=== PATIENT | female | born 1995 | race Caucasian/White ===

== ENCOUNTER → 2019-03-16 17:30 | Outpatient (CLI) | payer OTHER, SELFPAY ==
[2019-03-16 18:14] LABS: Basophils % 0.2 % (0.1-2.0); Eosinophils # 0.2 K/mm3 (0.0-0.4); Hematocrit 41.3 % (37.0-47.0); Hemoglobin 13.7 g/dL (12.2-16.2); Lymphocytes # 1.8 K/mm3 (0.7-4.5); Lymphocytes % 26.4 % (10-50); Mean Corpuscular HGB Conc 33.3 g/dL (31.8-35.4); Mean Corpuscular Volume 90.4 fl (81-99); Mean Platelet Volume 8.1 fl (7.4-10.4); Monocytes # 0.3 K/mm3 (0.1-1.0); Monocytes % 4.6 % (1.7-9.3); Neutrophils # 4.6 K/mm3 (1.8-7.8); Neutrophils % 65.8 % (37.0-80.0); Platelet Count 238 K/mm3 (142-424); Red Blood Count 4.57 M/mm3 (4.20-5.40); Red Cell Distribution Width 12.1 % (11.5-17.5); White Blood Count 6.9 K/mm3 (4.8-10.8)
[2019-03-16 19:19] LABS: Alanine Aminotransferase 22 U/L (12-78); Albumin/Globulin Ratio 1.3 (1.1-1.8); Alkaline Phosphatase 58 U/L (46-116); Anion Gap 14.1 mEq/L (5-15); Aspartate Amino Transferase 8 U/L (15-37); Bilirubin,Total 0.7 mg/dL (0.2-1.0); Blood Urea Nitrogen 14 mg/dL (7-18); Calcium 8.8 mg/dL (8.5-10.1); Carbon Dioxide 27 mmol/L (21.0-32.0); Chloride 103 mmol/L (98-107); Chol/HDL Ratio 3.2 (1-3.5); Cholesterol 136 mg/dL (140-200); Creatinine,Serum 0.76 mg/dL (0.55-1.02); Estimated Glomerular Filt Rate 93 ml/min (>60); GFR (African American) 113 ML/MIN (>60); Glucose 90 mg/dL (74-106); HDL Cholesterol 42 mg/dL (29-89); LDL Cholesterol 76 mg/dL (0-130); Potassium 4.1 mmoL/L (3.5-5.1); Sodium 140 mmol/L (136-145); T4 (Thyroxine) 6.5 ug/dl (4.7-13.3); Thyroid Stimulating Hormone 0.96 uIU/ml (0.358-3.740); Triglycerides 89 mg/dL (30-200); VLDL Cholesterol 18 mg/dL (0-40)
[2019-03-19 08:56] LABS: Vitamin D 25 Hydroxy 23.2 ng/mL (30.0-100.0)
== END ==
PROVIDERS: Visit Provider Emergency Medicine
DX: F41.9 Anxiety disorder, unspecified (principal)
CPT/HCPCS: 80053; 80061; 82652; 84436; 84443; 85025

== ENCOUNTER 2020-05-01 13:03 | Emergency (ER) | payer OTHER, SELFPAY ==
[2020-05-01 13:12] VITALS: BP 114/72; PULSE 84; RESP 19; TEMP 37.2; O2SAT 97; BMI 23.1
[2020-05-01 13:27] LABS: UTC Strep Screen (Rapid) Negative (Negative)
--- NOTE | 2020-05-01 13:31 | HMH.EDUTC ---
[facility] [place] Clinical Impression: Pharyngitis Qualifiers: Pharyngitis/tonsillitis etiology: unspecified etiology Qualified Code(s): J02.9 - Acute pharyngitis, unspecified Disposition: Home, Self-Care Condition on Discharge: Good Instructions: DI for Pharyngitis/Tonsillopharyngitis -- Adult, Sore Throat, Azithromycin, Prednisone Additional Instructions: *Monitor Temp, Over the counter Motrin or Tylenol as directed/as needed Tylenol every 4 hours and Motrin every 6 hours (as long as your family doctor has told you that you can take it) for fever or pain. and straight to ER if unable to lower temp less than 101.0 after medication given *Warm salt water gargles may help to soothe the throat *Throat Lozenges *Warm fluids like tea with honey may help to soothe the throat *Sleep elevated *Humidifier/Vaporizer *Flonase 2 sprays in each nostril daily but be aware that it may take 2-3 days before you notice improvement Your throat swab was sent for culture. Those results are typically sent to your primary care. Be sure to follow up in 2-3 days with your family doctor/primary care physician if no improvement so they can review those result and treat if necessary. If you don?t have a primary care doctor, I recommend you get one but in the mean time, you will have to return to a walk in clinic Follow up IMMEDIATELY for new or worsening symptoms or no Noticeable improvement over the next 48-72 hours. 911 for difficulty breathing or swallowing Prescriptions: predniSONE [Deltasone 10mg tablet] 10 mg PO BID 5 Days #10 tab Transmission Status: Pending to [facility] Fluticasone Propionate [Flonase 50mcg nasal spray 16gm] 1 spr NS DAILY #1 bottle Transmission Status: Pending to [facility] Azithromycin [Z-Enmanuel 250mg Tab] 250 mg PO DIRECTED #6 tab Transmission Status: Pending to [facility] Referrals: Gary Barraza MD [Primary Care Provider] - As needed Time of Disposition: 13:41 Medical Decision Making - Beny Inquiry Pt receiving controlled substance: No Beny was queried for this patient: No Vital Signs: 05/01/20 13:12 Temperature 98.9 F Temperature Source Oral Pulse Rate [Left] 84 Respiratory Rate 19 Blood Pressure [Right Arm] 114/72 Blood Pressure Mean [Right Arm] 86 Blood Pressure Source [Right Arm] Automatic Cuff Blood Pressure Position [Right Arm] Sitting 02 Sat by Pulse Oximetry 97 Oxygen Delivery Method Room Air - Lab Data Lab results reviewed: Yes: I reviewed the patient's lab results. Lab Results 05/01/20 13:07: Strep Scn Rapid Clinic Negative Orders (Tests/Meds): ORDERS Category Date Time Status Strep Screen Confirmation Stat Micro 05/01/20 13:07 Received [facility] [place] HPI - General Stated complaint: sore throat Time Seen by Provider: 05/01/20 13:31 Mode of Arrival: Ambulatory Source of Information: Patient Limitations: No Limitations Description of Symptoms (Recalled from Triage Doc. by RN): Pt c/o of sore throat, low grade fever, ear pain and headache HEENT Symptoms (Recalled from RN notes): Yes (sore throat, ear pain) Resp Symptoms (Recalled from RN notes): No Skin Symptoms (Recalled from RN notes): No MS Symptoms (Recalled from RN notes): No Functional Status (Recalled from RN notes): stable - History of Present Illness Provider Complaint: Patient states that she has been having sore throat mainly on left side, pain in her ear and feels like her throat is so sore and raw that it bleed yesterday States that throat pain is worse with swallowing States that she hasnt been around anyone with COVID19 and was recently tested at work State that she has also had headache and low grade fever - Related Data Home Medications Medication Instructions Recorded Confirmed norgestimate-ethinyl estradioL 1 tab PO DAILY 08/31/19 01/08/20 [Sprintec 28 Day Tablet] Previous Rx's Medication Instructions Recorded Azithromycin [Z-Enmanuel 250mg Tab
[2020-05-01 13:52] VITALS: BP 114/72; PULSE 84; RESP 19; TEMP 37.2; O2SAT 97
== END 2020-05-01 13:49 | disposition home or self-care (01) ==
PROVIDERS: Emergency Provider Nurse Practitioner; PCP Emergency Medicine
DX: J02.9 Acute pharyngitis, unspecified (principal); F41.9 Anxiety disorder, unspecified; G43.709 Chronic migraine without aura, not intractable, without status migrainosus; F17.210 Nicotine dependence, cigarettes, uncomplicated
CPT/HCPCS: 87880; 96372; 99201

== ENCOUNTER → 2020-07-04 16:37 | Outpatient (CLI) | payer OTHER, SELFPAY ==
[2020-07-04 17:34] LABS: Basophils % 0.2 % (0.1-2.0); Eosinophils % 0.5 % (0.1-12.0); Hematocrit 40.7 % (37.0-47.0); Hemoglobin 13.3 g/dL (12.2-16.2); Lymphocytes # 1.9 K/mm3 (0.7-4.5); Lymphocytes % 21.2 % (10-50); Mean Corpuscular HGB Conc 32.5 g/dL (31.8-35.4); Mean Corpuscular Hemoglobin 30.8 pg (27.0-31.2); Mean Corpuscular Volume 94.7 fl (81-99); Mean Platelet Volume 7.3 fl (7.4-10.4); Monocytes # 0.6 K/mm3 (0.1-1.0); Monocytes % 6.8 % (1.7-9.3); Neutrophils # 6.3 K/mm3 (1.8-7.8); Neutrophils % 71.3 % (37.0-80.0); Platelet Count 240 K/mm3 (142-424); Red Cell Distribution Width 11.8 % (11.5-17.5); White Blood Count 8.9 K/mm3 (4.8-10.8)
[2020-07-06 13:30] LABS: HIV Screen 4th Generation wRfx Non Reactive (Non Reactive); Rubella Antibodies, IgG 2.22 index (Immune >0.99)
[2020-07-07 09:33] LABS: Hepatitis B Surface Antigen Negative (Negative); Hepatitis C Antibody <0.1 s/co ratio (0.0-0.9); Rapid Plasma Reagin Ab Titer Non Reactive (NonRea<1:1)
== END ==
PROVIDERS: Visit Provider Nurse Practitioner Obstetrics & Gynecology
DX: Z34.90 Encounter for supervision of normal pregnancy, unspecified, unspecified trimester (principal)
CPT/HCPCS: 36415; 85025; 86592; 86703; 86762; 86850; 87340; 87380; G0432

== ENCOUNTER → 2020-07-08 12:38 | Outpatient (CLI) | payer OTHER, SELFPAY ==
--- NOTE | 2020-07-08 12:38 | US_ITS ---
PROCEDURE: US OB TRANSVAGINAL CLINICAL INDICATION: for dates Early Ob ultrasound for dates COMPARISON: No exams were available for comparison FINDINGS: An intrauterine gestational sac is present with a pole with a crown-rump length of 2.07 cm correlating to gestational age of 8 weeks 5 days. heart tones are present with an FHR of 170 BPM. Yolk sac is noted. IMPRESSION: Live IUP at 8 weeks 5 days with an estimated due date of 02/12/2021 Estimated due date by Ultrasound is Dictated by: Chintan Goddard MD 07/11/2020 06:22 Chintan Goddard MD in [place] 07/11/2020 06:22
== END ==
PROVIDERS: PCP Emergency Medicine; Visit Provider Nurse Practitioner Obstetrics & Gynecology
DX: Z34.90 Encounter for supervision of normal pregnancy, unspecified, unspecified trimester (principal)
CPT/HCPCS: 76817

== ENCOUNTER → 2020-09-13 17:13 | Outpatient (CLI) | payer OTHER, SELFPAY ==
[2020-09-13 17:27] LABS: Microscopic, Urine URINE MICROSCOPIC (MICROSCOPIC)
[2020-09-13 18:00] LABS: Appearance,Urine CLEAR (Clear); Bilirubin,Urine Negative (Negative); Blood, Urine TRACE-I (Negative); Color,Urine YELLOW (Yellow); Glucose,Urine (UA) Negative (Negative); Ketones,Urine Negative (Negative); Leukocyte Esterase,Urine 3+ (Negative); Nitrate,Urine Negative (Negative); PH,Urine 6.5 (5.0-8.5); Protein,Urine Negative (Negative); Urobilinogen,Urine 0.2 EU/dl (0.2)
== END ==
PROVIDERS: Visit Provider Nurse Practitioner Obstetrics & Gynecology
DX: Z34.90 Encounter for supervision of normal pregnancy, unspecified, unspecified trimester (principal); Z3A.18 18 weeks gestation of pregnancy
CPT/HCPCS: 81001; 87086; 87088; 87186

== ENCOUNTER → 2020-09-26 09:04 | Outpatient (CLI) | payer OTHER, SELFPAY ==
--- NOTE | 2020-09-26 09:04 | US_ITS ---
PROCEDURE: US OB >= 14 WEEKS FETUS CLINICAL INDICATION: 20 week gestation COMPARISON: US US OB TRANSVAGINAL from 07/08/2020 FINDINGS: There is a single live fetus present which is in cephalic presentation. heart and body motion noted. The cervix is closed measuring four cm in length. Placenta is anterior in implantation. Placenta is grade 1. Complete survey performed and was unremarkable on the submitted images as in PACS. No discrete anomalies identified on survey imaging by technologist. Active fetus. Three-vessel cord with satisfactory umbilical cord insertion. 4- chamber heart noted. Survey of brain & ventricles Unremarkable. Face and neck survey unremarkable. Diaphragm and chest views unremarkable. Abdomen: Both kidneys noted and unremarkable. Stomach noted and satisfactory. Spine: Survey of the spine satisfactory with no anomalies identified nor imaged. Both arms and legs noted. Amniotic Fluid: Adequate. Maternal adnexa: No significant findings. Measurements: Average ultrasound age 20weeks 1day. Gestational Age 20weeks 1day Estimated due date by ultrasound age 0502/12/2021. Estimated weight 331g BPD = 20weeks 1day OFD = 20 weeks 3 days HC = 19weeks 4days AC = 20weeks 2days FL = 20weeks 1day Growth Percentile= 41% Heart Rate = 150bpm Cerebellum = 19weeks 4days Humerus = 20weeks 4days HC/AC is 1.13 CI is 0.78 FL/BPD is 0.69 FL/AC is 0.22 IMPRESSION: Live IUP which is in cephalic presentation with an average ultrasound age 20 weeks and 1 day. No obvious anomalies. Please see above for detail. Dictated by: Chintan Goddard MD 09/28/2020 10:03 Chintan Goddard MD in [place] 09/28/2020 10:03
== END ==
PROVIDERS: PCP Emergency Medicine; Visit Provider Nurse Practitioner Obstetrics & Gynecology
DX: Z34.90 Encounter for supervision of normal pregnancy, unspecified, unspecified trimester (principal); Z3A.20 20 weeks gestation of pregnancy
CPT/HCPCS: 76805

== ENCOUNTER 2020-10-06 11:59 | Outpatient (CLI) | payer OTHER, SELFPAY ==
[2020-10-06 12:10] VITALS: BMI 26.4
[2020-10-06 12:15] VITALS: BP 118/65; PULSE 90; RESP 20; TEMP 37.1; O2SAT 100; BMI 26.4
[2020-10-06 12:15] LABS: Microscopic, Urine URINE MICROSCOPIC (MICROSCOPIC)
[2020-10-06 12:17] LABS: Appearance,Urine SL CLOUDY (Clear); Bilirubin,Urine Negative (Negative); Blood, Urine Negative (Negative); Color,Urine YELLOW (Yellow); Glucose,Urine (UA) Negative (Negative); Ketones,Urine Negative (Negative); Leukocyte Esterase,Urine 1+ (Negative); Nitrate,Urine Negative (Negative); PH,Urine 7.5 (5.0-8.5); Protein,Urine Negative (Negative); Urobilinogen,Urine 0.2 EU/dl (0.2)
[2020-10-06 12:28] LABS: Bacteria,Urine 1+ /lpf; RBC,Urine Occasional #/hpf (0-3)
[2020-10-06 12:32] LABS: Opiate Screen,Urine Negative ng/ml (<300)
[2020-10-06 12:33] LABS: Phencyclidine Screen,Urine Negative ng/ml (<25)
[2020-10-06 12:40] LABS: Amphetamine/Metha Screen,Urine Negative ng/ml (<1000); Barbiturates Screen,Urine Negative ng/ml (<200)
[2020-10-06 12:41] LABS: Cannabinoid Screen,Urine Negative ng/ml (<50)
[2020-10-06 12:42] LABS: Cocaine Screen,Urine Negative ng/ml (<300)
[2020-10-06 12:46] LABS: Benzodiazepines Screen,Urine Negative ng/ml (<200)
[2020-10-06 12:48] LABS: Methadone Screen,Urine Negative ng/ml (<300)
== END 2020-10-06 14:06 | disposition home or self-care (01) ==
LOC: OBOUT 12:01 → OB 12:01
PROVIDERS: PCP Emergency Medicine; Visit Provider Obstetrics & Gynecology
DX: O47.02 False labor before 37 completed weeks of gestation, second trimester (principal); Z3A.21 21 weeks gestation of pregnancy
CPT/HCPCS: 59025; 80305; 81001; 87086; 96365; 96372; G0463

== ENCOUNTER → 2020-11-15 09:39 | Outpatient (CLI) | payer OTHER, SELFPAY ==
[2020-11-15 10:08] LABS: Glucose,Fasting 92 mg/dl (74-100)
[2020-11-15 11:50] LABS: Glucose 1 Hour 130 mg/dL (74-100)
== END ==
PROVIDERS: Visit Provider Nurse Practitioner Obstetrics & Gynecology
DX: Z34.90 Encounter for supervision of normal pregnancy, unspecified, unspecified trimester (principal)
CPT/HCPCS: 36415; 82951

== ENCOUNTER 2020-12-13 15:38 | Outpatient (CLI) | payer OTHER, SELFPAY ==
[2020-12-13 16:01] VITALS: BMI 28.6
[2020-12-13 16:33] VITALS: BP 107/67; PULSE 104; RESP 20; TEMP 36.9; O2SAT 96; BMI 28.6
[2020-12-13 16:45] LABS: Chloride 105 mmol/L (98-107)
[2020-12-13 16:46] LABS: Potassium 3.4 mmoL/L (3.5-5.1); Sodium 135 mmol/L (136-145)
[2020-12-13 16:48] LABS: Blood Urea Nitrogen 8 mg/dl (7-17); Creatinine Clearance Estimated 262 mL/min (50-200); Estimated Glomerular Filt Rate 193 ml/min (>60); GFR (African American) 233 ML/MIN (>60)
[2020-12-13 16:49] LABS: Anion Gap 9.4 mEq/L (5-15); Calcium 9.4 mg/dl (8.4-10.2); Carbon Dioxide 24 mmol/L (22.0-30.0); Glucose 126 mg/dl (74-100)
[2020-12-13 16:54] LABS: Basophils % 0.2 % (0.1-2.0); Eosinophils % 0.3 % (0.1-12.0); Hematocrit 33.9 % (37.0-47.0); Hemoglobin 11.4 g/dL (12.2-16.2); Lymphocytes # 2.3 K/mm3 (0.7-4.5); Lymphocytes % 16.9 % (10-50); Mean Corpuscular HGB Conc 33.7 g/dL (31.8-35.4); Mean Corpuscular Hemoglobin 31.6 pg (27.0-31.2); Mean Corpuscular Volume 93.7 fl (81-99); Mean Platelet Volume 7.4 fl (7.4-10.4); Monocytes # 0.7 K/mm3 (0.1-1.0); Monocytes % 5.3 % (1.7-9.3); Neutrophils # 10.5 K/mm3 (1.8-7.8); Neutrophils % 77.2 % (37.0-80.0); Platelet Count 320 K/mm3 (142-424); Red Blood Count 3.62 M/mm3 (4.20-5.40); Red Cell Distribution Width 13.5 % (11.5-17.5); White Blood Count 13.6 K/mm3 (4.8-10.8)
[2020-12-13 17:05] LABS: Fetal Membrane Rupture (Rapid) Negative (Negative)
[2020-12-13 17:24] LABS: Microscopic, Urine URINE MICROSCOPIC (MICROSCOPIC)
[2020-12-13 17:26] LABS: Appearance,Urine CLEAR (Clear); Bilirubin,Urine Negative (Negative); Blood, Urine Negative (Negative); Color,Urine YELLOW (Yellow); Glucose,Urine (UA) Negative (Negative); Ketones,Urine Negative (Negative); Leukocyte Esterase,Urine Negative (Negative); Nitrate,Urine Negative (Negative); Protein,Urine Negative (Negative); Urobilinogen,Urine 0.2 EU/dl (0.2)
[2020-12-13 17:39] LABS: Benzodiazepines Screen,Urine Negative ng/ml (<200)
[2020-12-13 17:40] LABS: Amphetamine/Metha Screen,Urine Negative ng/ml (<1000)
[2020-12-13 17:41] LABS: Barbiturates Screen,Urine Negative ng/ml (<200); Cannabinoid Screen,Urine Negative ng/ml (<50)
[2020-12-13 17:42] LABS: Cocaine Screen,Urine Negative ng/ml (<300); Methadone Screen,Urine Negative ng/ml (<300)
[2020-12-13 17:43] LABS: Opiate Screen,Urine Negative ng/ml (<300)
[2020-12-13 17:44] LABS: Phencyclidine Screen,Urine Negative ng/ml (<25)
[2020-12-13 17:55] LABS: Bacteria,Urine Trace /lpf; WBC,Urine Occasional #/hpf (0-3)
== END 2020-12-13 18:32 | disposition home or self-care (01) ==
LOC: OBOUT 15:40 → OB 15:42
PROVIDERS: PCP Nurse Practitioner Obstetrics & Gynecology; Visit Provider Nurse Practitioner Obstetrics & Gynecology
DX: O26.893 Other specified pregnancy related conditions, third trimester (principal); Z3A.31 31 weeks gestation of pregnancy; R53.1 Weakness; R19.7 Diarrhea, unspecified; R11.2 Nausea with vomiting, unspecified
CPT/HCPCS: 59025; 80048; 80305; 81001; 84112; 85025; 96365; 96366; G0463

== ENCOUNTER → 2020-12-19 13:44 | Outpatient (CLI) | payer OTHER, SELFPAY ==
--- NOTE | 2020-12-19 13:44 | US_ITS ---
PROCEDURE: US OB BIOPHYSICAL PROFILE CLINICAL INDICATION: Oligohydramnios, Check Fluid TECHNIQUE: FINDINGS: There is a single live fetus which is in cephalic presentation. Cervix is closed and elongated 6 cm. heart tones are present within FHR 146 beats per minute. Biometric measurements not obtained. Amniotic fluid index: 9.26cm Qualitative AFV: 2 breathing movements: 2 Gross body movements: 2 Tone: 2 Biophysical profile score: 8 the placenta is anterior and grade 2 IMPRESSION: Live IUP in cephalic presentation. Biophysical profile is 8 of 8. Amniotic fluid index is 9 cm. Placenta is anterior and grade 2 Dictated by: Chintan Goddard MD 12/19/2020 15:57 Chintan Goddard MD in [place] 12/19/2020 15:57
== END ==
PROVIDERS: PCP Nurse Practitioner Obstetrics & Gynecology; Visit Provider Nurse Practitioner Obstetrics & Gynecology
DX: O41.03X1 Oligohydramnios, third trimester, fetus 1 (principal)
CPT/HCPCS: 76819

== ENCOUNTER 2020-12-20 17:47 | Outpatient (CLI) | payer OTHER, SELFPAY ==
[2020-12-20 18:06] VITALS: BMI 29.6
[2020-12-20 18:15] VITALS: BP 121/75; PULSE 101; RESP 20; TEMP 37.2; O2SAT 98; BMI 29.6
[2020-12-20 18:29] LABS: Microscopic, Urine URINE MICROSCOPIC (MICROSCOPIC)
[2020-12-20 18:32] LABS: Appearance,Urine SL CLOUDY (Clear); Bilirubin,Urine Negative (Negative); Blood, Urine Negative (Negative); Color,Urine STRAW (Yellow); Glucose,Urine (UA) Negative (Negative); Ketones,Urine Negative (Negative); Leukocyte Esterase,Urine 2+ (Negative); Nitrate,Urine Negative (Negative); Protein,Urine Negative (Negative); Urobilinogen,Urine 0.2 EU/dl (0.2)
[2020-12-20 18:43] LABS: Amphetamine/Metha Screen,Urine Negative ng/ml (<1000); Barbiturates Screen,Urine Negative ng/ml (<200)
[2020-12-20 18:44] LABS: Benzodiazepines Screen,Urine Negative ng/ml (<200)
[2020-12-20 18:45] LABS: Methadone Screen,Urine Negative ng/ml (<300); Opiate Screen,Urine Negative ng/ml (<300)
[2020-12-20 18:46] LABS: Bacteria,Urine 3+ /lpf; Cocaine Screen,Urine Negative ng/ml (<300)
[2020-12-20 18:47] LABS: Cannabinoid Screen,Urine Negative ng/ml (<50); Phencyclidine Screen,Urine Negative ng/ml (<25)
== END 2020-12-20 20:10 | disposition home or self-care (01) ==
LOC: OBOUT 17:49 → OB 17:51
PROVIDERS: PCP Nurse Practitioner Obstetrics & Gynecology; Visit Provider Nurse Practitioner Obstetrics & Gynecology
DX: O47.03 False labor before 37 completed weeks of gestation, third trimester (principal); Z3A.32 32 weeks gestation of pregnancy
CPT/HCPCS: 59025; 80305; 81001; 87086; 96365; 96372; G0463

== ENCOUNTER 2020-12-21 16:48 | Outpatient (CLI) | payer OTHER, SELFPAY ==
[2020-12-21 17:55] VITALS: BP 114/71; PULSE 104; RESP 16; TEMP 36.8; O2SAT 95; BMI 36.2
== END 2020-12-21 17:32 | disposition home or self-care (01) ==
LOC: OBOUT 16:50 → OB 16:51
PROVIDERS: PCP Nurse Practitioner Obstetrics & Gynecology; Visit Provider Nurse Practitioner Obstetrics & Gynecology
DX: O47.03 False labor before 37 completed weeks of gestation, third trimester (principal); Z3A.32 32 weeks gestation of pregnancy
CPT/HCPCS: 96372; G0463

== ENCOUNTER 2020-12-24 09:09 | Emergency (ER) | payer OTHER, SELFPAY ==
[2020-12-24 09:10] VITALS: BP 127/81; PULSE 103; RESP 18; TEMP 36.9; O2SAT 99; BMI 29.4
[2020-12-24 09:28] LABS: UTC Strep Screen (Rapid) Positive (Negative)
--- NOTE | 2020-12-24 09:30 | HMH.EDUTC ---
[facility] – [place] Dis[place] Clinical Impression: Strep throat Disposition: Home, Self-Care Condition on Discharge: Good Instructions: DI for Strep Throat, Strep Throat, Amoxicillin Additional Instructions: *Monitor Temp, Over the counter Motrin or Tylenol as directed/as needed Tylenol every 4 hours and Motrin every 6 hours (as long as your family doctor has told you that you can take it) for fever or pain. and straight to ER if unable to lower temp less than 101.0 after medication given *Warm salt water gargles may help to soothe the throat *Throat Lozenges *Warm fluids like tea with honey may help to soothe the throat *Sleep elevated *Humidifier/Vaporizer *If you did not take Penicillin shot or was unable to, start taking antibiotic immediately and make sure that you take it for the FULL length of time although you should start to feel better in 24-48 hours *change toothbrush and toothpaste 24-48 hours after starting to take antibiotics so you do not reinfect yourself Monitor Temp. Tylenol and/or Ibuprofen as needed. ER if fever is no less than 101 despite alternating Tylenol and Ibuprofen * Encourage fluids, water, Gatorade, powerade, pedialyte if /toddler/or child *Cold fluids, popsicles and ice cream may feel good on his throat Follow up IMMEDIATELY for new or worsening symptoms or no Noticeable improvement over the next 48-72 hours. 911 for difficulty breathing or swallowing Prescriptions: Amoxicillin [Amoxicillin 500mg Cap] 500 mg PO BID 10 Days #20 cap Transmission Status: Pending to [id number] Referrals: PCP,No [Primary Care Provider] - As needed Forms: Work/School Release Time of Disposition: 09:40 Medical Decision Making - Beny Inquiry Pt receiving controlled substance: No Beny was queried for this patient: No Vital Signs: 12/24/20 09:10 Temperature 98.5 F Temperature Source Oral Pulse Rate [Right Brachial] 103 H Respiratory Rate 18 Blood Pressure [Right Arm] 127/81 Blood Pressure Mean [Right Arm] 96 Blood Pressure Source [Right Arm] Automatic Cuff Blood Pressure Position [Right Arm] Sitting 02 Sat by Pulse Oximetry 99 Oxygen Delivery Method Room Air - Lab Data Lab results reviewed: Yes: I reviewed the patient's lab results. Lab Results 12/24/20 09:21: Strep Scn Rapid Clinic Positive A Medical Decision Narrative: Patient denies known allergies medication discussed with pharmacy to make sure that it was baby safe [facility] [place] HPI - General Stated complaint: sore throat, cough Time Seen by Provider: 12/24/20 09:31 Mode of Arrival: Ambulatory Source of Information: Patient Limitations: No Limitations Description of Symptoms (Recalled from Triage Doc. by RN): PATIENT C/O SORE THROAT, CONGESTION, AND STOPPED UP EARS SINCE SATURDAY HEENT Symptoms (Recalled from RN notes): Yes Resp Symptoms (Recalled from RN notes): No Skin Symptoms (Recalled from RN notes): No MS Symptoms (Recalled from RN notes): No Functional Status (Recalled from RN notes): WNL - History of Present Illness Provider Complaint: Patient state that she is 32wks OB and has been having sore throat, ears feeling stopped up and nasal congestion State that her child at home is having similar symtpoms and she thinks she has strep throat - Related Data Home Medications Medication Instructions Recorded Confirmed PNV 153-FA 400 mcg-om3 35 mg-dha tab PO 07/04/20 12/12/20 25 mg-epa 5 mg-fish oil chew tablet Previous Rx's Medication Instructions Recorded fluoxetine 10 mg capsule 10 mg PO DAILY #30 cap 06/17/20 promethazine 12.5 mg tablet 12.5 mg PO Q4-6H PRN #30 tab 07/04/20 ferrous sulfate 325 mg (65 mg 325 mg PO DAILY #30 tab 11/14/20 iron) tablet terconazole 0.8 % vaginal cream 1 appful VAGINAL HS 3 Days #20 g 11/14/20 Amoxicillin [Amoxicillin 500mg 500 mg PO BID 10 Days #20 cap 12/24/20 Cap] Allergies Allergy/AdvReac Type Severity Reaction Status Date / Time No Known Allergies All
[2020-12-24 09:38] VITALS: BP 127/81; PULSE 103; RESP 18; TEMP 36.9; O2SAT 99
== END 2020-12-24 09:40 | disposition home or self-care (01) ==
PROVIDERS: Emergency Provider Nurse Practitioner
DX: J02.0 Streptococcal pharyngitis (principal); Z3A.32 32 weeks gestation of pregnancy; F41.9 Anxiety disorder, unspecified; F17.210 Nicotine dependence, cigarettes, uncomplicated
CPT/HCPCS: 87880; 99202; G0463

== ENCOUNTER → 2021-01-10 09:54 | Outpatient (CLI) | payer OTHER, SELFPAY | PROVIDERS: Visit Provider Nurse Practitioner Obstetrics & Gynecology | DX: Z34.90 Encounter for supervision of normal pregnancy, unspecified, unspecified trimester (principal) | CPT/HCPCS: 86403 ==

== ENCOUNTER 2021-01-14 16:41 | Outpatient (CLI) | payer OTHER, SELFPAY ==
[2021-01-14 16:56] VITALS: BP 123/73; PULSE 102; RESP 18; TEMP 36.8; O2SAT 95; BMI 29.3
[2021-01-14 17:01] LABS: Microscopic, Urine URINE MICROSCOPIC (MICROSCOPIC)
[2021-01-14 17:03] LABS: Appearance,Urine CLOUDY (Clear); Bilirubin,Urine Negative (Negative); Blood, Urine Negative (Negative); Color,Urine YELLOW (Yellow); Glucose,Urine (UA) Negative (Negative); Ketones,Urine Negative (Negative); Leukocyte Esterase,Urine 1+ (Negative); Nitrate,Urine Negative (Negative); PH,Urine 7.5 (5.0-8.5); Protein,Urine TRACE (Negative); Specific Gravity, Urine 1.015 (1.005-1.030)
[2021-01-14 17:09] LABS: Amorphous Sediment,Urine 1+ /lpf; Bacteria,Urine 2+ /lpf
[2021-01-14 17:15] LABS: Barbiturates Screen,Urine Negative ng/ml (<200); Benzodiazepines Screen,Urine Negative ng/ml (<200)
[2021-01-14 17:16] LABS: Amphetamine/Metha Screen,Urine Negative ng/ml (<1000)
[2021-01-14 17:17] LABS: Cannabinoid Screen,Urine Negative ng/ml (<50); Cocaine Screen,Urine Negative ng/ml (<300)
[2021-01-14 17:18] LABS: Methadone Screen,Urine Negative ng/ml (<300); Opiate Screen,Urine Negative ng/ml (<300)
[2021-01-14 17:19] LABS: Phencyclidine Screen,Urine Negative ng/ml (<25)
== END 2021-01-14 19:12 | disposition home or self-care (01) ==
LOC: OBOUT 16:42 → OB 16:43
PROVIDERS: PCP Emergency Medicine; Visit Provider Nurse Practitioner Obstetrics & Gynecology
DX: O47.03 False labor before 37 completed weeks of gestation, third trimester (principal); Z3A.35 35 weeks gestation of pregnancy
CPT/HCPCS: 59025; 80305; 81001; 87086; 96365; 96367; 96372; G0463; J2405

== ENCOUNTER 2021-01-30 11:53 | Emergency (ER) | payer OTHER, SELFPAY ==
[2021-01-30 12:24] VITALS: BP 115/71; PULSE 94; RESP 19; TEMP 36.8; O2SAT 98; BMI 28.7
--- NOTE | 2021-01-30 12:47 | HMH.EDUTC ---
[facility] [place] Clinical Impression: Sinusitis Qualifiers: Sinusitis location: unspecified location Chronicity: unspecified Qualified Code(s): J32.9 - Chronic sinusitis, unspecified Disposition: Home, Self-Care Condition on Discharge: Good Instructions: Azithromycin, DI for Sinusitis, Sinusitis Additional Instructions: *Monitor Temp, Over the counter Motrin or Tylenol as directed/as needed Tylenol every 4 hours and Motrin every 6 hours (as long as your family doctor has told you that you can take it) for fever or pain. and straight to ER if unable to lower temp less than 101.0 after medication given *Warm salt water gargles may help to soothe the throat *Throat Lozenges *Warm fluids like tea with honey may help to soothe the throat *Sleep elevated *Humidifier/Vaporizer Take medication as prescribed Return if needed Follow up IMMEDIATELY for new or worsening symptoms or no Noticeable improvement over the next 48-72 hours. 911 for difficulty breathing or swallowing Prescriptions: Azithromycin [Z-Enmanuel 250mg Tab] 250 mg PO DIRECTED #6 tab Transmission Status: Pending to [id number] Referrals: Gary Barraza MD [Primary Care Provider] - As needed Time of Disposition: 12:56 Medical Decision Making - Beny Inquiry Pt receiving controlled substance: No Beny was queried for this patient: No Vital Signs: 01/30/21 12:24 Temperature 98.3 F Temperature Source Oral Pulse Rate [Right Brachial] 94 H Respiratory Rate 19 Blood Pressure [Right Arm] 115/71 Blood Pressure Mean [Right Arm] 85 Blood Pressure Source [Right Arm] Automatic Cuff Blood Pressure Position [Right Arm] Sitting 02 Sat by Pulse Oximetry 98 Oxygen Delivery Method Room Air Medical Decision Narrative: Due to medication was discussed with pharmacy [facility] [place] HPI - General Stated complaint: possible sinus infcetion Time Seen by Provider: 01/30/21 12:47 Mode of Arrival: Ambulatory Source of Information: Patient Limitations: No Limitations Description of Symptoms (Recalled from Triage Doc. by RN): CONGESTION & DIARRHEA X2 days HEENT Symptoms (Recalled from RN notes): No Resp Symptoms (Recalled from RN notes): Yes Skin Symptoms (Recalled from RN notes): No MS Symptoms (Recalled from RN notes): No Functional Status (Recalled from RN notes): wnl - History of Present Illness Provider Complaint: Patient states that she is and she is due next week State that she has been having sinus pain and pressure for a couple of weeks that has continued to get worse States that over the last two days she is having thick yellowish colored mucous and thinks she may have an infection - Related Data Home Medications Medication Instructions Recorded Confirmed PNV 153-FA 400 mcg-om3 35 mg-dha tab PO 07/04/20 01/24/21 25 mg-epa 5 mg-fish oil chew tablet Previous Rx's Medication Instructions Recorded fluoxetine 10 mg capsule 10 mg PO DAILY #30 cap 06/17/20 promethazine 12.5 mg tablet 12.5 mg PO Q4-6H PRN #30 tab 07/04/20 ferrous sulfate 325 mg (65 mg 325 mg PO DAILY #30 tab 11/14/20 iron) tablet terconazole 0.8 % vaginal cream 1 appful VAGINAL HS 3 Days #20 g 11/14/20 Azithromycin [Z-Enmanuel 250mg Tab] 250 mg PO DIRECTED #6 tab 01/30/21 Allergies Allergy/AdvReac Type Severity Reaction Status Date / Time No Known Allergies Allergy Verified 01/24/21 10:38 - Worker's Comp Is this a Worker's Comp case?: No [facility] History - Hepatitis A Screen Drug use history?: No High risk sexual behaviors?: No History of sexually transmitted infection?: No Currently employed?: No Childcare worker?: No Do you have indoor plumbing?: Yes Do you have electricity?: Yes Attestation statement:: This patient has been screened for Hepatitis A risk factors. I have reviewed the patient's past medical history: Yes 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: Reports:: Anxiety, Migraine Denies:: Cancer, Diabetes Mellitus Type 1, Diabetes Mellitus Typ
[2021-01-30 13:06] VITALS: BP 115/71; PULSE 94; RESP 19; TEMP 36.8; O2SAT 98
== END 2021-01-30 13:07 | disposition home or self-care (01) ==
PROVIDERS: Emergency Provider Nurse Practitioner; PCP Emergency Medicine
DX: J32.9 Chronic sinusitis, unspecified (principal); G43.909 Migraine, unspecified, not intractable, without status migrainosus; F17.210 Nicotine dependence, cigarettes, uncomplicated; F41.9 Anxiety disorder, unspecified
CPT/HCPCS: 99202; G0463

== ENCOUNTER 2021-02-04 21:21 | Inpatient (IN) | payer OTHER, SELFPAY ==
[2021-02-04 20:21] VITALS: BMI 29.9
[2021-02-04 20:22] VITALS: PULSE 135; RESP 14
[2021-02-04 20:40] VITALS: BP 133/86; PULSE 94; RESP 18; TEMP 36.8; O2SAT 99; BMI 31.4
[2021-02-04 20:45] LABS: Microscopic, Urine URINE MICROSCOPIC (MICROSCOPIC)
[2021-02-04 20:47] LABS: Appearance,Urine CLEAR (Clear); Bilirubin,Urine Negative (Negative); Blood, Urine Negative (Negative); Color,Urine YELLOW (Yellow); Glucose,Urine (UA) Negative (Negative); Ketones,Urine TRACE (Negative); Leukocyte Esterase,Urine 3+ (Negative); Nitrate,Urine Negative (Negative); PH,Urine 6.5 (5.0-8.5); Protein,Urine Negative (Negative); Specific Gravity, Urine <= 1.005 (1.005-1.030); Urobilinogen,Urine 0.2 EU/dl (0.2)
[2021-02-04 20:56] LABS: WBC,Urine 50-100 #/hpf (0-3)
[2021-02-04 20:57] LABS: Bacteria,Urine 1+ /lpf; Squamous Epithelial Cell,Urine 50-100 #/hpf (0-5)
[2021-02-04 20:59] LABS: Barbiturates Screen,Urine Negative ng/ml (<200)
[2021-02-04 21:00] LABS: Amphetamine/Metha Screen,Urine Negative ng/ml (<1000); Benzodiazepines Screen,Urine Negative ng/ml (<200)
[2021-02-04 21:01] LABS: Cannabinoid Screen,Urine Negative ng/ml (<50); Methadone Screen,Urine Negative ng/ml (<300)
[2021-02-04 21:02] LABS: Cocaine Screen,Urine Negative ng/ml (<300)
[2021-02-04 21:03] LABS: Opiate Screen,Urine Negative ng/ml (<300); Phencyclidine Screen,Urine Negative ng/ml (<25)
[2021-02-04 22:01] LABS: Basophils # 0.1 K/mm3 (0-0.2); Basophils % 0.4 % (0.1-2.0); Eosinophils % 0.3 % (0.1-12.0); Hematocrit 35.8 % (37.0-47.0); Hemoglobin 12.5 g/dL (12.2-16.2); Lymphocytes # 3.9 K/mm3 (0.7-4.5); Lymphocytes % 22.9 % (10-50); Mean Corpuscular Hemoglobin 30.7 pg (27.0-31.2); Mean Corpuscular Volume 87.8 fl (81-99); Mean Platelet Volume 8.1 fl (7.4-10.4); Monocytes # 0.8 K/mm3 (0.1-1.0); Monocytes % 4.4 % (1.7-9.3); Neutrophils # 12.2 K/mm3 (1.8-7.8); Neutrophils % 72.1 % (37.0-80.0); Platelet Count 374 K/mm3 (142-424); Red Blood Count 4.07 M/mm3 (4.20-5.40); Red Cell Distribution Width 14.1 % (11.5-17.5)
[2021-02-04 22:02] LABS: MANUAL DIFFERENTIAL MANUAL DIFFERENTIAL (MANUAL DIFF)
[2021-02-04 22:57] LABS: Lymphocytes % 25 % (10-50); Monocytes % 4 % (2-9); Neutrophils % 71 % (42-76); Total Cells Counted 100
[2021-02-04 22:58] LABS: Platelet Estimate Normal; RBC Morphology Normal
--- NOTE | 2021-02-05 00:08 | HMH.HP ---
*Admission Date: 02/03/21 *Chief complaint: Labor at 38-4/7 weeks *History of present illness: This 25-year-old 2, para 1, Ab0 is admitted in active labor at 3 cm of dilatation at 38-4/7 weeks of gestation. She had care with Dr. Dent--uneventful. Her previous delivery was also uneventful (normal vaginal). At the time of admission she is having regular contractions every 4 to 5 minutes. These have increased and her cervix is now 5 cm dilated and she has had spontaneous rupture of membranes. She is in the process of receiving an epidural. Plan is for vaginal delivery. [facility] History 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: Reports:: Anxiety, Migraine Denies:: Cancer, Diabetes Mellitus Type 1, Diabetes Mellitus Type 2, Hypertension, Internal Pacemaker, MRSA *Have you ever received a pneumonia vaccine?: No *Have you received a flu vaccine this season?: No Laterality Cases: Bilateral: Other Other Surgeries: Yes: No Previous Surgery. No: , Pacemaker Amputation: No Fractures: No - *Social History Smoking Status: Current every day smoker Tobacco Type: cigarettes # Packs/Day (cigarettes): 1 #Yrs smoked (if former smoker): 7 Alcohol Intake: never Alcohol Intake Frequency:: a few times a month Substance Use Type: denies use *Occupational Status:: unemployed Housing: house Household Members: family *Travel in the last 8 weeks: None - Psychiatric History Pschychiatric History:: Reports:: Anxiety Family Hx:: No significant family history [employer] history: no No [employer] history, no Non-contributory, no Spontaneous , no Therapeutic , no Cervical Cancer, no Abnormal Uterine Bleeding, no Ovarian Cancer, no dysfunctional uterine bleed, no Endometriosis, no Ectopic , no Polycystic Ovary Syndrome, no Uterine Fibroids, no Tubal Ligation, no , no Failure to Progress, no Additional [employer] History : 2 Para: 1 A: 0 Review of Systems - Review of Systems Review of systems:: unable to obtain, other, pertinent systems reviewed and negative unless documented below (NL ROS) Meds Home Medications Medication Instructions Recorded Confirmed Type Fluoxetine HCl 10 mg PO HS 02/04/21 02/04/21 History Allergies Allergy/AdvReac Type Severity Reaction Status Date / Time No Known Allergies Allergy Verified 01/31/21 09:26 Exam Vital signs and Labs for Last 24 Hours: Temp Pulse Resp BP Pulse Ox 98.3 F 94 H 18 133/86 99 02/04/21 20:40 02/04/21 20:40 02/04/21 20:40 02/04/21 20:40 02/04/21 20:40 Laboratory Results - last 24 hr 02/04/21 20:30: Urine Color Yellow, Urine Appearance Clear, Urine pH 6.5, Ur Specific [place] <= 1.005, Urine Protein Negative, Urine Glucose (UA) Negative, Urine Ketones Trace, Urine Blood Negative, Urine Nitrate Negative, Urine Bilirubin Negative, Urine Urobilinogen 0.2, Ur Leukocyte Esterase 3+ A, Urine RBC None, Urine WBC 50-100, Ur Squamous Epith Cells 50-100, Urine Bacteria 1+ 02/04/21 20:30: Urine Opiates Screen Negative, Urine Methadone Screen Negative, Ur Barbituates Screen Negative, Ur Phencyclidine Scrn Negative, Ur Amphetamines Screen Negative, U Benzodiazepines Scrn Negative, Urine Cocaine Screen Negative, U Marijuana (THC) Screen Negative 02/04/21 21:45: WBC 17.0 H, RBC 4.07 L, Hgb 12.5, Hct 35.8 L, MCV 87.8, MCH 30.7, MCHC 35.0, RDW 14.1, Plt Count 374, MPV 8.1, Neut % (Auto) 72.1, Lymph % (Auto) 22.9, [place] % (Auto) 4.4, Eos % (Auto) 0.3, Baso % (Auto) 0.4, Neut # (Auto) 12.2 H, Lymph # (Auto) 3.9, [place] # (Auto) 0.8, Eos # (Auto) 0.0, Baso # (Auto) 0.1, Total Counted 100, Neutrophils % (Manual) 71, Lymphocytes % (Manual) 25, Monocytes % (Manual) 4, Platelet Estimate Normal, RBC Morphology Normal 02/04/21 21:45: Blood Type O Positive, Antibody Screen Negative I & O for Last 24 hours: Intake & Output 02/02/21 02/03/21 02/04/21 02/05/21 11:59 11:59 11:59 11:59 Weight 189 lb - *Routine HEENT Exam Head: Present: normocephalic Eye: Present: EOMI
--- NOTE | 2021-02-05 00:28 | P.PN_ITS ---
Internal Medicine - PN: Subj *Date: 02/05/21 *Time: 00:28 (Epidural is now in situ and working well. Cervix is completely effaced, 6 cm, 0 station. Vertex. Internal monitor has been placed.) Exam Vital signs and Labs for Last 24 Hours: Temp Pulse Resp BP Pulse Ox 98.3 F 94 H 18 133/86 99 02/04/21 20:40 02/04/21 20:40 02/04/21 20:40 02/04/21 20:40 02/04/21 20:40 Laboratory Results - last 24 hr 02/04/21 20:30: Urine Color Yellow, Urine Appearance Clear, Urine pH 6.5, Ur Specific [place] <= 1.005, Urine Protein Negative, Urine Glucose (UA) Negative, Urine Ketones Trace, Urine Blood Negative, Urine Nitrate Negative, Urine Bilirubin Negative, Urine Urobilinogen 0.2, Ur Leukocyte Esterase 3+ A, Urine RBC None, Urine WBC 50-100, Ur Squamous Epith Cells 50-100, Urine Bacteria 1+ 02/04/21 20:30: Urine Opiates Screen Negative, Urine Methadone Screen Negative, Ur Barbituates Screen Negative, Ur Phencyclidine Scrn Negative, Ur Amphetamines Screen Negative, U Benzodiazepines Scrn Negative, Urine Cocaine Screen Negative, U Marijuana (THC) Screen Negative 02/04/21 21:45: WBC 17.0 H, RBC 4.07 L, Hgb 12.5, Hct 35.8 L, MCV 87.8, MCH 30.7, MCHC 35.0, RDW 14.1, Plt Count 374, MPV 8.1, Neut % (Auto) 72.1, Lymph % (Auto) 22.9, [place] % (Auto) 4.4, Eos % (Auto) 0.3, Baso % (Auto) 0.4, Neut # (Auto) 12.2 H, Lymph # (Auto) 3.9, [place] # (Auto) 0.8, Eos # (Auto) 0.0, Baso # (Auto) 0.1, Total Counted 100, Neutrophils % (Manual) 71, Lymphocytes % (Manual) 25, Monocytes % (Manual) 4, Platelet Estimate Normal, RBC Morphology Normal 02/04/21 21:45: Blood Type O Positive, Antibody Screen Negative I & O for Last 24 hours: Intake & Output 02/02/21 02/03/21 02/04/21 02/05/21 11:59 11:59 11:59 11:59 Weight 189 lb
--- NOTE | 2021-02-05 00:29 | HMH.ANESCL ---
[facility] Anesthesia Checklist - Patient Identification Patient Identification: Arm Band - Structural Data Admitted From: Inpatient Planned Operative Procedure/s: labor epidural Consent for Planned Operative Procedure(s) Verified: Yes Verified Documents: Surgical Consent, History and Physical - NPO Status Verified Time NPO: 00:00 - Additional verifications Anesthesia Reactions: No - Airway Assessment C-Spine Mobility Assessed: Yes TMJ Mobility Assessed: Yes Dentition: Good Dentition - Neurological Assessment Level of Consciousness: Awake, Alert - Anesthesia Plan Anesthesia Risk discussed: Yes Anesthesia Plan: Verified ASA Class: II Anesthesia Type: Epidural [facility] History I have reviewed the patient's past medical history: Yes 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: Reports:: Anxiety, Migraine Denies:: Cancer, Diabetes Mellitus Type 1, Diabetes Mellitus Type 2, Hypertension, Internal Pacemaker, MRSA *Have you ever received a pneumonia vaccine?: No *Have you received a flu vaccine this season?: No Anesthesia experience/problems:: nac Laterality Cases: Bilateral: Other Other Surgeries: Yes: No Previous Surgery. No: , Pacemaker Amputation: No Fractures: No - *Social History Smoking Status: Current every day smoker Tobacco Type: cigarettes # Packs/Day (cigarettes): 1 #Yrs smoked (if former smoker): 7 Alcohol Intake: never Alcohol Intake Frequency:: a few times a month Substance Use Type: denies use *Occupational Status:: unemployed Housing: house Household Members: family *Travel in the last 8 weeks: None - Psychiatric History Pschychiatric History:: Reports:: Anxiety Family Hx:: No significant family history [employer] history: no No [employer] history, no Non-contributory, no Spontaneous , no Therapeutic , no Cervical Cancer, no Abnormal Uterine Bleeding, no Ovarian Cancer, no dysfunctional uterine bleed, no Endometriosis, no Ectopic , no Polycystic Ovary Syndrome, no Uterine Fibroids, no Tubal Ligation, no , no Failure to Progress, no Additional [employer] History Para: 1 A: 0
--- NOTE | 2021-02-05 01:29 | HMH.ACPN2 ---
Internal Medicine - PN: Subj *Date: 02/05/21 *Time: 01:29 (Dural, the patient was augmented with intravenous Pitocin. Her cervix is now completely effaced, 9 cm, with the presenting vertex at +1 station.) Exam Vital signs and Labs for Last 24 Hours: Temp Pulse Resp BP Pulse Ox 98.3 F 94 H 18 133/86 99 02/04/21 20:40 02/04/21 20:40 02/04/21 20:40 02/04/21 20:40 02/04/21 20:40 Laboratory Results - last 24 hr 02/04/21 20:30: Urine Color Yellow, Urine Appearance Clear, Urine pH 6.5, Ur Specific [place] <= 1.005, Urine Protein Negative, Urine Glucose (UA) Negative, Urine Ketones Trace, Urine Blood Negative, Urine Nitrate Negative, Urine Bilirubin Negative, Urine Urobilinogen 0.2, Ur Leukocyte Esterase 3+ A, Urine RBC None, Urine WBC 50-100, Ur Squamous Epith Cells 50-100, Urine Bacteria 1+ 02/04/21 20:30: Urine Opiates Screen Negative, Urine Methadone Screen Negative, Ur Barbituates Screen Negative, Ur Phencyclidine Scrn Negative, Ur Amphetamines Screen Negative, U Benzodiazepines Scrn Negative, Urine Cocaine Screen Negative, U Marijuana (THC) Screen Negative 02/04/21 21:45: WBC 17.0 H, RBC 4.07 L, Hgb 12.5, Hct 35.8 L, MCV 87.8, MCH 30.7, MCHC 35.0, RDW 14.1, Plt Count 374, MPV 8.1, Neut % (Auto) 72.1, Lymph % (Auto) 22.9, [place] % (Auto) 4.4, Eos % (Auto) 0.3, Baso % (Auto) 0.4, Neut # (Auto) 12.2 H, Lymph # (Auto) 3.9, [place] # (Auto) 0.8, Eos # (Auto) 0.0, Baso # (Auto) 0.1, Total Counted 100, Neutrophils % (Manual) 71, Lymphocytes % (Manual) 25, Monocytes % (Manual) 4, Platelet Estimate Normal, RBC Morphology Normal 02/04/21 21:45: Blood Type O Positive, Antibody Screen Negative I & O for Last 24 hours: Intake & Output 02/02/21 02/03/21 02/04/21 02/05/21 11:59 11:59 11:59 11:59 Weight 189 lb
--- NOTE | 2021-02-05 01:56 | HMH.DN ---
- Delivery Note Delivery Date:: 02/05/21 Delivery Time:: 01:46 Anesthesia Type: Epidural Was labor medically induced?: No Gestational age (weeks): 38 Infant delivered prior to 39 weeks?: Yes Justification for early elective delivery:: Active Labor Gender: Female at 1 minute: 7 at 5 minutes: 9 AF:: clear Delivery Procedure:: This 25-year-old 2, now para 2, Ab0 white female was admitted in active labor at 38-4/7 weeks, with regular contractions. At the time of admission she was 3 cm dilated, and progressed to 5 cm, at which time she experienced spontaneous rupture of membranes, and after which she received an epidural, which functioned well. Her contractions then became irregular and she was augmented with intravenous Pitocin. She went steadily to completion and delivered spontaneously, without an episiotomy. There was a nuchal cord x1, which was easily reduced. There was no meconium. The baby's nasal and oropharynx were bulb suctioned, and the baby cried spontaneously on the perineum, as was delivered. The cord was clamped and cut, 3 vessels were noted to be within the cord, and cord blood was obtained. The cord pH is pending. The baby was handed into the arms of the attending RN, who assigned Apgars of 7 at 1 minute and 9 at 5 minutes to this female (weight in length pending). The placenta did not deliver spontaneously, as the cervix clamped down, requiring manual removal of the placenta. The uterus was then inspected and found to be clean, and was involuting well, with IV Pitocin running. There were no lacerations. The rectovaginal septum was intact at the close of the procedure. The patient tolerated the procedure well, and was recovered in excellent condition. Her blood type is Rh+. Her rubella titer is immune. She plans to breast-feed. Placental Delivery Description: Manual Removal (cervix clamped down)
[2021-02-05 02:06] LABS: Cord Blood PH 7.37 (7.35-7.45)
--- NOTE | 2021-02-05 09:57 | P.PN_ITS ---
Internal Medicine - PN: Subj *Date: 02/05/21 *Time: 09:57 (This is day of delivery, approximately 8 hours . The patient is afebrile. Vital signs stable. Lochia normal. Uterine fundus involuting well. Hemoglobin 12.5 g. Breast-feeding well. Impression: Stable. Zackery will assume care at 1900 today.) Exam Vital signs and Labs for Last 24 Hours: Temp Pulse Resp BP Pulse Ox 98.3 F 94 H 18 133/86 99 02/04/21 20:40 02/04/21 20:40 02/04/21 20:40 02/04/21 20:40 02/04/21 20:40 Laboratory Results - last 24 hr 02/04/21 20:30: Urine Color Yellow, Urine Appearance Clear, Urine pH 6.5, Ur Specific [place] <= 1.005, Urine Protein Negative, Urine Glucose (UA) Negative, Urine Ketones Trace, Urine Blood Negative, Urine Nitrate Negative, Urine Bilirubin Negative, Urine Urobilinogen 0.2, Ur Leukocyte Esterase 3+ A, Urine RBC None, Urine WBC 50-100, Ur Squamous Epith Cells 50-100, Urine Bacteria 1+ 02/04/21 20:30: Urine Opiates Screen Negative, Urine Methadone Screen Negative, Ur Barbituates Screen Negative, Ur Phencyclidine Scrn Negative, Ur Amphetamines Screen Negative, U Benzodiazepines Scrn Negative, Urine Cocaine Screen Negative, U Marijuana (THC) Screen Negative 02/04/21 21:45: WBC 17.0 H, RBC 4.07 L, Hgb 12.5, Hct 35.8 L, MCV 87.8, MCH 30.7, MCHC 35.0, RDW 14.1, Plt Count 374, MPV 8.1, Neut % (Auto) 72.1, Lymph % (Auto) 22.9, [place] % (Auto) 4.4, Eos % (Auto) 0.3, Baso % (Auto) 0.4, Neut # (Auto) 12.2 H, Lymph # (Auto) 3.9, [place] # (Auto) 0.8, Eos # (Auto) 0.0, Baso # (Auto) 0.1, Total Counted 100, Neutrophils % (Manual) 71, Lymphocytes % (Manual) 25, Monocytes % (Manual) 4, Platelet Estimate Normal, RBC Morphology Normal 02/04/21 21:45: Blood Type O Positive, Antibody Screen Negative 02/05/21 01:50: Cord ABG pH 7.37 I & O for Last 24 hours: Intake & Output 02/02/21 02/03/21 02/04/21 02/05/21 11:59 11:59 11:59 11:59 Weight 189 lb Microbiology Reports for the Last 24 Hours: Microbiology 02/04/21 22:00 Nasopharyngeal Coronavirus COVID-19 PCR - Final
--- NOTE | 2021-02-05 11:13 | HMH.PHAINT ---
MEDICATION RECONCILIATION COMPLETED ON PATIENT USING EXTERNAL FILL HISTORY FROM PHARMACY. -ALTAF HENRY, KATARZYNAD
--- NOTE | 2021-02-05 17:00 | PC.NURSE ---
Nipple shield provided per pt's request r/t her nipples starting to get sore during nursing. Pt also given Lanolin Cream. Assisted pt with and getting baby to latch with some Sweet Ease and syringe.
--- NOTE | 2021-02-05 17:31 | PC.NURSE ---
Sitz Bath, Tucks Pads and Dermaplast [place] provided for hemorrhoid relief. Verbalizes usage of.
[2021-02-05 20:00] VITALS: BP 116/64; PULSE 80; RESP 17; TEMP 36.6
[2021-02-06 04:00] VITALS: BP 119/58; PULSE 68; RESP 16; TEMP 36.7; O2SAT 98
[2021-02-06 06:44] LABS: Hematocrit 34.6 % (37.0-47.0); Hemoglobin 11.4 g/dL (12.2-16.2)
[2021-02-06 08:02] VITALS: TEMP 36.7
--- NOTE | 2021-02-06 10:09 | HMH.ACPN2 ---
Internal Medicine - PN: Subj *Date: 02/06/21 *Time: 10:10 Interval history: She is doing very well this morning. She is eating and drinking and ambulating. She is breast-feeding. Her lochia is normal. Exam Vital signs and Labs for Last 24 Hours: Temp Pulse Resp BP Pulse Ox 98.0 F 68 16 119/58 L 98 02/06/21 08:02 02/06/21 04:00 02/06/21 04:00 02/06/21 04:00 02/06/21 04:00 Laboratory Results - last 24 hr 02/06/21 06:18: Hgb 11.4 L, Hct 34.6 L I & O for Last 24 hours: Intake & Output 02/03/21 02/04/21 02/05/21 02/06/21 11:59 11:59 11:59 11:59 Weight 189 lb Microbiology Reports for the Last 24 Hours: Microbiology 02/04/21 20:30 Urine,Clean Catch Urine Culture - Preliminary NO GROWTH AFTER 24 HOURS - Constitutional no acute distress - *Routine HEENT Exam Head: Present: normocephalic Eye: Present: EOMI, PERRL ENT: Present: mucous membranes moist Assessment and Plan (1) Normal delivery Status: Acute Category: Medical Code(s): O80 - Encounter for full-term uncomplicated delivery - Assessment and plan all Dx Assessment and Plan for all problems:: She continues to do well. We will plan to send her home tomorrow.
[2021-02-06 20:07] VITALS: BP 126/77; PULSE 79; RESP 17; TEMP 36.6; O2SAT 99
[2021-02-07 04:00] VITALS: BP 129/70; PULSE 60; RESP 16; TEMP 36.7; O2SAT 100
--- NOTE | 2021-02-07 08:37 | P.DS_ITS ---
General - General Admission date:: 02/04/21 Discharge date: 02/07/21 HPI - History of Present Illness History of present illness: She is a 25-year-old 2 para 1 who arrived in active labor. Hospital Course Hospital Course: She arrived in active labor and progressed to full dilation. She delivered spontaneously a liveborn female child at 1:46 AM on the morning of February 05, 2021. The baby was a liveborn female child weighing 7 pounds 6 ounces. She had Apgars of 7 at 1 minute and 9 at 5 minutes. She has done well and has remained afebrile throughout her hospital ization. She is eating and drinking and ambulating. She is breast-feeding. Her lochia is normal. She has O+ blood, she is rubella immune and was group B streptococcus negative. 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 She is discharged home to follow-up with me in approximately 2 weeks time. She will continue with her vitamins and iron. She was given the usual instructions with respect to limiting her activity, driving and sexual activity. Her condition on discharge is stable and improved. Rhogam Administration: Not Indicated Objective Vital signs: Temp Pulse Resp BP Pulse Ox 98.0 F 60 16 129/70 100 02/07/21 04:00 02/07/21 04:00 02/07/21 04:00 02/07/21 04:00 02/07/21 04:00 no acute distress - *Routine HEENT Exam Head: Present: normocephalic Eye: Present: EOMI, PERRL ENT: Present: mucous membranes moist - *Routine Neck Exam Present: supple DS: Diagnosis - Discharge Diagnosis (1) Normal delivery Status: Acute Discharge Plan - Patient Discharge Instructions ACTIVITY: No heavy lifting DIET: continue same diet Additional Instructions: NOTHING IN VAGINA FOR 6 WEEKS NO HEAVY LIFTING OR STRENUOUS ACTIVITY FOLLOW-UP WITH DR. KHAN ON Patient Instructions: Depression, Hemorrhage, DI for Labor and Delivery, Vaginal , DI for Pre-eclampsia, [facility] Post Discharge Instructions, Preventing the Spread of Coronavirus Discharge Instructions - Follow up Plan Disposition: Home, Self-Intermediate Medications: Home Medications Medication Instructions Recorded Confirmed Type Fluoxetine HCl [Prozac 10mg 10 mg PO HS 02/05/21 02/05/21 History Capsule] Prescriptions/Medication Reconciliation: Continued Fluoxetine HCl [Prozac 10mg Capsule] 10 mg PO HS - Problem Reconciliation Problems Reviewed?: Yes
== END 2021-02-07 09:30 | disposition home or self-care (01) | DRG 807 ==
LOC: OBOUT 21:21 → OB 21:22
PROVIDERS: Admitting Provider Obstetrics & Gynecology; PCP Emergency Medicine; Visit Provider Nurse Practitioner Obstetrics & Gynecology
DX: O69.81X0 Labor and delivery complicated by cord around neck, without compression, not applicable or unspecified (principal); Z37.0 Single live birth; Z3A.38 38 weeks gestation of pregnancy; O99.334 Smoking (tobacco) complicating childbirth; F17.210 Nicotine dependence, cigarettes, uncomplicated; O99.344 Other mental disorders complicating childbirth; F41.9 Anxiety disorder, unspecified
CPT/HCPCS: 59409; 59025; 80305; 81001; 82800; 85007; 85014; 85018; 85025; 86850; 87086; 94761; C1758; G0283; U0003

== ENCOUNTER 2021-05-30 17:47 | Emergency (ER) | payer OTHER, SELFPAY ==
[2021-05-30 19:04] VITALS: BP 129/74; PULSE 72; RESP 18; O2SAT 97; BMI 25.0
--- NOTE | 2021-05-30 19:19 | HMH.EDUTC ---
[facility] – [place] Disposition Clinical Impression: Exposure to COVID-19 virus, Strep throat exposure Disposition: Home, Self-Care Condition on Discharge: Good Instructions: Preventing the Spread of Coronavirus Discharge Instructions Additional Instructions: Drink plenty of fluids. Take tylenol for pain or fever. Return if you begin to have difficulty breathing. Follow up with your regular doctor. GO TO THE ER FOR ANY WORSENING SYMPTOMS Quarantine until you know the results of your covid-19 test. If it is positive, the health department should call you and give you further instructions about your length of Quarantine and other things. Notify your school or workplace of your results and follow their instructions regarding return to work/school. Since your son has strep throat I went ahead and sent in a prescription for azithromycin. Don't start this unless you begin to have strep throat symptoms. Prescriptions: Azithromycin [Z-Enmanuel 250mg Tab*] 250 mg PO UD DOSE PK #6 tab Transmission Status: Received by [id number] Referrals: Gary Barraza MD [Primary Care Provider] - Time of Disposition: 19:41 Medical Decision Making - Medical Records Medical records reviewed: No: I reviewed the patient's medical records. - Beny Inquiry Pt receiving controlled substance: No Vital Signs: 05/30/21 19:04 05/30/21 19:31 Temperature 98 F Pulse Rate 72 Pulse Rate [Left] 72 Respiratory Rate 18 16 Blood Pressure 129/74 Blood Pressure [Right Arm] 129/74 Blood Pressure Mean [Right Arm] 92 02 Sat by Pulse Oximetry 97 Orders (Tests/Meds): ORDERS Category Date Time Status Covid-19 Nasal PCR ([facility]) Routine Lab 05/30/21 19:03 Received [facility] – [place] HPI - General Stated complaint: Covid test.JOSEPH, Diarrhea Time Seen by Provider: 05/30/21 19:19 Mode of Arrival: Ambulatory Source of Information: Patient Limitations: No Limitations Description of Symptoms (Recalled from Triage Doc. by RN): pt wants a covid test. pt is asymptomatic. HEENT Symptoms (Recalled from RN notes): No Resp Symptoms (Recalled from RN notes): No Skin Symptoms (Recalled from RN notes): No MS Symptoms (Recalled from RN notes): No Functional Status (Recalled from RN notes): na - History of Present Illness Provider Complaint: She has children that go to day care and have been sick. She is afraid she may have been exposed to rsv or covid. She denies any symptoms. - Related Data Previous Rx's Medication Instructions Recorded Azithromycin [Z-Enmanuel 250mg Tab*] 250 mg PO UD DOSE PK #6 tab 05/30/21 Allergies Allergy/AdvReac Type Severity Reaction Status Date / Time No Known Allergies Allergy Verified 05/29/21 11:17 - Worker's Comp Is this a Worker's Comp case?: No H History - Hepatitis A Screen Drug use history?: No High risk sexual behaviors?: No History of sexually transmitted infection?: No Currently employed?: No Childcare worker?: No Do you have indoor plumbing?: Yes Do you have electricity?: Yes Attestation statement:: This patient has been screened for Hepatitis A risk factors. 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: Reports:: Anxiety, Migraine Denies:: Cancer, Diabetes Mellitus Type 1, Diabetes Mellitus Type 2, Hypertension, Internal Pacemaker, MRSA Laterality Cases: Bilateral: Other Other Surgeries: Yes: No Previous Surgery. No: , Pacemaker Amputation: No Fractures: No - Social History Smoking Status: Current every day smoker Tobacco Type: cigarettes # Packs/Day (cigarettes): 1 #Yrs smoked (if former smoker): 7 Alcohol Intake: never Alcohol Intake Frequency:: a few times a month Substance Use Type: denies use Occupational Status: unemployed Housing: house Household Members: family - Psychiatric History Pschychiatric History:: Reports:: Anxiety Family Hx:: No significant family history CURRICULUM AND ASSESSMENT COORDINATOR history: no No CURRICULUM AND ASSESSMENT COORDINATOR history, no Non-contributory, no Spontaneous , no Therapeutic , no Cervical
[2021-05-30 19:31] VITALS: BP 129/74; PULSE 72; RESP 16; TEMP 36.6
== END 2021-05-30 19:44 | disposition home or self-care (01) ==
PROVIDERS: Emergency Provider Nurse Practitioner Family; PCP Emergency Medicine
DX: B34.9 Viral infection, unspecified (principal)
CPT/HCPCS: 99202; G0463; U0003

== ENCOUNTER → 2021-06-22 09:38 | Outpatient (CLI) | payer OTHER, SELFPAY | PROVIDERS: Visit Provider Nurse Practitioner | DX: Z20.822 Contact with and (suspected) exposure to COVID-19 (principal) | CPT/HCPCS: C9803; U0003; U0005 ==

== ENCOUNTER 2021-07-03 16:26 | Emergency (ER) | payer OTHER, SELFPAY ==
[2021-07-03 17:00] VITALS: BP 99/62; PULSE 80; RESP 20; TEMP 36.9; O2SAT 99; BMI 25.0
[2021-07-03 17:28] LABS: UTC Strep Screen (Rapid) Positive (Negative)
--- NOTE | 2021-07-03 17:29 | HMH.EDUTC ---
[facility] – [place] Disposition Clinical Impression: Strep pharyngitis Disposition: Home, Self-Care Condition on Discharge: Good Instructions: Strep Throat, DI for Strep Throat, Amoxicillin, DI for COVID-19 (Suspected or Confirmed ), Preventing the Spread of Coronavirus Discharge Instructions Additional Instructions: *Monitor Temp, Over the counter Motrin or Tylenol as directed/as needed Tylenol every 4 hours and Motrin every 6 hours (as long as your family doctor has told you that you can take it) for fever or pain. and straight to ER if unable to lower temp less than 101.0 after medication given *Warm salt water gargles may help to soothe the throat *Throat Lozenges *Warm fluids like tea with honey may help to soothe the throat *Sleep elevated *Humidifier/Vaporizer *Flonase 2 sprays in each nostril daily but be aware that it may take 2-3 days before you notice improvement Follow up IMMEDIATELY for new or worsening symptoms or no Noticeable improvement over the next 48-72 hours. 911 for difficulty breathing or swallowing You were tested for today for COVID19 your test result should be back in the next 24-48 hours, you was given handout on how to log into the [facility] Portal to check your results if you have trouble you may call the [facility] You was given a handout with instructions for Self Quarantine and Self isolation for while you wait on test results and what to do if they are positive If you are positive the Health Dept will be contacting you also Make sure to take your Vitamins Vit. C Vit D and Zinc if you can take them Prescriptions: Amoxicillin [Amoxicillin 500mg Cap] 500 mg PO TID #30 cap Transmission Status: Pending to [id number] Fluticasone Propionate [Flonase Allergy Relief NS] 1 spray NS DAILY #1 each Transmission Status: Pending to [id number] Referrals: Gary Barraza MD [Primary Care Provider] - As needed Forms: Work/School Release Time of Disposition: 17:49 Medical Decision Making - Beny Inquiry Pt receiving controlled substance: No Beny was queried for this patient: No Vital Signs: 07/03/21 17:00 Temperature 98.4 F Temperature Source Oral Pulse Rate [Right Brachial] 80 Respiratory Rate 20 Blood Pressure [Right Arm] 99/62 L Blood Pressure Mean [Right Arm] 74 Blood Pressure Source [Right Arm] Automatic Cuff Blood Pressure Position [Right Arm] Sitting 02 Sat by Pulse Oximetry 99 Oxygen Delivery Method Room Air - Lab Data Lab results reviewed: Yes: I reviewed the patient's lab results. Lab Results 07/03/21 17:19: Strep Scn Rapid Clinic Positive A Orders (Tests/Meds): ORDERS Category Date Time Status Covid-19 Nasal PCR ([facility]) Routine Lab 07/03/21 17:19 Received [facility] – [place] HPI - General Stated complaint: Covid&strip test,with symptoms Time Seen by Provider: 07/03/21 17:30 Mode of Arrival: Ambulatory Source of Information: Patient Limitations: No Limitations Description of Symptoms (Recalled from Triage Doc. 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
[2021-07-03 17:50] VITALS: BP 116/72; BP 99/62; PULSE 80; RESP 20; TEMP 36.9; O2SAT 99
== END 2021-07-03 18:00 | disposition home or self-care (01) ==
PROVIDERS: Emergency Provider Nurse Practitioner; PCP Emergency Medicine
DX: J02.0 Streptococcal pharyngitis (principal); Z20.822 Contact with and (suspected) exposure to COVID-19; F17.210 Nicotine dependence, cigarettes, uncomplicated
CPT/HCPCS: 87880; 99203; C9803; G0463; U0003; U0005

== ENCOUNTER 2021-07-29 19:07 | Emergency (ER) | payer OTHER, SELFPAY ==
[2021-07-29 19:21] VITALS: BP 122/62; PULSE 86; RESP 17; TEMP 36.9; O2SAT 99; BMI 25.0
[2021-07-29 19:29] LABS: UTC Influenza A Antigen Negative (Negative); UTC Strep Screen (Rapid) Negative (Negative)
[2021-07-29 19:30] LABS: UTC Influenza B Antigen Negative (Negative)
--- NOTE | 2021-07-29 19:54 | HMH.EDUTC ---
[facility] [place]ression: Viral syndrome Pharyngitis Qualifiers: Pharyngitis/tonsillitis etiology: unspecified etiology Qualified Code(s): J02.9 - Acute pharyngitis, unspecified Sinusitis Qualifiers: Sinusitis location: unspecified location Chronicity: acute Recurrence: non-recurrent Qualified Code(s): J01.90 - Acute sinusitis, unspecified Disposition: Home, Self-Care Condition on Discharge: Good Instructions: DI for Pharyngitis/Tonsillopharyngitis -- Adult, DI for Sinusitis, Preventing the Spread of Coronavirus Discharge Instructions Additional Instructions: Drink plenty of fluids. Take tylenol or ibuprofen for pain or fever. Take the medications as directed. Follow up with your regular doctor. GO TO THE ER FOR ANY WORSENING SYMPTOMS Quarantine until you know the results of your covid-19 test. If it is positive, the health department should call you and give you further instructions about your length of Quarantine and other things. Notify your school or workplace of your results and follow their instructions regarding return to work/school. Prescriptions: Brompheniramine/Pseudoephed/Dm [Bromfed Dm Cough Syrup] 5 ml PO Q6HP PRN #240 ml PRN Reason: Cough Transmission Status: Received by [id number] predniSONE [Deltasone 10mg tablet] 10 mg PO BID 3 Days #6 tab Transmission Status: Received by [id number] Azithromycin [Z-Enmanuel 250mg Tab*] 250 mg PO UD DOSE PK #6 tab Transmission Status: Received by [id number] Referrals: Gary Barraza MD [Primary Care Provider] - Time of Disposition: 20:04 Medical Decision Making - Medical Records Medical records reviewed: No: I reviewed the patient's medical records. - Beny Inquiry Pt receiving controlled substance: No Vital Signs: 07/29/21 19:21 07/29/21 20:07 Temperature 98.4 F 98.1 F Temperature Source Temporal Artery Scan Pulse Rate 85 Pulse Rate [Radial] 86 Respiratory Rate 17 19 Blood Pressure 120/60 Blood Pressure [Right Arm] 122/62 Blood Pressure Mean [Right Arm] 82 02 Sat by Pulse Oximetry 99 - Lab Data Lab results reviewed: Yes: I reviewed the patient's lab results. Lab Results 07/29/21 19:26: Influenza Type A Ag Negative, Influenza Type B Ag Negative 07/29/21 19:26: Strep Scn Rapid Clinic Negative 07/29/21 19:59: Chlamy pneumoniae PCR Not detected, Adenovirus (PCR) Not detected, B. pertussis DNA (PCR) Not detected, Coronavirus OC43 (PCR) Not detected, Coronavirus HKU1 (PCR) Not detected, Coronavirus 229E (PCR) Not detected, SARS-CoV-2 (PCR) Not detected, Coronavirus NL63 (PCR) Not detected, Human Metapneumovir PCR Not detected, Influenza A (H1) PCR Not detected, Influ A (H1N1/09) PCR Not detected, Influenza A (H3) PCR Not detected, Influenza Type A (PCR) Not detected, Influenza Type B (PCR) Not detected, M. pneumoniae (PCR) Not detected, Parainfluenza 1 (PCR) Not detected, Parainfluenza 2 (PCR) Not detected, Parainfluenza 3 (PCR) Not detected, Parainfluenza 4 (PCR) Not detected, RSV (PCR) Not detected, Entero/Rhino (PCR) Detected A Orders (Tests/Meds): ORDERS Category Date Time Status Strep Screen Confirmation Stat Micro 07/29/21 19:26 Received [facility] [place] - General Stated complaint: sore throat Time Seen by Provider: 07/29/21 19:54 Mode of Arrival: Ambulatory Source of Information: Patient Limitations: No Limitations Description of Symptoms (Recalled from Triage Doc. by RN): C/O SINUS PAIN/PRESSURE, NASAL DRAINAGE AND CONGESTION, AND SORE THROAT HEENT Symptoms (Recalled from RN notes): Yes Resp Symptoms (Recalled from RN notes): No Skin Symptoms (Recalled from RN notes): No MS Symptoms (Recalled from RN notes): No Functional Status (Recalled from RN notes): NA - History of Present Illness Provider Complaint: She c/o sore throat and sinus congestion for the past 2 days. She has had some chilling and sore throat. She denies any known sick contacts. - Related Data
[2021-07-29 20:07] VITALS: BP 120/60; PULSE 85; RESP 19; TEMP 36.7; O2SAT 100
[2021-07-29 20:14] LABS: Adenovirus,PCR Not Detected (NotDetected); Bordetella Pertussis Not Detected (NotDetected); Chlamydophila Pneumoniae, PCR Not Detected (NotDetected); Coronavirus 19, PCR Not Detected (NotDetected); Coronavirus 229E Not Detected (NotDetected); Coronavirus NL63 Not Detected (NotDetected); Coronavirus OC43 Not Detected (NotDetected); Coronovirus HKU1,PCR Not Detected (NotDetected); Human Metapneumovirus Not Detected (NotDetected); Influenza A, PCR Not Detected (NotDetected); Influenza AH1, 2009 Not Detected (NotDetected); Influenza AH1, PCR Not Detected (NotDetected); Influenza AH3,PCR Not Detected (NotDetected); Influenza B, PCR Not Detected (NotDetected); Mycoplasma Pneumoniae, PCR Not Detected (NotDetected); Parainfluenza 1, PCR Not Detected (NotDetected); Parainfluenza 2, PCR Not Detected (NotDetected); Parainfluenza 3, PCR Not Detected (NotDetected); Parainfluenza 4, PCR Not Detected (NotDetected); Respiratory Syncytial Virus Not Detected (NotDetected)
[2021-07-29 22:15] LABS: Rhinovirus/Enterovirus Detected (NotDetected)
== END 2021-07-29 20:09 | disposition home or self-care (01) ==
PROVIDERS: Emergency Provider Nurse Practitioner Family; PCP Emergency Medicine
DX: J01.90 Acute sinusitis, unspecified (principal); J02.9 Acute pharyngitis, unspecified; F41.9 Anxiety disorder, unspecified; G43.709 Chronic migraine without aura, not intractable, without status migrainosus; Z20.822 Contact with and (suspected) exposure to COVID-19
CPT/HCPCS: 87581; 87632; 87798; 87804; 87880; 99203; C9803; G0463; U0003; U0005

== ENCOUNTER 2021-09-21 15:17 | Emergency (ER) | payer OTHER, SELFPAY ==
[2021-09-21 16:45] LABS: UTC Strep Screen (Rapid) Positive (Negative)
[2021-09-21 17:04] VITALS: BP 116/82; PULSE 76; RESP 19; TEMP 36.9; O2SAT 100; BMI 24.4
--- NOTE | 2021-09-21 17:11 | HMH.EDUTC ---
[facility] [place]ression: Strep throat Disposition: Home, Self-Care Condition on Discharge: Good Instructions: DI for Strep Throat, Strep Throat Additional Instructions: *Monitor Temp, Over the counter Motrin or Tylenol as directed/as needed Tylenol every 4 hours and Motrin every 6 hours (as long as your family doctor has told you that you can take it) for fever or pain. and straight to ER if unable to lower temp less than 101.0 after medication given *Warm salt water gargles may help to soothe the throat *Throat Lozenges *Warm fluids like tea with honey may help to soothe the throat *Sleep elevated *Humidifier/Vaporizer *If you did not take Penicillin shot or was unable to, start taking antibiotic immediately and make sure that you take it for the FULL length of time although you should start to feel better in 24-48 hours *change toothbrush and toothpaste 24-48 hours after starting to take antibiotics so you do not reinfect yourself Monitor Temp. Tylenol and/or Ibuprofen as needed. ER if fever is no less than 101 despite alternating Tylenol and Ibuprofen * Encourage fluids, water, Gatorade, powerade, pedialyte if infant/toddler/or child *Cold fluids, popsicles and ice cream may feel good on his throat Follow up IMMEDIATELY for new or worsening symptoms or no Noticeable improvement over the next 48-72 hours. 911 for difficulty breathing or swallowing Prescriptions: Amoxicillin [Amoxicillin 500mg Cap] 500 mg PO BID 10 Days #20 cap Transmission Status: Pending to [id number] Referrals: Gary Barraza MD [Primary Care Provider] - As needed Medical Decision Making - Beny Inquiry Pt receiving controlled substance: No Beny was queried for this patient: No Vital Signs: 09/21/21 17:04 Temperature 98.4 F Temperature Source Oral Pulse Rate [Right Radial] 76 Respiratory Rate 19 Blood Pressure [Right Arm] 116/82 Blood Pressure Mean [Right Arm] 93 Blood Pressure Source [Right Arm] Automatic Cuff Blood Pressure Position [Right Arm] Sitting 02 Sat by Pulse Oximetry 100 Oxygen Delivery Method Room Air - Lab Data Lab results reviewed: Yes: I reviewed the patient's lab results. Lab Results 09/21/21 16:37: Strep Scn Rapid Clinic Positive [place] [facility] [place] - General Stated complaint: sore throat,cough,diarrhea,vomiting, verena Time Seen by Provider: 09/21/21 17:11 Mode of Arrival: Ambulatory Source of Information: Patient Limitations: No Limitations Description of Symptoms (Recalled from Triage Doc. by RN): Pt stated sore throat, and cough for 2 days HEENT Symptoms (Recalled from RN notes): Yes Resp Symptoms (Recalled from RN notes): No Skin Symptoms (Recalled from RN notes): No MS Symptoms (Recalled from RN notes): No Functional Status (Recalled from RN notes): n/a - History of Present Illness Provider Complaint: Patient states that she has been having sore throat, cough and headache on and off for several days States that she thinks she may have strep throat States that her son is having similar symptoms - Related Data Previous Rx's Medication Instructions Recorded Azithromycin [Z-Enmanuel 250mg Tab*] 250 mg PO UD DOSE PK #6 tab 05/30/21 Amoxicillin [Amoxicillin 500mg 500 mg PO TID #30 cap 07/03/21 Cap] Fluticasone Propionate [Flonase 1 spray NS DAILY #1 each 07/03/21 Allergy Relief NS] Azithromycin [Z-Enmanuel 250mg Tab*] 250 mg PO UD DOSE PK #6 tab 07/29/21 Brompheniramine/Pseudoephed/Dm 5 ml PO Q6HP PRN #240 ml 07/29/21 [Bromfed Dm Cough Syrup] predniSONE [Deltasone 10mg tablet] 10 mg PO BID 3 Days #6 tab 07/29/21 Amoxicillin [Amoxicillin 500mg 500 mg PO BID 10 Days #20 cap 09/21/21 Cap] Allergies Allergy/AdvReac Type Severity Reaction Status Date / Time No Known Allergies Allergy Verified 09/21/21 17:08 - Worker's Comp Is this a Worker's Comp case?: No [facility] History - Hepatitis A Screen Drug use history?: No High risk sexual behaviors?: No His
[2021-09-21 17:37] VITALS: BP 116/82; PULSE 76; RESP 19; TEMP 36.9; O2SAT 100
== END 2021-09-21 17:37 | disposition home or self-care (01) ==
PROVIDERS: Emergency Provider Nurse Practitioner; PCP Emergency Medicine
DX: J02.0 Streptococcal pharyngitis (principal); F41.9 Anxiety disorder, unspecified
CPT/HCPCS: 87880; 99202; G0463

== ENCOUNTER → 2021-10-26 15:38 | Outpatient (CLI) | payer OTHER, SELFPAY | PROVIDERS: Visit Provider Nurse Practitioner | DX: Z20.822 Contact with and (suspected) exposure to COVID-19 (principal) | CPT/HCPCS: C9803; U0003; U0005 ==

== ENCOUNTER 2021-10-28 10:21 | Emergency (ER) | payer OTHER, SELFPAY ==
[2021-10-28 11:30] VITALS: BP 104/70; PULSE 74; RESP 18; TEMP 36.9; O2SAT 100; BMI 25.7
[2021-10-28 11:33] VITALS: BP 104/70; PULSE 74; RESP 18; TEMP 36.9
--- NOTE | 2021-10-28 11:41 | HMH.EDUTC ---
[facility] [place]: Exposure to COVID-19 virus, Upper respiratory infection, viral Disposition: Home, Self-Care Condition on Discharge: Good Instructions: DI for COVID-19 (Suspected or Confirmed ), DI for Viral Upper Respiratory Infection -- Adult Additional Instructions: covid swab was sent to lab, call tomorrow for results. self isolate until test results are known to be negative No sign of a bacterial infection. Likely viral. Viruses can take 7-14 days to run their course. Nasal saline and bulb syringe or nose Renae to remove nasal drainage to help with nasal congestion. Hard to eat, drink, sleep with nasal congestion so important to keep this cleaned out. Monitor temp. Tylenol or Motrin as needed for pain or fever Encourage fluids, water, Gatorade, Powerade, Pedialyte if /toddler/child Warm salt water gargles Warm fluids Sore throat lozenges Sleep elevated Humidifier/vaporizer Follow-up immediately for new or worsening symptoms or no noticeable improvement over the next 48-72 hours. Referrals: Gary Barraza MD [Primary Care Provider] - Time of Disposition: 11:45 Medical Decision Making - Beny Inquiry Pt receiving controlled substance: No Vital Signs: 10/28/21 11:30 10/28/21 11:33 Temperature 98.4 F 98.4 F Temperature Source Oral Pulse Rate 74 Pulse Rate [Left] 74 Respiratory Rate 18 18 Blood Pressure 104/70 L Blood Pressure [Right Arm] 104/70 L Blood Pressure Mean [Right Arm] 81 02 Sat by Pulse Oximetry 100 Orders (Tests/Meds): ORDERS Category Date Time Status Full Resp Panel w/COVID ([facility]) Routine Lab 10/28/21 11:29 [place] [facility] [place] General Chief complaint: [facility] Stated complaint: covid exposed, symptoms Time Seen by Provider: 10/28/21 11:41 Mode of Arrival: Ambulatory Source of Information: Patient Limitations: No Limitations Description of Symptoms (Recalled from Triage Doc. by RN): pt c/o body aches and a cough x3 days. pt states everyone inside the home is positive for covid. HEENT Symptoms (Recalled from RN notes): No Resp Symptoms (Recalled from RN notes): Yes (cough) Skin Symptoms (Recalled from RN notes): No MS Symptoms (Recalled from RN notes): No Functional Status (Recalled from RN notes): wnl - History of Present Illness Provider Complaint: 25 yr old female presents with c/o body aches and a cough x3 days. pt states everyone inside the home is positive for covid. - Related Data Previous Rx's Medication Instructions Recorded Azithromycin [Z-Enmanuel 250mg Tab*] 250 mg PO UD DOSE PK #6 tab 05/30/21 Amoxicillin [Amoxicillin 500mg 500 mg PO TID #30 cap 07/03/21 Cap] Fluticasone Propionate [Flonase 1 spray NS DAILY #1 each 07/03/21 Allergy Relief NS] Azithromycin [Z-Enmanuel 250mg Tab*] 250 mg PO UD DOSE PK #6 tab 07/29/21 Brompheniramine/Pseudoephed/Dm 5 ml PO Q6HP PRN #240 ml 07/29/21 [Bromfed Dm Cough Syrup] predniSONE [Deltasone 10mg tablet] 10 mg PO BID 3 Days #6 tab 07/29/21 Amoxicillin [Amoxicillin 500mg 500 mg PO BID 10 Days #20 cap 09/21/21 Cap] fluoxetine 10 mg capsule 10 mg PO DAILY #30 cap 10/27/21 Allergies Allergy/AdvReac Type Severity Reaction Status Date / Time No Known Allergies Allergy Verified 09/21/21 17:08 - Worker's Comp Is this a Worker's Comp case?: No [facility] History - Hepatitis A Screen Drug use history?: No High risk sexual behaviors?: No History of sexually transmitted infection?: No Currently employed?: No Childcare worker?: No Do you have indoor plumbing?: Yes Do you have electricity?: Yes Attestation statement:: This patient has been screened for Hepatitis A risk factors. I have reviewed the patient's past medical history: Yes 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: Reports:: Anxiety, Migraine Denies:: Cancer, Diabetes Mellitus Type 1, Diabetes Mellitus Type 2, Hypertension, Internal Pacemaker, MRSA Laterality Cases: Bilateral: Other Other Surgeries: Yes: No Previous Cecelia
[2021-10-28 12:45] LABS: Adenovirus,PCR Not Detected (NotDetected); Bordetella Pertussis Not Detected (NotDetected); Chlamydophila Pneumoniae, PCR Not Detected (NotDetected); Coronavirus 19, PCR Not Detected (NotDetected); Coronavirus 229E Not Detected (NotDetected); Coronavirus NL63 Not Detected (NotDetected); Coronavirus OC43 Not Detected (NotDetected); Coronovirus HKU1,PCR Not Detected (NotDetected); Human Metapneumovirus Not Detected (NotDetected); Influenza A, PCR Not Detected (NotDetected); Influenza AH1, 2009 Not Detected (NotDetected); Influenza AH1, PCR Not Detected (NotDetected); Influenza AH3,PCR Not Detected (NotDetected); Influenza B, PCR Not Detected (NotDetected); Mycoplasma Pneumoniae, PCR Not Detected (NotDetected); Parainfluenza 1, PCR Not Detected (NotDetected); Parainfluenza 2, PCR Not Detected (NotDetected); Parainfluenza 3, PCR Not Detected (NotDetected); Parainfluenza 4, PCR Not Detected (NotDetected); Respiratory Syncytial Virus Not Detected (NotDetected); Rhinovirus/Enterovirus Not Detected (NotDetected)
== END 2021-10-28 11:59 | disposition home or self-care (01) ==
PROVIDERS: Emergency Provider Nurse Practitioner Family; PCP Emergency Medicine
DX: J06.9 Acute upper respiratory infection, unspecified (principal); F41.9 Anxiety disorder, unspecified; G43.709 Chronic migraine without aura, not intractable, without status migrainosus
CPT/HCPCS: 87581; 87632; 87798; 99202; C9803; G0463; U0003; U0005

== ENCOUNTER → 2021-10-31 10:34 | Outpatient (CLI) | payer OTHER, SELFPAY | PROVIDERS: PCP Emergency Medicine; Visit Provider Nurse Practitioner | DX: U07.1 COVID-19 (principal) | CPT/HCPCS: C9803; U0003; U0005 ==

== ENCOUNTER 2021-12-07 13:50 | Emergency (ER) | payer OTHER, SELFPAY ==
[2021-12-07 15:12] VITALS: BP 116/61; PULSE 74; RESP 14; TEMP 36.4; O2SAT 99; BMI 27.4
--- NOTE | 2021-12-07 15:20 | HMH.EDUTC ---
[facility] [place] Clinical Impression: Strep throat Disposition: Home, Self-Care Condition on Discharge: Good Instructions: Strep Throat, DI for Strep Throat Additional Instructions: Drink plenty of fluids. Take tylenol or ibuprofen for pain or fever. Take the medications as directed. Follow up with your regular doctor. GO TO THE ER FOR ANY WORSENING SYMPTOMS Throw your tooth brush away and get a new one. Prescriptions: Ondansetron [Zofran 4mg ODT] 4 mg PO Q8HP PRN #20 tab PRN Reason: Nausea Transmission Status: Received by [id number] Amoxicillin [Amoxicillin 500mg Tab] 500 mg PO TID 10 Days #30 tab Transmission Status: Received by [id number] Referrals: Gary Barraza MD [Primary Care Provider] - Forms: Work/School Release Time of Disposition: 15:54 Medical Decision Making - Medical Records Medical records reviewed: No: I reviewed the patient's medical records. - Beny Inquiry Pt receiving controlled substance: No Vital Signs: 12/07/21 15:12 12/07/21 16:14 Temperature 97.6 F 97.6 F Temperature Source Temporal Artery Scan Pulse Rate 74 Pulse Rate [Left] 74 Respiratory Rate 14 14 Blood Pressure 116/61 Blood Pressure [Right Arm] 116/61 Blood Pressure Mean [Right Arm] 79 02 Sat by Pulse Oximetry 99 - Lab Data Lab results reviewed: Yes: I reviewed the patient's lab results. Lab Results 12/07/21 15:19: Strep Scn Rapid Clinic Positive A [facility] [place] HPI - General Stated complaint: sore throat, JOSEPH, nausea Time Seen by Provider: 12/07/21 15:20 Mode of Arrival: Ambulatory Source of Information: Patient Limitations: No Limitations Description of Symptoms (Recalled from Triage Doc. by RN): pt c/o a sore throa, JOSEPH and nausea. pts son is positive for strep. HEENT Symptoms (Recalled from RN notes): Yes Resp Symptoms (Recalled from RN notes): No Skin Symptoms (Recalled from RN notes): No MS Symptoms (Recalled from RN notes): No Functional Status (Recalled from RN notes): wnl - History of Present Illness Provider Complaint: She states that she has been having a sore throat, sinus congestion, fatigue and low grade fever for the past 2 days. - Related Data Previous Rx's Medication Instructions Recorded Azithromycin [Z-Enmanuel 250mg Tab*] 250 mg PO UD DOSE PK #6 tab 05/30/21 Amoxicillin [Amoxicillin 500mg 500 mg PO TID #30 cap 07/03/21 Cap] Fluticasone Propionate [Flonase 1 spray NS DAILY #1 each 07/03/21 Allergy Relief NS] Azithromycin [Z-Enmanuel 250mg Tab*] 250 mg PO UD DOSE PK #6 tab 07/29/21 Brompheniramine/Pseudoephed/Dm 5 ml PO Q6HP PRN #240 ml 07/29/21 [Bromfed Dm Cough Syrup] predniSONE [Deltasone 10mg tablet] 10 mg PO BID 3 Days #6 tab 07/29/21 Amoxicillin [Amoxicillin 500mg 500 mg PO BID 10 Days #20 cap 09/21/21 Cap] fluoxetine 10 mg capsule 10 mg PO DAILY #30 cap 10/27/21 Amoxicillin [Amoxicillin 500mg Tab] 500 mg PO TID 10 Days #30 tab 12/07/21 Ondansetron [Zofran 4mg ODT] 4 mg PO Q8HP PRN #20 tab 12/07/21 Allergies Allergy/AdvReac Type Severity Reaction Status Date / Time No Known Allergies Allergy Verified 09/21/21 17:08 - Worker's Comp Is this a Worker's Comp case?: No [facility] History - Hepatitis A Screen Drug use history?: No High risk sexual behaviors?: No History of sexually transmitted infection?: No Currently employed?: No Childcare worker?: No Do you have indoor plumbing?: Yes Do you have electricity?: Yes Attestation statement:: This patient has been screened for Hepatitis A risk factors. I have reviewed the patient's past medical history: Yes 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: Reports:: Anxiety, Migraine Denies:: Cancer, Diabetes Mellitus Type 1, Diabetes Mellitus Type 2, Hypertension, Internal Pacemaker, MRSA Laterality Cases: Bilateral: Other Other Surgeries: Yes: No Previous Surgery. No: , Pacemaker Amputation: No Fractures: No - Social History Smoking Status: Never smoker Tobacco
[2021-12-07 15:25] LABS: UTC Strep Screen (Rapid) Positive (Negative)
[2021-12-07 16:14] VITALS: BP 116/61; PULSE 74; RESP 14; TEMP 36.4
== END 2021-12-07 16:14 | disposition home or self-care (01) ==
PROVIDERS: Emergency Provider Nurse Practitioner Family; PCP Emergency Medicine
DX: J02.0 Streptococcal pharyngitis (principal); B95.0 Streptococcus, group A, as the cause of diseases classified elsewhere; R11.0 Nausea; R53.82 Chronic fatigue, unspecified; G43.909 Migraine, unspecified, not intractable, without status migrainosus; F41.9 Anxiety disorder, unspecified; F17.210 Nicotine dependence, cigarettes, uncomplicated; Z79.52 Long term (current) use of systemic steroids; Z79.899 Other long term (current) drug therapy; Z95.0 Presence of cardiac pacemaker
CPT/HCPCS: 87880; 99213; G0463

== ENCOUNTER 2022-02-21 17:16 | Emergency (ER) | payer OTHER, SELFPAY ==
--- NOTE | 2022-02-21 17:47 | PC.NURSE ---
went to [facility] spoke with pt, she advised feeling odd at work, left work to come here and found out that the workplace had a a carbon monoxide leak. She said she just wanted to be checked out. Pt was fine waiting in [facility] especially since she was waiting on someone to come get her toddler.
[2022-02-21 19:50] VITALS: BP 121/66; PULSE 67; RESP 18; TEMP 37.1; O2SAT 100; BMI 23.3
[2022-02-21 20:17] LABS: Carboxyhemoglobin 0.6 (0.0-5.0)
--- NOTE | 2022-02-21 20:17 | XR_ITS ---
PROCEDURE INFORMATION: Exam: XR Chest Exam date and time: 02/21/2022 8:15 PM Age: 26 years old Clinical indication: Condition or disease; Lung condition and disease; Other: Carbdon monoxide exposure; Additional info: Carbon monoxide exposure TECHNIQUE: Imaging protocol: XR of the chest. Views: 2 views. COMPARISON: CR CXR CHEST(2 VIEWS-NOT PORTABLE) 03/19/2015 10:07 AM FINDINGS: Airway: Patent Lungs: Unremarkable. No consolidation. Pleural spaces: Unremarkable. No pleural effusion. No pneumothorax. Heart/Mediastinum: Unremarkable. No cardiomegaly. Bones/joints: No acute skeletal abnormality or aggressive osseous lesion. IMPRESSION: No acute findings.
[2022-02-21 20:36] LABS: Anion Gap 14.5 mEq/L (5-15); Blood Urea Nitrogen 11 mg/dl (7-17); Calcium 9.2 mg/dl (8.4-10.2); Carbon Dioxide 27 mmol/L (22.0-30.0); Chloride 101 mmol/L (98-107); Creatinine Clearance Estimated 121 mL/min (50-200); Estimated Glomerular Filt Rate 100 ml/min (>60); GFR (African American) 121 ML/MIN (>60); Glucose 109 mg/dl (74-100); Potassium 3.5 mmoL/L (3.5-5.1); Sodium 139 mmol/L (136-145)
[2022-02-21 20:40] LABS: Basophils # 0.1 K/mm3 (0-0.2); Basophils % 1.6 % (0.1-2.0); Eosinophils % 0.5 % (0.1-12.0); Hematocrit 41.8 % (37.0-47.0); Hemoglobin 14.2 g/dL (12.2-16.2); Lymphocytes # 1.3 K/mm3 (0.7-4.5); Lymphocytes % 22.5 % (10-50); Mean Corpuscular HGB Conc 33.9 g/dL (31.8-35.4); Mean Corpuscular Hemoglobin 31.1 pg (27.0-31.2); Mean Corpuscular Volume 91.7 fl (81-99); Mean Platelet Volume 7.6 fl (7.4-10.4); Monocytes # 0.4 K/mm3 (0.1-1.0); Monocytes % 6.2 % (1.7-9.3); Neutrophils # 4.1 K/mm3 (1.8-7.8); Neutrophils % 69.2 % (37.0-80.0); Platelet Count 331 K/mm3 (142-424); Red Blood Count 4.56 M/mm3 (4.20-5.40); Red Cell Distribution Width 12.6 % (11.5-17.5); White Blood Count 5.9 K/mm3 (4.8-10.8)
--- NOTE | 2022-02-21 20:47 | PC.NURSE ---
Pt resting in bed. no new needs at this time
--- NOTE | 2022-02-21 21:02 | HMH.EDDIZZ ---
ED Disposition Clinical Impression: Carbon monoxide exposure, Frequent headaches Disposition: Home, Self-Care Condition on Discharge: Good Instructions: Dizziness, Nonvertigo Additional Instructions: call pcp for follow up and neuro consult Referrals: Gary Barraza MD [Primary Care Provider] - - Critical Care Critical Care Time: No Attestation: On 02/21/22, the high probability of a clinically significant, sudden or life threatening deterioration of the following system(s) required my full and direct attention, intervention and personal management. The time I documented below is in addition to time spent performing reported procedures but includes the following listed in this critical care notation. Medical Decision Making - Medical Records Medical records reviewed: Yes: I reviewed the patient's medical records. - Beny Inquiry Pt receiving controlled substance: No Vital Signs: 02/21/22 19:50 02/21/22 21:07 Temperature 98.8 F 98.8 F Temperature Source Oral Oral Pulse Rate 61 Pulse Rate [Apical] 67 Respiratory Rate 18 18 Blood Pressure 120/74 Blood Pressure [Right Arm] 121/66 Blood Pressure Mean [Right Arm] 84 Blood Pressure Source [Right Arm] Automatic Cuff Blood Pressure Position [Right Arm] Sitting 02 Sat by Pulse Oximetry 100 Oxygen Delivery Method Room Air - Lab Data Lab results reviewed: Yes: I reviewed the patient's lab results. Lab Results 02/21/22 19:58: Carboxyhemoglobin 0.6 02/21/22 20:05: WBC 5.9, RBC 4.56, Hgb 14.2, Hct 41.8, MCV 91.7, MCH 31.1, MCHC 33.9, RDW 12.6, Plt Count 331, MPV 7.6, Neut % (Auto) 69.2, Lymph % (Auto) 22.5, Hanson % (Auto) 6.2, Eos % (Auto) 0.5, Baso % (Auto) 1.6, Neut # (Auto) 4.1, Lymph # (Auto) 1.3, Hanson # (Auto) 0.4, Eos # (Auto) 0.0, Baso # (Auto) 0.1 02/21/22 20:05: Sodium 139, Potassium 3.5, Chloride 101, Carbon Dioxide 27, Anion Gap 14.5, BUN 11, Creatinine 0.70, Estimated Creat Clear 121, Estimated GFR 100, Est GFR ( Amer) 121, Glucose 109 H, Calcium 9.2 Result diagrams: 02/21/22 20:05 02/21/22 20:05 - Radiology Data #1 Image(s): Chest Image Reviewed: Yes I have reviewed radiologist's interpretation Preliminary Findings: Normal/NAD Medical Decision Narrative: has exposure to carbon monoxide but stable lab and has prob complex migraines and will need neuro eval vs other condition such as multiple sclerosis Dizzy HPI - General Chief Complaint: Dizziness Stated Complaint: nauseous, confused and weak Time Seen by Provider: 02/21/22 21:02 Mode of Arrival: Ambulatory Source of Information: Patient, Medical Record Limitations: No Limitations Description of Symptoms (Recalled from ER Triage Doc. by RN): Patient c/o dizziness and nausea. States that her work had a co2 leak today to which she was unaware. States that when she left work at 4 pm she had dizziness with nausea diarhea and feeling excessively sleepy and found out at 5 pm that she had been exposed to co2 so she came in for evaluation. - History of Present Illness HPI Narrative: dizzyness today after exposure to carbon monoxide - pt also has episodes of headache and dizzyness wthout trauma and no rash or fever - MD complaint: dizziness Onset (ago): hour(s) Timing: gradual onset Description: lightheadedness History of similar episodes: No History of trauma: No Severity: moderate Relieving factors: nothing Associated symptoms: denies other symptoms - Related Data Previous Rx's Medication Instructions Recorded Azithromycin [Z-Enmanuel 250mg Tab*] 250 mg PO UD DOSE PK #6 tab 05/30/21 Amoxicillin [Amoxicillin 500mg 500 mg PO TID #30 cap 07/03/21 Cap] Fluticasone Propionate [Flonase 1 spray NS DAILY #1 each 07/03/21 Allergy Relief NS] Azithromycin [Z-Enmanuel 250mg Tab*] 250 mg PO UD DOSE PK #6 tab 07/29/21 Brompheniramine/Pseudoephed/Dm 5 ml PO Q6HP PRN #240 ml 07/29/21 [Bromfed Dm Cough Syrup] predniSONE [Deltasone 10mg tablet] 10 mg PO BID 3 Days #6 tab
[2022-02-21 21:07] VITALS: BP 120/74; PULSE 61; RESP 18; TEMP 37.1; O2SAT 99
== END 2022-02-21 21:30 | disposition home or self-care (01) ==
PROVIDERS: Emergency Provider Emergency Medicine; PCP Emergency Medicine
DX: R42 Dizziness and giddiness (principal); R51.9 Headache, unspecified; Z77.29 Contact with and (suspected) exposure to other hazardous substances; F41.9 Anxiety disorder, unspecified; Z79.899 Other long term (current) drug therapy
CPT/HCPCS: 71046; 80048; 82375; 85025; 99283

== ENCOUNTER 2022-03-14 09:36 | Emergency (ER) | payer OTHER, SELFPAY ==
[2022-03-14 09:50] VITALS: BP 114/69; PULSE 77; RESP 17; TEMP 36.5; O2SAT 98; BMI 25.2
--- NOTE | 2022-03-14 09:55 | HMH.EDUTC ---
[facility] [place] Clinical Impression: Fatigue Qualifiers: Fatigue type: unspecified Qualified Code(s): R53.83 - Other fatigue Disposition: Home, Self-Care Condition on Discharge: Good Instructions: DI for Fatigue Additional Instructions: Drink plenty of fluids and eat a well balanced diet. Follow up with a primary care physician. We are giving you a list of ones that are taking new patients. Continue to f/u with neurology as you have been and have the MRI of your brain done as scheduled. GO TO THE ER FOR ANY WORSENING SYMPTOMS Referrals: Gary Barraza MD [Primary Care Provider] - Forms: Work/School Release Time of Disposition: 10:13 Medical Decision Making - Medical Records Medical records reviewed: No: I reviewed the patient's medical records. - Beny Inquiry Pt receiving controlled substance: No Vital Signs: 03/14/22 09:50 03/14/22 10:17 Temperature 97.7 F 97.7 F Temperature Source Oral Pulse Rate 77 Pulse Rate [Left Radial] 77 Respiratory Rate 17 17 Blood Pressure 114/69 Blood Pressure [Right Arm] 114/69 Blood Pressure Mean [Right Arm] 84 02 Sat by Pulse Oximetry 98 [facility] [place] HPI - General Stated complaint: low bp Time Seen by Provider: 03/14/22 09:55 - History of Present Illness Provider Complaint: She is here because she believes her blood pressure runs low. At times she feels very fatigued and she believes it is caused by low blood pressure. At times she has dizziness and head also. She has been referred to neurology for her headaches and dizziness. She has an MRI of her head scheduled for in the morning. She came in today because she feels bad and does not think she should go to work feeling like she does today. - Related Data Previous Rx's Medication Instructions Recorded fluoxetine 10 mg capsule See Rx Instructions .ROUTE 12/26/21 .COMPLEX #90 cap propranolol 40 mg tablet 40 mg PO BID #60 tab 03/12/22 Allergies Allergy/AdvReac Type Severity Reaction Status Date / Time No Known Allergies Allergy Verified 03/14/22 09:58 [facility] History - Hepatitis A Screen Attestation statement:: This patient has been screened for Hepatitis A risk factors. I have reviewed the patient's past medical history: Yes 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: Reports:: Anxiety, Migraine Denies:: Cancer, Diabetes Mellitus Type 1, Diabetes Mellitus Type 2, Hypertension, Internal Pacemaker, MRSA Laterality Cases: Bilateral: Other Other Surgeries: Yes: No Previous Surgery. No: , Pacemaker Amputation: No Fractures: No - Social History Smoking Status: Current every day smoker Tobacco Type: e-cigarettes # Packs/Day (cigarettes): 1 #Yrs smoked (if former smoker): 7 Alcohol Intake: never Alcohol Intake Frequency:: a few times a month Substance Use Type: denies use Occupational Status: employed Housing: house Household Members: family - Psychiatric History Pschychiatric History:: Reports:: Anxiety Family Hx:: No significant family history JUNIOR ESTIMATOR history: no No JUNIOR ESTIMATOR history, no Non-contributory, no Spontaneous , no Therapeutic , no Cervical Cancer, no Abnormal Uterine Bleeding, no Ovarian Cancer, no dysfunctional uterine bleed, no Endometriosis, no Ectopic , no Polycystic Ovary Syndrome, no Uterine Fibroids, no Tubal Ligation, no , no Failure to Progress, no Additional JUNIOR ESTIMATOR History ROS Obtained: Yes All systems reviewed & no additional complaints - Constitutional Constitutional: Denies chills, Denies fever(s) - Eyes Eyes: Denies blind spots, Denies blurry vision, Denies change in vision, Denies diplopia, Denies eye discharge - ENT Ears, Nose, Mouth, and Throat: Denies dizziness, Denies otalgia, Denies sore throat, Reports vertigo/dizziness - Cardiovascular Cardiovascular: Denies chest pain, Denies dyspnea, Denies leg edema, Denies palpitations - Respiratory Respiratory: Denies chest congestion, Denies cough, Denies dyspnea, Denies stridor,
[2022-03-14 10:17] VITALS: BP 114/69; PULSE 77; RESP 17; TEMP 36.5
== END 2022-03-14 10:19 | disposition home or self-care (01) ==
PROVIDERS: Emergency Provider Nurse Practitioner Family; PCP Emergency Medicine
DX: R53.83 Other fatigue (principal)
CPT/HCPCS: 99212; G0463

== ENCOUNTER → 2022-03-15 10:47 | Outpatient (CLI) | payer OTHER, SELFPAY ==
--- NOTE | 2022-03-15 10:47 | MR_ITS ---
FINAL REPORT CLINICAL HISTORY: headaches, dizziness, tunnel vision [id number]. right sided tinnitus. elevated heart rate FINDINGS: Multiplanar MR imaging of the brain was performed without contrast. There is no evidence of intracranial hemorrhage or mass. The ventricular size is normal. There is no evidence of shift of the midline structures. No abnormal extra-axial fluid collection is identified. The posterior fossa and brainstem have an unremarkable appearance. No area of abnormal restricted diffusion is identified. Normal major vessel vascular flow voids are seen. IMPRESSION: Unremarkable brain with no acute intracranial abnormality. Reviewed, Interpreted and Dictated by Toribio Montgomery III, MD Transcribed by Phill Crowell Authenticated and [facility]
== END ==
PROVIDERS: PCP Emergency Medicine; Visit Provider Specialist
DX: R40.4 Transient alteration of awareness (principal)
CPT/HCPCS: 70551

== ENCOUNTER 2022-04-30 11:24 | Emergency (ER) | payer OTHER, SELFPAY ==
[2022-04-30 12:00] VITALS: BP 103/42; PULSE 72; RESP 20; TEMP 37; O2SAT 95; BMI 25.8
[2022-04-30 12:21] LABS: UTC Strep Screen (Rapid) Positive (Negative)
--- NOTE | 2022-04-30 12:48 | HMH.EDUTC ---
[facility] [place] Disposition Clinical Impression: Strep pharyngitis Disposition: Home, Self-Care Condition on Discharge: Good Instructions: Strep Throat, DI for Strep Throat Additional Instructions: *Monitor Temp, Over the counter Motrin or Tylenol as directed/as needed Tylenol every 4 hours and Motrin every 6 hours (as long as your family doctor has told you that you can take it) for fever or pain. and straight to ER if unable to lower temp less than 101.0 after medication given *Warm salt water gargles may help to soothe the throat *Throat Lozenges *Warm fluids like tea with honey may help to soothe the throat *Sleep elevated *Humidifier/Vaporizer *If you did not take Penicillin shot or was unable to, start taking antibiotic immediately and make sure that you take it for the FULL length of time although you should start to feel better in 24-48 hours *change toothbrush and toothpaste 24-48 hours after starting to take antibiotics so you do not reinfect yourself Monitor Temp. Tylenol and/or Ibuprofen as needed. ER if fever is no less than 101 despite alternating Tylenol and Ibuprofen * Encourage fluids, water, Gatorade, powerade, pedialyte if /toddler/or child *Cold fluids, popsicles and ice cream may feel good on his throat Follow up IMMEDIATELY for new or worsening symptoms or no Noticeable improvement over the next 48-72 hours. 911 for difficulty breathing or swallowing Prescriptions: Amoxicillin [Amoxicillin 500mg Cap] 500 mg PO BID 20 Days #20 cap Transmission Status: Pending to [id number] Referrals: Gary Barraza MD [Primary Care Provider] - As needed Forms: Work/School Release Time of Disposition: 12:51 Medical Decision Making - Beny Inquiry Pt receiving controlled substance: No Beny was queried for this patient: No Vital Signs: 04/30/22 12:00 Temperature 98.6 F Temperature Source Oral Pulse Rate [Right Brachial] 72 Respiratory Rate 20 Blood Pressure [Right Arm] 103/42 L Blood Pressure Mean [Right Arm] 62 Blood Pressure Source [Right Arm] Automatic Cuff Blood Pressure Position [Right Arm] Sitting 02 Sat by Pulse Oximetry 95 Oxygen Delivery Method Room Air - Lab Data Lab results reviewed: Yes: I reviewed the patient's lab results. Lab Results 04/30/22 12:09: Strep Scn Rapid Clinic Positive A Orders (Tests/Meds): ORDERS Category Date Time Status Covid-19 Nasal PCR ([facility]) Routine Lab 04/30/22 12:10 Received [facility] [place] HPI - General Stated complaint: sore throat, congestion, JOSEPH Time Seen by Provider: 04/30/22 12:48 Mode of Arrival: Ambulatory Source of Information: Patient Limitations: No Limitations Description of Symptoms (Recalled from Triage Doc. by RN): PATIENT C/O FEVER, CONGESTION, HEADACHE AND SORE THROAT X 2-3 DAYS HEENT Symptoms (Recalled from RN notes): Yes Resp Symptoms (Recalled from RN notes): No Skin Symptoms (Recalled from RN notes): No MS Symptoms (Recalled from RN notes): No Functional Status (Recalled from RN notes): WNL - History of Present Illness Provider Complaint: Patient states that she has been having fever, sorethroat, nasal congestion ad not feeling well for several days State that today she was still feeling bad so she came in to get checked - Related Data Home Medications Medication Instructions Recorded Confirmed Fluoxetine HCl [Prozac] 10 mg PO DAILY 04/30/22 04/30/22 Previous Rx's Medication Instructions Recorded Amoxicillin [Amoxicillin 500mg 500 mg PO BID 20 Days #20 cap 04/30/22 Cap] Allergies Allergy/AdvReac Type Severity Reaction Status Date / Time No Known Allergies Allergy Verified 04/12/22 12:49 - Worker's Comp Is this a Worker's Comp case?: No [facility] History - Hepatitis A Screen Attestation statement:: This patient has been screened for Hepatitis A risk factors. I have reviewed the patient's past medical history: Yes 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: Reports:: Anxiety, Migraine Denies:: Cancer,
[2022-04-30 12:50] VITALS: BP 103/42; PULSE 72; RESP 20; TEMP 37; O2SAT 95
== END 2022-04-30 12:54 | disposition home or self-care (01) ==
PROVIDERS: Emergency Provider Nurse Practitioner; PCP Emergency Medicine
DX: J02.0 Streptococcal pharyngitis (principal)
CPT/HCPCS: 87880; 99212; C9803; G0463; U0003; U0005

== ENCOUNTER 2022-06-01 16:18 | Emergency (ER) | payer OTHER, SELFPAY ==
[2022-06-01 16:32] VITALS: BP 0/0; PULSE 0; RESP 0; TEMP -17.7; TEMP 0
== END 2022-06-01 16:33 | disposition left against medical advice (07) ==
LOC: UTC 16:23
PROVIDERS: Emergency Provider Nurse Practitioner Family; PCP Emergency Medicine
DX: J02.9 Acute pharyngitis, unspecified (principal); Z53.21 Procedure and treatment not carried out due to patient leaving prior to being seen by health care provider; F17.290 Nicotine dependence, other tobacco product, uncomplicated

== ENCOUNTER 2022-06-02 11:19 | Emergency (ER) | payer OTHER, SELFPAY ==
[2022-06-02 12:47] VITALS: BP 96/62; PULSE 67; RESP 17; TEMP 36.8; O2SAT 100; BMI 24.2
[2022-06-02 12:49] LABS: UTC Strep Screen (Rapid) Negative (Negative)
--- NOTE | 2022-06-02 12:51 | EXP.UTC ---
Discharge Plan Disposition Patient Disposition: Home, Self-Care Condition: Good Prescriptions Prescriptions: New uvhhrrpfwpdtyne-zlocckxmo-SQ [Bromfed DM] 2-30-10 mg/5 mL Syrup 5 - 10 ml PO Q4H PRN (Reason: Cough) Qty: 240 0RF amoxicillin-pot clavulanate 875-125 mg Tablet 1 tab PO Q12H Qty: 20 0RF No Action fluoxetine 10 MG capsule 10 mg PO DAILY Rx Instructions: Take 1 capsule by mouth once daily Referrals Follow up/Referrals: Gary Barraza MD [Primary Care Provider] - See instructions Activity Restrictions/Add. Instructions Additional Instructions/Restrictions: Take all medications as prescribed. Replace toothbrush. Hydrate well. RTC if not improving. Clinical Impressions Clinical Impression: Acute tonsillitis Discharge ED Provider: Lizzie Bravo [facility] [place] General Stated complaint: sore throat Mode of Arrival: Ambulatory Source of Information: Patient Limitations: No Limitations Time Seen by Provider: 06/02/22 12:51 Description of Symptoms (Recalled from Triage Doc. by RN): patient comes in with complaints of cough, runny nose, sore throat, itchy eyes. symptoms began 2-3 days ago HEENT Symptoms (Recalled from RN notes): Yes Resp Symptoms (Recalled from RN notes): Yes Skin Symptoms (Recalled from RN notes): No MS Symptoms (Recalled from RN notes): No Functional Status (Recalled from RN notes): n/a History of Present Illness Provider Complaint: Cough, runny nose, sore throat, itchy eyes X 2 days. Son has strep. Onset (ago): day(s) (2) Consistency: constant Relieving factors: none Exacerbating factors: none Associated symptoms: denies other symptoms Treatments prior to arrival: none Related Data Home Medications Medication Instructions Recorded Confirmed fluoxetine 10 mg capsule 10 mg PO DAILY Depression 04/30/22 04/30/22 Previous Rx's Medication Instructions Recorded amoxicillin 875 mg-potassium 1 tab PO Q12H #20 tabs 06/02/22 clavulanate 125 mg tablet oufnrcgnezkhnwf-kzsigfmabnqzlfn-GR 5 - 10 ml PO Q4H PRN Cough #240 mL 06/02/22 2 mg-30 mg-10 mg/5 mL oral syrup (Bromfed DM) Allergies Allergy/AdvReac Type Severity Reaction Status Date / Time No Known Allergies Allergy Verified 06/02/22 12:49 Worker's Comp Is this a Worker's Comp case?: No PFSH PFSH Social History Smoking Status: Current every day smoker tobacco type: e-cigarettes quit status: considering quitting second hand exposure: No alcohol intake: never substance use type: denies use current occupational status: other household members: family housing: house current occupational exposures/hazards: No caffeine: Yes ROS Obtained: Yes All systems reviewed & no additional complaints except as documented Constitutional Constitutional: Denies fever(s) and Reports headache(s) Eyes Eyes: Reports itchy eyes ENT Ears, Nose, Mouth, and Throat: Reports headache(s), Reports nasal congestion and Reports sore throat Respiratory Respiratory: Reports cough Neurologic Neurologic: Reports headache(s) Allergic/Immunologic Allergic/Immunologic: Reports itchy eyes Physical Exam General General appearance: alert and in no apparent distress Head Head exam: atraumatic, normocephalic and normal inspection Eye Eye exam: Present normal appearance, PERRL and EOMI ENT ENT exam: Present normal exam, mucous membranes moist, TM's normal bilaterally and normal external ear exam Expanded ENT Exam Throat exam: Present tonsillar erythema and tonsillomegaly Neck Neck exam: Present normal inspection, full ROM and trachea midline; Absent meningismus or lymphadenopathy Chest Chest inspection: Present normal inspection and symmetric chest wall rise; Absent tenderness Respiratory Respiratory exam: Present normal lung sounds bilaterally; Absent respiratory distress Cardiovascular Cardiovascular exam: Present regular rate and normal rhyth
[2022-06-02 13:17] VITALS: BP 96/62; PULSE 67; RESP 17; TEMP 36.8
== END 2022-06-02 13:18 | disposition home or self-care (01) ==
PROVIDERS: Emergency Provider Physician Assistant; PCP Emergency Medicine
DX: J02.0 Streptococcal pharyngitis (principal); J03.90 Acute tonsillitis, unspecified
CPT/HCPCS: 87880; 99212; C9803; G0463; U0003; U0005

== ENCOUNTER 2022-07-05 09:50 | Emergency (ER) | payer OTHER, SELFPAY ==
[2022-07-05 09:51] VITALS: BP 101/55; PULSE 96; RESP 17; TEMP 37; O2SAT 99; BMI 25.7
--- NOTE | 2022-07-05 10:12 | EXP.UTC ---
Discharge Plan Disposition Patient Disposition: Home, Self-Care Condition: Good Prescriptions Prescriptions: New hixjabbrxcdoyyb-lqirotrmf-FI [Bromfed DM] 2-30-10 mg/5 mL Syrup 5 ml PO Q6H PRN (Reason: Cough) Qty: 240 0RF ondansetron 4 mg Tablet,Disintegrating 4 mg PO Q8H PRN (Reason: Nausea) Qty: 20 0RF No Action nmrmxxieqrfites-jigtuznxz-UE [Bromfed DM] 2-30-10 mg/5 mL Syrup 5 - 10 ml PO Q4H PRN (Reason: Cough) Qty: 240 0RF amoxicillin-pot clavulanate 875-125 mg Tablet 1 tab PO Q12H Qty: 20 0RF fluoxetine 10 MG capsule 10 mg PO DAILY Rx Instructions: Take 1 capsule by mouth once daily Referrals Follow up/Referrals: Gary Barraza MD [Primary Care Provider] - See instructions Activity Restrictions/Add. Instructions Additional Instructions/Restrictions: Drink plenty of fluids. Take tylenol or ibuprofen for pain or fever. Take the medications as directed. Follow up with your regular doctor. GO TO THE ER FOR ANY WORSENING SYMPTOMS Quarantine until you know the results of your covid-19 test. Notify your school or workplace of your results and follow their instructions regarding return to work/school. Clinical Impressions Clinical Impression: Viral syndrome, COVID-19 Stand Alone Forms Stand Alone Forms: Work/School Release Instructions Patient Instructions: DI for Viral Syndrome Discharge ED Provider: Daljit Salcedo [facility] General Stated complaint: nausea, vomiting, diarrhea, congestion, body aches Mode of Arrival: Ambulatory Time Seen by Provider: 07/05/22 10:12 Description of Symptoms (Recalled from Triage Doc. by RN): BODY ACHES, CONGESTION AND VOMITING HEENT Symptoms (Recalled from RN notes): Yes Resp Symptoms (Recalled from RN notes): Yes Skin Symptoms (Recalled from RN notes): No MS Symptoms (Recalled from RN notes): No Functional Status (Recalled from RN notes): NA History of Present Illness Provider Complaint: She c/o sore throat, chills, malaise and body aches for the past 2 days. Related Data Home Medications Medication Instructions Recorded Confirmed fluoxetine 10 mg capsule 10 mg PO DAILY Depression 04/30/22 04/30/22 Previous Rx's Medication Instructions Recorded amoxicillin 875 mg-potassium 1 tab PO Q12H #20 tabs 06/02/22 clavulanate 125 mg tablet txqebgaaevotkoq-vinsrgwhsepqlfe-JO 5 - 10 ml PO Q4H PRN Cough #240 mL 06/02/22 2 mg-30 mg-10 mg/5 mL oral syrup (Bromfed DM) lxrvnwwoyzkpzvz-gdpycuawownbwrc-BK 5 ml PO Q6H PRN Cough #240 mL 07/05/22 2 mg-30 mg-10 mg/5 mL oral syrup (Bromfed DM) ondansetron 4 mg disintegrating 4 mg PO Q8H PRN Nausea #20 tabs 07/05/22 tablet Allergies Allergy/AdvReac Type Severity Reaction Status Date / Time No Known Allergies Allergy Verified 06/02/22 12:49 Worker's Comp Is this a Worker's Comp case?: No PFSH PFSH Social History Smoking Status: Current every day smoker tobacco type: e-cigarettes quit status: considering quitting second hand exposure: No alcohol intake: never substance use type: denies use current occupational status: other Travel in the last 8 weeks: None household members: family housing: house current occupational exposures/hazards: No caffeine: Yes ROS Obtained: Yes All systems reviewed & no additional complaints except as documented Constitutional Constitutional: Reports chills and Reports fever(s) Eyes Eyes: Denies eye discharge ENT Ears, Nose, Mouth, and Throat: Reports as per HPI Cardiovascular Cardiovascular: Denies chest pain Respiratory Respiratory: Denies chest congestion and Reports cough Gastrointestinal Gastrointestingal: Reports nausea; Denies abdominal pain, constipation, cramping, diarrhea or vomiting Musculoskeletal Musculoskeletal: Denies arthralgias Integumentary/Breasts Skin/Breast: Denies rash Neurologic Neurologic: Denies paresthesias Physical Exa
[2022-07-05 10:22] LABS: Adenovirus,PCR Not Detected (NotDetected); Bordetella Pertussis Not Detected (NotDetected); Chlamydophila Pneumoniae, PCR Not Detected (NotDetected); Coronavirus 229E Not Detected (NotDetected); Coronavirus NL63 Not Detected (NotDetected); Coronavirus OC43 Not Detected (NotDetected); Coronovirus HKU1,PCR Not Detected (NotDetected); Human Metapneumovirus Not Detected (NotDetected); Influenza A, PCR Not Detected (NotDetected); Influenza AH1, 2009 Not Detected (NotDetected); Influenza AH1, PCR Not Detected (NotDetected); Influenza AH3,PCR Not Detected (NotDetected); Influenza B, PCR Not Detected (NotDetected); Mycoplasma Pneumoniae, PCR Not Detected (NotDetected); Parainfluenza 1, PCR Not Detected (NotDetected); Parainfluenza 2, PCR Not Detected (NotDetected); Parainfluenza 3, PCR Not Detected (NotDetected); Parainfluenza 4, PCR Not Detected (NotDetected); Respiratory Syncytial Virus Not Detected (NotDetected); Rhinovirus/Enterovirus Not Detected (NotDetected)
[2022-07-05 10:23] LABS: UTC Strep Screen (Rapid) Negative (Negative)
[2022-07-05 11:00] VITALS: BP 101/55; PULSE 96; RESP 18; TEMP 37; O2SAT 99
[2022-07-05 11:49] LABS: Coronavirus 19, PCR Detected (NotDetected)
== END 2022-07-05 11:00 | disposition home or self-care (01) ==
PROVIDERS: Emergency Provider Nurse Practitioner Family; PCP Emergency Medicine
DX: U07.1 COVID-19 (principal)
CPT/HCPCS: 87581; 87632; 87798; 87880; 99212; C9803; G0463; U0003; U0005

== ENCOUNTER 2022-07-20 08:26 | Emergency (ER) | payer OTHER, SELFPAY ==
--- NOTE | 2022-07-20 08:30 | XR_ITS ---
FINAL REPORT CLINICAL HISTORY: tripped over baby gate FINDINGS: 3 views of the right foot were obtained. There is no acute fracture or dislocation. The joint spaces are intact. There is midfoot soft tissue swelling. IMPRESSION: Swelling with no acute bony abnormality. Reviewed, Interpreted and Dictated by Toribio Montgomery III, MD Transcribed by Phill Crowell Authenticated and [facility]
[2022-07-20 08:48] VITALS: BP 102/63; PULSE 72; RESP 19; TEMP 36.8; O2SAT 99; BMI 24.5
--- NOTE | 2022-07-20 09:02 | EXP.UTC ---
Discharge Plan Disposition Patient Disposition: Home, Self-Care Condition: Good Prescriptions Prescriptions: No Action cmqickubmsrdvec-etdwpsatx-SH [Bromfed DM] 2-30-10 mg/5 mL Syrup 5 - 10 ml PO Q4H PRN (Reason: Cough) Qty: 240 0RF amoxicillin-pot clavulanate 875-125 mg Tablet 1 tab PO Q12H Qty: 20 0RF bedrzigryukqgcw-nclkjakor-VS [Bromfed DM] 2-30-10 mg/5 mL Syrup 5 ml PO Q6H PRN (Reason: Cough) Qty: 240 0RF ondansetron 4 mg Tablet,Disintegrating 4 mg PO Q8H PRN (Reason: Nausea) Qty: 20 0RF fluoxetine 10 MG capsule 10 mg PO DAILY Rx Instructions: Take 1 capsule by mouth once daily Referrals Follow up/Referrals: Steve Haq DO [Staff Physician] - See instructions Gary Barraza MD [Primary Care Provider] - See instructions Activity Restrictions/Add. Instructions Additional Instructions/Restrictions: *You may Call the [facility] later today for the official reading of your xray *RICE, Rest the extremity, Ice 15-20 minutes 3-4 times daily, Compress- wear the elin wrap as discussed as much as possible to help reduce swelling and pain, Elevate the extremity when at rest *Walking boot is for support and help control swelling, use it except in the shower. Be sure that is not to tight but not to loose either *Elevate when resting? *Ibuprofen 600-800mg every 6-8 hours as needed for pain an inflammation. If need something more can take Tylenol in between doses of Ibuprofen to help Follow up with Orthopedics if no improvement Immediately follow up with your family doctor for new or worsening of symptoms, or no noticeable improvement over the next 3-5 days Clinical Impressions Clinical Impression: Contusion of foot Qualifiers: Encounter type: initial encounter Laterality: right Qualified Code(s): S90.31XA - Contusion of right foot, initial encounter Instructions Patient Instructions: How to Use Crutches, How To Perform RICE (Rest, Ice, Compress, Elevate) Discharge ED Provider: Lalitha Garcia [facility] [place] General Stated complaint: right foot pain/swelling Mode of Arrival: Ambulatory Source of Information: Patient Limitations: No Limitations Time Seen by Provider: 07/20/22 09:02 Description of Symptoms (Recalled from Triage Doc. by RN): pt comes in with c/o right foot pain. pt states her foot got stuck under a baby gate and fell last night HEENT Symptoms (Recalled from RN notes): No Resp Symptoms (Recalled from RN notes): No Skin Symptoms (Recalled from RN notes): No MS Symptoms (Recalled from RN notes): Yes Functional Status (Recalled from RN notes): n/a History of Present Illness Provider Complaint: Patient states that she opened a baby gate last night and went to step through and got her foot caught under the gate and she fell States that she has been having pain and swelling to top of foot ever since and hurts when she walks or bends it States that this morning it was still hurting so she came in Related Data Home Medications Medication Instructions Recorded Confirmed fluoxetine 10 mg capsule 10 mg PO DAILY Depression 04/30/22 07/20/22 Previous Rx's Medication Instructions Recorded amoxicillin 875 mg-potassium 1 tab PO Q12H #20 tabs 06/02/22 clavulanate 125 mg tablet dzbwdmzxooiqtnr-ffszvfzdveypevs-AV 5 - 10 ml PO Q4H PRN Cough #240 mL 06/02/22 2 mg-30 mg-10 mg/5 mL oral syrup (Bromfed DM) ndssbvfthhkghah-sfghnlqxgclrxpw-IG 5 ml PO Q6H PRN Cough #240 mL 07/05/22 2 mg-30 mg-10 mg/5 mL oral syrup (Bromfed DM) ondansetron 4 mg disintegrating 4 mg PO Q8H PRN Nausea #20 tabs 07/05/22 tablet Allergies Allergy/AdvReac Type Severity Reaction Status Date / Time No Known Allergies Allergy Verified 07/20/22 08:51 Worker's Comp Is this a Worker's Comp case?: No PFSH PFSH Social History Smoking Status: Current every day smoker tobacco type: e-cigarettes quit status: considering quitting second hand exposure:
[2022-07-20 09:44] VITALS: BP 102/63; PULSE 72; RESP 19; TEMP 36.8
== END 2022-07-20 09:45 | disposition home or self-care (01) ==
PROVIDERS: Emergency Provider Nurse Practitioner; PCP Emergency Medicine
DX: S90.31XA Contusion of right foot, initial encounter (principal); W18.39XA Other fall on same level, initial encounter
CPT/HCPCS: 73630; 99212; 99283; G0463

== ENCOUNTER → 2022-07-20 18:48 | Outpatient (CLI) | payer OTHER, SELFPAY | PROVIDERS: PCP Emergency Medicine; Visit Provider Nurse Practitioner | DX: Z11.1 Encounter for screening for respiratory tuberculosis (principal) | CPT/HCPCS: 86580 ==

== ENCOUNTER → 2022-08-11 08:47 | Outpatient (CLI) | payer OTHER, SELFPAY ==
[2022-08-11 11:21] LABS: HCG,Quantitative 861 mIU/ml (0-5.42)
== END ==
PROVIDERS: PCP Emergency Medicine; Visit Provider Nurse Practitioner Obstetrics & Gynecology
DX: N92.6 Irregular menstruation, unspecified (principal)
CPT/HCPCS: 36415; 84702

== ENCOUNTER 2022-08-13 16:06 | Emergency (ER) | payer OTHER, SELFPAY ==
[2022-08-13 17:28] VITALS: BP 124/81; PULSE 76; RESP 18; TEMP 37.1; O2SAT 98; BMI 22.5
[2022-08-13 17:35] LABS: Adenovirus,PCR Not Detected (NotDetected); Bordetella Pertussis Not Detected (NotDetected); Chlamydophila Pneumoniae, PCR Not Detected (NotDetected); Coronavirus 19, PCR Not Detected (NotDetected); Coronavirus 229E Not Detected (NotDetected); Coronavirus NL63 Not Detected (NotDetected); Coronavirus OC43 Not Detected (NotDetected); Coronovirus HKU1,PCR Not Detected (NotDetected); Human Metapneumovirus Not Detected (NotDetected); Influenza A, PCR Not Detected (NotDetected); Influenza AH1, 2009 Not Detected (NotDetected); Influenza AH1, PCR Not Detected (NotDetected); Influenza AH3,PCR Not Detected (NotDetected); Influenza B, PCR Not Detected (NotDetected); Mycoplasma Pneumoniae, PCR Not Detected (NotDetected); Parainfluenza 1, PCR Not Detected (NotDetected); Parainfluenza 2, PCR Not Detected (NotDetected); Parainfluenza 3, PCR Not Detected (NotDetected); Parainfluenza 4, PCR Not Detected (NotDetected); Respiratory Syncytial Virus Not Detected (NotDetected); Rhinovirus/Enterovirus Not Detected (NotDetected)
[2022-08-13 17:39] LABS: Apearance,Urine Clear (Clear); Color,Urine Dark Yellow (Yellow); PH,Urine 6.5 (5.0-8.5)
[2022-08-13 17:40] LABS: Bilirubin,Urine Negative (Negative); Blood, Urine Negative (Negative); Glucose,Urine (UA) Negative (Negative); Ketones,Urine Negative (Negative); Protein,Urine Negative (Negative); UTC Leukocyte Esterase,Urine Negative (Negative); UTC Nitrate,Urine Negative (Negative); Urobilinogen,Urine 1 EU/dl (0.2)
--- NOTE | 2022-08-13 17:40 | EXP.UTC ---
Discharge Plan Disposition Patient Disposition: Home, Self-Care Condition: Good Prescriptions Prescriptions: No Action afpaviezeymhgwr-xdclyxrvo-SJ [Bromfed DM] 2-30-10 mg/5 mL Syrup 5 - 10 ml PO Q4H PRN (Reason: Cough) Qty: 240 0RF amoxicillin-pot clavulanate 875-125 mg Tablet 1 tab PO Q12H Qty: 20 0RF jqridzbizkvxkrf-cxzozvdbs-OZ [Bromfed DM] 2-30-10 mg/5 mL Syrup 5 ml PO Q6H PRN (Reason: Cough) Qty: 240 0RF ondansetron 4 mg Tablet,Disintegrating 4 mg PO Q8H PRN (Reason: Nausea) Qty: 20 0RF fluoxetine 10 MG capsule 10 mg PO DAILY Rx Instructions: Take 1 capsule by mouth once daily Referrals Follow up/Referrals: Gary Barraza MD [Primary Care Provider] - See instructions Activity Restrictions/Add. Instructions Additional Instructions/Restrictions: Make sure that you are drinking plenty of fluids Follow up with OBGYN if symptoms continue and immediately if they worsen Return if needed Straight to ER if any abdominal pain, spotting or pelvic discomfort Clinical Impressions Clinical Impression: Burning with urination Instructions Patient Instructions: DI for -- Discomforts and Remedies Discharge ED Provider: Lalitha Garcia [facility] General Stated complaint: poss uti Mode of Arrival: Ambulatory Source of Information: Patient Limitations: No Limitations Time Seen by Provider: 08/13/22 17:40 Description of Symptoms (Recalled from Triage Doc. by RN): BURNING WITH URINATING X 2 DAYS HEENT Symptoms (Recalled from RN notes): No Resp Symptoms (Recalled from RN notes): No Skin Symptoms (Recalled from RN notes): No MS Symptoms (Recalled from RN notes): No Functional Status (Recalled from RN notes): WDL History of Present Illness Provider Complaint: Patient states that she has been having burning with urination States that she recently found out she was and was not sure if she was urinating more due to or may have a UTI so she wanted to get her urine checked Related Data Home Medications Medication Instructions Recorded Confirmed fluoxetine 10 mg capsule 10 mg PO DAILY Depression 04/30/22 07/20/22 Previous Rx's Medication Instructions Recorded amoxicillin 875 mg-potassium 1 tab PO Q12H #20 tabs 06/02/22 clavulanate 125 mg tablet fydgoldujxtzhsk-cugznmblpiwtalm-TT 5 - 10 ml PO Q4H PRN Cough #240 mL 06/02/22 2 mg-30 mg-10 mg/5 mL oral syrup (Bromfed DM) ntxkfsfhlnnihbm-ljdzgcqjsvbxlnr-AA 5 ml PO Q6H PRN Cough #240 mL 07/05/22 2 mg-30 mg-10 mg/5 mL oral syrup (Bromfed DM) ondansetron 4 mg disintegrating 4 mg PO Q8H PRN Nausea #20 tabs 07/05/22 tablet Allergies Allergy/AdvReac Type Severity Reaction Status Date / Time No Known Allergies Allergy Verified 07/20/22 08:51 Worker's Comp Is this a Worker's Comp case?: No PFSH PFSH Social History Smoking Status: Current every day smoker tobacco type: e-cigarettes quit status: considering quitting second hand exposure: No alcohol intake: never substance use type: denies use current occupational status: other Travel in the last 8 weeks: None household members: family housing: house current occupational exposures/hazards: No caffeine: Yes ROS Obtained: Yes All systems reviewed & no additional complaints except as documented and Yes Systems reviewed as appropriate & no additional complaints except as documented Constitutional Constitutional: Reports system reviewed and no additional complaints, except as documented, Reports as per HPI and Denies fever(s) Cardiovascular Cardiovascular: Reports system reviewed and no additional complaints, except as documented and Reports as per HPI Respiratory Respiratory: Reports system reviewed and no additional complaints, except as documented and Reports as per HPI Gastrointestinal Gastrointestingal: Reports system reviewed and no additional complaints, except as doc
[2022-08-13 17:50] VITALS: BP 121/82; PULSE 77; RESP 17; TEMP 37.1; O2SAT 98
== END 2022-08-13 17:51 | disposition home or self-care (01) ==
PROVIDERS: Emergency Provider Nurse Practitioner; PCP Emergency Medicine
DX: R30.0 Dysuria (principal); Z33.1 Pregnant state, incidental
CPT/HCPCS: 81003; 87581; 87632; 87798; 99212; C9803; G0463; U0003; U0005

== ENCOUNTER → 2022-08-14 08:20 | Outpatient (CLI) | payer OTHER, SELFPAY ==
[2022-08-14 10:12] LABS: HCG,Quantitative 4145 mIU/ml (0-5.42)
== END ==
PROVIDERS: PCP Emergency Medicine; Visit Provider Nurse Practitioner Obstetrics & Gynecology
DX: N92.6 Irregular menstruation, unspecified (principal)
CPT/HCPCS: 36415; 84702

== ENCOUNTER → 2022-08-17 16:43 | Outpatient (CLI) | payer OTHER, SELFPAY | LOC: UTC 01-16 17:12 → UTC.OUT 01-16 17:13 | PROVIDERS: PCP Emergency Medicine; Visit Provider Nurse Practitioner | DX: Z02.1 Encounter for pre-employment examination (principal); Z11.1 Encounter for screening for respiratory tuberculosis ==

== ENCOUNTER 2022-08-22 07:59 | Emergency (ER) | payer OTHER, SELFPAY ==
[2022-08-22 08:10] VITALS: BP 116/68; PULSE 80; RESP 22; TEMP 36.8; O2SAT 98; BMI 24.3
--- NOTE | 2022-08-22 08:22 | EXP.UTC ---
Discharge Plan Disposition Patient Disposition: Home, Self-Care Condition: Good Prescriptions Prescriptions: New promethazine 25 mg tablet 25 mg PO TID PRN (Reason: nausea and vomiting) Qty: 10 0RF azithromycin [Zithromax Z-Enmanuel] 250 mg tablet See Rx Instructions .ROUTE .COMPLEX 5 Days Qty: 6 0RF Rx Instructions: For 250 mg dose pack: take 500 mg today (day 1), then 250 mg for 4 days (days 2-5) No Action fluoxetine 10 MG capsule 20 mg PO DAILY Rx Instructions: Take 1 capsule by mouth once daily Referrals Follow up/Referrals: Gary Barraza MD [Primary Care Provider] - See instructions Activity Restrictions/Add. Instructions Additional Instructions/Restrictions: *Monitor Temp, Over the counter Motrin or Tylenol as directed/as needed Tylenol every 4 hours and Motrin every 6 hours (as long as your family doctor has told you that you can take it) for fever or pain. and straight to ER if unable to lower temp less than 101.0 after medication given *Warm salt water gargles may help to soothe the throat *Throat Lozenges? *Warm fluids like tea with honey may help to soothe the throat? *Sleep elevated *Humidifier/Vaporizer Make sure to drink plenty of fluids Your throat swab was sent for culture. Those results are typically sent to your primary care. Be sure to follow up in 2-3 days with your family doctor/primary care physician if no improvement so they can review those result and treat if necessary. If you don?t have a primary care doctor, I recommend you get one but in the mean time, you will have to return to a walk in clinic Follow up IMMEDIATELY for new or worsening symptoms or no Noticeable improvement over the next 48-72 hours. 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 and she has been up all night with the body aches, chills and N/V with a little diarrhea along with Sinus congestion that she feels is moving into her chest States that she has had a chest cold for a couple of weeks that has not got better either so she wanted to get checked out Related Data Home Medications Medication Instructions Recorded Confirmed fluoxetine 10 mg capsule 20 mg PO DAILY Depression 04/30/22 08/22/22 Previous Rx's Medication Instructions Recorded azithromycin 250 mg tablet See Rx Instructions PO .COMPLEX 5 08/22/22 (Zithromax Z-Enmanuel) days #6 tabs promethazine 25 mg tablet 25 mg PO TID PRN nausea and 08/22/22 vomiting #10 tabs Allergies Allergy/AdvReac Type Severity Reaction Status Date / Time No Known Allergies Allergy Verified 07/20/22 08:51 [facility] 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 (Updated 08/22/22 @ 08:46 by Lalitha Garcia APRN) No significant past medical history Social History (Updated 08/22/22 @ 08:35 by Karolyn Stewart RN) Smoking Status: Current every day smoker tobacco type: e-cigarettes quit status: considering quitting second hand exposure: No alcohol intake: never substance use type: denies use current occupational status: other Travel in the last 8 weeks: None household members: family housing: house current occupational exposures/hazards: No caffeine: Yes ROS Obtained: Yes All systems reviewed & no additional complaints except as documented and Yes Systems reviewed as appropriate & no additional complaints except as documented Constitutional Constitutional: Reports system reviewed and no add
[2022-08-22 08:45] LABS: UTC Influenza A Antigen Negative (Negative); UTC Influenza B Antigen Negative (Negative)
[2022-08-22 08:56] VITALS: BP 116/68; PULSE 80; RESP 22; TEMP 36.8; O2SAT 98
== END 2022-08-22 08:58 | disposition home or self-care (01) ==
PROVIDERS: Emergency Provider Nurse Practitioner; PCP Emergency Medicine
DX: O21.9 Vomiting of pregnancy, unspecified (principal); O99.611 Diseases of the digestive system complicating pregnancy, first trimester; O26.891 Other specified pregnancy related conditions, first trimester; M79.10 Myalgia, unspecified site; O99.331 Smoking (tobacco) complicating pregnancy, first trimester; F17.290 Nicotine dependence, other tobacco product, uncomplicated; Z3A.01 Less than 8 weeks gestation of pregnancy
CPT/HCPCS: 87804; 99213; G0463

== ENCOUNTER 2022-08-25 16:53 | Emergency (ER) | payer OTHER, SELFPAY ==
--- NOTE | 2022-08-25 17:14 | PC.NURSE ---
asked pt for a urine sample upon her arrival and she stated that she was unable to at this time.
--- NOTE | 2022-08-25 18:19 | PC.NURSE ---
ED MD AT BEDSIDE FOR EVALUATION
--- NOTE | 2022-08-25 18:23 | US_ITS ---
PROCEDURE INFORMATION: Exam: US , Transvaginal Exam date and time: 08/25/2022 6:57 PM Age: 26 years old Clinical indication: Other: Early preg with pain and some vag bleeding; Gestational age or lmp: Lmp jul 06 2022; ; Additional info: location rp ectopic TECHNIQUE: Imaging protocol: Real-time transvaginal obstetrical ultrasound of the maternal pelvis with image documentation. Transvaginal imaging was used for better evaluation of the fetus, adnexa, and/or cervix. COMPARISON: US OB BIOPHYSICAL PROFILE 12/19/2020 2:02 PM FINDINGS: Gestation: Single intrauterine gestation. Mean sac diameter: 2.15 cm 6 weeks 5 days. Yolk sac demonstrated. heart rate: Heart rate 139 bpm BIOMETRY: Highfill-Rump length (CRL): pole with a crown-rump length of 0.75 cm 6 weeks 5 days. IMPRESSION: Single live intrauterine gestation AUA 6 weeks 5 days.
[2022-08-25 18:25] VITALS: BP 104/56; PULSE 71; RESP 17; TEMP 36.7; O2SAT 99; BMI 25.6
--- NOTE | 2022-08-25 18:26 | HMH.EDGENADL ---
Discharge Plan Disposition Patient Disposition: Home, Self-Care Chief Complaint: Urogenital-Female Prescriptions Prescriptions: No Action fluoxetine 10 MG capsule 20 mg PO DAILY Rx Instructions: Take 1 capsule by mouth once daily promethazine 25 mg tablet 25 mg PO TID PRN (Reason: nausea and vomiting) Qty: 10 0RF azithromycin [Zithromax Z-Enmanuel] 250 mg tablet See Rx Instructions .ROUTE .COMPLEX 5 Days Qty: 6 0RF Rx Instructions: For 250 mg dose pack: take 500 mg today (day 1), then 250 mg for 4 days (days 2-5) Referrals Follow up/Referrals: Gary Barraza MD [Primary Care Provider] - See instructions Clinical Impressions Clinical Impression: Pelvic cramping, Asymptomatic bacteriuria Instructions Patient Instructions: DI for Urinary Tract Infection (UTI), DI for Urinary Tract Infection in Children Discharge ED Provider: Tiburcio Sheffield General Adult HPI General Chief complaint: Urogenital-Female Stated complaint: 7WK Preg possible miscarrage Time Seen by Provider: 08/25/22 18:27 History of Present Illness HPI narrative: Patient is a 26-year-old estimated 7 weeks who presents emergency department for evaluation of pelvic cramps. History is obtained from patient at bedside, waxing and waning over the past week. She has had episodic nausea for the last week. Intermittent nonbloody nonbilious vomiting. Patient presented to [facility] where she was screened for urinary tract infection and subsequently discharged. Pain is moderate to severe in intensity. Patient denies vaginal discharge or bleeding. No other acute complaints at this time. Related Data Home Medications Medication Instructions Recorded Confirmed fluoxetine 10 mg capsule 20 mg PO DAILY Depression 04/30/22 08/22/22 Previous Rx's Medication Instructions Recorded azithromycin 250 mg tablet See Rx Instructions PO .COMPLEX 5 08/22/22 (Zithromax Z-Enmanuel) days #6 tabs promethazine 25 mg tablet 25 mg PO TID PRN nausea and 08/22/22 vomiting #10 tabs Allergies Allergy/AdvReac Type Severity Reaction Status Date / Time No Known Allergies Allergy Verified 07/20/22 08:51 [facility] 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 (Updated 08/25/22 @ 20:29 by Tiburcio Sheffield MD) No significant past medical history Social History (Updated 08/22/22 @ 08:35 by Karolyn Stewart RN) Smoking Status: Current every day smoker tobacco type: e-cigarettes quit status: considering quitting second hand exposure: No alcohol intake: never substance use type: denies use current occupational status: other Travel in the last 8 weeks: None household members: family housing: house current occupational exposures/hazards: No caffeine: Yes ROS Obtained: Yes Systems reviewed as appropriate & no additional complaints except as documented Physical Exam General General appearance: alert and in no apparent distress Head Head exam: atraumatic and normocephalic Eye Eye exam: Present PERRL and EOMI ENT ENT exam: Present mucous membranes moist Neck Neck exam: Present normal inspection Chest Chest inspection: Present normal inspection and symmetric chest wall rise Respiratory Respiratory exam: Present normal lung sounds bilaterally; Absent respiratory distress Cardiovascular Cardiovascular exam: Present regular rate and normal rhythm Abdominal Exam Abdominal exam: Present soft and tenderness (Mild, suprapubic) Extremities Exam Extremities exam: Present normal inspection Neurological Exam Neurological exam: Present alert and oriented X3 Psychiatric Psychiatric exam: Present normal affect Skin Skin exam: Present warm and dry Medical Decision Making Beny Inquiry Pt receiving controlled substance: No Vital Signs: 08/25/22 18:25 Temperature 98.0 F Temperature Source Oral Pulse Rate [Radial] 71 Respiratory Rate 17 Blood Pressure [Right Arm] 104/56 L Blood Pressure Mean [Right Arm] 72 Blood Pressure Source
[2022-08-25 18:39] LABS: Microscopic, Urine URINE MICROSCOPIC (MICROSCOPIC)
[2022-08-25 18:42] LABS: Basophils # 0.1 K/mm3 (0-0.2); Basophils % 0.6 % (0.1-2.0); Eosinophils # 0.2 K/mm3 (0.0-0.4); Eosinophils % 1.3 % (0.1-12.0); Hemoglobin 12.5 g/dL (12.2-16.2); Lymphocytes # 2.5 K/mm3 (0.7-4.5); Lymphocytes % 21.2 % (10-50); Mean Corpuscular HGB Conc 33.8 g/dL (31.8-35.4); Mean Corpuscular Hemoglobin 30.9 pg (27.0-31.2); Mean Corpuscular Volume 91.5 fl (81-99); Mean Platelet Volume 7.6 fl (7.4-10.4); Monocytes # 0.6 K/mm3 (0.1-1.0); Monocytes % 5.1 % (1.7-9.3); Neutrophils # 8.6 K/mm3 (1.8-7.8); Neutrophils % 71.9 % (37.0-80.0); Platelet Count 342 K/mm3 (142-424); Red Blood Count 4.05 M/mm3 (4.20-5.40); Red Cell Distribution Width 12.8 % (11.5-17.5); White Blood Count 11.9 K/mm3 (4.8-10.8)
[2022-08-25 18:47] LABS: Appearance,Urine CLEAR (Clear); Bilirubin,Urine Negative (Negative); Blood, Urine TRACE-I (Negative); Color,Urine YELLOW (Yellow); Glucose,Urine (UA) Negative (Negative); Ketones,Urine Negative (Negative); Leukocyte Esterase,Urine Negative (Negative); Nitrate,Urine Negative (Negative); PH,Urine 5.5 (5.0-8.5); Protein,Urine Negative (Negative); Specific Gravity, Urine >= 1.030 (1.005-1.030); Urobilinogen,Urine 0.2 EU/dl (0.2)
[2022-08-25 18:48] LABS: Chloride 100 mmol/L (98-107); Potassium 4.1 mmoL/L (3.5-5.1); Sodium 137 mmol/L (136-145)
[2022-08-25 18:51] LABS: Alanine Aminotransferase 13 U/L (12-78); Albumin Level 3.9 g/dl (3.5-5.0); Albumin/Globulin Ratio 1.3 (1.1-1.8); Alkaline Phosphatase 60 U/L (38-126); Anion Gap 13.1 mEq/L (5-15); Aspartate Amino Transferase 18 U/L (14-36); Blood Urea Nitrogen 14 mg/dl (7-17); Carbon Dioxide 28 mmol/L (22.0-30.0); Creatinine Clearance Estimated 187 mL/min (50-200); Estimated Glomerular Filt Rate 148 ml/min (>60); GFR (African American) 179 ML/MIN (>60); Total Protein,Serum 6.9 g/dl (6.3-8.2)
[2022-08-25 18:52] LABS: Bilirubin,Total 0.1 mg/dl (0.2-1.3); Calcium 9.3 mg/dl (8.4-10.2); Glucose 94 mg/dl (74-100)
[2022-08-25 18:56] LABS: Bacteria,Urine Trace /lpf; RBC,Urine Occasional #/hpf (0-3)
[2022-08-25 20:59] VITALS: BP 110/60; PULSE 72; RESP 18; TEMP 36.6; O2SAT 99
== END 2022-08-25 21:08 | disposition home or self-care (01) ==
PROVIDERS: Emergency Provider Emergency Medicine; PCP Emergency Medicine
DX: R82.71 Bacteriuria (principal); R10.30 Lower abdominal pain, unspecified; O26.891 Other specified pregnancy related conditions, first trimester; Z3A.01 Less than 8 weeks gestation of pregnancy; R10.2 Pelvic and perineal pain
CPT/HCPCS: 76817; 80053; 81001; 84702; 85025; 99284

== ENCOUNTER → 2022-09-04 16:12 | Outpatient (CLI) | payer OTHER, SELFPAY ==
[2022-09-04 16:59] LABS: Basophils % 0.3 % (0.1-2.0); Eosinophils # 0.1 K/mm3 (0.0-0.4); Eosinophils % 0.7 % (0.1-12.0); Hematocrit 36.4 % (37.0-47.0); Hemoglobin 12.1 g/dL (12.2-16.2); Lymphocytes # 1.8 K/mm3 (0.7-4.5); Lymphocytes % 20.4 % (10-50); Mean Corpuscular HGB Conc 33.3 g/dL (31.8-35.4); Mean Corpuscular Hemoglobin 30.7 pg (27.0-31.2); Mean Platelet Volume 7.8 fl (7.4-10.4); Monocytes # 0.4 K/mm3 (0.1-1.0); Monocytes % 4.1 % (1.7-9.3); Neutrophils # 6.6 K/mm3 (1.8-7.8); Neutrophils % 74.6 % (37.0-80.0); Platelet Count 303 K/mm3 (142-424); Red Blood Count 3.95 M/mm3 (4.20-5.40); Red Cell Distribution Width 12.7 % (11.5-17.5); White Blood Count 8.8 K/mm3 (4.8-10.8)
[2022-09-04 17:37] LABS: Barbiturates Screen,Urine Negative ng/ml (<200); Benzodiazepines Screen,Urine Negative ng/ml (<200)
[2022-09-04 17:38] LABS: Amphetamine/Metha Screen,Urine Negative ng/ml (<1000)
[2022-09-04 17:39] LABS: Cannabinoid Screen,Urine Negative ng/ml (<50); Cocaine Screen,Urine Negative ng/ml (<300)
[2022-09-04 17:40] LABS: Methadone Screen,Urine Negative ng/ml (<300); Opiate Screen,Urine Negative ng/ml (<300)
[2022-09-04 17:41] LABS: Phencyclidine Screen,Urine Negative ng/ml (<25)
[2022-09-06 12:49] LABS: Rapid Plasma Reagin Ab Titer Non Reactive (NonRea<1:1)
[2022-09-18 15:33] LABS: Hepatitis B Surface Antigen NEGATIVE; Hepatitis C Antibody <0.1; Rubella Antibodies, IgG 2.04
[2022-09-18 15:51] LABS: HIV Screen 4th Generation wRfx Non Reactive
== END ==
PROVIDERS: PCP Emergency Medicine; Visit Provider Obstetrics & Gynecology
DX: Z34.90 Encounter for supervision of normal pregnancy, unspecified, unspecified trimester (principal)
CPT/HCPCS: 36415; 80305; 85025; 86592; 86703; 86762; 86850; 87086; 87340; 87380; G0432

== ENCOUNTER → 2022-09-26 13:23 | Outpatient (CLI) | payer OTHER, SELFPAY | DX: Z13.79 Encounter for other screening for genetic and chromosomal anomalies (principal) ==

== ENCOUNTER 2022-10-19 09:57 | Emergency (ER) | payer OTHER, SELFPAY ==
[2022-10-19 09:58] VITALS: BP 92/56; PULSE 86; RESP 18; O2SAT 98; BMI 24.2
[2022-10-19 10:15] VITALS: BMI 24.2
[2022-10-19 10:21] LABS: Microscopic, Urine URINE MICROSCOPIC (MICROSCOPIC)
[2022-10-19 10:25] LABS: Appearance,Urine SL CLOUDY (Clear); Bilirubin,Urine Negative (Negative); Blood, Urine Negative (Negative); Color,Urine YELLOW (Yellow); Glucose,Urine (UA) Negative (Negative); Ketones,Urine Negative (Negative); Leukocyte Esterase,Urine 1+ (Negative); Nitrate,Urine Negative (Negative); Protein,Urine Negative (Negative); Specific Gravity, Urine 1.015 (1.005-1.030); Urobilinogen,Urine 0.2 EU/dl (0.2)
[2022-10-19 10:25] LABS: Chloride 101 mmol/L (98-107)
[2022-10-19 10:26] LABS: Potassium 3.8 mmoL/L (3.5-5.1); Sodium 137 mmol/L (136-145)
[2022-10-19 10:27] LABS: Basophils % 0.2 % (0.1-2.0); Eosinophils # 0.1 K/mm3 (0.0-0.4); Eosinophils % 1.2 % (0.1-12.0); Hematocrit 37.9 % (37.0-47.0); Hemoglobin 12.4 g/dL (12.2-16.2); Lymphocytes % 11.8 % (10-50); Mean Corpuscular HGB Conc 32.6 g/dL (31.8-35.4); Mean Corpuscular Volume 94.9 fl (81-99); Mean Platelet Volume 7.6 fl (7.4-10.4); Monocytes # 0.3 K/mm3 (0.1-1.0); Monocytes % 3.5 % (1.7-9.3); Neutrophils # 7.1 K/mm3 (1.8-7.8); Neutrophils % 83.2 % (37.0-80.0); Platelet Count 340 K/mm3 (142-424); Red Blood Count 3.99 M/mm3 (4.20-5.40); Red Cell Distribution Width 13.4 % (11.5-17.5); White Blood Count 8.5 K/mm3 (4.8-10.8)
[2022-10-19 10:29] LABS: Anion Gap 10.8 mEq/L (5-15); Blood Urea Nitrogen 9 mg/dl (7-17); Calcium 8.6 mg/dl (8.4-10.2); Carbon Dioxide 29 mmol/L (22.0-30.0); Creatinine Clearance Estimated 182 mL/min (50-200); Estimated Glomerular Filt Rate 148 ml/min (>60); GFR (African American) 179 ML/MIN (>60); Glucose 96 mg/dl (74-100)
--- NOTE | 2022-10-19 10:29 | US_ITS ---
FINAL REPORT CLINICAL HISTORY: lower abdominal cramping, diarrhea x today, vomiting yesterday, FINDINGS: There is a single live intrauterine gestation. Presentation is breech. The cervix is closed and measures 4.30 cm. Placenta is anterior, grade 0. movement is noted. Amniotic fluid is normal. Anatomy seen is within normal limits. Heartbeat is detected at 161 beats per minute. MEASUREMENTS: ULTRASOUND AGE: 14 weeks 6 days. GESTATION AGE: 14 weeks 6 days. ESTIMATED WEIGHT: 106 g GROWTH PERCENTILE: 30 % BPD: 2.73 cm corresponding to 14 weeks 6 days. OFD: 3.52 cm corresponding to 14 weeks 5 days. HC: 9.90 cm corresponding to 14 weeks 5 days. AC: 8.54 cm corresponding to 14 weeks days. FL: 1.60 cm corresponding to 14 weeks 6 days. HUMERUS: 1.61 cm corresponding to 14 weeks 5 days. HC/AC: 1.16 CI: 78% FL/BPD: 59% FL/AC: 19% IMPRESSION: Single living IUP with an ultrasound age of 14 weeks 6 days. Reviewed, Interpreted and Dictated by Toribio Montgomery III, MD Transcribed by Guillermina Tian Authenticated and . [facility]
--- NOTE | 2022-10-19 10:38 | PC.NURSE ---
stool sent to lab
[2022-10-19 10:42] LABS: Astrovirus Not Detected (NotDetected); Campylobacter Not Detected (NotDetected); Clostridium Difficile A/B, PCR Not Detected (NotDetected); Cryptosporidium Not Detected (NotDetected); Cyclospora Cayetanesis Not Detected (NotDetected); Entamoeba histolytica Not Detected (NotDetected); Enteroaggregative E coli Not Detected (NotDetected); Enteropathogenic E coli Not Detected (NotDetected); Enterotoxigenic E coli Not Detected (NotDetected); Giardia lamblia Not Detected (NotDetected); Norovirus Not Detected (NotDetected); Plesimonas Shigalloides, PCR Not Detected (NotDetected); Rotavirus A Not Detected (NotDetected); Salmonella, PCR Not Detected (NotDetected); Shiga-like toxin E coli Not Detected (NotDetected); Shigella Enterovasive E coli Not Detected (NotDetected); Vibrio Cholerae Not Detected (NotDetected); Vibrio, PCR Not Detected (NotDetected); Yersinia Entercolitica, PCR Not Detected (NotDetected)
[2022-10-19 10:55] LABS: Bacteria,Urine 1+ /lpf; Mucus,Urine Trace /lpf; RBC,Urine Occasional #/hpf (0-3)
[2022-10-19 11:00] VITALS: BP 103/56; PULSE 86; RESP 16; O2SAT 99
--- NOTE | 2022-10-19 11:38 | PC.NURSE ---
Patient back from
--- NOTE | 2022-10-19 11:48 | HMH.EDGENADL ---
Discharge Plan Disposition Patient Disposition: Home, Self-Care Condition: Good Prescriptions Prescriptions: New cefdinir 300 mg capsule 300 mg PO BID 5 Days Qty: 10 0RF promethazine 25 mg tablet 25 mg PO Q6H PRN (Reason: nausea and vomiting) Qty: 30 0RF No Action fluoxetine 10 mg capsule 20 mg PO DAILY Qty: 60 10RF Rx Instructions: Take 2 capsule by mouth once daily Classic 28 mg iron- 800 mcg tablet 1 tab PO DAILY Qty: 90 4RF ondansetron 4 mg tablet,disintegrating 4 mg PO Q8H PRN (Reason: nausea and vomiting) Qty: 30 4RF fqyreudsml-wlgefqtplervq-rmou 50-325-40 mg tablet 1 tab PO ONCE PRN (Reason: pain) Qty: 24 0RF Referrals Follow up/Referrals: Gary Barraza MD [Primary Care Provider] - See instructions Clinical Impressions Clinical Impression: UTI (urinary tract infection), Vomiting Instructions Patient Instructions: DI for Urinary Tract Infection (UTI), DI for Nausea -- Adult Discharge ED Provider: Mohan Santiago General Adult HPI General Chief complaint: Nausea/Vomiting/Diarrhea Stated complaint: 15 Weeks , back pain, diarrhea, cramping Time Seen by Provider: 10/19/22 10:05 Mode of Arrival: Ambulatory Source of Information: Patient Limitations: No Limitations Description of Symptoms (Recalled from ER Triage Doc. by RN): c/o vomiting that started Wed and diarrhea with lower abdomen cramping that started this morning. Pt is 15 weeks , denies any vaginal bleeding History of Present Illness HPI narrative: Patient is a 26-year-old female who is currently 15 weeks with no other past medical history who presents with concern for lower abdominal cramping, vomiting, diarrhea. She says that her symptoms started on Saturday with vomiting and started with diarrhea yesterday. She states that there is no blood in her vomit or her diarrhea. She locates the abdominal cramping in her suprapubic region and her bilateral lower quadrants. Denies any fever or chills. Denies any dysuria. Denies any hematuria. Related Data Previous Rx's Medication Instructions Recorded fluoxetine 10 mg capsule 20 mg PO DAILY Depression #60 caps 09/04/22 ondansetron 4 mg disintegrating 4 mg PO Q8H PRN nausea and 09/04/22 tablet vomiting #30 tabs vits no.126-ferrous fum 1 tab PO DAILY #90 tabs 09/04/22 28 mg iron-folic acid 800 mcg tablet (Classic ) hlhttdwjbo-lxbwuutuyzlwu-qewokcev 1 tab PO ONCE PRN pain #24 tabs 10/09/22 50 mg-325 mg-40 mg tablet cefdinir 300 mg capsule 300 mg PO BID 5 days #10 caps 10/19/22 promethazine 25 mg tablet 25 mg PO Q6H PRN nausea and 10/19/22 vomiting #30 tabs Allergies Allergy/AdvReac Type Severity Reaction Status Date / Time No Known Allergies Allergy Verified 10/08/22 14:32 [facility] Disclaimer: The information contained in this section may have been updated after the patient was seen, as this information can be updated by other users. 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 No significant past medical history Social History Smoking Status: Current every day smoker tobacco type: e-cigarettes quit status: considering quitting second hand exposure: No alcohol intake: never substance use type: denies use current occupational status: other Travel in the last 8 weeks: None household members: family housing: house current occupational exposures/hazards: No caffeine: Yes ROS Obtained: Yes All systems reviewed & no additional complaints except as documented A 14 point review of system was obtained and otherwise negative except per HPI Physical Exam General General appearance: alert and in no apparent distress Head Head exam: atraumatic, normocephalic and normal inspection Eye Eye exam: Present normal appearance, PERRL and EOMI ENT ENT exam: Present normal exam, normal
[2022-10-19 12:42] LABS: Adenovirus F 40/41, stool Detected (NotDetected); Sapovirus Detected (NotDetected)
[2022-10-19 13:52] VITALS: BP 105/65; PULSE 86; RESP 16; TEMP 36.6; O2SAT 99
[2022-10-19 17:51] LABS: Chloride 101 mmol/L (98-107); Potassium 3.8 mmoL/L (3.5-5.1); Sodium 137 mmol/L (136-145)
[2022-10-19 17:53] LABS: Alanine Aminotransferase 13 U/L (12-78); Aspartate Amino Transferase 22 U/L (14-36); Blood Urea Nitrogen 9 mg/dl (7-17); Creatinine Clearance Estimated 182 mL/min (50-200); Estimated Glomerular Filt Rate 148 ml/min (>60); GFR (African American) 179 ML/MIN (>60)
[2022-10-19 17:54] LABS: Albumin/Globulin Ratio 1.2 (1.1-1.8); Alkaline Phosphatase 57 U/L (38-126); Anion Gap 10.8 mEq/L (5-15); Bilirubin,Total 0.5 mg/dl (0.2-1.3); Calcium 8.6 mg/dl (8.4-10.2); Carbon Dioxide 29 mmol/L (22.0-30.0); Globulin 3.4 g/dL (1.3-3.2); Glucose 91 mg/dl (74-100); Lipase 44 U/L (23-300); Total Protein,Serum 7.4 g/dl (6.3-8.2)
[2022-10-19 18:00] LABS: C-Reactive Protein 7.8 mg/L (0-4)
== END 2022-10-19 13:30 | disposition home or self-care (01) ==
PROVIDERS: Emergency Provider Student in an Organized Health Care Education/Training Program; PCP Emergency Medicine
DX: O23.42 Unspecified infection of urinary tract in pregnancy, second trimester (principal); O26.892 Other specified pregnancy related conditions, second trimester; R11.10 Vomiting, unspecified; Z3A.15 15 weeks gestation of pregnancy; O99.332 Smoking (tobacco) complicating pregnancy, second trimester; F17.290 Nicotine dependence, other tobacco product, uncomplicated
CPT/HCPCS: 76805; 80048; 80053; 81001; 83690; 85025; 86140; 87086; 87506; 96360; 99285

== ENCOUNTER → 2022-12-04 13:41 | Outpatient (CLI) | payer OTHER, SELFPAY ==
--- NOTE | 2022-12-04 13:41 | US_ITS ---
FINAL REPORT CLINICAL HISTORY: 20 week anatomy scan FINDINGS: There is a single live intrauterine gestation. Presentation is cephalic. The cervix is closed and measures 3.1 cm. Placenta is anterior grade 1. movement is noted. The visualized anatomy is unremarkable. Amniotic fluid is appropriate amount. Heart rate is detected at 152 beats per minute. MEASUREMENTS: ULTRASOUND AGE: 21 weeks 1 day. GESTATION AGE: 21 weeks 3 days. ESTIMATED WEIGHT: 407 g GROWTH PERCENTILE: 33 % BPD: 4.87 cm corresponding to 20 weeks 6 days. OFD: 6.50 cm corresponding to 21 weeks 4 days. HC: 18.04 cm corresponding to 20 weeks days. AC: 16.18 cm corresponding to 21 weeks 2 days. FL: 3.59 cm corresponding to 21 weeks 3 days. CEREBELLUM: 2.13 cm corresponding to 21 weeks 3 days. HUMERUS: 3.36 cm corresponding to 21 weeks 3 days. HC/AC: 1.11 CI: 75% FL/BPD: 74% FL/AC: 22% IMPRESSION: Single living IUP with an ultrasound age of 21 weeks 1 day. Reviewed, Interpreted and Dictated by Trista Rose MD Transcribed by Guillermina Tian Authenticated and [facility]
== END ==
PROVIDERS: PCP Emergency Medicine; Visit Provider Obstetrics & Gynecology
DX: Z34.90 Encounter for supervision of normal pregnancy, unspecified, unspecified trimester (principal); Z3A.20 20 weeks gestation of pregnancy
CPT/HCPCS: 76811

== ENCOUNTER 2022-12-19 19:09 | Emergency (ER) | payer OTHER, SELFPAY ==
[2022-12-19 19:24] VITALS: BP 111/67; PULSE 87; RESP 20; TEMP 36.8; O2SAT 97; BMI 27.4
[2022-12-19 19:33] LABS: Coronavirus 19, PCR Not Detected (NotDetected); Influenza A, PCR Not Detected (NotDetected); Influenza B, PCR Not Detected (NotDetected)
--- NOTE | 2022-12-19 20:15 | HMH.EDURI ---
Discharge Plan Disposition Patient Disposition: Home, Self-Care Prescriptions Prescriptions: No Action fluoxetine 10 mg capsule 20 mg PO DAILY Qty: 60 10RF Rx Instructions: Take 2 capsule by mouth once daily Classic 28 mg iron- 800 mcg tablet 1 tab PO DAILY Qty: 90 4RF ondansetron 4 mg tablet,disintegrating 4 mg PO Q8H PRN (Reason: nausea and vomiting) Qty: 30 4RF bzgbpzijiq-zijtkhpteubqi-qmzf 50-325-40 mg tablet 1 tab PO ONCE PRN (Reason: pain) Qty: 24 0RF promethazine 25 mg tablet 25 mg PO Q6H PRN (Reason: nausea and vomiting) Qty: 30 0RF Referrals Follow up/Referrals: Gary Barraza MD [Primary Care Provider] - See instructions Clinical Impressions Clinical Impression: Upper respiratory infection, viral, Instructions Patient Instructions: DI for Viral Upper Respiratory Infection -- Adult Discharge ED Provider: Madi (ED)Gary URI/Sore Throat HPI General Chief Complaint: Upper Respiratory Infection Stated Complaint: cough congestion,chills Time Seen by Provider: 12/19/22 20:15 Mode of Arrival: Ambulatory Source of Information: Patient and Medical Record Limitations: No Limitations Description of Symptoms (Recalled from ER Triage Doc. by RN): Cough, congestion, N/V x 3 days History of Present Illness HPI Narrative: cough and uri sx over the last few days - pt is 24 weeks Complaint: cough and nasal congestion Onset (ago): day(s) Duration: intermittent Severity: moderate Able to tolerate fluids by mouth: Yes Context: sick contacts Related Data Previous Rx's Medication Instructions Recorded fluoxetine 10 mg capsule 20 mg PO DAILY Depression #60 caps 09/04/22 ondansetron 4 mg disintegrating 4 mg PO Q8H PRN nausea and 09/04/22 tablet vomiting #30 tabs vits no.126-ferrous fum 1 tab PO DAILY #90 tabs 09/04/22 28 mg iron-folic acid 800 mcg tablet (Classic ) picjtwtnji-pzzofjtsjsbpo-rfxokexm 1 tab PO ONCE PRN pain #24 tabs 10/09/22 50 mg-325 mg-40 mg tablet promethazine 25 mg tablet 25 mg PO Q6H PRN nausea and 10/19/22 vomiting #30 tabs Allergies Allergy/AdvReac Type Severity Reaction Status Date / Time No Known Allergies Allergy Verified 12/19/22 16:16 [facility] Disclaimer: The information contained in this section may have been updated after the patient was seen, as this information can be updated by other users. 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 (Updated 12/19/22 @ 21:10 by Gary Barraza (ELDA)MD) Headache in No significant past medical history Sinusitis Strep pharyngitis Strep throat exposure UTI (urinary tract infection) Social History Smoking Status: Current some day smoker tobacco type: e-cigarettes quit status: considering quitting second hand exposure: No alcohol intake: never substance use type: denies use current occupational status: other Travel in the last 8 weeks: None household members: family housing: house current occupational exposures/hazards: No caffeine: Yes ROS Obtained: Yes All systems reviewed & no additional complaints except as documented Physical Exam General General appearance: alert Head Head exam: normocephalic Eye Eye exam: Present PERRL and EOMI ENT ENT exam: Present normal oropharynx, mucous membranes moist and TM's normal bilaterally Neck Neck exam: Present trachea midline Respiratory Respiratory exam: Present normal lung sounds bilaterally; Absent respiratory distress Cardiovascular Cardiovascular exam: Present regular rate Abdominal Exam Abdominal exam: Present soft Extremities Exam Extremities exam: Present full ROM Neurological Exam Neurological exam: Present alert and CN II-XII intact; Absent motor sensory deficit Psychiatric Psychiatric exam: Present normal affect Skin Skin exam: Absent rash Medical Decision Making Medical Records Medical records reviewed: Jhony
--- NOTE | 2022-12-19 20:20 | PC.NURSE ---
Rechecked pt condition. No needs voiced at this this time.
[2022-12-19 21:16] VITALS: BP 121/67; PULSE 84; RESP 17; TEMP 36.8; O2SAT 98
== END 2022-12-19 21:18 | disposition home or self-care (01) ==
PROVIDERS: Emergency Medicine; Emergency Provider Emergency Medicine; PCP Emergency Medicine
DX: O99.891 Other specified diseases and conditions complicating pregnancy (principal); Z3A.24 24 weeks gestation of pregnancy; Z20.822 Contact with and (suspected) exposure to COVID-19; J06.9 Acute upper respiratory infection, unspecified
CPT/HCPCS: 99283; C9803; U0003; U0005

== ENCOUNTER 2022-12-20 09:36 | Emergency (ER) | payer OTHER, SELFPAY ==
[2022-12-20 09:45] VITALS: BP 101/62; PULSE 93; RESP 20; TEMP 36.8; O2SAT 99; BMI 27.4
--- NOTE | 2022-12-20 10:11 | EXP.UTC ---
Discharge Plan Disposition Patient Disposition: Home, Self-Care Condition: Good Prescriptions Prescriptions: New promethazine 25 mg Tablet 25 mg PO Q6H PRN (Reason: Nausea And Vomiting) Qty: 20 0RF No Action fluoxetine 10 mg capsule 20 mg PO DAILY Qty: 60 10RF Rx Instructions: Take 2 capsule by mouth once daily Classic 28 mg iron- 800 mcg tablet 1 tab PO DAILY Qty: 90 4RF Referrals Follow up/Referrals: Gary Barraza MD [Primary Care Provider] - See instructions Activity Restrictions/Add. Instructions Additional Instructions/Restrictions: Drink plenty of fluids. Take tylenol or ibuprofen for pain or fever. Take the medications as directed. Follow up with your regular doctor. GO TO THE ER FOR ANY WORSENING SYMPTOMS Clinical Impressions Clinical Impression: Viral syndrome Stand Alone Forms Stand Alone Forms: Work/School Release Instructions Patient Instructions: DI for Viral Syndrome Discharge ED Provider: Daljit Salcedo [facility] [place] HPI General Stated complaint: Chills, cough, sneezing, sore throat, headache Time Seen by Provider: 12/20/22 10:11 History of Present Illness Provider Complaint: she states that for the past 3 day she has felt progressively worse, had a cough, and scratchy sore throat. Related Data Previous Rx's Medication Instructions Recorded fluoxetine 10 mg capsule 20 mg PO DAILY Depression #60 caps 09/04/22 vits no.126-ferrous fum 1 tab PO DAILY #90 tabs 09/04/22 28 mg iron-folic acid 800 mcg tablet (Classic ) promethazine 25 mg tablet 25 mg PO Q6H PRN Nausea And 12/20/22 Vomiting #20 tabs Allergies Allergy/AdvReac Type Severity Reaction Status Date / Time No Known Allergies Allergy Verified 12/20/22 10:11 [facility] Disclaimer: The information contained in this section may have been updated after the patient was seen, as this information can be updated by other users. 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 Headache in No significant past medical history Sinusitis Strep pharyngitis Strep throat exposure UTI (urinary tract infection) Social History Smoking Status: Current some day smoker tobacco type: e-cigarettes quit status: considering quitting second hand exposure: No alcohol intake: never substance use type: denies use current occupational status: other Travel in the last 8 weeks: None household members: family housing: house current occupational exposures/hazards: No caffeine: Yes ROS Obtained: Yes All systems reviewed & no additional complaints except as documented Constitutional Constitutional: Reports poor appetite Eyes Eyes: Reports system reviewed and no additional complaints, except as documented ENT Ears, Nose, Mouth, and Throat: Reports as per HPI Cardiovascular Cardiovascular: Reports system reviewed and no additional complaints, except as documented and Denies chest pain Respiratory Respiratory: Denies shortness of breath, Denies chest congestion, Reports cough, Denies stridor and Denies wheezing Gastrointestinal Gastrointestingal: Reports system reviewed and no additional complaints, except as documented; Denies abdominal pain, diarrhea or vomiting Musculoskeletal Musculoskeletal: Reports system reviewed and no additional complaints, except as documented and Denies arthralgias Integumentary/Breasts Skin/Breast: Reports system reviewed and no additional complaints, except as documented and Denies rash Neurologic Neurologic: Denies paresthesias Allergic/Immunologic Allergic/Immunologic: Denies wheezing Physical Exam General General appearance: alert and in no apparent distress Head Head exam: atraumatic, normocephalic and normal inspection Eye Eye exam: Present normal appearance, PERRL and EOMI ENT ENT exam: Present normal exam, normal oropharynx, mucous membranes
[2022-12-20 10:41] LABS: UTC Strep Screen (Rapid) Negative (Negative)
[2022-12-20 10:54] VITALS: BP 101/62; PULSE 93; RESP 20; TEMP 36.8; O2SAT 99
[2022-12-20 11:11] LABS: Adenovirus,PCR Not Detected (NotDetected); Bordetella Pertussis Not Detected (NotDetected); Chlamydophila Pneumoniae, PCR Not Detected (NotDetected); Coronavirus 19, PCR Not Detected (NotDetected); Coronavirus 229E Not Detected (NotDetected); Coronavirus NL63 Not Detected (NotDetected); Coronavirus OC43 Not Detected (NotDetected); Coronovirus HKU1,PCR Not Detected (NotDetected); Human Metapneumovirus Not Detected (NotDetected); Influenza A, PCR Not Detected (NotDetected); Influenza AH1, 2009 Not Detected (NotDetected); Influenza AH1, PCR Not Detected (NotDetected); Influenza AH3,PCR Not Detected (NotDetected); Influenza B, PCR Not Detected (NotDetected); Mycoplasma Pneumoniae, PCR Not Detected (NotDetected); Parainfluenza 1, PCR Not Detected (NotDetected); Parainfluenza 2, PCR Not Detected (NotDetected); Parainfluenza 3, PCR Not Detected (NotDetected); Parainfluenza 4, PCR Not Detected (NotDetected); Respiratory Syncytial Virus Not Detected (NotDetected)
[2022-12-20 14:30] LABS: Rhinovirus/Enterovirus Detected (NotDetected)
== END 2022-12-20 10:54 | disposition home or self-care (01) ==
PROVIDERS: Emergency Provider Nurse Practitioner Family; PCP Emergency Medicine
DX: R51.9 Headache, unspecified (principal); R05.1 Acute cough; R11.2 Nausea with vomiting, unspecified; R07.0 Pain in throat; B97.89 Other viral agents as the cause of diseases classified elsewhere; F17.290 Nicotine dependence, other tobacco product, uncomplicated; Z20.822 Contact with and (suspected) exposure to COVID-19
CPT/HCPCS: 87581; 87632; 87798; 87880; 99212; 99214; C9803; G0463; U0003; U0005

== ENCOUNTER 2022-12-28 20:22 | Outpatient (CLI) | payer OTHER, SELFPAY ==
[2022-12-28 20:37] VITALS: BMI 26.9
[2022-12-28 20:42] LABS: Microscopic, Urine URINE MICROSCOPIC (MICROSCOPIC)
[2022-12-28 20:54] LABS: Appearance,Urine SL CLOUDY (Clear); Bilirubin,Urine Negative (Negative); Blood, Urine Negative (Negative); Color,Urine YELLOW (Yellow); Glucose,Urine (UA) Negative (Negative); Ketones,Urine Negative (Negative); Leukocyte Esterase,Urine TRACE (Negative); Nitrate,Urine Negative (Negative); PH,Urine 7.5 (5.0-8.5); Protein,Urine Negative (Negative); Specific Gravity, Urine 1.015 (1.005-1.030); Urobilinogen,Urine 0.2 EU/dl (0.2)
[2022-12-28 21:07] LABS: Barbiturates Screen,Urine Positive ng/ml (<200)
[2022-12-28 21:08] LABS: Benzodiazepines Screen,Urine Negative ng/ml (<200)
[2022-12-28 21:09] LABS: Amphetamine/Metha Screen,Urine Negative ng/ml (<1000); Cannabinoid Screen,Urine Negative ng/ml (<50)
[2022-12-28 21:10] LABS: Cocaine Screen,Urine Negative ng/ml (<300)
[2022-12-28 21:11] LABS: Methadone Screen,Urine Negative ng/ml (<300); Opiate Screen,Urine Negative ng/ml (<300)
[2022-12-28 21:12] LABS: Phencyclidine Screen,Urine Negative ng/ml (<25)
[2022-12-28 21:30] VITALS: BP 100/66; PULSE 87; RESP 18; TEMP 36.9; O2SAT 97; BMI 26.9
[2022-12-28 22:01] LABS: Squamous Epithelial Cell,Urine Occasional #/hpf (0-5); WBC,Urine Occasional #/hpf (0-3)
[2022-12-28 22:47] LABS: Fetal Fibronectin (Rapid) Negative (Negative)
== END 2022-12-28 23:00 | disposition home or self-care (01) ==
LOC: OBOUT 20:25 → OB 20:26
PROVIDERS: PCP Emergency Medicine; Visit Provider Obstetrics & Gynecology
DX: O47.02 False labor before 37 completed weeks of gestation, second trimester (principal); Z3A.24 24 weeks gestation of pregnancy
CPT/HCPCS: 59025; 80305; 81001; 82731; G0463

== ENCOUNTER → 2023-01-05 08:31 | Outpatient (CLI) | payer OTHER, SELFPAY ==
[2023-01-05 09:07] LABS: Basophils % 0.2 % (0.1-2.0); Eosinophils % 0.4 % (0.1-12.0); Hematocrit 34.4 % (37.0-47.0); Hemoglobin 10.9 g/dL (12.2-16.2); Lymphocytes # 1.8 K/mm3 (0.7-4.5); Lymphocytes % 19.7 % (10-50); Mean Corpuscular HGB Conc 31.7 g/dL (31.8-35.4); Mean Corpuscular Hemoglobin 29.3 pg (27.0-31.2); Mean Corpuscular Volume 92.6 fl (81-99); Monocytes # 0.6 K/mm3 (0.1-1.0); Monocytes % 6.8 % (1.7-9.3); Neutrophils # 6.5 K/mm3 (1.8-7.8); Neutrophils % 72.9 % (37.0-80.0); Platelet Count 387 K/mm3 (142-424); Red Blood Count 3.71 M/mm3 (4.20-5.40); Red Cell Distribution Width 13.1 % (11.5-17.5); White Blood Count 8.9 K/mm3 (4.8-10.8)
[2023-01-05 09:44] LABS: Glucose,Fasting 88 mg/dl (74-100)
[2023-01-05 11:27] LABS: Glucose 1 Hour 122 mg/dL (74-100)
== END ==
PROVIDERS: PCP Emergency Medicine; Visit Provider Obstetrics & Gynecology
DX: Z34.90 Encounter for supervision of normal pregnancy, unspecified, unspecified trimester (principal)
CPT/HCPCS: 36415; 82951; 85025

== ENCOUNTER 2023-01-22 13:58 | Outpatient (CLI) | payer OTHER, SELFPAY ==
[2023-01-22 14:51] VITALS: BMI 27.4
[2023-01-22 14:54] VITALS: BP 93/57; PULSE 80; RESP 18; TEMP 37; O2SAT 100; BMI 27.4
[2023-01-22 15:08] LABS: Basophils % 0.1 % (0.1-2.0); Eosinophils # 0.1 K/mm3 (0.0-0.4); Eosinophils % 0.5 % (0.1-12.0); Hematocrit 32.5 % (37.0-47.0); Hemoglobin 10.7 g/dL (12.2-16.2); Lymphocytes % 18.4 % (10-50); Mean Corpuscular Hemoglobin 29.8 pg (27.0-31.2); Mean Corpuscular Volume 90.3 fl (81-99); Mean Platelet Volume 8.1 fl (7.4-10.4); Monocytes # 0.5 K/mm3 (0.1-1.0); Neutrophils # 8.2 K/mm3 (1.8-7.8); Platelet Count 337 K/mm3 (142-424); Red Cell Distribution Width 13.9 % (11.5-17.5); White Blood Count 10.7 K/mm3 (4.8-10.8)
[2023-01-22 15:26] LABS: Chloride 105 mmol/L (98-107); Potassium 3.6 mmoL/L (3.5-5.1); Sodium 135 mmol/L (136-145)
[2023-01-22 15:28] LABS: Alanine Aminotransferase 13 U/L (12-78); Alkaline Phosphatase 88 U/L (38-126); Aspartate Amino Transferase 19 U/L (14-36); Bilirubin,Total 0.2 mg/dl (0.2-1.3); Blood Urea Nitrogen 6 mg/dl (7-17); Creatinine Clearance Estimated 255 mL/min (50-200); Estimated Glomerular Filt Rate 190 ml/min (>60); GFR (African American) 230 ML/MIN (>60)
[2023-01-22 15:29] LABS: Albumin Level 3.2 g/dl (3.5-5.0); Anion Gap 9.6 mEq/L (5-15); Carbon Dioxide 24 mmol/L (22.0-30.0); Globulin 3.2 g/dL (1.3-3.2); Glucose 95 mg/dl (74-100); Total Protein,Serum 6.4 g/dl (6.3-8.2)
== END 2023-01-22 16:45 | disposition home or self-care (01) ==
LOC: OBOUT 14:00 → OB 14:00
PROVIDERS: PCP Emergency Medicine; Visit Provider Obstetrics & Gynecology
DX: O26.893 Other specified pregnancy related conditions, third trimester (principal); Z3A.28 28 weeks gestation of pregnancy
CPT/HCPCS: 59025; 80053; 85025; 96365; 96366; 96372; G0463

== ENCOUNTER 2023-01-23 15:13 | Outpatient (CLI) | payer OTHER, SELFPAY | END 2023-01-23 15:30 | disposition home or self-care (01) | LOC: OBOUT 15:14 → OB 15:15 | PROVIDERS: PCP Emergency Medicine; Visit Provider Obstetrics & Gynecology | DX: O47.00 False labor before 37 completed weeks of gestation, unspecified trimester (principal); Z3A.29 29 weeks gestation of pregnancy | CPT/HCPCS: 96372 ==

== ENCOUNTER 2023-01-24 10:08 | Outpatient (CLI) | payer OTHER, SELFPAY ==
[2023-01-24 10:10] VITALS: BP 117/64; PULSE 81; RESP 18; TEMP 36.7; O2SAT 99; BMI 28.3
[2023-01-24 10:23] LABS: Microscopic, Urine URINE MICROSCOPIC (MICROSCOPIC)
[2023-01-24 10:38] LABS: Appearance,Urine CLEAR (Clear); Bilirubin,Urine Negative (Negative); Blood, Urine Negative (Negative); Color,Urine YELLOW (Yellow); Glucose,Urine (UA) Negative (Negative); Ketones,Urine Negative (Negative); Leukocyte Esterase,Urine TRACE (Negative); Nitrate,Urine Negative (Negative); PH,Urine 6.5 (5.0-8.5); Protein,Urine Negative (Negative); Specific Gravity, Urine <= 1.005 (1.005-1.030); Urobilinogen,Urine 0.2 EU/dl (0.2)
[2023-01-24 11:19] LABS: Amphetamine/Metha Screen,Urine Negative ng/ml (<1000)
[2023-01-24 11:20] LABS: Barbiturates Screen,Urine Negative ng/ml (<200); Benzodiazepines Screen,Urine Negative ng/ml (<200)
[2023-01-24 11:21] LABS: Cannabinoid Screen,Urine Negative ng/ml (<50); Cocaine Screen,Urine Negative ng/ml (<300)
[2023-01-24 11:22] LABS: Methadone Screen,Urine Negative ng/ml (<300)
[2023-01-24 11:23] LABS: Phencyclidine Screen,Urine Negative ng/ml (<25)
[2023-01-24 11:30] LABS: Opiate Screen,Urine Negative ng/ml (<300)
== END 2023-01-24 11:58 | disposition home or self-care (01) ==
LOC: OBOUT 10:09 → OB 10:10
PROVIDERS: Obstetrics & Gynecology; PCP Emergency Medicine; Visit Provider Nurse Practitioner Obstetrics & Gynecology
DX: O26.893 Other specified pregnancy related conditions, third trimester (principal); Z3A.28 28 weeks gestation of pregnancy; E86.0 Dehydration
CPT/HCPCS: 59025; 80305; 81001; 96360

== ENCOUNTER 2023-01-28 08:08 | Emergency (ER) | payer OTHER, SELFPAY ==
--- NOTE | 2023-01-28 08:19 | PC.NURSE ---
Pt states that she has been feeling flush in her face with palpitations and high blood pressure at home 170/105 with her wrist monitor. bp here is 125/69, hr 91 and oxygen 100. Pt states she has an appt with her obgyn today, Doctor Granger at 1530. Pt states that she does not want to be seen in [facility] or ER after seeing her bp reading here. Pt advised to call her obgyn to inform her of the symptoms she is having with her bp. Pt states that she will call.
[2023-01-28 08:20] VITALS: BP 125/69; PULSE 91; RESP 18; TEMP -17.7; TEMP 0; O2SAT 100
== END 2023-01-28 08:30 | disposition left against medical advice (07) ==
PROVIDERS: Emergency Provider Nurse Practitioner; PCP Emergency Medicine
DX: Z53.21 Procedure and treatment not carried out due to patient leaving prior to being seen by health care provider (principal)
CPT/HCPCS: 99211

== ENCOUNTER → 2023-01-28 11:42 | Outpatient (CLI) | payer OTHER, SELFPAY | PROVIDERS: PCP Emergency Medicine; Visit Provider Nurse Practitioner | DX: R00.2 Palpitations (principal) | CPT/HCPCS: 93270 ==

== ENCOUNTER → 2023-02-07 14:09 | Outpatient (CLI) | payer OTHER, SELFPAY | PROVIDERS: PCP Emergency Medicine; Visit Provider Nurse Practitioner | DX: R06.00 Dyspnea, unspecified (principal); R00.2 Palpitations; R07.89 Other chest pain; Z3A.29 29 weeks gestation of pregnancy | CPT/HCPCS: 93306 ==

== ENCOUNTER 2023-02-21 08:39 | Outpatient (CLI) | payer OTHER, SELFPAY ==
[2023-02-21 09:23] VITALS: BP 104/53; PULSE 101; RESP 17; TEMP 36.8; O2SAT 99; BMI 29.1
[2023-02-21 09:43] LABS: Fetal Membrane Rupture (Rapid) Negative (Negative)
[2023-02-21 09:47] LABS: Fetal Fibronectin (Rapid) Negative (Negative)
== END 2023-02-21 11:05 | disposition home or self-care (01) ==
LOC: OBOUT 08:40 → OB 08:41
PROVIDERS: PCP Emergency Medicine; Visit Provider Obstetrics & Gynecology
DX: O26.893 Other specified pregnancy related conditions, third trimester (principal); Z3A.32 32 weeks gestation of pregnancy
CPT/HCPCS: 82731; 84112; G0463

== ENCOUNTER → 2023-02-25 12:57 | Outpatient (CLI) | payer OTHER, SELFPAY ==
--- NOTE | 2023-02-25 12:57 | US_ITS ---
FINAL REPORT CLINICAL HISTORY: hypertension affecting growth and umbilical dopplers done as well FINDINGS: There is a single live intrauterine gestation. Presentation is cephalic. The cervix is closed and measures 3.1 cm. Placenta is anterior, grade 2. Cardiac activity is confirmed at 144 bpm. Three chamber heart is identified. Kidneys and stomach are normal. There is a three-vessel cord. SD ratio of the umbilical artery is 2.4. WAYNE: 18.5, normal. MEASUREMENTS: ULTRASOUND AGE: 33 weeks 5 days. GESTATION AGE: 33 weeks 2 days. ESTIMATED WEIGHT: 4 lb 15 oz GROWTH PERCENTILE: 51% BPD: 8.49 cm consistent with 34 weeks 2 days. OFD: 10.31 cm consistent with 32 weeks 1 days. HC: 29.6 cm consistent with 32 weeks 6 days. AC: 29 point 2 cm consistent with 33 weeks 2 days. FL: 6.66 cm consistent with 34 weeks 2 days. HC/AC: 1.01 CI: 82% FL/BPD: 78% FL/AC: 23% BREATHIN/2 MOVEMENT: 2/2 TONE: 2/2 FLUID VOLUME: 2/2 BPP SCORE: 8/8 IMPRESSION: Single living IUP with an ultrasound age of 33 weeks 5 days. BPP SCORE: 8/8 Reviewed, Interpreted and Dictated by Toribio Montgomery III, MD Transcribed by Maite Pierce Authenticated and [facility]
== END ==
PROVIDERS: PCP Emergency Medicine; Visit Provider Obstetrics & Gynecology
DX: O16.9 Unspecified maternal hypertension, unspecified trimester (principal); Z3A.33 33 weeks gestation of pregnancy
CPT/HCPCS: 76816; 76819; 76820

== ENCOUNTER 2023-02-28 12:26 | Emergency (ER) | payer OTHER, SELFPAY ==
[2023-02-28 12:28] VITALS: BP 99/52; PULSE 89; RESP 16; TEMP 36.7; O2SAT 98; BMI 29.1
[2023-02-28 12:45] LABS: UTC Strep Screen (Rapid) Negative (Negative)
--- NOTE | 2023-02-28 12:46 | EXP.UTC ---
Discharge Plan Disposition Patient Disposition: Home, Self-Care Condition: Good Prescriptions Prescriptions: No Action Classic 28 mg iron- 800 mcg tablet 1 tab PO DAILY Qty: 90 4RF fluoxetine 10 mg capsule 20 mg PO DAILY Qty: 60 2RF Rx Instructions: Take 2 capsule by mouth once daily Referrals Follow up/Referrals: Gary Barraza MD [Primary Care Provider] - See instructions Activity Restrictions/Add. Instructions Additional Instructions/Restrictions: Drink plenty of fluids. Take tylenol for pain or fever. Follow up with your regular doctor. GO TO THE ER FOR ANY WORSENING SYMPTOMS Clinical Impressions Clinical Impression: Gastroenteritis, , Acute viral syndrome Instructions Patient Instructions: DI for Viral Gastroenteritis -- Adult Discharge ED Provider: Daljit Salcedo [facility] General Stated complaint: Vomiting, diarrhea, bodyaches Mode of Arrival: Ambulatory Source of Information: Patient Limitations: No Limitations Time Seen by Provider: 02/28/23 12:45 Description of Symptoms (Recalled from Triage Doc. by RN): Patient complaint of vomiting, diarrhea, sore throat, headache and body aches since last night. HEENT Symptoms (Recalled from RN notes): Yes Resp Symptoms (Recalled from RN notes): No Skin Symptoms (Recalled from RN notes): No MS Symptoms (Recalled from RN notes): No Functional Status (Recalled from RN notes): wnl History of Present Illness Provider Complaint: She states that for the past 24 hours she has had n/v/d. She has a scratchy throat also. She is 34 weeks . She denies any abdominal pain, back pain or vaginal bleeding. Related Data Previous Rx's Medication Instructions Recorded vits no.126-ferrous fum 1 tab PO DAILY #90 tabs 09/04/22 28 mg iron-folic acid 800 mcg tablet (Classic ) fluoxetine 10 mg capsule 20 mg PO DAILY Depression #60 caps 01/23/23 Allergies Allergy/AdvReac Type Severity Reaction Status Date / Time No Known Allergies Allergy Verified 02/26/23 10:03 Worker's Comp Is this a Worker's Comp case?: No [facility] Disclaimer: The information contained in this section may have been updated after the patient was seen, as this information can be updated by other users. 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 Acute tonsillitis Anxiety COVID-19 Tobacco use Vitamin D deficiency Social History Smoking Status: Current some day smoker tobacco type: e-cigarettes quit status: considering quitting second hand exposure: No alcohol intake: never substance use type: denies use current occupational status: employed Travel in the last 8 weeks: None household members: family housing: house current occupational exposures/hazards: No caffeine: Yes ROS Obtained: Yes All systems reviewed & no additional complaints except as documented Constitutional Constitutional: Denies chills, Denies fever(s) and Reports poor appetite ENT Ears, Nose, Mouth, and Throat: Denies dizziness and Denies sore throat Cardiovascular Cardiovascular: Denies dyspnea Respiratory Respiratory: Denies chest congestion, Denies cough and Denies dyspnea Gastrointestinal Gastrointestingal: Reports as per HPI; Denies abdominal pain Genitourinary Female Genitourinary: Denies difficulty voiding, Denies dysuria, Denies hematuria, Denies urinary frequency, Denies urinary incontinence, Denies urinary hesitancy and Denies urinary urgency Musculoskeletal Musculoskeletal: Denies arthralgias Integumentary/Breasts Skin/Breast: Denies rash Neurologic Neurologic: Denies dizziness Physical Exam General General appearance: alert and in no apparent distress Head Head exam: atraumatic and normocephalic Eye Eye exam: Present normal appearance, PERRL and EOMI ENT ENT exam: Present normal exam, normal oropharynx, mucous membranes moist, TM's norm
[2023-02-28 13:08] VITALS: BP 99/52; PULSE 89; RESP 16; TEMP 36.7; O2SAT 98
== END 2023-02-28 13:09 | disposition home or self-care (01) ==
PROVIDERS: Emergency Provider Nurse Practitioner Family; PCP Emergency Medicine
DX: O99.613 Diseases of the digestive system complicating pregnancy, third trimester (principal); K52.9 Noninfective gastroenteritis and colitis, unspecified; Z3A.34 34 weeks gestation of pregnancy; B34.9 Viral infection, unspecified; F17.290 Nicotine dependence, other tobacco product, uncomplicated; F41.9 Anxiety disorder, unspecified; O98.513 Other viral diseases complicating pregnancy, third trimester
CPT/HCPCS: 87880; 99212; 99214; G0463

== ENCOUNTER → 2023-03-12 23:33 | Outpatient (CLI) | payer OTHER, SELFPAY | PROVIDERS: PCP Emergency Medicine; Visit Provider Obstetrics & Gynecology | DX: Z34.90 Encounter for supervision of normal pregnancy, unspecified, unspecified trimester (principal) | CPT/HCPCS: 86403 ==

== ENCOUNTER 2023-03-13 12:01 | Outpatient (CLI) | payer OTHER, SELFPAY ==
[2023-03-13 12:20] VITALS: BP 119/71; PULSE 106; RESP 20; TEMP 36.7; O2SAT 98; BMI 29.0
[2023-03-13 12:53] VITALS: BMI 29.0
[2023-03-13 13:13] LABS: Fetal Membrane Rupture (Rapid) Negative (Negative)
[2023-03-13 13:17] LABS: Amphetamine/Metha Screen,Urine Negative ng/ml (<1000)
[2023-03-13 13:18] LABS: Barbiturates Screen,Urine Negative ng/ml (<200); Benzodiazepines Screen,Urine Negative ng/ml (<200)
[2023-03-13 13:19] LABS: Cannabinoid Screen,Urine Negative ng/ml (<50)
[2023-03-13 13:20] LABS: Cocaine Screen,Urine Negative ng/ml (<300); Methadone Screen,Urine Negative ng/ml (<300)
[2023-03-13 13:21] LABS: Opiate Screen,Urine Negative ng/ml (<300)
[2023-03-13 13:22] LABS: Phencyclidine Screen,Urine Negative ng/ml (<25)
[2023-03-13 13:47] LABS: Appearance,Urine SL CLOUDY (Clear); Bilirubin,Urine Negative (Negative); Blood, Urine Negative (Negative); Color,Urine YELLOW (Yellow); Glucose,Urine (UA) Negative (Negative); Ketones,Urine Negative (Negative); Leukocyte Esterase,Urine Negative (Negative); Microscopic, Urine URINE MICROSCOPIC (MICROSCOPIC); Nitrate,Urine Negative (Negative); Protein,Urine Negative (Negative); Urobilinogen,Urine 0.2 EU/dl (0.2)
[2023-03-13 13:58] LABS: Amorphous Sediment,Urine 1+ /lpf; Bacteria,Urine 1+ /lpf
== END 2023-03-13 16:00 | disposition home or self-care (01) ==
LOC: OBOUT 12:02 → OB 12:03
PROVIDERS: PCP Emergency Medicine; Visit Provider Nurse Practitioner Obstetrics & Gynecology
DX: O47.03 False labor before 37 completed weeks of gestation, third trimester (principal); Z3A.35 35 weeks gestation of pregnancy
CPT/HCPCS: 59025; 80305; 81001; 84112; 96365; G0463

== ENCOUNTER 2023-03-20 07:13 | Outpatient (CLI) | payer OTHER, SELFPAY ==
[2023-03-20 07:24] VITALS: BMI 29.3
[2023-03-20 07:40] LABS: Microscopic, Urine URINE MICROSCOPIC (MICROSCOPIC)
[2023-03-20 07:42] LABS: Appearance,Urine CLEAR (Clear); Bilirubin,Urine Negative (Negative); Blood, Urine Negative (Negative); Color,Urine YELLOW (Yellow); Glucose,Urine (UA) Negative (Negative); Ketones,Urine Negative (Negative); Leukocyte Esterase,Urine Negative (Negative); Nitrate,Urine Negative (Negative); Protein,Urine Negative (Negative); Specific Gravity, Urine 1.015 (1.005-1.030); Urobilinogen,Urine 0.2 EU/dl (0.2)
[2023-03-20 08:16] LABS: Bacteria,Urine Trace /lpf; RBC,Urine Occasional #/hpf (0-3); WBC,Urine Occasional #/hpf (0-3)
[2023-03-20 10:27] VITALS: BMI 29.2
[2023-03-20 10:58] LABS: Amphetamine/Metha Screen,Urine Negative ng/ml (<1000); Barbiturates Screen,Urine Negative ng/ml (<200)
[2023-03-20 10:59] LABS: Benzodiazepines Screen,Urine Negative ng/ml (<200)
[2023-03-20 11:00] LABS: Cannabinoid Screen,Urine Negative ng/ml (<50); Cocaine Screen,Urine Negative ng/ml (<300)
[2023-03-20 11:01] LABS: Methadone Screen,Urine Negative ng/ml (<300)
[2023-03-20 11:02] LABS: Opiate Screen,Urine Negative ng/ml (<300); Phencyclidine Screen,Urine Negative ng/ml (<25)
== END 2023-03-20 09:06 | disposition home or self-care (01) ==
LOC: OBOUT 07:15 → OB 07:15
PROVIDERS: Nurse Practitioner Obstetrics & Gynecology; PCP Emergency Medicine; Visit Provider Obstetrics & Gynecology
DX: O26.893 Other specified pregnancy related conditions, third trimester (principal); Z3A.36 36 weeks gestation of pregnancy
CPT/HCPCS: 59025; 80305; 81001; G0463

== ENCOUNTER 2023-03-24 15:19 | Inpatient (IN) | payer OTHER, SELFPAY ==
--- NOTE | 2023-03-24 15:30 | PC.NURSE ---
pt arrived to floor via ambulatory with mom.
[2023-03-24 15:33] VITALS: BMI 29.3
[2023-03-24 16:05] VITALS: BP 107/63; PULSE 82; RESP 18; TEMP 37.1; O2SAT 98; BMI 21.0
[2023-03-24 16:19] LABS: Coronavirus 19, PCR Not Detected (NotDetected); Influenza A, PCR Not Detected (NotDetected); Influenza B, PCR Not Detected (NotDetected); Microscopic, Urine URINE MICROSCOPIC (MICROSCOPIC)
[2023-03-24 16:32] LABS: Basophils % 0.3 % (0.1-2.0); Eosinophils # 0.1 K/mm3 (0.0-0.4); Eosinophils % 0.6 % (0.1-12.0); Hematocrit 32.8 % (37.0-47.0); Hemoglobin 10.8 g/dL (12.2-16.2); Lymphocytes # 2.1 K/mm3 (0.7-4.5); Lymphocytes % 23.6 % (10-50); Mean Corpuscular Hemoglobin 28.7 pg (27.0-31.2); Mean Platelet Volume 9.1 fl (7.4-10.4); Monocytes # 0.6 K/mm3 (0.1-1.0); Monocytes % 7.1 % (1.7-9.3); Neutrophils # 6.1 K/mm3 (1.8-7.8); Neutrophils % 68.4 % (37.0-80.0); Platelet Count 308 K/mm3 (142-424); Red Blood Count 3.77 M/mm3 (4.20-5.40); Red Cell Distribution Width 14.2 % (11.5-17.5); White Blood Count 8.9 K/mm3 (4.8-10.8)
[2023-03-24 16:33] LABS: Appearance,Urine CLEAR (Clear); Bilirubin,Urine Negative (Negative); Blood, Urine Negative (Negative); Color,Urine YELLOW (Yellow); Glucose,Urine (UA) Negative (Negative); Ketones,Urine Negative (Negative); Leukocyte Esterase,Urine Negative (Negative); Nitrate,Urine Negative (Negative); PH,Urine 6.5 (5.0-8.5); Protein,Urine TRACE (Negative); Specific Gravity, Urine 1.025 (1.005-1.030)
[2023-03-24 16:45] LABS: Amphetamine/Metha Screen,Urine Negative ng/ml (<1000); Benzodiazepines Screen,Urine Negative ng/ml (<200)
[2023-03-24 16:46] LABS: Barbiturates Screen,Urine Negative ng/ml (<200)
[2023-03-24 16:47] LABS: Cannabinoid Screen,Urine Negative ng/ml (<50); Cocaine Screen,Urine Negative ng/ml (<300)
[2023-03-24 16:48] LABS: Methadone Screen,Urine Negative ng/ml (<300)
[2023-03-24 16:49] LABS: Opiate Screen,Urine Negative ng/ml (<300); Phencyclidine Screen,Urine Negative ng/ml (<25)
[2023-03-24 16:53] LABS: Amorphous Sediment,Urine Trace /lpf; Bacteria,Urine 2+ /lpf
[2023-03-24 20:46] VITALS: BP 107/71; PULSE 100; RESP 17; TEMP 37; O2SAT 98
[2023-03-25 03:50] VITALS: BP 109/64; PULSE 78; RESP 17; TEMP 36.9
--- NOTE | 2023-03-25 07:13 | HMH.PHAINT1 ---
Pharmacy Intervention Comments: MEDICATION RECONCILIATION COMPLETED ON PATIENT USING EXTERNAL FILL HISTORY FROM PHARMACY. -ALTAF HENRY, KATARZYNAD
--- NOTE | 2023-03-25 07:55 | EXP.HP ---
History of Present Illness *Admission Date: 03/24/23 *Reason for visit:: Labor induction *History of present illness: 27 yo @ 37 11/13 admitted for induction of labor IOL scheduled for decreased movement care at [facility]-- Dr. Granger has been generally uncomplicated other than decreased movement in the past week She is concerned about wellbeing and requested induction at 37 weeks [facility] Disclaimer: The information contained in this section may have been updated after the patient was seen, as this information can be updated by other users. 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 Acute tonsillitis Anxiety COVID-19 Tobacco use Vitamin D deficiency Family History (Updated 03/24/23 @ 17:13 by Betty Choudhary RN) No significant family history Social History (Updated 03/24/23 @ 17:13 by Betty Choudhary RN) Smoking Status: Current some day smoker tobacco type: e-cigarettes quit status: considering quitting second hand exposure: No alcohol intake: never substance use type: denies use current occupational status: employed Travel in the last 8 weeks: None household members: family housing: house current occupational exposures/hazards: No caffeine: Yes Review of Systems Review of Systems Review of systems:: pertinent systems reviewed and negative unless documented below Review of systems (narrative): + decreased movement Constitutional Constitutional: Denies headache(s) ENT Ears, Nose, Mouth, and Throat: Denies headache(s) *Genitourinary Genitourinary: Denies abnormal vaginal bleeding *Neurologic Neurologic: Denies headache(s) and Denies other visual disturbances Meds Home Medications and Allergies Home Medications Medication Instructions Recorded Confirmed Type fluoxetine 10 mg capsule 20 mg PO DAILY Depression #60 caps 01/23/23 03/25/23 Rx vits no.126-ferrous fum 1 tab PO DAILY Supplement 03/25/23 03/25/23 History 28 mg iron-folic acid 800 mcg tablet (Classic ) New Prescriptions to Start Prescriptions: Allergies Allergy/AdvReac Type Severity Reaction Status Date / Time No Known Allergies Allergy Verified 03/21/23 13:50 Exam Data for Last 24 hours Vital signs and Labs for Last 24 Hours: Temp Pulse Resp BP Pulse Ox 98.5 F 78 17 109/64 L 98 03/25/23 03:50 03/25/23 03:50 03/25/23 03:50 03/25/23 03:50 03/24/23 20:46 Laboratory Results - last 24 hr 03/24/23 16:00: WBC 8.9, RBC 3.77 L, Hgb 10.8 L, Hct 32.8 L, MCV 87.0, MCH 28.7, MCHC 33.0, RDW 14.2, Plt Count 308, MPV 9.1, Neut % (Auto) 68.4, Lymph % (Auto) 23.6, [place] % (Auto) 7.1, Eos % (Auto) 0.6, Baso % (Auto) 0.3, Neut # (Auto) 6.1, Lymph # (Auto) 2.1, [place] # (Auto) 0.6, Eos # (Auto) 0.1, Baso # (Auto) 0.0 03/24/23 16:00: Blood Type O Positive, Antibody Screen Negative 03/24/23 16:00: Urine Color Yellow, Urine Appearance Clear, Urine pH 6.5, Ur Specific [place] 1.025, Urine Protein Trace, Urine Glucose (UA) Negative, Urine Ketones Negative, Urine Blood Negative, Urine Nitrate Negative, Urine Bilirubin Negative, Urine Urobilinogen 1.0, Ur Leukocyte Esterase Negative, Urine RBC 3-5, Urine WBC 3-5, Ur Squamous Epith Cells 3-5, Amorphous Sediment Trace, Urine Bacteria 2+ 03/24/23 16:00: SARS-CoV-2 (PCR) Not detected, Influenza A Untype (PCR) Not detected, Influenza Type B (PCR) Not detected 03/24/23 16:00: Urine Opiates Screen Negative, Urine Methadone Screen Negative, Ur Barbituates Screen Negative, Ur Phencyclidine Scrn Negative, Ur Amphetamines Screen Negative, U Benzodiazepines Scrn Negative, Urine Cocaine Screen Negative, U Marijuana (THC) Screen Negative I & O for Last 24 hours: Intake & Output 03/22/23 03/23/23 03/24/23 03/25/23 11:59 11:59 11:59 11:59 Weight 182 lb 0.006 oz Constitutional Constitutional: no acute distress *Routine HEENT Exam Head: Present normocephalic Eye: Absent conjunct
--- NOTE | 2023-03-25 10:23 | EXP.ANES.CKL ---
[facility] Disclaimer: The information contained in this section may have been updated after the patient was seen, as this information can be updated by other users. 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 Acute tonsillitis Anxiety COVID-19 Tobacco use Vitamin D deficiency Family History (Updated 03/24/23 @ 17:13 by Betty Choudhary RN) Other No significant family history Social History (Updated 03/24/23 @ 17:13 by Betty Choudhary RN) Smoking Status: Current some day smoker tobacco type: e-cigarettes quit status: considering quitting second hand exposure: No alcohol intake: never substance use type: denies use current occupational status: employed Travel in the last 8 weeks: None household members: family housing: house current occupational exposures/hazards: No caffeine: Yes [facility] Anesthesia Checklist Patient Identification Patient Identification: Verbal (Name & ) Structural Data Admitted From: Inpatient Planned Operative Procedure/s: labor epidural Consent for Planned Operative Procedure(s) Verified: Yes Additional verifications Anesthesia Reactions: No Airway Assessment C-Spine Mobility Assessed: Yes TMJ Mobility Assessed: Yes Dentition: Good Dentition Neurological Assessment Level of Consciousness: Awake, Alert and Appropriate Anesthesia Plan Anesthesia Risk discussed: Yes Anesthesia Plan: Verified ASA Class: II Anesthesia Type: Epidural
--- NOTE | 2023-03-25 18:30 | EXP.DN ---
Delivery Note Delivery Date:: 03/25/23 Delivery Time:: 14:53 Anesthesia Type: Epidural Was labor medically induced?: Yes Induction method: per pitocin protocol Gestational age (weeks): 37 delivered prior to 39 weeks?: Yes Justification for early elective delivery:: Decreased Movements Infant Gender: Male at 1 minute: 5 at 5 minutes: 7 Delivery Procedure:: Spontaneous vaginal delivery of live born male over intact perineum. Delivery uncomplicated Nuchal cord x 1 reduced on perineum No shoulder dystocia with delivery taken to radiant warmer immediately after delivery, with standard nursing assessment performed Apgars: 5 & 7 Placenta spontaneously expressed and examined; noted to be complete/intact. Vulva, vagina, and cervix inspected; small first degree perineal laceration reapproximated with 3-0 vicryl figure of 8 EBL: 300 cc All sponge/needle/instrument counts correct at conclusion of procedure Placental Delivery Description: Spontaneous and Normal Configuration
[2023-03-25 20:21] VITALS: BP 107/56; PULSE 66; RESP 17; TEMP 36.8; O2SAT 100
[2023-03-26 04:20] VITALS: BP 107/66; PULSE 60; RESP 18; TEMP 36.7; O2SAT 99
[2023-03-26 06:41] LABS: Hematocrit 31.7 % (37.0-47.0); Hemoglobin 10.7 g/dL (12.2-16.2)
[2023-03-26 08:41] VITALS: BP 99/58; PULSE 56; RESP 18; TEMP 36.6; O2SAT 99
--- NOTE | 2023-03-26 12:51 | EXP.ACUTE.PN ---
Subjective *Date: 03/26/23 *Time: 12:51 Interval history: PPD #1 No unusual complaints She is tolerating a regular diet without nausea/vomiting She is ambulating and voiding without difficulty Lochia is light and she is asymptomatic with chronic anemia Hgb today is 10.7 (10.8 at admission) Medical Exam Vital signs and Labs for Last 24 Hours: Vital Signs Temp Pulse Resp BP Pulse Ox 03/26/23 08:41 97.8 F 56 L 18 99/58 L 99 03/26/23 04:20 98.0 F 60 18 107/66 L 99 03/25/23 20:21 98.2 F 66 17 107/56 L 100 Laboratory Results - last 24 hr 03/26/23 06:20: Hgb 10.7 L, Hct 31.7 L I & O for Labs for Last 24 Hours: Intake & Output 03/24/23 03/25/23 03/26/23 03/27/23 11:59 11:59 11:59 11:59 Weight 182 lb 0.006 oz Microbiology Reports for the Last 24 Hours: Microbiology 03/24/23 16:00 Urine,Clean Catch Urine Culture - Preliminary Comment:: No acute distress Comment:: breathing unlabored Comment:: Regular rate, normal peripheral pulses Comments:: abdomen soft, non-tender, non-distended Comment:: uterine fundus firm below umbilicus Comment:: 1+ edema bilateral lower extremities Comment:: no rash Assessment and Plan *Assessment and plan (1) 37 weeks gestation of : Status: Acute Category: Medical Code(s): Z3A.37 - 37 weeks gestation of (2) Decreased movement affecting management of in third trimester: Status: Acute Category: Medical Code(s): O36.8130 - Decreased movements, third trimester, not applicable or unspecified (3) Anemia affecting : Status: Acute Category: Medical Code(s): O99.019 - Anemia complicating , unspecified trimester (4) Normal spontaneous vaginal delivery: Status: Acute Category: Medical Code(s): O80 - Encounter for full-term uncomplicated delivery Plan Routine care Continue PO FeSO4 for chronic anemia Anticipate discharge home tomorrow
[2023-03-26 16:07] VITALS: BP 102/53; PULSE 70; RESP 16; TEMP 36.9; O2SAT 99
[2023-03-26 20:20] VITALS: BP 117/73; PULSE 65; RESP 17; TEMP 37.2; O2SAT 99
[2023-03-27 04:17] VITALS: BP 113/67; PULSE 68; RESP 17; TEMP 36.9
--- NOTE | 2023-03-27 09:37 | EXP.DC.SUM ---
General Admission date:: 03/24/23 Discharge date: 03/27/23 HPI HPI HPI: PPD # 2 s/p Feeling well. Denies pain. She is breast feeding. Light lochia. Voiding without difficulty and passing flatus. Tolerating regular diet. Denies fever/chills, chest pain and shortness of breath. Denies headaches, vision changes and swelling. Ambulating well ad linda. Hospital Course Hospital Course Hospital Course: 27 yo @ 37 11/13 admitted for induction of labor IOL scheduled for decreased movement care at [facility]-- Dr. Granger has been generally uncomplicated other than decreased movement in the past week She is concerned about wellbeing and requested induction at 37 weeks She underwent induction of labor. She had a normal spontaneous vaginal delivery on 03/25/23 at 1453. She delivered a live male baby, APGARs 5 (1 min), 7 (5 min). EBL 300 mL She did well . Pain controlled. Light lochia. She is breast feeding. Vital signs stable, afebrile. Voiding without difficulty and passing flatus. Heart regular rate and rhythm. Lungs clear to auscultation. Abdomen soft, nontender. Uterine fundus firm and below umbilicus. No lower extremity edema. Normal hospital course. Discharged to home PPD # 2. Exam Data for Last 24 hours Vital signs and Labs for Last 24 Hours: Temp Pulse Resp BP Pulse Ox 98.5 F 68 17 113/67 99 03/27/23 04:17 03/27/23 04:17 03/27/23 04:17 03/27/23 04:17 03/26/23 20:20 I & O for Last 24 hours: Intake & Output 03/24/23 03/25/23 03/26/23 03/27/23 23:59 23:59 23:59 23:59 Weight 182 lb 0.006 oz Microbiology Reports for the Last 24 Hours: Microbiology 03/24/23 16:00 Urine,Clean Catch Urine Culture - Final Multiple organisms, suggests contamination. Constitutional Constitutional: no acute distress *Routine HEENT Exam Head: Present normocephalic and atraumatic Eye: Absent conjunctivae pink ENT: Present mucous membranes moist and dentition normal *Routine Neck Exam Neck: Present full ROM *Routine Respiratory Exam Respiratory: Present CTA bilaterally and normal respiratory effort *Routine Cardiovascular Exam Cardiovascular: Present RRR *Routine Abdominal Exam Abdominal: Present soft and normoactive bowel sounds; Absent tenderness or distended Comments: Uterine fundus firm and below umbilicus *Routine Rectal Exam Patient deferred: visual exam *Routine Exam Patient deferred: external exam *Routine Extremities Exam Extremities: Present full ROM; Absent edema or calf tenderness *Routine Neurological Exam Neurological: Present alert, oriented X3 and moving all extremities Routine Psychiatric Exam Psychiatric: Present normal affect and cooperative DS: Diagnosis Discharge Diagnosis (1) 37 weeks gestation of : Status: Acute Code(s): Z3A.37 - 37 weeks gestation of (2) Decreased movement affecting management of in third trimester: Status: Acute Code(s): O36.8130 - Decreased movements, third trimester, not applicable or unspecified (3) Anemia affecting : Status: Acute Code(s): O99.019 - Anemia complicating , unspecified trimester (4) Normal spontaneous vaginal delivery: Status: Acute Code(s): O80 - Encounter for full-term uncomplicated delivery Meds Home Medications and Allergies Home Medications Medication Instructions Recorded Confirmed Type fluoxetine 10 mg capsule 20 mg PO DAILY Depression #60 caps 01/23/23 03/25/23 Rx vits no.126-ferrous fum 1 tab PO DAILY Supplement 03/25/23 03/25/23 History 28 mg iron-folic acid 800 mcg tablet (Classic ) ibuprofen 400 mg tablet 800 mg PO Q8HP PRN Mild To 03/27/23 Rx Moderate Pain #40 tabs New Prescriptions to Start Prescriptions: Ritu Ulloa Allergies Allergy/AdvReac Type Severit
== END 2023-03-27 12:05 | disposition home or self-care (01) | DRG 807 ==
PROVIDERS: Admitting Provider Obstetrics & Gynecology; PCP Emergency Medicine; Visit Provider Obstetrics & Gynecology
DX: O99.334 Smoking (tobacco) complicating childbirth (principal); Z37.0 Single live birth; Z3A.37 37 weeks gestation of pregnancy; O36.8130 Decreased fetal movements, third trimester, not applicable or unspecified; F17.290 Nicotine dependence, other tobacco product, uncomplicated; Z30.2 Encounter for sterilization; O69.81X0 Labor and delivery complicated by cord around neck, without compression, not applicable or unspecified; O70.0 First degree perineal laceration during delivery; O99.02 Anemia complicating childbirth; D64.89 Other specified anemias; O99.344 Other mental disorders complicating childbirth; F41.9 Anxiety disorder, unspecified
CPT/HCPCS: 59409; 59025; 80305; 81001; 85014; 85018; 85025; 86850; 87086; 87636; 94761; C1758; C9803; G0283; J0595; J2405; U0003; U0005

== ENCOUNTER 2023-03-30 18:46 | Outpatient (CLI) | payer OTHER, SELFPAY ==
[2023-03-30 18:54] VITALS: BMI 29.2
--- NOTE | 2023-03-30 18:55 | PC.NURSE ---
arrived to floor at this time. UA obtained Pt reports H/A, dizziness, increased lochia and abdominal tenderness. POC explained and she v/u
[2023-03-30 18:59] LABS: Microscopic, Urine URINE MICROSCOPIC (MICROSCOPIC)
--- NOTE | 2023-03-30 19:00 | PC.NURSE ---
pt c/o headache, dizziness and passing of one clot today. Pt states not drinking much water today. pt abdomen complaining of mild tenderness in abdomen with pallpation.
[2023-03-30 19:03] LABS: Appearance,Urine CLEAR (Clear); Bilirubin,Urine Negative (Negative); Blood, Urine 3+ (Negative); Color,Urine YELLOW (Yellow); Glucose,Urine (UA) Negative (Negative); Ketones,Urine Negative (Negative); Leukocyte Esterase,Urine 1+ (Negative); Nitrate,Urine Negative (Negative); Protein,Urine TRACE (Negative); Urobilinogen,Urine 0.2 EU/dl (0.2)
--- NOTE | 2023-03-30 19:05 | PC.NURSE ---
report to ruddy valenzuela RN
[2023-03-30 19:16] LABS: Bacteria,Urine Trace /lpf
[2023-03-30 19:30] VITALS: BP 111/72; PULSE 67; RESP 18; TEMP 37.2; BMI 29.0
[2023-03-30 19:44] LABS: Basophils % 0.3 % (0.1-2.0); Eosinophils # 0.2 K/mm3 (0.0-0.4); Eosinophils % 2.1 % (0.1-12.0); Hematocrit 37.8 % (37.0-47.0); Hemoglobin 12.4 g/dL (12.2-16.2); Lymphocytes # 2.5 K/mm3 (0.7-4.5); Mean Corpuscular HGB Conc 32.8 g/dL (31.8-35.4); Mean Corpuscular Hemoglobin 28.6 pg (27.0-31.2); Mean Corpuscular Volume 87.2 fl (81-99); Mean Platelet Volume 7.9 fl (7.4-10.4); Monocytes # 0.5 K/mm3 (0.1-1.0); Monocytes % 5.7 % (1.7-9.3); Neutrophils # 4.9 K/mm3 (1.8-7.8); Neutrophils % 60.9 % (37.0-80.0); Platelet Count 364 K/mm3 (142-424); Red Blood Count 4.34 M/mm3 (4.20-5.40); Red Cell Distribution Width 13.8 % (11.5-17.5)
[2023-03-30 19:46] LABS: Chloride 101 mmol/L (98-107); Potassium 3.9 mmoL/L (3.5-5.1); Sodium 137 mmol/L (136-145)
[2023-03-30 19:48] LABS: Blood Urea Nitrogen 18 mg/dl (7-17); Creatinine Clearance Estimated 181 mL/min (50-200); Estimated Glomerular Filt Rate 119 ml/min (>60); GFR (African American) 144 ML/MIN (>60)
[2023-03-30 19:49] LABS: Alanine Aminotransferase 24 U/L (12-78); Albumin Level 3.6 g/dl (3.5-5.0); Alkaline Phosphatase 136 U/L (38-126); Anion Gap 11.9 mEq/L (5-15); Aspartate Amino Transferase 31 U/L (14-36); Bilirubin,Total 0.2 mg/dl (0.2-1.3); Calcium 9.6 mg/dl (8.4-10.2); Carbon Dioxide 28 mmol/L (22.0-30.0); Globulin 3.6 g/dL (1.3-3.2); Glucose 82 mg/dl (74-100); Total Protein,Serum 7.2 g/dl (6.3-8.2)
[2023-03-30 20:21] VITALS: BP 111/67; PULSE 63; RESP 18
--- NOTE | 2023-03-30 20:40 | PC.NURSE ---
pt states decrease in headache at this time and denies dizziness, pt appears comfortable sitting up in bed
--- NOTE | 2023-03-30 20:46 | PC.NURSE ---
Dr Dent was called at this time report given on pts complaints of headache and dizziness and passing clots, cbc and cmp reviewed with md and md notified of decrease of headache and dizziness with fluid. new order to discharge home and encourage fluids
--- NOTE | 2023-03-30 21:00 | PC.NURSE ---
pt discharged off unit at this time in stable condition
== END 2023-03-30 21:00 | disposition home or self-care (01) ==
LOC: OBOUT 18:47 → OB 18:48
PROVIDERS: PCP Emergency Medicine; Visit Provider Nurse Practitioner Obstetrics & Gynecology
DX: O90.89 Other complications of the puerperium, not elsewhere classified (principal); R51.9 Headache, unspecified; R42 Dizziness and giddiness
CPT/HCPCS: 80053; 81001; 85025; 87086; 96360

== ENCOUNTER → 2023-05-27 23:36 | Outpatient (CLI) | payer OTHER, SELFPAY | PROVIDERS: PCP Student in an Organized Health Care Education/Training Program; Visit Provider Student in an Organized Health Care Education/Training Program | DX: J02.9 Acute pharyngitis, unspecified (principal); R51.9 Headache, unspecified; R05.8 Other specified cough; R09.82 Postnasal drip; R11.2 Nausea with vomiting, unspecified; R19.7 Diarrhea, unspecified | CPT/HCPCS: 87635 ==

== ENCOUNTER 2023-06-22 08:30 | Emergency (ER) | payer OTHER, SELFPAY ==
[2023-06-22 08:31] VITALS: BP 105/64; PULSE 102; RESP 18; TEMP 36.7; O2SAT 97; BMI 24.2
[2023-06-22 08:57] LABS: Adenovirus,PCR Not Detected (NotDetected); Bordetella Pertussis Not Detected (NotDetected); Chlamydophila Pneumoniae, PCR Not Detected (NotDetected); Coronavirus 19, PCR Not Detected (NotDetected); Coronavirus 229E Not Detected (NotDetected); Coronavirus NL63 Not Detected (NotDetected); Coronavirus OC43 Not Detected (NotDetected); Coronovirus HKU1,PCR Not Detected (NotDetected); Human Metapneumovirus Not Detected (NotDetected); Influenza A, PCR Not Detected (NotDetected); Influenza AH1, 2009 Not Detected (NotDetected); Influenza AH1, PCR Not Detected (NotDetected); Influenza AH3,PCR Not Detected (NotDetected); Influenza B, PCR Not Detected (NotDetected); Mycoplasma Pneumoniae, PCR Not Detected (NotDetected); Parainfluenza 1, PCR Not Detected (NotDetected); Parainfluenza 2, PCR Not Detected (NotDetected); Parainfluenza 3, PCR Not Detected (NotDetected); Parainfluenza 4, PCR Not Detected (NotDetected); Respiratory Syncytial Virus Not Detected (NotDetected); Rhinovirus/Enterovirus Not Detected (NotDetected)
--- NOTE | 2023-06-22 08:58 | EXP.UTC ---
Discharge Plan Disposition Patient Disposition: Home, Self-Care Condition: Good Prescriptions Prescriptions: No Action methylprednisolone 4 mg tablets,dose pack See Rx Instructions PO PER PKG DIR Qty: 21 0RF Rx Instructions: PO PER PKG DIR avkyfncmptonalr-adqtfctfc-IH [Bromfed DM] 2-30-10 mg/5 mL syrup 5 ml PO Q4-6H PRN (Reason: cold symptoms) Qty: 118 0RF ondansetron HCl 4 mg tablet 4 mg PO Q8H PRN (Reason: nausea and vomiting) Qty: 10 0RF Nexplanon 68 mg implant subdermal fluoxetine 10 mg capsule 20 mg PO DAILY Qty: 60 2RF Referrals Follow up/Referrals: Gary Barraza MD [Primary Care Provider] - See instructions Activity Restrictions/Add. Instructions Additional Instructions/Restrictions: upper resp panel was sent to lab, call later today for results. self isolate until test results are known to be negative No sign of a bacterial infection. Likely viral. Viruses can take 7-14 days to run their course. Nasal saline and bulb syringe or nose Renae to remove nasal drainage to help with nasal congestion. Hard to eat, drink, sleep with nasal congestion so important to keep this cleaned out. Monitor temp. Tylenol or Motrin as needed for pain or fever Encourage fluids, water, Gatorade, Powerade, Pedialyte if infant/toddler/child Warm salt water gargles Warm fluids Sore throat lozenges Sleep elevated Humidifier/vaporizer Follow-up immediately for new or worsening symptoms or no noticeable improvement over the next 48-72 hours. Clinical Impressions Clinical Impression: Upper respiratory disease Instructions Patient Instructions: DI for Viral Upper Respiratory Infection -- Adult Discharge ED Provider: Jordan ([facility])Stan [facility] [place] HPI General Stated complaint: herrera nauesa vomiting body ache chest tightness Mode of Arrival: Ambulatory Source of Information: Patient Limitations: No Limitations Time Seen by Provider: 06/22/23 08:58 Description of Symptoms (Recalled from Triage Doc. by RN): Patient complaint of body aches, sore throat, diarrhea, vomiting and cough for 3 days. HEENT Symptoms (Recalled from RN notes): Yes Resp Symptoms (Recalled from RN notes): No Skin Symptoms (Recalled from RN notes): No MS Symptoms (Recalled from RN notes): No Functional Status (Recalled from RN notes): wnl History of Present Illness Provider Complaint: 27 yr old female body aches, sore throat, diarrhea, vomiting and cough for 3 days. Related Data Home Medications Medication Instructions Recorded Confirmed etonogestrel 68 mg subdermal subdermal 05/08/23 05/27/23 implant (Nexplanon) Previous Rx's Medication Instructions Recorded fluoxetine 10 mg capsule 20 mg PO DAILY Depression #60 caps 01/23/23 lzmjfahsdehyapl-tdeegemelobgysy-CV 5 ml PO Q4-6H PRN cold symptoms 05/27/23 2 mg-30 mg-10 mg/5 mL oral syrup #118 mL (Bromfed DM) methylprednisolone 4 mg tablets in See Rx Instructions PO PER PKG DIR 05/27/23 a dose pack #21 tabs ondansetron HCl 4 mg tablet 4 mg PO Q8H PRN nausea and 05/27/23 vomiting #10 tabs Allergies Allergy/AdvReac Type Severity Reaction Status Date / Time No Known Allergies Allergy Verified 05/27/23 13:37 Worker's Comp Is this a Worker's Comp case?: No [facility] Disclaimer: The information contained in this section may have been updated after the patient was seen, as this information can be updated by other users. 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
[2023-06-22 09:06] LABS: UTC Strep Screen (Rapid) Negative (Negative)
[2023-06-22 09:07] LABS: UTC Influenza A Antigen Negative (Negative); UTC Influenza B Antigen Negative (Negative)
[2023-06-22 09:17] VITALS: BP 105/64; PULSE 102; RESP 18; TEMP 36.7; O2SAT 99
== END 2023-06-22 09:18 | disposition home or self-care (01) ==
PROVIDERS: Emergency Provider Nurse Practitioner Family; PCP Emergency Medicine
DX: J06.9 Acute upper respiratory infection, unspecified (principal); R11.0 Nausea; R19.7 Diarrhea, unspecified; R05.9 Cough, unspecified; F17.210 Nicotine dependence, cigarettes, uncomplicated; F41.9 Anxiety disorder, unspecified; E55.9 Vitamin D deficiency, unspecified
CPT/HCPCS: 87581; 87632; 87798; 87804; 87880; 99212; 99213; G0463

== ENCOUNTER 2023-06-28 08:22 | Emergency (ER) | payer OTHER, SELFPAY ==
--- NOTE | 2023-06-28 08:19 | ECG_ITS ---
APPROVED REPORT Exam: Resting ECG HR:64 bpm ECG Measurements Heart Rate 64 AXES TX 131 P -89 QRSd 90 QRS 87 QT 394 T 74 QTc 404 Conclusion JUNCTIONAL RHYTHM ABNORMAL RHYTHM ECG UNCONFIRMED REPORT Electronically signed by : Billy Pitt MD 06/30/2023 07:39:28
--- NOTE | 2023-06-28 08:28 | PC.NURSE ---
Dr. Granger at [facility] for pt eval
--- NOTE | 2023-06-28 08:32 | XR_ITS ---
FINAL REPORT CLINICAL HISTORY: dyspnea COMPARISON: 02/21/2022 FINDINGS: SINGLE-VIEW CHEST The heart size is normal. The mediastinum is normal. The lungs are clear. There is no pneumothorax. IMPRESSION: No acute cardiopulmonary process. Reviewed, Interpreted and Dictated by Alexander Man MD Transcribed by Guillermina Tian Authenticated and [facility]
--- NOTE | 2023-06-28 08:34 | HMH.EDGENADL ---
Discharge Plan Disposition Patient Disposition: Home, Self-Care Prescriptions Prescriptions: New azithromycin 250 mg tablet 250 mg PO DAILY 4 Days Qty: 4 0RF Rx Instructions: start on day 2 of therapy (day after ED visit) ibuprofen 800 mg tablet 800 mg PO TID PRN (Reason: pain) 7 Days Qty: 20 0RF cyclobenzaprine 5 mg tablet 5 mg PO TID PRN (Reason: muscle spasm) 5 Days Qty: 15 0RF No Action methylprednisolone 4 mg tablets,dose pack See Rx Instructions PO PER PKG DIR Qty: 21 0RF Rx Instructions: PO PER PKG DIR oxrhgjvllkeqbcx-idtoptsdu-PU [Bromfed DM] 2-30-10 mg/5 mL syrup 5 ml PO Q4-6H PRN (Reason: cold symptoms) Qty: 118 0RF ondansetron HCl 4 mg tablet 4 mg PO Q8H PRN (Reason: nausea and vomiting) Qty: 10 0RF Nexplanon 68 mg implant subdermal fluoxetine 10 mg capsule 20 mg PO DAILY Qty: 60 2RF Clinical Impressions Clinical Impression: Bronchitis, Chest wall muscle strain, Muscle strain of upper back, Encounter for smoking cessation counseling Discharge ED Provider: Renee Granger General Adult HPI General Chief complaint: Chest Pain Stated complaint: Chest Pain Time Seen by Provider: 06/28/23 08:26 History of Present Illness HPI narrative: Patient is a 27-year-old female here with chest pain. States she has had 2 weeks of cough no fevers chills shortness of breath or any other symptoms preceding this today. No lower extremity swelling no hemoptysis no history of DVT or PE or other medical problems. States she continues to vape. She went to the urgent treatment clinic recently had a comprehensive respiratory viral panel which was negative and was given cough medication but has not had significant improvement in her symptoms. The reason she comes to the emergency department today is because she has developed some chest and back discomfort. States it is worsened with coughing, movement, and touch. This is nonexertional she has no diaphoresis associated with this no radiation. Related Data Home Medications Medication Instructions Recorded Confirmed etonogestrel 68 mg subdermal subdermal 05/08/23 05/27/23 implant (Nexplanon) Previous Rx's Medication Instructions Recorded fluoxetine 10 mg capsule 20 mg PO DAILY Depression #60 caps 01/23/23 cdazuylvivtwnqy-maqycigtvpavzaw-CL 5 ml PO Q4-6H PRN cold symptoms 05/27/23 2 mg-30 mg-10 mg/5 mL oral syrup #118 mL (Bromfed DM) methylprednisolone 4 mg tablets in See Rx Instructions PO PER PKG DIR 05/27/23 a dose pack #21 tabs ondansetron HCl 4 mg tablet 4 mg PO Q8H PRN nausea and 05/27/23 vomiting #10 tabs azithromycin 250 mg tablet 250 mg PO DAILY 4 days #4 tabs 06/28/23 cyclobenzaprine 5 mg tablet 5 mg PO TID PRN muscle spasm 5 06/28/23 days #15 tabs ibuprofen 800 mg tablet 800 mg PO TID PRN pain 7 days #20 06/28/23 tabs Allergies Allergy/AdvReac Type Severity Reaction Status Date / Time No Known Allergies Allergy Verified 05/27/23 13:37 [facility] Disclaimer: The information contained in this section may have been updated after the patient was seen, as this information can be updated by other users. 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
[2023-06-28 08:38] VITALS: BP 112/61; PULSE 66; RESP 16; TEMP 36.9; O2SAT 98; BMI 25.0
[2023-06-28 08:40] VITALS: PULSE 68
--- NOTE | 2023-06-28 08:51 | PC.NURSE ---
Called [facility] to notify them of CXR
[2023-06-28 08:54] VITALS: BP 103/59; PULSE 63; RESP 19; O2SAT 100
[2023-06-28 09:03] LABS: Troponin I < 0.01 ng/ml (0.00-0.034)
[2023-06-28 09:46] VITALS: BP 118/75; PULSE 60; RESP 17; TEMP 36.9; O2SAT 99
== END 2023-06-28 09:51 | disposition home or self-care (01) ==
PROVIDERS: Emergency Provider Student in an Organized Health Care Education/Training Program; PCP Emergency Medicine
DX: S29.011A Strain of muscle and tendon of front wall of thorax, initial encounter (principal); J40 Bronchitis, not specified as acute or chronic; S29.012A Strain of muscle and tendon of back wall of thorax, initial encounter; F41.9 Anxiety disorder, unspecified; F17.290 Nicotine dependence, other tobacco product, uncomplicated; X58.XXXA Exposure to other specified factors, initial encounter
CPT/HCPCS: 71045; 84484; 93005; 96374; 99285

== ENCOUNTER 2023-07-14 16:01 | Emergency (ER) | payer OTHER, SELFPAY ==
[2023-07-14 16:02] VITALS: BP 110/58; PULSE 86; RESP 18; TEMP 36.8; O2SAT 99; BMI 24.2
--- NOTE | 2023-07-14 16:21 | EXP.UTC ---
Discharge Plan Disposition Patient Disposition: Home, Self-Care Condition: Good Prescriptions Prescriptions: No Action Nexplanon 68 mg implant 1 implant subdermal ONCE fluoxetine 10 mg capsule 20 mg PO DAILY Qty: 60 2RF ibuprofen 800 mg tablet 800 mg PO TID PRN (Reason: pain) 7 Days Qty: 20 0RF cyclobenzaprine 5 mg tablet 5 mg PO TID PRN (Reason: muscle spasm) 5 Days Qty: 15 0RF Referrals Follow up/Referrals: Gary Barraza MD [Primary Care Provider] - See instructions Activity Restrictions/Add. Instructions Additional Instructions/Restrictions: Drink plenty of fluids. Take tylenol or ibuprofen for pain or fever. Take the medications as directed. Follow up with your regular doctor. GO TO THE ER FOR ANY WORSENING SYMPTOMS Clinical Impressions Clinical Impression: Headache, Acute viral syndrome Stand Alone Forms Stand Alone Forms: Work/School Release Instructions Patient Instructions: DI for Viral Syndrome, DI for Headache, Ketorolac Injection, Dexamethasone Injection Discharge ED Provider: Daljit Salcedo [facility] General Stated complaint: vomiting, headache, dizzy , tired Mode of Arrival: Ambulatory Source of Information: Patient Limitations: No Limitations Time Seen by Provider: 07/14/23 16:21 Description of Symptoms (Recalled from Triage Doc. by RN): JOSEPH, vomiting, chills, and dizzy HEENT Symptoms (Recalled from RN notes): Yes Resp Symptoms (Recalled from RN notes): No Skin Symptoms (Recalled from RN notes): No MS Symptoms (Recalled from RN notes): No Functional Status (Recalled from RN notes): n/a History of Present Illness Provider Complaint: She states that she has had a headache since yesterday. She has also had n/v and malaise with it. Related Data Home Medications Medication Instructions Recorded Confirmed etonogestrel 68 mg subdermal 1 implant subdermal ONCE b/c 05/08/23 07/14/23 implant (Nexplanon) Previous Rx's Medication Instructions Recorded fluoxetine 10 mg capsule 20 mg PO DAILY Depression #60 caps 01/23/23 cyclobenzaprine 5 mg tablet 5 mg PO TID PRN muscle spasm 5 06/28/23 days #15 tabs ibuprofen 800 mg tablet 800 mg PO TID PRN pain 7 days #20 06/28/23 tabs Allergies Allergy/AdvReac Type Severity Reaction Status Date / Time No Known Allergies Allergy Verified 07/14/23 16:17 Worker's Comp Is this a Worker's Comp case?: No [facility] Disclaimer: The information contained in this section may have been updated after the patient was seen, as this information can be updated by other users. 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 (Reviewed 06/22/23 @ 09:03 by Stan Ortega ([facility] [[email or web address] [employer]) Acute tonsillitis Anxiety COVID-19 Tobacco use Vitamin D deficiency Surgical History (Reviewed 06/22/23 @ 09:03 by Stan Ortega ([facility] [[email or web address] [employer]) History of mandibular surgery Family History (Reviewed 06/22/23 @ 09:03 by Stan Ortega ([facility] [[email or web address] [employer]) No significant family history Social History Smoking Status: Current every day smoker tobacco type: e-cigarettes quit status: considering quitting second hand exposure: No alcohol intake: never substance use type: denies use current occupational status: employed Travel in the last 8 weeks: None household members: family housing: house current occupational exposures/hazards: No caffeine: Yes ROS Obtained: Yes All systems reviewed & no additional complaints except as documented Constitutional Constitutional: Denies chills, Denies fever(s), Denies frequent falls, Reports headache(s) and Denies weakness Eyes Eyes: Denies eye discharge and Denies loss of vision ENT Ears, Nose, Mouth, and Throat: Denies disequilibrium, Denies dizziness, Denies otalgia, Reports headache(s) and Denies sore throat Cardiovascular Cardiovascular: Denies chest pain and Denies syncope Respiratory Respiratory: Denies shortness of breath, Denies chest congestio
[2023-07-14 17:13] VITALS: BP 110/58; PULSE 86; RESP 18; TEMP 36.8; O2SAT 99
[2023-07-14 17:16] LABS: Adenovirus,PCR Not Detected (NotDetected); Bordetella Pertussis Not Detected (NotDetected); Chlamydophila Pneumoniae, PCR Not Detected (NotDetected); Coronavirus 19, PCR Not Detected (NotDetected); Coronavirus 229E Not Detected (NotDetected); Coronavirus NL63 Not Detected (NotDetected); Coronavirus OC43 Not Detected (NotDetected); Coronovirus HKU1,PCR Not Detected (NotDetected); Human Metapneumovirus Not Detected (NotDetected); Influenza A, PCR Not Detected (NotDetected); Influenza AH1, 2009 Not Detected (NotDetected); Influenza AH1, PCR Not Detected (NotDetected); Influenza AH3,PCR Not Detected (NotDetected); Influenza B, PCR Not Detected (NotDetected); Mycoplasma Pneumoniae, PCR Not Detected (NotDetected); Parainfluenza 1, PCR Not Detected (NotDetected); Parainfluenza 2, PCR Not Detected (NotDetected); Parainfluenza 3, PCR Not Detected (NotDetected); Parainfluenza 4, PCR Not Detected (NotDetected); Respiratory Syncytial Virus Not Detected (NotDetected); Rhinovirus/Enterovirus Not Detected (NotDetected)
== END 2023-07-14 17:13 | disposition home or self-care (01) ==
PROVIDERS: Emergency Provider Nurse Practitioner Family; PCP Emergency Medicine
DX: R51.9 Headache, unspecified (principal); B34.9 Viral infection, unspecified; R11.2 Nausea with vomiting, unspecified; R53.81 Other malaise; F41.9 Anxiety disorder, unspecified; E55.9 Vitamin D deficiency, unspecified; F17.290 Nicotine dependence, other tobacco product, uncomplicated
CPT/HCPCS: 87581; 87632; 87635; 87798; 96372; 99212; 99214; G0463

== ENCOUNTER 2023-07-16 19:34 | Emergency (ER) | payer OTHER, SELFPAY ==
[2023-07-16 19:36] VITALS: BP 118/81; PULSE 61; RESP 16; TEMP 36.9; O2SAT 99; BMI 26.3
--- NOTE | 2023-07-16 20:03 | CT_ITS ---
PROCEDURE INFORMATION: Exam: CT Head Without Contrast Exam date and time: 07/16/2023 9:13 PM Age: 27 years old Clinical indication: Pain; Headache; Additional info: Headache, new features TECHNIQUE: Imaging protocol: Computed tomography of the head without contrast. Radiation optimization: All CT scans at this facility use at least one of these dose optimization techniques: automated exposure control; mA and/or kV adjustment per patient size (includes targeted exams where dose is matched to clinical indication); or iterative reconstruction. REPORTING DATA: Count of CT and Cardiac NM exams in prior 12 months: This patient has received 0 known CTs and 0 known cardiac nuclear medicine studies in the 12 months prior to the current study. COMPARISON: MR HEAD/BRAIN WO CON 03/15/2022 10:52 AM FINDINGS: Brain: No evidence for acute transcortical infarct. No mass effect or midline shift. No extra-axial collection. No acute intracranial hemorrhage. Basal cisterns are patent. Cerebral ventricles: No ventriculomegaly. Paranasal sinuses: Visualized sinuses are unremarkable. No fluid levels. Mastoid air cells: Visualized mastoid air cells are well aerated. Bones/joints: Unremarkable. No acute fracture. Soft tissues: Unremarkable. IMPRESSION: No hydrocephalus, acute intracranial hemorrhage, or mass effect.
[2023-07-16 20:20] LABS: Microscopic, Urine URINE MICROSCOPIC (MICROSCOPIC)
[2023-07-16 20:22] LABS: Coronavirus 19, PCR Not Detected (NotDetected); Influenza A, PCR Not Detected (NotDetected); Influenza B, PCR Not Detected (NotDetected)
[2023-07-16 20:23] LABS: Appearance,Urine CLEAR (Clear); Bilirubin,Urine Negative (Negative); Blood, Urine 1+ (Negative); Color,Urine YELLOW (Yellow); Glucose,Urine (UA) Negative (Negative); Ketones,Urine Negative (Negative); Leukocyte Esterase,Urine Negative (Negative); Nitrate,Urine Negative (Negative); Protein,Urine Negative (Negative); Urobilinogen,Urine 0.2 EU/dl (0.2)
[2023-07-16 20:33] LABS: Basophils % 0.3 % (0.1-2.0); Eosinophils # 0.1 K/mm3 (0.0-0.4); Eosinophils % 1.8 % (0.1-12.0); Hematocrit 37.2 % (37.0-47.0); Lymphocytes # 2.4 K/mm3 (0.7-4.5); Lymphocytes % 36.3 % (10-50); Mean Corpuscular HGB Conc 34.9 g/dL (31.8-35.4); Mean Corpuscular Hemoglobin 31.9 pg (27.0-31.2); Mean Corpuscular Volume 91.4 fl (81-99); Mean Platelet Volume 8.2 fl (7.4-10.4); Monocytes # 0.5 K/mm3 (0.1-1.0); Monocytes % 7.3 % (1.7-9.3); Neutrophils # 3.6 K/mm3 (1.8-7.8); Neutrophils % 54.4 % (37.0-80.0); Platelet Count 245 K/mm3 (142-424); Red Blood Count 4.07 M/mm3 (4.20-5.40); Red Cell Distribution Width 13.2 % (11.5-17.5); White Blood Count 6.6 K/mm3 (4.8-10.8)
[2023-07-16 20:36] LABS: RBC,Urine Occasional #/hpf (0-3)
[2023-07-16 20:46] LABS: Alanine Aminotransferase 18 U/L (12-78); Albumin Level 4.1 g/dl (3.5-5.0); Albumin/Globulin Ratio 1.2 (1.1-1.8); Alkaline Phosphatase 51 U/L (38-126); Anion Gap 10.9 mEq/L (5-15); Aspartate Amino Transferase 23 U/L (14-36); Bilirubin,Total 0.3 mg/dl (0.2-1.3); Blood Urea Nitrogen 19 mg/dl (7-17); Calcium 8.5 mg/dl (8.4-10.2); Carbon Dioxide 28 mmol/L (22.0-30.0); Chloride 103 mmol/L (98-107); Creatinine Clearance Estimated 163 mL/min (50-200); Estimated Glomerular Filt Rate 119 ml/min (>60); GFR (African American) 144 ML/MIN (>60); Globulin 3.4 g/dL (1.3-3.2); Glucose 96 mg/dl (74-100); Potassium 3.9 mmoL/L (3.5-5.1); Sodium 138 mmol/L (136-145); Total Protein,Serum 7.5 g/dl (6.3-8.2)
[2023-07-16 20:53] LABS: HCG Qualitative, Serum Negative (Negative)
--- NOTE | 2023-07-16 21:26 | PC.NURSE ---
provided patient with warm blanket and gave meds.
--- NOTE | 2023-07-16 21:31 | HMH.EDGENADL ---
Discharge Plan Disposition Patient Disposition: Home, Self-Care Condition: Good Prescriptions Prescriptions: New ondansetron 4 mg tablet,disintegrating 4 mg PO Q8H PRN (Reason: nausea and vomiting) 4 Days Qty: 12 0RF No Action Nexplanon 68 mg implant 1 implant subdermal ONCE fluoxetine 10 mg capsule 20 mg PO DAILY Qty: 60 2RF ibuprofen 800 mg tablet 800 mg PO TID PRN (Reason: pain) 7 Days Qty: 20 0RF cyclobenzaprine 5 mg tablet 5 mg PO TID PRN (Reason: muscle spasm) 5 Days Qty: 15 0RF Referrals Follow up/Referrals: Gary Barraza MD [Primary Care Provider] - See instructions Activity Restrictions/Add. Instructions Additional Instructions/Restrictions: You were evaluated in the emergency department today. Please brain picker your prescription for Zofran and take as needed for nausea, vomiting, and diarrhea. Take Tylenol and ibuprofen at home as needed for pain. Return to the emergency department for any new or worsening symptoms. Follow-up with your primary care provider over the next 3 days. Clinical Impressions Clinical Impression: Headache, Diarrhea Instructions Patient Instructions: DI for Diarrhea and Traveler's Diarrhea -- Adult, DI for Nausea -- Adult, DI for Headache Discharge ED Provider: Asiya Farley General Adult HPI General Chief complaint: Nausea/Vomiting/Diarrhea Stated complaint: headache down the neck Time Seen by Provider: 07/16/23 19:49 Mode of Arrival: Ambulatory Source of Information: Patient Limitations: No Limitations Description of Symptoms (Recalled from ER Triage Doc. by RN): pt c/o JOSEPH neck stiffness, diarrhea x4 days, also c/o pressure behind eyes History of Present Illness HPI narrative: This patient is a 27-year-old female who denies significant past medical history presenting to the emergency department for evaluation with concern for headache, nausea, and diarrhea for 4 days. She also notes that she has pressure behind her eyes. She notes a history of headaches but states that this is unusual because it has not improved with Tylenol and ibuprofen. She is unsure if she had a fever or not but she does not think that she has. She denies any sore throat, cough, congestion, vision changes, numbness, tingling unilateral weakness, or other concerns. Related Data Home Medications Medication Instructions Recorded Confirmed etonogestrel 68 mg subdermal 1 implant subdermal ONCE b/c 05/08/23 07/14/23 implant (Nexplanon) Previous Rx's Medication Instructions Recorded fluoxetine 10 mg capsule 20 mg PO DAILY Depression #60 caps 01/23/23 cyclobenzaprine 5 mg tablet 5 mg PO TID PRN muscle spasm 5 06/28/23 days #15 tabs ibuprofen 800 mg tablet 800 mg PO TID PRN pain 7 days #20 06/28/23 tabs ondansetron 4 mg disintegrating 4 mg PO Q8H PRN nausea and 07/16/23 tablet vomiting 4 days #12 tabs Allergies Allergy/AdvReac Type Severity Reaction Status Date / Time No Known Allergies Allergy Verified 07/14/23 16:17 [facility] Disclaimer: The information contained in this section may have been updated after the patient was seen, as this information can be updated by other users. 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 Acute tonsillitis Anxiety COVID-19 Tobacco use Vitamin D deficiency Surgical History History of mandibular surgery Family History Other No significant family history Social History Smoking Status: Current every day smoker tobacco type: e-cigarettes quit status: considering quitting second hand exposure: No alcohol intake: never substance use type: denies use current occupational status: employed Travel in the last 8 weeks: None household members: family housing: house current occupational exposures/hazards: No c
--- NOTE | 2023-07-16 22:12 | PC.NURSE ---
rounded on patient, asleep in chair.
[2023-07-16 22:34] VITALS: BP 107/79; PULSE 69; RESP 16; TEMP 36.9
== END 2023-07-16 22:35 | disposition home or self-care (01) ==
PROVIDERS: Emergency Provider Emergency Medicine; PCP Emergency Medicine
DX: R51.9 Headache, unspecified (principal); R19.7 Diarrhea, unspecified; R11.2 Nausea with vomiting, unspecified; R09.81 Nasal congestion; F17.210 Nicotine dependence, cigarettes, uncomplicated
CPT/HCPCS: 70450; 80053; 81001; 84703; 85025; 87636; 96361; 96374; 96375; 99285; J0131

== ENCOUNTER → 2023-08-27 11:31 | Outpatient (CLI) | payer OTHER, SELFPAY | PROVIDERS: PCP Student in an Organized Health Care Education/Training Program; Visit Provider Student in an Organized Health Care Education/Training Program | DX: J02.9 Acute pharyngitis, unspecified (principal) | CPT/HCPCS: 87070 ==

== ENCOUNTER 2023-09-04 10:19 | Emergency (ER) | payer OTHER, SELFPAY ==
[2023-09-04 10:32] VITALS: BP 105/68; PULSE 62; O2SAT 96
--- NOTE | 2023-09-04 10:36 | PC.NURSE ---
Dr. Granger at [facility] for patient eval
--- NOTE | 2023-09-04 10:43 | HMH.EDGENADL ---
Discharge Plan Disposition Patient Disposition: Home, Self-Care Prescriptions Prescriptions: No Action Nexplanon 68 mg implant 1 implant subdermal ONCE prednisone 10 mg tablet 10 mg PO BID 5 Days Qty: 10 0RF ondansetron HCl 4 mg tablet 4 mg PO Q8H PRN (Reason: nausea and vomiting) Qty: 10 0RF fluoxetine 10 mg capsule 20 mg PO DAILY Qty: 60 2RF Referrals Follow up/Referrals: Lizzie Bravo PA [Primary Care Provider] - See instructions Clinical Impressions Clinical Impression: Viral pharyngitis Discharge ED Provider: Renee Granger General Adult HPI General Chief complaint: Upper Respiratory Infection Stated complaint: headache, sore throat, nauseous Time Seen by Provider: 09/04/23 10:35 History of Present Illness HPI narrative: Patient is a previously healthy 27-year-old female here with a sore throat headache and fever yesterday 102. She has been taking Tylenol and ibuprofen as needed for her symptoms including today. Denies any significant cough but has had very mild rhinorrhea and a little left ear pain. No other symptoms. Related Data Home Medications Medication Instructions Recorded Confirmed etonogestrel 68 mg subdermal 1 implant subdermal ONCE b/c 05/08/23 08/27/23 implant (Nexplanon) Previous Rx's Medication Instructions Recorded fluoxetine 10 mg capsule 20 mg PO DAILY Depression #60 caps 01/23/23 ondansetron HCl 4 mg tablet 4 mg PO Q8H PRN nausea and 08/27/23 vomiting #10 tabs prednisone 10 mg tablet 10 mg PO BID 5 days #10 tabs 08/27/23 Allergies Allergy/AdvReac Type Severity Reaction Status Date / Time No Known Allergies Allergy Verified 08/27/23 13:18 [facility] Disclaimer: The information contained in this section may have been updated after the patient was seen, as this information can be updated by other users. 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 Acute tonsillitis Anxiety COVID-19 Tobacco use Vitamin D deficiency Surgical History History of mandibular surgery Family History Other No significant family history Social History Smoking Status: Never smoker quit status: considering quitting second hand exposure: No alcohol intake: never substance use type: denies use current occupational status: employed Travel in the last 8 weeks: None household members: family housing: house current occupational exposures/hazards: No caffeine: Yes ROS Obtained: Yes All systems reviewed & no additional complaints except as documented Physical Exam General General appearance: alert ENT ENT exam: Present TM's normal bilaterally and other (Posterior oropharynx with mild erythema no suppurative complications noted no soft tissue asymmetry no exudates tolerating secretions well without trismus) Neck Neck exam: Present normal inspection; Absent meningismus Respiratory Respiratory exam: Present normal lung sounds bilaterally; Absent respiratory distress Cardiovascular Cardiovascular exam: Present regular rate; Absent tachycardia Neurological Exam Neurological exam: Present alert and oriented X3 Medical Decision Making Beny Inquiry Pt receiving controlled substance: No Vital Signs: 09/04/23 10:54 09/04/23 10:32 Temperature 98.2 F Temperature Source Oral Pulse Rate 62 Pulse Rate [Left Radial] 92 H Respiratory Rate 20 Blood Pressure 105/68 L Blood Pressure [Right Arm] 105/63 L Blood Pressure Mean [Right Arm] 77 02 Sat by Pulse Oximetry 98 96 Oxygen Delivery Method Room Air Lab Data Lab Results 09/04/23 10:43: Group A Strep Rapid Negative Orders (Tests/Meds): ED MEDICATIONS Discontinued Medications Generic Name Dose Route Start Last Admin Trade Name Freq PRN Reason Stop Dose Admin Dexa
[2023-09-04 10:54] VITALS: BP 105/63; PULSE 92; RESP 20; TEMP 36.8; O2SAT 98; BMI 27.4
[2023-09-04 11:11] LABS: Strep Scrn Group A (Rapid) Negative (Negative)
[2023-09-04 11:25] VITALS: BP 107/62; PULSE 75; RESP 18; TEMP 36.6; O2SAT 99
== END 2023-09-04 11:28 | disposition home or self-care (01) ==
PROVIDERS: Emergency Provider Student in an Organized Health Care Education/Training Program; PCP Physician Assistant
DX: J02.9 Acute pharyngitis, unspecified (principal); R50.9 Fever, unspecified; R51.9 Headache, unspecified; R11.0 Nausea; B34.9 Viral infection, unspecified; F17.210 Nicotine dependence, cigarettes, uncomplicated
CPT/HCPCS: 87430; 99283

== ENCOUNTER → 2023-09-19 23:10 | Outpatient (CLI) | payer OTHER, SELFPAY ==
[2023-09-19 17:58] LABS: Adenovirus,PCR Not Detected (NotDetected); Coronavirus 19, PCR Not Detected (NotDetected); Coronavirus 229E Not Detected (NotDetected); Coronavirus NL63 Not Detected (NotDetected); Coronavirus OC43 Not Detected (NotDetected); Coronovirus HKU1,PCR Not Detected (NotDetected); Human Metapneumovirus Not Detected (NotDetected); Influenza A, PCR Not Detected (NotDetected); Influenza AH1, 2009 Not Detected (NotDetected); Influenza AH1, PCR Not Detected (NotDetected); Influenza AH3,PCR Not Detected (NotDetected); Influenza B, PCR Not Detected (NotDetected); Parainfluenza 1, PCR Not Detected (NotDetected); Parainfluenza 2, PCR Not Detected (NotDetected); Parainfluenza 3, PCR Not Detected (NotDetected); Parainfluenza 4, PCR Not Detected (NotDetected); Respiratory Syncytial Virus Not Detected (NotDetected)
[2023-09-19 20:33] LABS: Rhinovirus/Enterovirus Detected (NotDetected)
== END ==
PROVIDERS: PCP Student in an Organized Health Care Education/Training Program; Visit Provider Student in an Organized Health Care Education/Training Program
DX: Z20.828 Contact with and (suspected) exposure to other viral communicable diseases (principal); B34.1 Enterovirus infection, unspecified
CPT/HCPCS: 87632; 87635

== ENCOUNTER 2023-11-17 08:19 | Emergency (ER) | payer OTHER, SELFPAY ==
[2023-11-17 08:25] VITALS: BP 101/57; PULSE 66; RESP 18; TEMP 36.6; O2SAT 99; BMI 28.5
[2023-11-17 08:51] LABS: UTC Influenza A Antigen Negative (Negative); UTC Strep Screen (Rapid) Positive (Negative)
[2023-11-17 08:52] LABS: UTC Influenza B Antigen Negative (Negative)
--- NOTE | 2023-11-17 08:57 | ED_ITS ---
Discharge Plan Disposition Patient Disposition: Home, Self-Care Condition: Good Prescriptions Prescriptions: New prednisone 10 mg tablet 10 mg PO BID 3 Days Qty: 6 0RF amoxicillin [amoxicillin] 875 mg tablet 875 mg PO Q12H Qty: 20 0RF [id number] [Bromfed DM] 2-30-10 mg/5 mL Syrup 5 ml PO Q6H PRN (Reason: Cough) Qty: 240 0RF No Action etonogestrel-ethinyl estradiol [NuvaRing] 0.12-0.015 mg/24 hr ring 1 vag ring vaginal Q4W Qty: 3 3RF Rx Instructions: leave in place for 3 weeks of a 4-week cycle fluoxetine 10 mg capsule See Rx Instructions .ROUTE .COMPLEX Qty: 60 10RF Dose Instruction: TAKE 2 CAPSULES BY MOUTH ONCE DAILY FOR DEPRESSION Rx Instructions: TAKE 2 CAPSULES BY MOUTH ONCE DAILY FOR DEPRESSION Referrals Follow up/Referrals: Provider,Referral, MD [Primary Care Provider] - See instructions Activity Restrictions/Add. Instructions Additional Instructions/Restrictions: Drink plenty of fluids. Take tylenol or ibuprofen for pain or fever. Take the medications as directed. Follow up with your regular doctor. GO TO THE ER FOR ANY WORSENING SYMPTOMS Throw your tooth brush away and get a new one. Clinical Impressions Clinical Impression: Strep throat Stand Alone Forms Stand Alone Forms: Work/School Release Instructions Patient Instructions: Strep Throat, DI for Strep Throat Discharge ED Provider: Daljit Salcedo [facility] [place] HPI General Stated complaint: st n/v cough Mode of Arrival: Ambulatory Source of Information: Patient Limitations: No Limitations Time Seen by Provider: 11/17/23 08:56 Description of Symptoms (Recalled from Triage Doc. by RN): Pt's symptoms are sore throat, and cough. She was exposed to strep and flu. HEENT Symptoms (Recalled from RN notes): Yes Resp Symptoms (Recalled from RN notes): No Skin Symptoms (Recalled from RN notes): No MS Symptoms (Recalled from RN notes): No Functional Status (Recalled from RN notes): n/a History of Present Illness Provider Complaint: She states that for the past 2 days she has had had worsening sore throat and fever. Related Data Previous Rx's Medication Instructions Recorded fluoxetine 10 mg capsule See Rx Instructions .Route 10/25/23 .COMPLEX #60 caps etonogestrel 0.12 mg-ethinyl 1 vag ring vaginal Q4W #3 ea 10/30/23 estradiol 0.015 mg/24 hr vaginal ring (NuvaRing) amoxicillin 875 mg tablet 875 mg PO Q12H #20 tabs 11/17/23 [id number] 5 ml PO Q6H PRN Cough #240 mL 11/17/23 2 mg-30 mg-10 mg/5 mL oral syrup (Bromfed DM) prednisone 10 mg tablet 10 mg PO BID 3 days #6 tabs 11/17/23 Allergies Allergy/AdvReac Type Severity Reaction Status Date / Time No Known Allergies Allergy Verified 11/17/23 08:37 Worker's Comp Is this a Worker's Comp case?: No [facility] Disclaimer: The information contained in this section may have been updated after the patient was seen, as this information can be updated by other users. 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 (Updated 11/17/23 @ 09:13 by Daljit Salcedo APRN) Abnormal uterine bleeding Acute tonsillitis Anxiety COVID-19 Decreased libido Tobacco use Vitamin D deficiency Surgical History History of mandibular surgery Family History Other Anemia Asthma Cancer Diabetes Hyperlipidemia Hypertension Stroke Thyroid disorder Social History Smoking Status: Current every day smoker quit status: considering quitting second hand exposure: No alcohol intake: never substance use type: denies use current occupational status: employed Travel in the last 8 weeks: None household members: family housing: house current occupational exposures/hazards: No caffeine: Yes ROS Obtained: Yes All systems reviewed & no additional complaints except as documented Constitutional Constitutional: Reports chills and Reports fever(s) Eyes Eyes: Denies eye discharge ENT Ears, Nose, Mouth, and Throat: Reports as per HPI Cardiovascular Cardiovascular: Denies chest pain Respiratory Respiratory: Denies chest congestion and Reports cough Gastrointestinal Gastrointestingal: Reports nausea; Denies abdominal pain, constipation, cramping, diarrhea or vomiting Musculoskeletal Musculoskeletal: Denies arthralgias Integumentary/Breasts Skin/Breast: Denies rash Neurologic Neurologic: Denies paresthesias Physical Exam General General appearance: alert and in no apparent distress Head Head exam: atraumatic, normocephalic and normal inspection Eye Eye exam: Present normal appearance, PERRL and EOMI ENT ENT exam: Present mucous membranes moist and normal external ear exam Expanded ENT Exam TM/Canal exam: Bilateral TM: erythema and bulging Nose exam: Absent sinus tenderness Mouth exam: Present normal external inspection; Absent drooling Teeth exam: Present normal inspection Throat exam: Present tonsillar erythema, tonsillomegaly and tonsillar exudate Neck Neck exam: Present normal inspection, full ROM and trachea midline; Absent tenderness, meningismus or lymphadenopathy Chest Chest inspection: Present normal inspection and symmetric chest wall rise; Absent tenderness Respiratory Respiratory exam: Present normal lung sounds bilaterally; Absent respiratory distress, wheezes or stridor Cardiovascular Cardiovascular exam: Present regular rate and normal rhythm; Absent systolic murmur or diastolic murmur Abdominal Exam Abdominal exam: Present soft and normal bowel sounds; Absent distention, tenderness, guarding, rebound or rigidity Extremities Exam Extremities exam: Present normal inspection and normal capillary refill; Absent calf tenderness Back Exam Back exam: Present normal inspection and full ROM; Absent tenderness, CVA tenderness (R) or CVA tenderness (L) Neurological Exam Neurological exam: Present alert, oriented X3 and CN II-XII intact Psychiatric Psychiatric exam: Present normal affect and normal mood Skin Skin exam: Present warm, dry, intact and normal color Medical Decision Making Medical Records Medical records reviewed: No I reviewed the patient's medical records. Beny Inquiry Pt receiving controlled substance: No Vital Signs: 11/17/23 08:25 Temperature 97.8 F Temperature Source Oral Pulse Rate [Right Radial] 66 Respiratory Rate 18 Blood Pressure [Right Arm] 101/57 L Blood Pressure Mean [Right Arm] 71 Blood Pressure Source [Right Arm] Automatic Cuff Blood Pressure Position [Right Arm] Sitting 02 Sat by Pulse Oximetry 99 Oxygen Delivery Method Room Air Lab Data Lab results reviewed: Yes I reviewed the patient's lab results. Lab Results 11/17/23 08:37: Influenza Type A Ag Negative, Influenza Type B Ag Negative, Strep Scn Rapid Clinic Positive A
[2023-11-17 09:18] VITALS: BP 101/57; PULSE 66; RESP 18; TEMP 36.6; O2SAT 99
== END 2023-11-17 09:19 | disposition home or self-care (01) ==
PROVIDERS: Emergency Provider Nurse Practitioner Family
DX: J02.0 Streptococcal pharyngitis (principal); R07.0 Pain in throat; R50.9 Fever, unspecified; F17.210 Nicotine dependence, cigarettes, uncomplicated
CPT/HCPCS: 87804; 87880; 99212; 99214; G0463

== ENCOUNTER 2023-12-03 19:41 | Outpatient (CLI) | payer OTHER, SELFPAY ==
[2023-12-03 17:39] LABS: Coronavirus 19, PCR Not Detected (NotDetected); Influenza A, PCR Not Detected (NotDetected); Influenza B, PCR Not Detected (NotDetected)
== END 2023-12-03 23:59 ==
LOC: LAB.DROPOF 19:42
PROVIDERS: PCP Student in an Organized Health Care Education/Training Program; Visit Provider Student in an Organized Health Care Education/Training Program
DX: J02.9 Acute pharyngitis, unspecified (principal); R05.9 Cough, unspecified; R11.2 Nausea with vomiting, unspecified; R53.83 Other fatigue; Z20.828 Contact with and (suspected) exposure to other viral communicable diseases
CPT/HCPCS: 87636

== ENCOUNTER 2023-12-05 07:59 | Emergency (ER) | payer OTHER, SELFPAY ==
[2023-12-05 08:10] VITALS: BP 109/62; PULSE 83; RESP 18; TEMP 36.5; O2SAT 98; BMI 28.8
[2023-12-05 08:50] LABS: UTC Influenza A Antigen Negative (Negative); UTC Influenza B Antigen Positive (Negative)
--- NOTE | 2023-12-05 08:52 | EXP.UTC ---
Discharge Plan Disposition Patient Disposition: Home, Self-Care Condition: Good Prescriptions Prescriptions: New azithromycin [Zithromax] 250 mg tablet 250 mg PO UD DOSE PK Qty: 6 0RF Rx Instructions: Take two (2) tablets today, then one (1) tablet days #2 thru #5 oseltamivir [Tamiflu] 75 mg capsule 75 mg PO BID Qty: 10 0RF pvxlltuuwhmcttl-maljuenfy-ST [Bromfed DM] 2-30-10 mg/5 mL Syrup 5 ml PO Q6H PRN (Reason: Cough) Qty: 240 0RF No Action etonogestrel-ethinyl estradiol [NuvaRing] 0.12-0.015 mg/24 hr ring 1 vag ring vaginal Q4W Qty: 3 3RF Rx Instructions: leave in place for 3 weeks of a 4-week cycle fluoxetine 40 mg capsule 40 mg PO DAILY Qty: 30 2RF Referrals Follow up/Referrals: Provider,Referral, MD [Primary Care Provider] - See instructions Activity Restrictions/Add. Instructions Additional Instructions/Restrictions: Drink plenty of fluids. Take tylenol or ibuprofen for pain or fever. Take the medications as directed. Follow up with your regular doctor. GO TO THE ER FOR ANY WORSENING SYMPTOMS Clinical Impressions Clinical Impression: Exposure to strep throat Stand Alone Forms Stand Alone Forms: Work/School Release Instructions Patient Instructions: Influenza, DI for Influenza -- Adult, Oseltamivir Discharge ED Provider: Daljit Salcedo [facility] [place] HPI General Stated complaint: headache, sore throat, congestion, cough, fever Mode of Arrival: Ambulatory Source of Information: Patient Limitations: No Limitations Time Seen by Provider: 12/05/23 08:51 Description of Symptoms (Recalled from Triage Doc. by RN): Pt's symptoms are fever, nausea, and cough. HEENT Symptoms (Recalled from RN notes): Yes Resp Symptoms (Recalled from RN notes): No Skin Symptoms (Recalled from RN notes): No MS Symptoms (Recalled from RN notes): No Functional Status (Recalled from RN notes): n/a History of Present Illness Provider Complaint: She states that for the past 2 days she has had fever/chills/body aches/malaise, sore throat and a cough. She has been exposed to both flu and strep. Related Data Previous Rx's Medication Instructions Recorded etonogestrel 0.12 mg-ethinyl 1 vag ring vaginal Q4W #3 ea 10/30/23 estradiol 0.015 mg/24 hr vaginal ring (NuvaRing) fluoxetine 40 mg capsule 40 mg PO DAILY #30 caps 12/03/23 azithromycin 250 mg tablet 250 mg PO UD DOSE PK #6 tabs 12/05/23 (Zithromax) krsrlgervebpjtk-hjqxwyevpvrnmrn-BW 5 ml PO Q6H PRN Cough #240 mL 12/05/23 2 mg-30 mg-10 mg/5 mL oral syrup (Bromfed DM) oseltamivir 75 mg capsule (Tamiflu) 75 mg PO BID #10 caps 12/05/23 Allergies Allergy/AdvReac Type Severity Reaction Status Date / Time No Known Allergies Allergy Verified 12/05/23 08:30 Worker's Comp Is this a Worker's Comp case?: No [facility] Disclaimer: The information contained in this section may have been updated after the patient was seen, as this information can be updated by other users. 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 Abnormal uterine bleeding with Nexplanon in place Acute tonsillitis Anxiety COVID-19 Decreased libido Tobacco use Vitamin D deficiency Surgical History History of mandibular surgery Family History Other Anemia Asthma Cancer Diabetes Hyperlipidemia Hypertension Stroke Thyroid disorder Social History Smoking Status: Current every day smoker quit status: considering quitting second hand exposure: No alcohol intake: never substance use type: denies use current occupational status: employed Travel in the last 8 weeks: None household members: family housing: house current occupational exposures/hazards: No caffeine: Yes ROS Obtained: Yes All systems reviewed & no additional complaints except as documented Constitutional Constitutional: Reports chills and Reports fever(s) Eyes Eyes: Denies eye discharge ENT Ears, Nose, Mouth, and Throat: Reports as per HPI Cardiovascular Cardiovascular: Denies chest pain Respiratory Respiratory: Denies chest congestion and Reports cough Gastrointestinal Gastrointestingal: Reports nausea; Denies abdominal pain, constipation, cramping, diarrhea or vomiting Musculoskeletal Musculoskeletal: Denies arthralgias Integumentary/Breasts Skin/Breast: Denies rash Neurologic Neurologic: Denies paresthesias Physical Exam General General appearance: alert and in no apparent distress Eye Eye exam: Present normal appearance, PERRL and EOMI ENT ENT exam: Present mucous membranes moist and normal external ear exam Expanded ENT Exam External ear exam: Present normal external inspection TM/Canal exam: Bilateral TM: erythema and bulging Nose exam: Absent sinus tenderness Nasal speculum exam: Bilateral: normal Mouth exam: Present normal external inspection; Absent drooling Teeth exam: Present normal inspection Throat exam: Present tonsillar erythema and tonsillomegaly Neck Neck exam: Present normal inspection, full ROM and trachea midline; Absent tenderness, lymphadenopathy or thyromegaly Chest Chest inspection: Present normal inspection and symmetric chest wall rise; Absent tenderness or rash Respiratory Respiratory exam: Present normal lung sounds bilaterally; Absent respiratory distress, wheezes, stridor or accessory muscle use Cardiovascular Cardiovascular exam: Present regular rate, normal rhythm and normal heart sounds Abdominal Exam Abdominal exam: Present soft; Absent distention, tenderness, guarding, rebound or rigidity Extremities Exam Extremities exam: Present normal inspection, full ROM and normal capillary refill; Absent tenderness or calf tenderness Back Exam Back exam: Present normal inspection and full ROM; Absent tenderness Neurological Exam Neurological exam: Present alert and oriented X3 Psychiatric Psychiatric exam: Present normal affect and normal mood Skin Skin exam: Present warm, dry, intact and normal color Lymphatic Lymphatic Findings: no adenopathy Medical Decision Making Medical Records Medical records reviewed: No I reviewed the patient's medical records. Beny Inquiry Pt receiving controlled substance: No Vital Signs: 12/05/23 08:10 Temperature 97.7 F Temperature Source Oral Pulse Rate [Right Radial] 83 Respiratory Rate 18 Blood Pressure [Right Arm] 109/62 L Blood Pressure Mean [Right Arm] 77 Blood Pressure Source [Right Arm] Automatic Cuff Blood Pressure Position [Right Arm] Sitting 02 Sat by Pulse Oximetry 98 Oxygen Delivery Method Room Air Lab Data Lab results reviewed: Yes I reviewed the patient's lab results. Lab Results 12/05/23 08:31: Influenza Type A Ag Negative, Influenza Type B Ag Positive A
[2023-12-05 09:23] VITALS: BP 109/62; PULSE 83; RESP 18; TEMP 36.5; O2SAT 98
== END 2023-12-05 09:23 | disposition home or self-care (01) ==
PROVIDERS: Emergency Provider Nurse Practitioner Family
DX: J10.1 Influenza due to other identified influenza virus with other respiratory manifestations (principal); R50.9 Fever, unspecified; R07.0 Pain in throat; R05.9 Cough, unspecified; F17.210 Nicotine dependence, cigarettes, uncomplicated
CPT/HCPCS: 87804; 99212; 99214; G0463

== ENCOUNTER 2024-01-24 18:00 | Outpatient (CLI) | payer OTHER, SELFPAY ==
[2024-01-24 18:18] LABS: Basophils # 0.1 K/mm3 (0-0.2); Basophils % 0.7 % (0.1-2.0); Eosinophils # 0.1 K/mm3 (0.0-0.4); Eosinophils % 1.5 % (0.1-12.0); Hematocrit 39.8 % (37.0-47.0); Hemoglobin 13.4 g/dL (12.2-16.2); Lymphocytes % 12.7 % (10-50); Mean Corpuscular HGB Conc 33.8 g/dL (31.8-35.4); Mean Corpuscular Hemoglobin 30.8 pg (27.0-31.2); Mean Corpuscular Volume 91.2 fl (81-99); Mean Platelet Volume 9.4 fl (7.4-10.4); Monocytes # 0.3 K/mm3 (0.1-1.0); Monocytes % 4.1 % (1.7-9.3); Neutrophils # 6.6 K/mm3 (1.8-7.8); Neutrophils % 81.1 % (37.0-80.0); Platelet Count 291 K/mm3 (142-424); Red Blood Count 4.36 M/mm3 (4.20-5.40); Red Cell Distribution Width 13.3 % (11.5-17.5); White Blood Count 8.2 K/mm3 (4.8-10.8)
[2024-01-24 18:40] LABS: Alanine Aminotransferase 18 U/L (12-78); Albumin Level 4.4 g/dl (3.5-5.0); Albumin/Globulin Ratio 1.6 (1.1-1.8); Alkaline Phosphatase 69 U/L (38-126); Aspartate Amino Transferase 22 U/L (14-36); Bilirubin,Total 1.3 mg/dl (0.2-1.3); Blood Urea Nitrogen 16 mg/dl (7-17); Carbon Dioxide 26 mmol/L (22.0-30.0); Chloride 102 mmol/L (98-107); Cholesterol 159 mg/dl (140-200); Estimated Glomerular Filt Rate 118 ml/min (>60); GFR (African American) 143 ML/MIN (>60); Globulin 2.8 g/dL (1.3-3.2); Glucose 80 mg/dl (74-100); HDL Cholesterol 40 mg/dl (40-60); Sodium 136 mmol/L (136-145); Total Protein,Serum 7.2 g/dl (6.3-8.2); Triglycerides 63 mg/dl (30-150); VLDL Cholesterol 13 mg/dL (0-40)
[2024-01-24 18:49] LABS: Erythrocyte Sedimentation Rate 18 mm/hr (0-20)
[2024-01-24 18:51] LABS: C-Reactive Protein 1.1 mg/L (0-4); Direct LDL Cholesterol 88.72 mg/dL (100-129)
[2024-01-24 18:52] LABS: HCG Qualitative, Serum Negative (Negative)
[2024-01-24 19:10] LABS: Thyroid Stimulating Hormone 0.35 uIU/mL (0.465-4.68)
[2024-01-24 19:17] LABS: Hemoglobin A1C 5.2 % (4.0-6.0)
[2024-01-24 19:59] LABS: 25-OH Vitamin D, Total 21.6 ng/mL (30-100)
[2024-01-24 20:36] LABS: Iron 199 ug/dL (37-170)
[2024-01-24 20:45] LABS: Total Iron Binding Capacity 306 ug/dL (265-497)
[2024-01-24 21:13] LABS: Ferritin 18.8 ng/ml (6.24-137)
[2024-01-27 13:18] LABS: Anti-Centromere B Antibodies <0.2 AI (0.0-0.9); Anti-DNA (DS) Ab Qn 1 IU/mL (0-9); Anti-Jo-1 <0.2 AI (0.0-0.9); Anti-Smith Antibody <0.2 AI (0.0-0.9); Antichromatin Antibodies <0.2 AI (0.0-0.9); Antiscleroderma-70 Antibodies <0.2 AI (0.0-0.9); RNP Antibodies <0.2 AI (0.0-0.9); Sjogren's Anti-SS-A <0.2 AI (0.0-0.9); Sjogren's Anti-SS-B 0.8 AI (0.0-0.9)
== END 2024-01-24 23:59 | disposition home or self-care (01) ==
LOC: LAB.DROPOF 01-26 10:36
PROVIDERS: PCP Student in an Organized Health Care Education/Training Program; Visit Provider Student in an Organized Health Care Education/Training Program
DX: J02.9 Acute pharyngitis, unspecified (principal); R50.9 Fever, unspecified; R09.81 Nasal congestion; R19.7 Diarrhea, unspecified; Z20.828 Contact with and (suspected) exposure to other viral communicable diseases; M25.561 Pain in right knee; M25.562 Pain in left knee; M25.531 Pain in right wrist; M25.532 Pain in left wrist; N39.0 Urinary tract infection, site not specified; B95.2 Enterococcus as the cause of diseases classified elsewhere; B96.89 Other specified bacterial agents as the cause of diseases classified elsewhere; E55.9 Vitamin D deficiency, unspecified; D64.9 Anemia, unspecified; Z79.899 Other long term (current) drug therapy
CPT/HCPCS: 80053; 80061; 82306; 82728; 83036; 83540; 83550; 84443; 84703; 85025; 85651; 86140; 86225; 86235; 87086

== ENCOUNTER 2024-02-01 10:55 | Outpatient (CLI) | payer OTHER, SELFPAY ==
[2024-02-01 13:18] LABS: Free Thyroxine Index 2.1 ug/dL (5.93-13.13); T4 (Thyroxine) 5.9 ug/dl (5.53-11.0); Triiodothryronine (T3) Uptake 35 % (23.5-40.5)
[2024-02-01 13:32] LABS: Thyroid Stimulating Hormone 0.41 uIU/mL (0.465-4.68)
[2024-02-02 08:48] LABS: Thyroid Peroxidase Antibodies <9 IU/mL (0-34)
[2024-02-03 11:10] LABS: Sjogren's Anti-SS-A <0.2 AI (0.0-0.9); Sjogren's Anti-SS-B 0.7 AI (0.0-0.9)
[2024-02-03 15:04] LABS: EBV Ab VCA, IgM <36.0 U/mL (0.0-35.9); EBV Nuclear Antigen Ab, IgG <18.0 U/mL (0.0-17.9)
[2024-02-03 16:16] LABS: Thyroid Stimulating Immunoglob <0.10 IU/L (0.00-0.55)
== END 2024-02-01 23:59 | disposition home or self-care (01) ==
PROVIDERS: Visit Provider Student in an Organized Health Care Education/Training Program
DX: R79.89 Other specified abnormal findings of blood chemistry (principal); R76.8 Other specified abnormal immunological findings in serum; R53.83 Other fatigue
CPT/HCPCS: 36415; 84436; 84443; 84445; 84479; 86235; 86376; 86664; 86665

== ENCOUNTER 2024-02-06 10:16 | Outpatient (CLI) | payer OTHER, SELFPAY ==
--- NOTE | 2024-02-06 10:16 | US_ITS ---
FINAL REPORT TECHNIQUE: Sonographic images of the thyroid were obtained. CLINICAL HISTORY: low tsh FINDINGS: The right lobe of the thyroid measures 4.8 x 1.3 x 1.5 cm. The left lobe of the thyroid measures 4.1 x 1.0 x 1.3 cm. No mass or nodule is identified. The isthmus measures 2 mm. IMPRESSION: Unremarkable thyroid ultrasound. Reviewed, Interpreted and Dictated by Mary Jane Pierce MD Transcribed by Guillermina Tian Authenticated and [facility]
== END 2024-02-06 23:59 | disposition home or self-care (01) ==
LOC: RAD 10:16
PROVIDERS: Visit Provider Student in an Organized Health Care Education/Training Program
DX: R79.89 Other specified abnormal findings of blood chemistry (principal)
CPT/HCPCS: 76536

== ENCOUNTER 2024-02-13 08:00 | Emergency (ER) | payer OTHER, SELFPAY ==
[2024-02-13 08:10] VITALS: BP 111/62; PULSE 91; RESP 20; TEMP 36.8; O2SAT 97; BMI 27.6
--- NOTE | 2024-02-13 08:33 | ED_ITS ---
Discharge Plan Disposition Patient Disposition: Home, Self-Care Condition: Good Prescriptions Prescriptions: New onblbjpbrxbmkpe-agkclwien-NE [Bromfed DM] 2-30-10 mg/5 mL Syrup 5 ml PO Q6H PRN (Reason: Cough) Qty: 240 0RF ondansetron 4 mg Tablet,Disintegrating 4 mg PO Q8H PRN (Reason: Nausea) Qty: 9 0RF No Action fluoxetine 40 mg capsule 40 mg PO DAILY Qty: 30 11RF Referrals Follow up/Referrals: Provider,Referral, MD [Primary Care Provider] - See instructions Activity Restrictions/Add. Instructions Additional Instructions/Restrictions: Drink plenty of fluids. Take tylenol or ibuprofen for pain or fever. Take the medications as directed. Follow up with your regular doctor. GO TO THE ER FOR ANY WORSENING SYMPTOMS Clinical Impressions Clinical Impression: Viral pharyngitis, Acute viral syndrome Stand Alone Forms Stand Alone Forms: Work/School Release Instructions Patient Instructions: DI for Viral Syndrome, Ondansetron Discharge ED Provider: Daljit Salcedo [facility] General Stated complaint: dizzy, throat pain blisters in mouth Mode of Arrival: Ambulatory Source of Information: Patient Limitations: No Limitations Time Seen by Provider: 02/13/24 08:32 Description of Symptoms (Recalled from Triage Doc. by RN): PATIENT C/O FEVER, CHILLS, BODY ACHES, NAUSEA, AND HEADACHE THAT STARTED YESTERDAY MORNING. HEENT Symptoms (Recalled from RN notes): Yes Resp Symptoms (Recalled from RN notes): No Skin Symptoms (Recalled from RN notes): No MS Symptoms (Recalled from RN notes): No Functional Status (Recalled from RN notes): WNL History of Present Illness Provider Complaint: She states that for the past 2 days she has had fever, chills, body aches, malaise, nausea and a headache. Related Data Previous Rx's Medication Instructions Recorded fluoxetine 40 mg capsule 40 mg PO DAILY #30 caps 01/24/24 fhbfrxprxavzxal-elkzrlecryvsoin-BV 5 ml PO Q6H PRN Cough #240 mL 02/13/24 2 mg-30 mg-10 mg/5 mL oral syrup (Bromfed DM) ondansetron 4 mg disintegrating 4 mg PO Q8H PRN Nausea #9 tabs 02/13/24 tablet Allergies Allergy/AdvReac Type Severity Reaction Status Date / Time cefdinir AdvReac diarrhea Verified 01/30/24 15:30 Worker's Comp Is this a Worker's Comp case?: No [facility] Disclaimer: The information contained in this section may have been updated after the patient was seen, as this information can be updated by other users. 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 (Updated 02/13/24 @ 08:44 by Daljit Salcedo APRN) Abnormal uterine bleeding Decreased libido Vitamin D deficiency Tobacco use Anxiety Surgical History History of mandibular surgery Family History Other Anemia Asthma Cancer Diabetes Hyperlipidemia Hypertension Stroke Thyroid disorder Social History Smoking Status: Current every day smoker quit status: considering quitting second hand exposure: No alcohol intake: never substance use type: denies use current occupational status: employed Travel in the last 8 weeks: None household members: family housing: house current occupational exposures/hazards: No caffeine: Yes ROS Obtained: Yes All systems reviewed & no additional complaints except as documented Constitutional Constitutional: Reports chills and Reports fever(s) Eyes Eyes: Denies eye discharge ENT Ears, Nose, Mouth, and Throat: Reports as per HPI Cardiovascular Cardiovascular: Denies chest pain Respiratory Respiratory: Denies chest congestion and Reports cough Gastrointestinal Gastrointestingal: Reports nausea; Denies abdominal pain, constipation, cramping, diarrhea or vomiting Musculoskeletal Musculoskeletal: Denies arthralgias Integumentary/Breasts Skin/Breast: Denies rash Neurologic Neurologic: Denies paresthesias Physical Exam General General appearance: alert and in no apparent distress Head Head exam: atraumatic, normocephalic and normal inspection Eye Eye exam: Present normal appearance, PERRL and EOMI ENT ENT exam: Present normal exam, normal oropharynx, mucous membranes moist, TM's normal bilaterally and normal external ear exam Neck Neck exam: Present normal inspection, full ROM and trachea midline; Absent meningismus or lymphadenopathy Chest Chest inspection: Present normal inspection and symmetric chest wall rise; Absent tenderness Respiratory Respiratory exam: Present normal lung sounds bilaterally; Absent respiratory distress Cardiovascular Cardiovascular exam: Present regular rate and normal rhythm; Absent JVD Abdominal Exam Abdominal exam: Present soft and normal bowel sounds; Absent distention, tenderness or guarding Extremities Exam Extremities exam: Present normal inspection, full ROM and normal capillary refill; Absent calf tenderness Back Exam Back exam: Present normal inspection; Absent tenderness Neurological Exam Neurological exam: Present alert and oriented X3 Psychiatric Psychiatric exam: Present normal affect and normal mood Skin Skin exam: Present warm, dry, intact and normal color Lymphatic Lymphatic Findings: no adenopathy Medical Decision Making Medical Records Medical records reviewed: No I reviewed the patient's medical records. Beny Inquiry Pt receiving controlled substance: No Vital Signs: 02/13/24 08:10 Temperature 98.3 F Temperature Source Oral Pulse Rate [Left Brachial] 91 H Respiratory Rate 20 Blood Pressure [Left Arm] 111/62 Blood Pressure Mean [Left Arm] 78 Blood Pressure Source [Left Arm] Automatic Cuff Blood Pressure Position [Left Arm] Sitting 02 Sat by Pulse Oximetry 97 Oxygen Delivery Method Room Air Lab Data Lab results reviewed: Yes I reviewed the patient's lab results.
[2024-02-13 08:50] VITALS: BP 111/62; PULSE 91; RESP 20; TEMP 36.8; O2SAT 97
[2024-02-13 08:56] LABS: UTC Strep Screen (Rapid) Negative (Negative)
[2024-02-13 08:57] LABS: UTC Influenza A Antigen Negative (Negative); UTC Influenza B Antigen Negative (Negative)
[2024-02-13 08:59] LABS: Adenovirus,PCR Not Detected (NotDetected); Bordetella Pertussis Not Detected (NotDetected); Chlamydophila Pneumoniae, PCR Not Detected (NotDetected); Coronavirus 19, PCR Not Detected (NotDetected); Coronavirus 229E Not Detected (NotDetected); Coronavirus NL63 Not Detected (NotDetected); Coronavirus OC43 Not Detected (NotDetected); Coronovirus HKU1,PCR Not Detected (NotDetected); Human Metapneumovirus Not Detected (NotDetected); Influenza A, PCR Not Detected (NotDetected); Influenza AH1, 2009 Not Detected (NotDetected); Influenza AH1, PCR Not Detected (NotDetected); Influenza AH3,PCR Not Detected (NotDetected); Influenza B, PCR Not Detected (NotDetected); Mycoplasma Pneumoniae, PCR Not Detected (NotDetected); Parainfluenza 1, PCR Not Detected (NotDetected); Parainfluenza 2, PCR Not Detected (NotDetected); Parainfluenza 3, PCR Not Detected (NotDetected); Parainfluenza 4, PCR Not Detected (NotDetected); Respiratory Syncytial Virus Not Detected (NotDetected); Rhinovirus/Enterovirus Not Detected (NotDetected)
== END 2024-02-13 08:53 | disposition home or self-care (01) ==
PROVIDERS: Emergency Provider Nurse Practitioner Family
DX: J02.9 Acute pharyngitis, unspecified (principal); R50.9 Fever, unspecified; R51.9 Headache, unspecified; B34.9 Viral infection, unspecified; F17.210 Nicotine dependence, cigarettes, uncomplicated
CPT/HCPCS: 87581; 87632; 87635; 87798; 87804; 87880; 99212; 99214; G0463

== ENCOUNTER 2024-02-13 16:06 | Emergency (ER) | payer OTHER, SELFPAY ==
[2024-02-13 16:10] VITALS: BP 118/71; PULSE 104; RESP 21; TEMP 36.8; O2SAT 97; BMI 27.4
--- NOTE | 2024-02-13 16:21 | EXP.UTC ---
Discharge Plan Disposition Patient Disposition: Home, Self-Care Condition: Good Prescriptions Prescriptions: New methylprednisolone 4 mg Tablets,Dose Pack 4 mg PO DIRECTED 6 Days Qty: 21 0RF Rx Instructions: Take 1 pack as directed for 6 days lidocaine HCl [Lidocaine Viscous] 2 % solution 1 applic mucous membrane TID PRN (Reason: pain) Qty: 100 0RF Rx Instructions: apply to the sore areas in your mouth tid prn for pain No Action fluoxetine 40 mg capsule 40 mg PO DAILY Qty: 30 11RF Referrals Follow up/Referrals: Provider,Referral, MD [Primary Care Provider] - See instructions Activity Restrictions/Add. Instructions Additional Instructions/Restrictions: Drink plenty of fluids. Take tylenol or ibuprofen for pain or fever. Take the medications as directed. Follow up with your regular doctor. GO TO THE ER FOR ANY WORSENING SYMPTOMS Clinical Impressions Clinical Impression: Acute viral pharyngitis Instructions Patient Instructions: DI for Viral Pharyngitis, Lidocaine Viscous Discharge ED Provider: Daljit Salcedo [facility] General Stated complaint: STD check Mode of Arrival: Ambulatory Source of Information: Patient Limitations: No Limitations Time Seen by Provider: 02/13/24 16:21 Description of Symptoms (Recalled from Triage Doc. by RN): PATIENT WAS SEEN IN [facility] THIS MORNING AND TESTED NEGATIVE FOR STREP AND FLU AND HAD A NEGATIVE VIRAL PANEL. SHE STATES SHE CALLED HER OB-SEAMER OPERATOR WHO RECOMMENDED SHE GET STD TESTED HEENT Symptoms (Recalled from RN notes): Yes Resp Symptoms (Recalled from RN notes): No Skin Symptoms (Recalled from RN notes): No MS Symptoms (Recalled from RN notes): No Functional Status (Recalled from RN notes): WNL History of Present Illness Provider Complaint: She returns with continued complaints of having a very sore throat and blisters in her mouth. She states that she called her naturopathic doctor provider after she left here earlier today and she was told that she needed to be checked for std's. She denies any additional symptoms other than the blisters in her mouth and her sore throat. Related Data Previous Rx's Medication Instructions Recorded fluoxetine 40 mg capsule 40 mg PO DAILY #30 caps 01/24/24 lidocaine HCl 2 % mucosal solution 1 applic mucous membrane TID PRN 02/13/24 (Lidocaine Viscous) pain #100 mL methylprednisolone 4 mg tablets in 4 mg PO DIRECTED 6 days #21 tabs 02/13/24 a dose pack Allergies Allergy/AdvReac Type Severity Reaction Status Date / Time cefdinir AdvReac diarrhea Verified 01/30/24 15:30 Worker's Comp Is this a Worker's Comp case?: No [facility] Disclaimer: The information contained in this section may have been updated after the patient was seen, as this information can be updated by other users. 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 (Updated 02/13/24 @ 17:03 by Daljit Salcedo APRN) Abnormal uterine bleeding Decreased libido Vitamin D deficiency Tobacco use Anxiety Surgical History History of mandibular surgery Family History Other Anemia Asthma Cancer Diabetes Hyperlipidemia Hypertension Stroke Thyroid disorder Social History Smoking Status: Current every day smoker quit status: considering quitting second hand exposure: No alcohol intake: never substance use type: denies use current occupational status: employed Travel in the last 8 weeks: None household members: family housing: house current occupational exposures/hazards: No caffeine: Yes ROS Obtained: Yes All systems reviewed & no additional complaints except as documented Constitutional Constitutional: Reports chills and Reports fever(s) Eyes Eyes: Denies eye discharge ENT Ears, Nose, Mouth, and Throat: Reports as per HPI Cardiovascular Cardiovascular: Denies chest pain Respiratory Respiratory: Denies chest congestion and Reports cough Gastrointestinal Gastrointestingal: Reports nausea; Denies abdominal pain, constipation, cramping, diarrhea or vomiting Musculoskeletal Musculoskeletal: Denies arthralgias Integumentary/Breasts Skin/Breast: Denies rash Neurologic Neurologic: Denies paresthesias Physical Exam General General appearance: alert and in no apparent distress Head Head exam: atraumatic, normocephalic and normal inspection Eye Eye exam: Present normal appearance, PERRL and EOMI ENT ENT exam: Present mucous membranes moist and normal external ear exam Expanded ENT Exam TM/Canal exam: Bilateral TM: erythema and bulging Nose exam: Absent sinus tenderness Mouth exam: Present normal external inspection; Absent drooling Teeth exam: Present normal inspection Throat exam: Present tonsillar erythema, tonsillomegaly and tonsillar exudate Neck Neck exam: Present normal inspection, full ROM and trachea midline; Absent tenderness, meningismus or lymphadenopathy Chest Chest inspection: Present normal inspection and symmetric chest wall rise; Absent tenderness Respiratory Respiratory exam: Present normal lung sounds bilaterally; Absent respiratory distress, wheezes, stridor or accessory muscle use Cardiovascular Cardiovascular exam: Present regular rate and normal rhythm; Absent systolic murmur or diastolic murmur Abdominal Exam Abdominal exam: Present soft and normal bowel sounds; Absent distention, tenderness, guarding, rebound or rigidity Extremities Exam Extremities exam: Present normal inspection and normal capillary refill; Absent calf tenderness Back Exam Back exam: Present normal inspection and full ROM; Absent tenderness, CVA tenderness (R) or CVA tenderness (L) Neurological Exam Neurological exam: Present alert, oriented X3 and CN II-XII intact Psychiatric Psychiatric exam: Present normal affect and normal mood Skin Skin exam: Present warm, dry, intact and normal color Medical Decision Making Medical Records Medical records reviewed: No I reviewed the patient's medical records. Beny Inquiry Pt receiving controlled substance: No Vital Signs: 02/13/24 16:10 Temperature 98.2 F Temperature Source Oral Pulse Rate [Left Brachial] 104 H Respiratory Rate 21 Blood Pressure [Left Arm] 118/71 Blood Pressure Mean [Left Arm] 86 Blood Pressure Source [Left Arm] Automatic Cuff Blood Pressure Position [Left Arm] Sitting 02 Sat by Pulse Oximetry 97 Oxygen Delivery Method Room Air Lab Data Lab results reviewed: Yes I reviewed the patient's lab results.
--- NOTE | 2024-02-13 17:02 | PC.NURSE ---
PATIENT REFUSED BLOOD WORK AT THIS TIME
[2024-02-13 17:04] VITALS: BP 118/71; PULSE 104; RESP 21; TEMP 36.8; O2SAT 97
== END 2024-02-13 17:07 | disposition home or self-care (01) ==
PROVIDERS: Emergency Provider Nurse Practitioner Family
DX: J02.9 Acute pharyngitis, unspecified (principal); B34.9 Viral infection, unspecified
CPT/HCPCS: 99211; 99212; G0463

== ENCOUNTER 2024-06-12 10:23 | Emergency (ER) | payer OTHER, SELFPAY ==
[2024-06-12 10:43] VITALS: BP 98/51; PULSE 64; RESP 16; TEMP 36.4; O2SAT 96; BMI 29.0
--- NOTE | 2024-06-12 11:10 | XR_ITS ---
FINAL REPORT CLINICAL HISTORY: pain COMPARISON: None FINDINGS: LEFT WRIST Three views demonstrate no acute fracture or dislocation. The visualized joint spaces are normally aligned. The soft tissues are unremarkable. IMPRESSION: No acute bony abnormality. Reviewed, Interpreted and Dictated by Toribio Montgomery III, MD Transcribed by Pilar Crump Authenticated and [facility]
--- NOTE | 2024-06-12 11:10 | XR_ITS ---
FINAL REPORT CLINICAL HISTORY: pain COMPARISON: None FINDINGS: LEFT HAND: 3 images of the left hand were obtained. There is no evidence of fracture or dislocation. The joint spaces are intact. There is no soft tissue abnormality identified. IMPRESSION: No acute bony abnormality. Reviewed, Interpreted and Dictated by Toribio Montgomery III, MD Transcribed by Pilar Crump Authenticated and [facility]
--- NOTE | 2024-06-12 11:32 | EXP.UTC ---
Discharge Plan Disposition Patient Disposition: Home, Self-Care Condition: Good Prescriptions Prescriptions: New ibuprofen [IBU] 800 mg tablet 800 mg PO Q8HP PRN (Reason: Moderate Pain) Qty: 30 0RF No Action fluoxetine 40 mg capsule 40 mg PO DAILY Qty: 30 11RF ondansetron 4 mg tablet,disintegrating 4 mg PO DAILY cholecalciferol (vitamin D3) 25 mcg (1,000 unit) tablet 25 mcg PO DAILY valacyclovir [Valtrex] 1 gram tablet 1,000 mg PO DAILY 14 Days Qty: 14 1RF Rx Instructions: 1 tab PO daily for 14 days then 2 tabs Q12 if outbreak. acyclovir 5 % ointment 1 applic topical 6XD 7 Days Qty: 15 0RF lidocaine HCl [Lidocaine Viscous] 2 % solution 1 applic mucous membrane TID PRN (Reason: pain) Qty: 100 0RF Rx Instructions: apply to the sore areas in your mouth tid prn for pain Referrals Follow up/Referrals: Steve Haq DO [Staff Physician] - See instructions Kristie Mauricio APRN [Primary Care Provider] - See instructions Activity Restrictions/Add. Instructions Additional Instructions/Restrictions: Rest the extremity, Elevate the extremity as tolerated while you are resting. Take ibuprofen for pain. I sent in a prescription to your pharmacy. Follow up with Dr. Haq (orthopedics). I put in a referral but you need to call his office and schedule an appointment. Follow up with your regular doctor. GO TO THE ER FOR ANY WORSENING SYMPTOMS Clinical Impressions Clinical Impression: Left wrist tendinitis, Left hand tendonitis Stand Alone Forms Stand Alone Forms: Work/School Release Instructions Patient Instructions: DI for Tendinitis Print Language Print Language: Sinhala Discharge ED Provider: Daljit Salcedo [facility] HPI General Stated complaint: left wrist and thumb pain Mode of Arrival: Ambulatory Source of Information: Patient Limitations: No Limitations Time Seen by Provider: 06/12/24 11:32 Description of Symptoms (Recalled from Triage Doc. by RN): Complaint of left thumb and wrist pain for a couple of weeks. HEENT Symptoms (Recalled from RN notes): No Resp Symptoms (Recalled from RN notes): No Skin Symptoms (Recalled from RN notes): No MS Symptoms (Recalled from RN notes): Yes Functional Status (Recalled from RN notes): wnl History of Present Illness Provider Complaint: She states that for the past 1 week she has had left wrist pain that is worse when she bends her wrist. She denies any injury. Related Data Home Medications ?Medication ?Instructions ?Recorded ?Confirmed cholecalciferol (vitamin D3) 25 25 mcg PO DAILY 02/18/24 02/21/24 mcg (1,000 unit) tablet ondansetron 4 mg disintegrating 4 mg PO DAILY 02/18/24 02/21/24 tablet Previous Rx's ?Medication ?Instructions ?Recorded fluoxetine 40 mg capsule 40 mg PO DAILY #30 caps 01/24/24 lidocaine HCl 2 % mucosal solution 1 applic mucous membrane TID PRN 02/13/24 (Lidocaine Viscous) pain #100 mL valacyclovir 1 gram tablet 1,000 mg PO DAILY 14 days #14 tabs 02/18/24 (Valtrex) acyclovir 5 % topical ointment 1 applic topical 6XD 7 days #15 02/21/24 grams ibuprofen 800 mg tablet (IBU) 800 mg PO Q8HP PRN Moderate Pain 06/12/24 #30 tabs Allergies Allergy/AdvReac Type Severity Reaction Status Date / Time cefdinir AdvReac diarrhea Verified 02/21/24 14:57 Worker's Comp Is this a Worker's Comp case?: No [facility] Disclaimer: The information contained in this section may have been updated after the patient was seen, as this information can be updated by other users. 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 Abnormal uterine bleeding Anxiety Decreased libido Tobacco use Vitamin D deficiency Surgical History History of mandibular surgery Family History Other Anemia Asthma Cancer Diabetes Hyperlipidemia Hypertension Stroke Thyroid disorder Social History Smoking Status: Current every day smoker quit status: considering quitting second hand exposure: No alcohol intake: never substance use type: denies use current occupational status: employed Travel in the last 8 weeks: None household members: family housing: house current occupational exposures/hazards: No caffeine: Yes ROS Obtained: Yes All systems reviewed & no additional complaints except as documented Constitutional Constitutional: Denies chills and Denies fever(s) Eyes Eyes: Denies eye discharge ENT Ears, Nose, Mouth, and Throat: Denies dizziness, Denies otalgia and Denies sore throat Cardiovascular Cardiovascular: Denies chest pain Respiratory Respiratory: Denies shortness of breath, Denies chest congestion, Denies cough, Denies stridor and Denies wheezing Gastrointestinal Gastrointestingal: Denies nausea or vomiting Musculoskeletal Musculoskeletal: Reports system reviewed and no additional complaints, except as documented and Denies arthralgias Integumentary/Breasts Skin/Breast: Denies rash Neurologic Neurologic: Denies dizziness and Denies paresthesias Allergic/Immunologic Allergic/Immunologic: Denies wheezing Physical Exam General General appearance: alert and in no apparent distress Head Head exam: atraumatic, normocephalic and normal inspection Eye Eye exam: Present normal appearance, PERRL and EOMI ENT ENT exam: Present normal exam, normal oropharynx, mucous membranes moist, TM's normal bilaterally and normal external ear exam Neck Neck exam: Present normal inspection, full ROM and trachea midline; Absent meningismus or lymphadenopathy Chest Chest inspection: Present normal inspection and symmetric chest wall rise; Absent tenderness Respiratory Respiratory exam: Present normal lung sounds bilaterally; Absent respiratory distress Cardiovascular Cardiovascular exam: Present regular rate and normal rhythm; Absent JVD Abdominal Exam Abdominal exam: Present soft and normal bowel sounds; Absent distention, tenderness or guarding Extremities Exam Extremities exam: Present normal capillary refill; Absent calf tenderness Expanded Upper Extremity Exam Left: Elbow exam: Present normal inspection and full ROM; Absent tenderness, pain w/ pronation/supination or tenderness over radial head Forearm/Wrist exam: Present full ROM and tenderness; Absent swelling, abrasion, laceration, ecchymosis, deformity, crepitus, dislocation, erythema, tenderness over anatomical snuff box or pain with axial thumb loading Hand exam: Present full ROM and tenderness; Absent swelling, abrasion, laceration, skin avulsion, ecchymosis, deformity, crepitus, dislocation, erythema, amputation, nail avulsion or subungual hematoma Neuromotor exam: Normal wrist extension, thumb opposition, thumb IP flexion, thumb adduction and fingers 2-5 abduction Neurosensory exam: Normal radial nerve, ulnar nerve and median nerve Vascular exam: Normal capillary refill, radial pulse and ulnar pulse Back Exam Back exam: Present normal inspection; Absent tenderness Neurological Exam Neurological exam: Present alert and oriented X3 Psychiatric Psychiatric exam: Present normal affect and normal mood Skin Skin exam: Present warm, dry, intact and normal color Lymphatic Lymphatic Findings: no adenopathy Medical Decision Making Medical Records Medical records reviewed: No I reviewed the patient's medical records. Beny Inquiry Pt receiving controlled substance: No Vital Signs: 06/12/24 10:43 Temperature 97.6 F Temperature Source Oral Pulse Rate [Radial] 64 Respiratory Rate 16 Blood Pressure [Right Arm] 98/51 L Blood Pressure Mean [Right Arm] 66 Blood Pressure Source [Right Arm] Automatic Cuff Blood Pressure Position [Right Arm] Sitting 02 Sat by Pulse Oximetry 96 Oxygen Delivery Method Room Air Orders (Tests/Meds): ORDERS Category Date Time Status Hand XR left 2 views [XR hand LT 2V] Stat Exams 06/12/24 11:10 Taken XR wrist LT min 3V Stat Exams 06/12/24 11:10 Taken Radiology Data #1: Image(s): Wrist Image Reviewed: Yes I reviewed the patient's radiology image and Yes I have reviewed radiologist's interpretation Preliminary Findings: No Fracture Seen Accession No. : [id number] Patient Name / ID : Melissa Shepard / [id number] Exam Date : 06/12/2024 11:07:03 ( Final ) Study Comment : Sex / Age : F / 28Y Creator : RAH MONTGOMERY MD Dictator : Tail Board Man : Supervisor Spring Up : RAH MONTGOMERY MD Approver2 : Report Date : 06/12/2024 13:39:06 My Comment : FINAL REPORT CLINICAL HISTORY: pain COMPARISON: None FINDINGS: LEFT WRIST Three views demonstrate no acute fracture or dislocation. The visualized joint spaces are normally aligned. The soft tissues are unremarkable. IMPRESSION: No acute bony abnormality. Reviewed, Interpreted and Dictated by Rah Montgomery III, MD Transcribed by Pilar Crump Authenticated and [facility] #2: Image(s): Hand Image Reviewed: Yes I reviewed the patient's radiology image and Yes I have reviewed radiologist's interpretation Preliminary Findings: No Fracture Seen Accession No. : [id number] Patient Name / ID : Melissa Shepard / [id number] Exam Date : 06/12/2024 11:06:27 ( Final ) Study Comment : Sex / Age : F / 28Y Creator : RAH MONTGOMERY MD Dictator : Tail Board Man : Supervisor Spring Up : RAH MONTGOMERY MD Approver2 : Report Date : 06/12/2024 13:39:07 My Comment : FINAL REPORT CLINICAL HISTORY: pain COMPARISON: None FINDINGS: LEFT HAND: 3 images of the left hand were obtained. There is no evidence of fracture or dislocation. The joint spaces are intact. There is no soft tissue abnormality identified. IMPRESSION: No acute bony abnormality. Reviewed, Interpreted and Dictated by Rah Montgomery III, MD Transcribed by Pilar Crump Authenticated and [facility] Procedures Risk/Benefits of Procedure(s) Were Explained: Yes Orthopedic Splinting/Casting Injury #1: Upper Extremity Injury Location: forearm, wrist and hand Upper Extremity Immobilizer: volar splint and applied by nurse/dr lamar Post Cast/Splinting Neuro Status: intact and no change Post Cast/Splinting Vasc Status: intact and no change
[2024-06-12 11:49] VITALS: BP 98/51; PULSE 64; RESP 16; TEMP 36.4; O2SAT 96
== END 2024-06-12 11:50 | disposition home or self-care (01) ==
PROVIDERS: Emergency Provider Nurse Practitioner Family; PCP Nurse Practitioner Family
DX: M67.834 Other specified disorders of tendon, left wrist (principal); M67.844 Other specified disorders of tendon, left hand; M25.532 Pain in left wrist; M25.542 Pain in joints of left hand
CPT/HCPCS: 73110; 73120; 99212; 99214; G0463

== ENCOUNTER 2024-07-29 08:37 | Emergency (ER) | payer OTHER, SELFPAY ==
[2024-07-29 08:45] VITALS: BP 106/53; PULSE 62; RESP 18; TEMP 36.9; O2SAT 99; BMI 26.6
--- NOTE | 2024-07-29 08:50 | ED_ITS ---
Discharge Plan Disposition Patient Disposition: Home, Self-Care Condition: Good Prescriptions Prescriptions: New ondansetron 4 mg tablet,disintegrating 4 mg PO Q8H PRN (Reason: nausea and vomiting) Qty: 10 0RF No Action valacyclovir [Valtrex] 1 gram tablet 1,000 mg PO DAILY 14 Days Qty: 14 1RF Rx Instructions: 1 tab PO daily for 14 days then 2 tabs Q12 if outbreak. Referrals Follow up/Referrals: Padmaja Joseph APRN [Primary Care Provider] - See instructions Activity Restrictions/Add. Instructions Additional Instructions/Restrictions: Monitor temperature. Seek treatment if fever develops. Follow-up immediately if new or worse symptoms worsen or no noticeable improvement over 48 hours. Increase fluids such as water, Gatorade, Powerade, juice No food is okay as long as you are drinking. Once ready to eat start bland such as bananas, rice, applesauce, toast. Contagious until no diarrhea, vomiting, fever times 48 hours without medication Avoid antidiarrheals unless told otherwise. Best to let the virus run its course. Follow-up immediately for new or worsening symptoms or no noticeable improvement over the next 48 hours. Clinical Impressions Clinical Impression: Nausea and vomiting Qualifiers: Vomiting type: unspecified Qualified Code(s): R11.2 - Nausea with vomiting, unspecified Diarrhea Qualifiers: Diarrhea type: unspecified type Qualified Code(s): R19.7 - Diarrhea, unspecified Instructions Patient Instructions: Diarrhea, Nausea and Vomiting-Adult Print Language Print Language: Estonian [facility]charge [facility] General Stated complaint: vomiting, chills, Diarrhea. Mode of Arrival: Ambulatory Source of Information: Patient Time Seen by Provider: 07/29/24 08:46 Description of Symptoms (Recalled from Triage Doc. by RN): vomiting, diarrhae and chills for a week HEENT Symptoms (Recalled from RN notes): No Resp Symptoms (Recalled from RN notes): No Skin Symptoms (Recalled from RN notes): No MS Symptoms (Recalled from RN notes): No Functional Status (Recalled from RN notes): wnl History of Present Illness Provider Complaint: 28-year-old female presents for complaints of nausea, vomiting, and diarrhea for over a week, denies fever or abdominal pain. Patient states she thinks she is dehydrated. Patient stated her daughter also woke up this morning with nausea and vomiting. Related Data Previous Rx's ?Medication ?Instructions ?Recorded valacyclovir 1 gram tablet 1,000 mg PO DAILY 14 days #14 tabs 02/18/24 (Valtrex) ondansetron 4 mg disintegrating 4 mg PO Q8H PRN nausea and 07/29/24 tablet vomiting #10 tabs Allergies Allergy/AdvReac Type Severity Reaction Status Date / Time cefdinir AdvReac diarrhea Verified 02/21/24 14:57 Worker's Comp Is this a Worker's Comp case?: No [facility] Disclaimer: The information contained in this section may have been updated after the patient was seen, as this information can be updated by other users. 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) Smoking Status: Current every day smoker quit status: considering quitting second hand exposure: No alcohol intake: never substance use type: denies use current occupational status: employed Travel in the last 8 weeks: None household members: family housing: house current occupational exposures/hazards: No caffeine: Yes ROS Obtained: Yes Systems reviewed as appropriate & no additional complaints except as documented Constitutional Constitutional: Denies fever(s) ENT Ears, Nose, Mouth, and Throat: Reports nasal discharge Gastrointestinal Gastrointestingal: Reports system reviewed and no additional complaints, except as documented, as per HPI, cramping, diarrhea, nausea and vomiting; Denies abdominal pain, bloating or hematemesis Physical Exam General General appearance: alert and in no apparent distress Respiratory Respiratory exam: Present normal lung sounds bilaterally Cardiovascular Cardiovascular exam: Present regular rate and normal rhythm Abdominal Exam Abdominal exam: Present soft and normal bowel sounds; Absent distention, tenderness, guarding, rebound or rigidity Neurological Exam Neurological exam: Present alert and oriented X3 Skin Skin exam: Present warm and intact Medical Decision Making Medical Records Medical records reviewed: Yes I reviewed the patient's medical records. Screening: Per USPSTF and CDC recommendations, given the prevalence of disease in our region, it is our hospital?s policy to screen for HIV and viral Hepatitis for all patients aged 18 and over and those with ongoing risk factors. Beny Inquiry Pt receiving controlled substance: No Beny was queried for this patient: No Vital Signs: 07/29/24 08:45 Temperature 98.5 F Temperature Source Oral Pulse Rate [Left Brachial] 62 Respiratory Rate 18 Blood Pressure [Left Arm] 106/53 L Blood Pressure Mean [Left Arm] 70 02 Sat by Pulse Oximetry 99 Medical Decision Narrative: Patient had to leave prior to having labs done, IV fluids done, meds given or results from [facility]
[2024-07-29] MEDS: ONDANSETRON 4MG/2ML VIAL 4 MG IV (08:57)
[2024-07-29 09:01] LABS: Microscopic, Urine URINE MICROSCOPIC (MICROSCOPIC)
[2024-07-29 09:06] VITALS: BP 106/53; PULSE 62; RESP 18; TEMP 36.9
[2024-07-29 09:43] LABS: Appearance,Urine CLOUDY (Clear); Blood, Urine 3+ (Negative); Color,Urine YELLOW (Yellow); Glucose,Urine (UA) Negative (Negative); Ketones,Urine TRACE (Negative); Leukocyte Esterase,Urine TRACE (Negative); Nitrate,Urine Negative (Negative); Protein,Urine 1+ (Negative); Specific Gravity, Urine >= 1.030 (1.005-1.030); Urobilinogen,Urine 0.2 EU/dl (0.2)
[2024-07-29 09:52] LABS: Bilirubin,Urine 1+ (Negative)
[2024-07-29 10:01] LABS: Amorphous Sediment,Urine 1+ /lpf; Bacteria,Urine 2+ /lpf; Squamous Epithelial Cell,Urine 20-50 #/hpf (0-5)
== END 2024-07-29 09:09 | disposition home or self-care (01) ==
PROVIDERS: Emergency Provider Nurse Practitioner Family; PCP Nurse Practitioner
DX: R11.2 Nausea with vomiting, unspecified (principal); R19.7 Diarrhea, unspecified
CPT/HCPCS: 81001; 87086; 96361; 96374; 99213; G0381; J2405

== ENCOUNTER 2024-09-01 08:26 | Emergency (ER) | payer OTHER, SELFPAY ==
[2024-09-01 08:36] VITALS: BP 106/54; PULSE 108; RESP 18; TEMP 36.8; O2SAT 100; BMI 25.9
--- NOTE | 2024-09-01 08:39 | ED_ITS ---
Discharge Plan Disposition Patient Disposition: Home, Self-Care Prescriptions Prescriptions: New amoxicillin 875 mg tablet 875 mg PO BID 10 Days Qty: 20 0RF No Action propranolol 10 mg tablet 10 mg PO DAILY aripiprazole 5 mg tablet 5 mg PO DAILY Vraylar 3 mg capsule 3 mg PO DAILY Referrals Follow up/Referrals: Padmaja Joseph APRN [Primary Care Provider] - See instructions Activity Restrictions/Add. Instructions Additional Instructions/Restrictions: *Monitor Temp, Over the counter Motrin or Tylenol as directed/as needed Tylenol every 4 hours and Motrin every 6 hours (as long as your family doctor has told you that you can take it) for fever or pain. and straight to ER if unable to lower temp less than 101.0 after medication given *Warm salt water gargles may help to soothe the throat *Throat Lozenges? *Warm fluids like tea with honey may help to soothe the throat? *Sleep elevated *Humidifier/Vaporizer *Flonase 2 sprays in each nostril daily but be aware that it may take 2-3 days before you notice improvement *Bromfed may cause drowsiness. Know how it effects you (your child) before driving, caring for small child, or sending your child to school. Not other antihistamines/allergy medications while taking bromfed Your throat swab was sent for culture. Those results are typically sent to your primary care. Be sure to follow up in 2-3 days with your family doctor/primary care physician if no improvement so they can review those result and treat if necessary. If you don?t have a primary care doctor, I recommend you get one but in the mean time, you will have to return to a walk in clinic Follow up IMMEDIATELY for new or worsening symptoms or no Noticeable improvement over the next 48-72 hours. 911 for difficulty breathing or swallowing Clinical Impressions Clinical Impression: Strep throat Stand Alone Forms Stand Alone Forms: Work/School Release Instructions Patient Instructions: Strep Throat, DI for Strep Throat Print Language Print Language: Bengali Discharge ED Provider: Lalitha Garcia [facility] General Stated complaint: sore throat headache Mode of Arrival: Ambulatory Source of Information: Patient Time Seen by Provider: 09/01/24 08:39 Description of Symptoms (Recalled from Triage Doc. by RN): STREP?, FEVERS AT HOME, EXP TO STREP HEENT Symptoms (Recalled from RN notes): Yes Resp Symptoms (Recalled from RN notes): No Skin Symptoms (Recalled from RN notes): No MS Symptoms (Recalled from RN notes): No Functional Status (Recalled from RN notes): WNL History of Present Illness Provider Complaint: Patient states that she feels like she may have strep throat States that her son has strep throat right now and her throat has been hurting when she swallows and swollen and red so today when it was still bothering her she came in to get it checked Related Data Home Medications ?Medication ?Instructions ?Recorded ?Confirmed aripiprazole 5 mg tablet 5 mg PO DAILY 09/01/24 09/01/24 cariprazine 3 mg capsule (Vraylar) 3 mg PO DAILY 09/01/24 09/01/24 propranolol 10 mg tablet 10 mg PO DAILY 09/01/24 09/01/24 Previous Rx's ?Medication ?Instructions ?Recorded amoxicillin 875 mg tablet 875 mg PO BID 10 days #20 tabs 09/01/24 Allergies Allergy/AdvReac Type Severity Reaction Status Date / Time cefdinir AdvReac diarrhea Verified 02/21/24 14:57 Worker's Comp Is this a Worker's Comp case?: No [facility] Disclaimer: The information contained in this section may have been updated after the patient was seen, as this information can be updated by other users. 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) Smoking Status: Current every day smoker quit status: considering quitting second hand exposure: No alcohol intake: never substance use type: denies use current occupational status: employed household members: family housing: house current occupational exposures/hazards: No caffeine: Yes ROS Obtained: Yes All systems reviewed & no additional complaints except as documented and Yes Systems reviewed as appropriate & no additional complaints except as documented Constitutional Constitutional: Reports system reviewed and no additional complaints, except as documented and Reports as per HPI ENT Ears, Nose, Mouth, and Throat: Reports system reviewed and no additional complaints, except as documented, Reports as per HPI and Reports sore throat Cardiovascular Cardiovascular: Reports system reviewed and no additional complaints, except as documented and Reports as per HPI Respiratory Respiratory: Reports system reviewed and no additional complaints, except as documented and Reports as per HPI Gastrointestinal Gastrointestingal: Reports system reviewed and no additional complaints, except as documented and as per HPI Physical Exam General General appearance: alert and in no apparent distress ENT ENT exam: Present mucous membranes moist and TM's normal bilaterally Expanded ENT Exam Throat exam: Present tonsillar erythema and tonsillar exudate Respiratory Respiratory exam: Present normal lung sounds bilaterally; Absent respiratory distress or wheezes Cardiovascular Cardiovascular exam: Present regular rate, normal rhythm and tachycardia Abdominal Exam Abdominal exam: Present soft and normal bowel sounds; Absent distention or tenderness Neurological Exam Neurological exam: Present alert, oriented X3 and normal gait Medical Decision Making Medical Records Screening: Per USPSTF and CDC recommendations, given the prevalence of disease in our region, it is our hospital?s policy to screen for HIV and viral Hepatitis for all patients aged 18 and over and those with ongoing risk factors. Beny Inquiry Pt receiving controlled substance: No Beny was queried for this patient: No Vital Signs: 09/01/24 08:36 Temperature 98.2 F Temperature Source Oral Pulse Rate [Left Brachial] 108 H Respiratory Rate 18 Blood Pressure [Left Arm] 106/54 L Blood Pressure Mean [Left Arm] 71 02 Sat by Pulse Oximetry 100 Lab Data Lab results reviewed: Yes I reviewed the patient's lab results. Medical Decision Narrative: Patient states that she has taken amoxicillin in the past without complications or reactions
[2024-09-01 08:46] LABS: UTC Strep Screen (Rapid) Positive (Negative)
[2024-09-01 08:52] VITALS: BP 106/54; PULSE 108; RESP 18; TEMP 36.8
== END 2024-09-01 08:53 | disposition home or self-care (01) ==
PROVIDERS: Emergency Provider Nurse Practitioner; PCP Nurse Practitioner
DX: J02.0 Streptococcal pharyngitis (principal)
CPT/HCPCS: 87880; 99213; G0381

== ENCOUNTER 2024-09-08 11:04 | Emergency (ER) | payer OTHER, SELFPAY ==
[2024-09-08 11:13] VITALS: BP 120/56; PULSE 83; RESP 18; TEMP 36.8; O2SAT 100; BMI 26.6
--- NOTE | 2024-09-08 11:17 | EXP.UTC ---
Discharge Plan Disposition Patient Disposition: Home, Self-Care Prescriptions Prescriptions: No Action propranolol 10 mg tablet 10 mg PO DAILY aripiprazole 5 mg tablet 5 mg PO DAILY Vraylar 3 mg capsule 3 mg PO DAILY Referrals Follow up/Referrals: Oscar Romero II, MD [Staff Physician] - See instructions Padmaja Joseph APRN [Primary Care Provider] - See instructions Activity Restrictions/Add. Instructions Additional Instructions/Restrictions: Call your family doctor to establish care for this visit to the emergency department and schedule follow-up within 48 hours to ensure improvement. If you have any worsening of your condition or any other concerning signs or symptoms, return to the emergency department or your primary care doctor for further evaluation. Talk to your family provider about stool sample for culture and ova/parasites. Dr. Romero's information is here, call to schedule follow-up appointment regarding this visit to the emergency department and further evaluation and management of blood in your stool. Clinical Impressions Clinical Impression: BRBPR (bright red blood per rectum) Stand Alone Forms Stand Alone Forms: Work/School Release Instructions Patient Instructions: DI for Acute Abdominal Pain Print Language Print Language: Malawian Discharge ED Provider: Sekou Rowland [facility] HPI General Chief complaint: Abdominal Pain Stated complaint: stomach and retum pain v/d Mode of Arrival: Ambulatory Source of Information: Patient Time Seen by Provider: 09/08/24 11:17 Description of Symptoms (Recalled from Triage Doc. by RN): THIN, BRIGHT RED BLOOD IN STOOL AND MUCUS LOOKING, LOWER ABD PAIN WITH CRAMPING, NAUSEA HEENT Symptoms (Recalled from RN notes): No Resp Symptoms (Recalled from RN notes): No Skin Symptoms (Recalled from RN notes): No MS Symptoms (Recalled from RN notes): No Functional Status (Recalled from RN notes): WNL History of Present Illness Provider Complaint: Patient states that she has been having lower abdominal pain and cramping on and off for a couple weeks that has continued to get worse States that earlier today she had BM and noticed there was bright red blood mixed in with her stool and in the toilet, states that since then she has been leaking mucous like drainage with darker colored blood and her cramping in her abdomen is worse so she came in Denies hx of hemorrhoids, denies vomiting blood or coffee ground emesis Related Data Home Medications ?Medication ?Instructions ?Recorded ?Confirmed aripiprazole 5 mg tablet 5 mg PO DAILY 09/01/24 09/08/24 cariprazine 3 mg capsule (Vraylar) 3 mg PO DAILY 09/01/24 09/08/24 propranolol 10 mg tablet 10 mg PO DAILY 09/01/24 09/08/24 Allergies Allergy/AdvReac Type Severity Reaction Status Date / Time cefdinir AdvReac diarrhea Verified 02/21/24 14:57 Worker's Comp Is this a Worker's Comp case?: No [facility] Disclaimer: The information contained in this section may have been updated after the patient was seen, as this information can be updated by other users. 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) History of mandibular surgery Family History , FUEL YARD OPERATOR) Diabetes Anemia Hyperlipidemia Cancer Hypertension Thyroid disorder Stroke Asthma Social History (Updated 09/01/24 @ 08:49 by Lalitha Garcia, FUEL YARD OPERATOR) Smoking Status: Current every day smoker quit status: considering quitting second hand exposure: No alcohol intake: never substance use type: denies use current occupational status: employed Travel in the last 8 weeks: None household members: family housing: house current occupational exposures/hazards: No caffeine: Yes ROS Obtained: Yes All systems reviewed & no additional complaints except as documented and Yes Systems reviewed as appropriate & no additional complaints except as documented Constitutional Constitutional: Reports system reviewed and no additional complaints, except as documented and Reports as per HPI ENT Ears, Nose, Mouth, and Throat: Reports system reviewed and no additional complaints, except as documented and Reports as per HPI Cardiovascular Cardiovascular: Reports system reviewed and no additional complaints, except as documented and Reports as per HPI Gastrointestinal Gastrointestingal: Reports system reviewed and no additional complaints, except as documented, as per HPI, abdominal pain, cramping, hematochezia, nausea and other ( ); Denies coffee ground emesis or hematemesis Comments: reports since then has had Mucous like drainage leaking from anus that looks like it has darker colored blood in it Musculoskeletal Musculoskeletal: Reports system reviewed and no additional complaints, except as documented and Reports as per HPI Physical Exam General General appearance: alert and in no apparent distress ENT ENT exam: Present mucous membranes moist Respiratory Respiratory exam: Present normal lung sounds bilaterally; Absent respiratory distress or wheezes Cardiovascular Cardiovascular exam: Present regular rate, normal rhythm and normal heart sounds Abdominal Exam Abdominal exam: Present soft and tenderness (reports tenderness with palpation to lower abdomen area); Absent distention Neurological Exam Neurological exam: Present alert, oriented X3 and normal gait Medical Decision Making Medical Records Screening: Per USPSTF and CDC recommendations, given the prevalence of disease in our region, it is our hospital?s policy to screen for HIV and viral Hepatitis for all patients aged 18 and over and those with ongoing risk factors. Beny Inquiry Pt receiving controlled substance: No Beny was queried for this patient: No Vital Signs: 09/08/24 11:13 Temperature 98.3 F Temperature Source Oral Pulse Rate [Left Radial] 83 Respiratory Rate 18 Blood Pressure [Left Arm] 120/56 L Blood Pressure Mean [Left Arm] 77 02 Sat by Pulse Oximetry 100 Lab Data 09/08/24 11:39 09/08/24 11:39 Medical Decision Narrative: Discussed with patient and due to patient complaints of blood in stool and having pain in her lower abdomen recommended transfer to the ED for further work up and evaluation and she agreed Patient was moved to the ED room 4
[2024-09-08 11:35] VITALS: BP 127/77; PULSE 72; RESP 16; O2SAT 99; BMI 23.3
--- NOTE | 2024-09-08 11:51 | ED_ITS ---
Discharge Plan Disposition Patient Disposition: Home, Self-Care Prescriptions Prescriptions: No Action propranolol 10 mg tablet 10 mg PO DAILY aripiprazole 5 mg tablet 5 mg PO DAILY Vraylar 3 mg capsule 3 mg PO DAILY Referrals Follow up/Referrals: Padmaja Joseph APRN [Primary Care Provider] - See instructions Oscar Romero II, MD [Staff Physician] - See instructions Activity Restrictions/Add. Instructions Additional Instructions/Restrictions: Call your family doctor to establish care for this visit to the emergency department and schedule follow-up within 48 hours to ensure improvement. If you have any worsening of your condition or any other concerning signs or symptoms, return to the emergency department or your primary care doctor for further evaluation. Talk to your family provider about stool sample for culture and ova/parasites. Dr. Romero's information is here, call to schedule follow-up appointment regarding this visit to the emergency department and further evaluation and management of blood in your stool. Clinical Impressions Clinical Impression: BRBPR (bright red blood per rectum) Instructions Patient Instructions: DI for Acute Abdominal Pain Print Language Print Language: Polish Discharge ED Provider: Sekou Rowland General Adult HPI General Chief complaint: Abdominal Pain Stated complaint: stomach and retum pain v/d Time Seen by Provider: 09/08/24 11:17 Mode of Arrival: Ambulatory Source of Information: Patient Limitations: No Limitations Description of Symptoms (Recalled from ER Triage Doc. by RN): pt states she has been having lower abd cramping, occasional bright red blood in her stool and N/V x2wks. Approximately 2wks ago she began propanolol and a bipolar medication, she was also dx with strep and started on amoxicillin. pt states she is now having mucous, brownish blood and red blood from her rectum when she wipes and occasionally that drops in the toilet. This occurs even when she is not having a bowel movement. pt lower abd is tender to palpation and soft. History of Present Illness HPI narrative: Please note that above description of symptoms, in this electronic medical record under categorization of recalled from ER triage doctor by RN are reflective of an initial nursing assessment, however, is not reflective of my full history and physical exam that was personally taken and clarified. Consequentially, this preceding description of symptoms, which may include the patient's categorized chief complaint in the EMR, do not reflect my personal clinical impression, and the ultimate description of history of present illness and patient stated complaints should be deferred to this section of the note. Unless stated otherwise or congruent with this section of the note, additional signs, symptoms, or incongruence should be interpreted as inaccurate with my clinical impression. Related Data Home Medications ?Medication ?Instructions ?Recorded ?Confirmed aripiprazole 5 mg tablet 5 mg PO DAILY 09/01/24 09/08/24 cariprazine 3 mg capsule (Vraylar) 3 mg PO DAILY 09/01/24 09/08/24 propranolol 10 mg tablet 10 mg PO DAILY 09/01/24 09/08/24 Allergies Allergy/AdvReac Type Severity Reaction Status Date / Time cefdinir AdvReac diarrhea Verified 02/21/24 14:57 [facility] Disclaimer: The information contained in this section may have been updated after the patient was seen, as this information can be updated by other users. 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 Family History , WIRELESS STORE MANAGER) Diabetes Anemia Hyperlipidemia Cancer Hypertension Thyroid disorder Stroke Asthma Social History (Updated 09/01/24 @ 08:49 by Lalitha Garcia, WIRELESS STORE MANAGER) Smoking Status: Current every day smoker quit status: considering quitting second hand exposure: No alcohol intake: never substance use type: denies use current occupational status: employed Travel in the last 8 weeks: None household members: family housing: house current occupational exposures/hazards: No caffeine: Yes Other 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 Have you received the Flu Vaccine for this season: No Have you received the Pneumonia Vaccine: No ROS Obtained: Yes All systems reviewed & no additional complaints except as documented Physical Exam General General appearance: alert and in no apparent distress Head Head exam: atraumatic and normocephalic Eye Eye exam: Present normal appearance, PERRL and EOMI Neck Neck exam: Present normal inspection, full ROM and trachea midline Respiratory Respiratory exam: Absent respiratory distress, wheezes, stridor, accessory muscle use or prolonged expiratory phase Cardiovascular Cardiovascular exam: Present other (Pulses equal symmetric in upper and lower extremities) Abdominal Exam Abdominal exam: Present soft and tenderness; Absent distention, guarding, rebound, rigidity or pulsatile mass Abdominal tenderness: Present suprapubic and mild Extremities Exam Extremities exam: Absent edema Back Exam Back exam: Absent CVA tenderness (R) or CVA tenderness (L) Neurological Exam Neurological exam: Present alert, oriented X3 and CN II-XII intact; Absent motor sensory deficit Skin Skin exam: Present warm and dry; Absent diaphoresis or erythema Medical Decision Making Medical Records Medical records reviewed: Yes I reviewed the patient's medical records. Screening: Per USPSTF and CDC recommendations, given the prevalence of disease in our region, it is our hospital?s policy to screen for HIV and viral Hepatitis for all patients aged 18 and over and those with ongoing risk factors. Beny Inquiry Pt receiving controlled substance: No Beny was queried for this patient: No Vital Signs: 09/08/24 11:13 09/08/24 11:35 Temperature 98.3 F Temperature Source Oral Pulse Rate [Left Radial] 83 72 Respiratory Rate 18 16 Blood Pressure [Left Arm] 120/56 L 127/77 Blood Pressure Mean [Left Arm] 77 93 Blood Pressure Source [Left Arm] Automatic Cuff Blood Pressure Position [Left Arm] Sitting 02 Sat by Pulse Oximetry 100 99 Oxygen Delivery Method Room Air Lab Data Lab Results 09/08/24 11:39: WBC 9.2, RBC 4.64, Hgb 13.9, Hct 40.8, MCV 87.9, MCH 30.0, MCHC 34.2, RDW 13.0, Plt Count 336, MPV 7.3 L, Neut % (Auto) 77.5, Lymph % (Auto) 18.2, [place] % (Auto) 3.5, Eos % (Auto) 0.2, Baso % (Auto) 0.5, Neut # (Auto) 7.1, Lymph # (Auto) 1.7, [place] # (Auto) 0.3, Eos # (Auto) 0.0, Baso # (Auto) 0.1, Sodium 139, Potassium 3.6, Chloride 103, Carbon Dioxide 30, Anion Gap 9.6, BUN 15, Creatinine 0.70, Estimated Creat Clear 119, Estimated GFR 99, Est GFR ( Amer) 120, Glucose 124 H, Calcium 9.2, Total Bilirubin 0.9, AST 26, ALT 20, Alkaline Phosphatase 55, C-Reactive Protein 0.8, Total Protein 7.6, Albumin 4.6, Globulin 3.0, Albumin/Globulin Ratio 1.5, Lipase 50, HCG, Quant < 2 09/08/24 12:01: Urine Color Yellow, Urine Appearance Cloudy, Urine pH 6.5, Ur Specific [place] 1.025, Urine Protein Negative, Urine Glucose (UA) Negative, Urine Ketones Negative, Urine Blood Negative, Urine Nitrate Negative, Urine Bilirubin Negative, Urine Urobilinogen 0.2, Ur Leukocyte Esterase Negative, Urine RBC None, Urine WBC 3-5, Ur Squamous Epith Cells 5-10, Urine Bacteria 1+, Urine Mucus Trace 09/08/24 11:39 09/08/24 11:39 Orders (Tests/Meds): ED MEDICATIONS Discontinued Medications Generic Name Dose Route Start Last Admin Trade Name Prabhjotq PRN Reason Stop Dose Admin Ketorolac Tromethamine 15 mg 09/08/24 11:51 09/08/24 12:00 Ketorolac 30mg/Ml Vial IV 09/08/24 11:52 15 mg ONCE ONE Administration ORDERS Category Date Time Status CBC w/Auto Diff [Complete Blood Count Auto Diff] Stat Lab 09/08/24 11:39 Results CMP [Comprehensive Metabolic Panel] Stat Lab 09/08/24 11:39 Completed CRP [C-Reactive Protein] Stat Lab 09/08/24 11:39 Completed Diarrhea 6-11 Panel, Cdiff PCR Stat Lab 09/08/24 11:49 Ordered ESR [Erythrocyte Sedimentation Rate] Stat Lab 09/08/24 11:39 Results HCG,Quantitative Stat Lab 09/08/24 11:39 Completed HIV (1&2) Antibody Rapid Stat Lab 09/08/24 11:39 Received Hep C Ab with Reflex to RNA Stat Lab 09/08/24 11:39 Received Lipase Stat Lab 09/08/24 11:39 Completed UA [Urinalysis and Microscopic] Stat Lab 09/08/24 12:01 Completed Ova + Parasite Exam Stat Micro 09/08/24 11:49 Ordered Medical Decision Narrative: This is a 28-year-old female presenting with mucus and blood per rectum. Patient states that in the past 4 weeks she has been started on a beta-kim as well as a bipolar medication, and had 1 round of 10 days of Augmentin for strep pharyngitis. States that she has had crampy abdominal pain for the past few days and has had intermittent blood on the outside of her stool in the toilet. Today, she had a bowel movement that was crampy, associated blood mixed into the stool. Not a large amount, but different than what she is used to. No fevers or chills, weight loss, night sweats, joint complaints, recent travel, vaginal discharge or bleeding, vomiting, flank tenderness. She does state that she has had dysuria and think she may also have a concurrent UTI. History was obtained via conversation with patient. On arrival, patient hemodynamically stable, alert, oriented x4, appropriate, GCS 15, moving all extremities spontaneously, pupils equal and reactive to light. Full physical exam performed and significant for well-appearing female no acute distress. Patient has mild suprapubic abdominal tenderness, otherwise unremarkable exam. Differential includes gastroenteritis, infectious, IBS, IBD, hemorrhoids, among others. Patient placed on continuous cardiac monitoring and continuous pulse ox with initial blood pressure 120/56, heart rate 83, saturation 100% on room air. Patient was given Toradol for symptomatic management and correction of underlying abnormalities. Workup independently interpreted and significant for nonactionable hematologic workup and negative urine. CT scan of the abdomen and pelvis was considered, but not deemed necessary. Further conversation was had with patient regarding utility of this. Patient has benign abdominal exam, benign labs, normal vital signs, and no current symptoms. Unable to produce bowel movement for stool sample, so not having uncontrollable diarrhea either. Able to tolerate p.o. intake. Conversation had with patient regarding outpatient follow-up, she feels comfortable seeing primary care provider for stool sample given she is unable to produce 1 here. Also feels comfortable seeing gastroenterology outpatient. I feel this is appropriate. Given patient presentation, workup, history, this most likely represents undifferentiated hematochezia. Because patient at baseline without signs or symptoms of clinical decompensation, deemed appropriate for discharge. Results were relayed to patient who voiced understanding and were agreeable to outpatient management and follow up. I discussed my clinical impression with patient and answered all questions. At this time, the evidence for any other entities in the differential is insufficient to warrant any further testing or ED observation. This was explained as well. Advisory was given that persistent or worsening symptoms require further evaluation. I confirmed the understanding of this discussion. Pharm Spec disclaimer Much of this encounter note is an electronic service desk associate spoken language to printed text. Electronic service desk associate of the spoken language may permit errors. Although I have reviewed the note, some errors may still exist. Critical Care Critical Care Time Critical Care Time: No
[2024-09-08 11:56] LABS: Basophils # 0.1 K/mm3 (0-0.2); Basophils % 0.5 % (0.1-2.0); Eosinophils % 0.2 % (0.1-12.0); Hematocrit 40.8 % (37.0-47.0); Hemoglobin 13.9 g/dL (12.2-16.2); Lymphocytes # 1.7 K/mm3 (0.7-4.5); Lymphocytes % 18.2 % (10-50); Mean Corpuscular HGB Conc 34.2 g/dL (31.8-35.4); Mean Corpuscular Volume 87.9 fl (81-99); Mean Platelet Volume 7.3 fl (7.4-10.4); Monocytes # 0.3 K/mm3 (0.1-1.0); Monocytes % 3.5 % (1.7-9.3); Neutrophils # 7.1 K/mm3 (1.8-7.8); Neutrophils % 77.5 % (37.0-80.0); Platelet Count 336 K/mm3 (142-424); Red Blood Count 4.64 M/mm3 (4.20-5.40); White Blood Count 9.2 K/mm3 (4.8-10.8)
[2024-09-08 11:59] LABS: Albumin Level 4.6 g/dl (3.5-5.0); Chloride 103 mmol/L (98-107); Potassium 3.6 mmoL/L (3.5-5.1); Sodium 139 mmol/L (136-145)
[2024-09-08] MEDS: KETOROLAC 30MG/ML VIAL 15 MG IV (12:00)
[2024-09-08 12:02] LABS: Alanine Aminotransferase 20 U/L (12-78); Albumin/Globulin Ratio 1.5 (1.1-1.8); Alkaline Phosphatase 55 U/L (38-126); Anion Gap 9.6 mEq/L (5-15); Aspartate Amino Transferase 26 U/L (14-36); Bilirubin,Total 0.9 mg/dl (0.2-1.3); Blood Urea Nitrogen 15 mg/dl (7-17); Carbon Dioxide 30 mmol/L (22.0-30.0); Creatinine Clearance Estimated 119 mL/min (50-200); Estimated Glomerular Filt Rate 99 ml/min (>60); GFR (African American) 120 ML/MIN (>60); Lipase 50 U/L (23-300); Total Protein,Serum 7.6 g/dl (6.3-8.2)
[2024-09-08 12:03] LABS: Calcium 9.2 mg/dl (8.4-10.2); Glucose 124 mg/dl (74-100)
[2024-09-08 12:05] LABS: Microscopic, Urine URINE MICROSCOPIC (MICROSCOPIC)
[2024-09-08 12:07] LABS: Appearance,Urine CLOUDY (Clear); Bilirubin,Urine Negative (Negative); Blood, Urine Negative (Negative); Color,Urine YELLOW (Yellow); Glucose,Urine (UA) Negative (Negative); Ketones,Urine Negative (Negative); Leukocyte Esterase,Urine Negative (Negative); Nitrate,Urine Negative (Negative); PH,Urine 6.5 (5.0-8.5); Protein,Urine Negative (Negative); Specific Gravity, Urine 1.025 (1.005-1.030); Urobilinogen,Urine 0.2 EU/dl (0.2)
[2024-09-08 12:09] LABS: C-Reactive Protein 0.8 mg/L (0-4)
--- NOTE | 2024-09-08 12:15 | PC.NURSE ---
I rounded on the pt and took her a warm blanket. no needs voiced, no new complaints. call michel in reach.
[2024-09-08 12:16] LABS: Bacteria,Urine 1+ /lpf
[2024-09-08 12:17] LABS: Mucus,Urine Trace /lpf
[2024-09-08 12:23] LABS: HCG,Quantitative < 2 mIU/ml (0-5.42)
[2024-09-08 13:03] VITALS: BP 114/74; PULSE 74; RESP 18; TEMP 36.7; O2SAT 99
[2024-09-08 14:57] LABS: Erythrocyte Sedimentation Rate 22 mm/hr (0-20); HIV (1&2) Antibody Rapid NONREACTIVE (NONREACTIVE)
[2024-09-09 07:16] LABS: HCV Ab Non Reactive (Non Reactive)
== END 2024-09-08 13:09 | disposition home or self-care (01) ==
LOC: UTC 11:07 → ER 11:24
PROVIDERS: Emergency Provider Emergency Medicine; PCP Nurse Practitioner
DX: K62.5 Hemorrhage of anus and rectum (principal); R10.30 Lower abdominal pain, unspecified; R11.2 Nausea with vomiting, unspecified
CPT/HCPCS: 80053; 81001; 83690; 84702; 85025; 85651; 86140; 86803; 87389; 96374; 99284; J1885

== ENCOUNTER 2024-10-06 08:01 | Emergency (ER) | payer OTHER, SELFPAY ==
[2024-10-06 08:10] VITALS: BP 107/87; PULSE 62; RESP 18; TEMP 37.1; O2SAT 99; BMI 32.1
--- NOTE | 2024-10-06 08:19 | ED_ITS ---
Discharge Plan Disposition Patient Disposition: Home, Self-Care Condition: Good Prescriptions Prescriptions: New clindamycin HCl 300 mg capsule 300 mg PO TID 5 Days Qty: 15 0RF mupirocin 2 % ointment 1 applic topical TID 10 Days Qty: 22 0RF Rx Instructions: apply to area on right upper arm as directed No Action aripiprazole 10 mg tablet 10 mg PO DAILY medroxyprogesterone 150 mg/mL suspension 150 mg IM [id number] Qty: 1 3RF propranolol 10 mg tablet 10 mg PO DAILY lamotrigine 25 mg tablet 25 mg PO DAILY Referrals Follow up/Referrals: Provider,Referral, MD [Primary Care Provider] - See instructions Activity Restrictions/Add. Instructions Additional Instructions/Restrictions: *Start antibiotic(s) immediately and be sure to take as ordered for the FULL length of time although you may be feeling better or start to see improvement in the next 24-48 hours *Monitor closely. Outlined redness so that you can monitor easier. Follow up im mediately for new or worsening symptoms including but not limited to redness, swelling, streaking from site fever or chills. *Warm compress 15 minutes 3-4 times day *Never squeeze or pop these on your own. Seek immediate medical attention next time this occurs *Monitor Temp. Tylenol every 4 hours as needed and ibuprofen every 6 hours as needed (as long as your primary care doctor has told you that it is ok to take both. For fever, aches, pain. ER if no less that 101 despite Tylenol and ibuprofen ?Follow up with your family doctor/primary care physician in the next 48-72 hours if no improvement Clinical Impressions Clinical Impression: Cellulitis Instructions Patient Instructions: Cellulitis, Clindamycin, Mupirocin Print Language Print Language: Upper Sorbian Discharge ED Provider: Lalitha Garcia [facility] [place] HPI General Stated complaint: bite on right arm Mode of Arrival: Ambulatory Source of Information: Patient Limitations: No Limitations Time Seen by Provider: 10/06/24 08:19 Description of Symptoms (Recalled from Triage Doc. by RN): PATIENT C/O BITE ON RIGHT ARM SINCE SATURDAY HEENT Symptoms (Recalled from RN notes): No Resp Symptoms (Recalled from RN notes): No Skin Symptoms (Recalled from RN notes): Yes MS Symptoms (Recalled from RN notes): No Functional Status (Recalled from RN notes): WNL History of Present Illness Provider Complaint: Patient states that an insect bite her on her right upper arm on Saturday and since then she has been having redness, mild swelling and soreness in the area of the bite States today it wasnt any better so she came in to get it checked Related Data Home Medications ?Medication ?Instructions ?Recorded ?Confirmed propranolol 10 mg tablet 10 mg PO DAILY 09/01/24 10/06/24 aripiprazole 10 mg tablet 10 mg PO DAILY 09/21/24 10/06/24 lamotrigine 25 mg tablet 25 mg PO DAILY 10/06/24 10/06/24 Previous Rx's ?Medication ?Instructions ?Recorded medroxyprogesterone 150 mg/mL 150 mg IM [id number] #1 mL 09/21/24 intramuscular suspension clindamycin HCl 300 mg capsule 300 mg PO TID 5 days #15 caps 10/06/24 mupirocin 2 % topical ointment 1 applic topical TID 10 days #22 10/06/24 grams Allergies Allergy/AdvReac Type Severity Reaction Status Date / Time cefdinir AdvReac diarrhea Verified 09/21/24 15:49 Worker's Comp Is this a Worker's Comp case?: No [facility] Disclaimer: The information contained in this section may have been updated after the patient was seen, as this information can be updated by other users. 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 (Updated 10/06/24 @ 08:31 by Lalitha Garcia APRN) Contraception management Request for sterilization Abnormal uterine bleeding Decreased libido Vitamin D deficiency Tobacco use Anxiety Surgical History History of mandibular surgery Family History Other Anemia Asthma Cancer Diabetes Hyperlipidemia Hypertension Stroke Thyroid disorder Social History Smoking Status: Current every day smoker quit status: considering quitting second hand exposure: No alcohol intake: never substance use type: denies use current occupational status: employed Travel in the last 8 weeks: None household members: family housing: house current occupational exposures/hazards: No caffeine: Yes Have you lived/traveled outside [place] in past 30 days?: No Contact w/someone who lives/traveled outside US past 30 days?: No Exposure to someone with infectious disease in past 14 days?: No Do you have a fever (greater than 100.4 F or 38 C)?: No Have you tested positive for COVID-19: No Exposed to someone with COVID-19 in past 14 days?: No Do you have a sore throat?: No Do you have a cough?: No Do you have any weakness?: No Do you have any diarrhea?: No Are you experiencing any unusual bleeding?: No Do you have any muscle aches/pain?: No Do you have any abdominal pain?: No Are you experiencing loss of taste or smell?: No ROS Obtained: Yes All systems reviewed & no additional complaints except as documented and Yes Systems reviewed as appropriate & no additional complaints except as documented Constitutional Constitutional: Reports system reviewed and no additional complaints, except as documented, Reports as per HPI and Denies fever(s) ENT Ears, Nose, Mouth, and Throat: Reports system reviewed and no additional complaints, except as documented and Reports as per HPI Cardiovascular Cardiovascular: Reports system reviewed and no additional complaints, except as documented and Reports as per HPI Respiratory Respiratory: Reports system reviewed and no additional complaints, except as documented and Reports as per HPI Gastrointestinal Gastrointestingal: Reports system reviewed and no additional complaints, except as documented and as per HPI Musculoskeletal Musculoskeletal: Reports system reviewed and no additional complaints, except as documented and Reports as per HPI Integumentary/Breasts Skin/Breast: Reports system reviewed and no additional complaints, except as documented, Reports as per HPI and Reports other (insect bite on right upper arm) Physical Exam General General appearance: alert and in no apparent distress ENT ENT exam: Present normal exam, normal oropharynx, mucous membranes moist and TM's normal bilaterally Respiratory Respiratory exam: Present normal lung sounds bilaterally; Absent respiratory distress or wheezes Cardiovascular Cardiovascular exam: Present regular rate, normal rhythm and normal heart sounds Neurological Exam Neurological exam: Present alert, oriented X3 and normal gait Skin Skin exam: Present other (red area noted around small bite sammy possibly spider bite with mild cellulitis no drainage) Medical Decision Making Medical Records Screening: Per USPSTF and CDC recommendations, given the prevalence of disease in our region, it is our hospital?s policy to screen for HIV and viral Hepatitis for all patients aged 18 and over and those with ongoing risk factors. Beny Inquiry Pt receiving controlled substance: No Beny was queried for this patient: No Vital Signs: 10/06/24 08:10 Temperature 98.8 F Temperature Source Oral Pulse Rate [Left Brachial] 62 Respiratory Rate 18 Blood Pressure [Left Arm] 107/87 L Blood Pressure Mean [Left Arm] 93 Blood Pressure Source [Left Arm] Automatic Cuff Blood Pressure Position [Left Arm] Sitting 02 Sat by Pulse Oximetry 99 Oxygen Delivery Method Room Air
[2024-10-06 08:33] VITALS: BP 107/87; PULSE 62; RESP 18; TEMP 37.1; O2SAT 99
== END 2024-10-06 08:36 | disposition home or self-care (01) ==
PROVIDERS: Emergency Provider Nurse Practitioner
DX: L03.113 Cellulitis of right upper limb (principal); S40.861A Insect bite (nonvenomous) of right upper arm, initial encounter; M79.621 Pain in right upper arm
CPT/HCPCS: 99212; G0381

== ENCOUNTER 2024-10-28 09:11 | Emergency (ER) | payer OTHER, SELFPAY ==
[2024-10-28 09:25] VITALS: BP 129/71; PULSE 76; RESP 16; TEMP 37.1; O2SAT 99; BMI 27.6
[2024-10-28 09:32] LABS: Coronavirus 19, PCR Not Detected (NotDetected); Influenza A, PCR Not Detected (NotDetected); Influenza B, PCR Not Detected (NotDetected)
--- NOTE | 2024-10-28 09:59 | EXP.UTC ---
Discharge Plan Disposition Patient Disposition: Home, Self-Care Condition: Good Prescriptions Prescriptions: No Action medroxyprogesterone 150 mg/mL suspension 150 mg IM [id number] Qty: 1 3RF propranolol 10 mg tablet 10 mg PO DAILY lamotrigine 25 mg tablet 25 mg PO DAILY Referrals Follow up/Referrals: Provider,Referral, [Primary Care Provider] - See instructions Activity Restrictions/Add. Instructions Additional Instructions/Restrictions: No sign of a bacterial infection. Likely viral. Viruses can take 7-14 days to run their course. Nasal saline and bulb syringe or nose Renae to remove nasal drainage to help with nasal congestion. Hard to eat, drink, sleep with nasal congestion so important to keep this cleaned out. Monitor temp. Tylenol or Motrin as needed for pain or fever Encourage fluids, water, Gatorade, Powerade, Pedialyte if /toddler/child Warm salt water gargles Warm fluids Sore throat lozenges Sleep elevated Humidifier/vaporizer Follow-up immediately for new or worsening symptoms or no noticeable improvement over the next 48-72 hours. Clinical Impressions Clinical Impression: Upper respiratory infection, viral, Close exposure to COVID-19 virus Instructions Patient Instructions: DI for Viral Upper Respiratory Infection -- Adult Print Language Print Language: Persian Discharge ED Provider: Jordan ([facility])Stan [facility] [place] HPI General Stated complaint: covid exposure Mode of Arrival: Ambulatory Source of Information: Patient Limitations: No Limitations Time Seen by Provider: 10/28/24 09:59 Description of Symptoms (Recalled from Triage Doc. by RN): PATIENT C/O RUNNY NOSE, RECENTLY EXPOSED TO COVID HEENT Symptoms (Recalled from RN notes): Yes Resp Symptoms (Recalled from RN notes): No Skin Symptoms (Recalled from RN notes): No MS Symptoms (Recalled from RN notes): No Functional Status (Recalled from RN notes): WNL History of Present Illness Provider Complaint: 28-year-old female presents for runny nose. Patient states she has a COVID exposure. Related Data Home Medications ?Medication ?Instructions ?Recorded ?Confirmed propranolol 10 mg tablet 10 mg PO DAILY 09/01/24 10/28/24 lamotrigine 25 mg tablet 25 mg PO DAILY 10/06/24 10/28/24 Previous Rx's ?Medication ?Instructions ?Recorded medroxyprogesterone 150 mg/mL 150 mg IM [id number] #1 mL 09/21/24 intramuscular suspension Allergies Allergy/AdvReac Type Severity Reaction Status Date / Time cefdinir AdvReac diarrhea Verified 09/21/24 15:49 Worker's Comp Is this a Worker's Comp case?: No [facility] Disclaimer: The information contained in this section may have been updated after the patient was seen, as this information can be updated by other users. 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 , [facility]) Contraception management Request for sterilization Abnormal uterine bleeding Decreased libido Vitamin D deficiency Tobacco use Anxiety Surgical History , [facility]) History of mandibular surgery Family History , [facility]) Diabetes Anemia Hyperlipidemia Cancer Hypertension Thyroid disorder Stroke Asthma Social History , [facility]) Smoking Status: Current every day smoker quit status: considering quitting second hand exposure: No alcohol intake: never substance use type: denies use current occupational status: employed Travel in the last 8 weeks: None household members: family housing: house current occupational exposures/hazards: No caffeine: Yes Have you lived/traveled outside [place] in past 30 days?: No Contact w/someone who lives/traveled outside [place] past 30 days?: No Exposure to someone with infectious disease in past 14 days?: No Do you have a fever (greater than 100.4 F or 38 C)?: No Have you tested positive for COVID-19: Yes Exposed to someone with COVID-19 in past 14 days?: Yes Do you have a sore throat?: No Do you have a cough?: No Do you have any weakness?: No Do you have any diarrhea?: No Are you experiencing any unusual bleeding?: No Do you have any muscle aches/pain?: No Do you have any abdominal pain?: No Are you experiencing loss of taste or smell?: No ROS Obtained: Yes Systems reviewed as appropriate & no additional complaints except as documented ENT Ears, Nose, Mouth, and Throat: Reports system reviewed and no additional complaints, except as documented, Reports as per HPI and Reports nasal discharge Physical Exam General General appearance: alert and in no apparent distress Head Head exam: atraumatic Eye Eye exam: Present normal appearance and PERRL ENT ENT exam: Present normal exam, normal oropharynx, mucous membranes moist and TM's normal bilaterally Respiratory Respiratory exam: Present normal lung sounds bilaterally Cardiovascular Cardiovascular exam: Present regular rate and normal rhythm Neurological Exam Neurological exam: Present alert and oriented X3 Skin Skin exam: Present warm Medical Decision Making Medical Records Medical records reviewed: Yes I reviewed the patient's medical records. Screening: Per USPSTF and CDC recommendations, given the prevalence of disease in our region, it is our hospital?s policy to screen for HIV and viral Hepatitis for all patients aged 18 and over and those with ongoing risk factors. Beny Inquiry Pt receiving controlled substance: No Vital Signs: 10/28/24 09:25 Temperature 98.7 F Temperature Source Oral Pulse Rate [Left Brachial] 76 Respiratory Rate 16 Blood Pressure [Left Arm] 129/71 Blood Pressure Mean [Left Arm] 90 Blood Pressure Source [Left Arm] Automatic Cuff Blood Pressure Position [Left Arm] Sitting 02 Sat by Pulse Oximetry 99 Oxygen Delivery Method Room Air Orders (Tests/Meds): ORDERS Category Date Time Status Rapid PCR Covid and Flu A/B Stat Lab 10/28/24 09:18 Received
[2024-10-28 10:05] VITALS: BP 129/71; PULSE 76; RESP 16; TEMP 37.1; O2SAT 99
== END 2024-10-28 10:07 | disposition home or self-care (01) ==
PROVIDERS: Emergency Provider Nurse Practitioner Family
DX: J06.9 Acute upper respiratory infection, unspecified (principal); Z20.822 Contact with and (suspected) exposure to COVID-19
CPT/HCPCS: 87636; 99212; G0381

== ENCOUNTER 2024-12-04 10:40 | Outpatient (CLI) | payer OTHER, SELFPAY | END 2024-12-04 23:59 | disposition home or self-care (01) | LOC: LAB.DROPOF 12-07 10:42 | PROVIDERS: PCP Student in an Organized Health Care Education/Training Program; Visit Provider Nurse Practitioner | DX: N39.0 Urinary tract infection, site not specified (principal) | CPT/HCPCS: 87086 ==

== ENCOUNTER 2025-03-02 08:10 | Emergency (ER) | payer OTHER, SELFPAY ==
[2025-03-02 08:18] VITALS: BP 91/61; PULSE 105; RESP 16; TEMP 37; O2SAT 97; BMI 23.1
[2025-03-02 08:23] VITALS: BP 98/54; PULSE 90; RESP 16; TEMP 36.9; O2SAT 98
[2025-03-02 08:32] LABS: Adenovirus F 40/41, stool Not Detected (NotDetected); Astrovirus Not Detected (NotDetected); Campylobacter Not Detected (NotDetected); Cryptosporidium Not Detected (NotDetected); Cyclospora Cayetanesis Not Detected (NotDetected); Entamoeba histolytica Not Detected (NotDetected); Enteroaggregative E coli Not Detected (NotDetected); Enteropathogenic E coli Not Detected (NotDetected); Enterotoxigenic E coli Not Detected (NotDetected); Giardia lamblia Not Detected (NotDetected); Norovirus Not Detected (NotDetected); Plesimonas Shigalloides, PCR Not Detected (NotDetected); Salmonella, PCR Not Detected (NotDetected); Shiga-like toxin E coli Not Detected (NotDetected); Shigella Enterovasive E coli Not Detected (NotDetected); Vibrio Cholerae Not Detected (NotDetected); Vibrio, PCR Not Detected (NotDetected); Yersinia Entercolitica, PCR Not Detected (NotDetected)
[2025-03-02] MEDS: LACTATED RINGERS 1000ML 1,000 ML 999 ML IV (08:38)
[2025-03-02] MEDS: ONDANSETRON 4MG/2ML VIAL 4 MG IV (08:38)
[2025-03-02 08:43] VITALS: BP 93/54; PULSE 91; O2SAT 99
[2025-03-02 08:43] LABS: Basophils % 0.1 % (0.1-2.0); Hematocrit 39.4 % (37.0-47.0); Hemoglobin 13.2 g/dL (12.2-16.2); Immature Granulocytes # 0.02 10^3uL; Immature Granulocytes % 0.2 %; Lymphocytes # 0.4 K/mm3 (0.7-4.5); Lymphocytes % 4.1 % (10-50); Mean Corpuscular HGB Conc 33.5 g/dL (31.8-35.4); Mean Corpuscular Hemoglobin 30.3 pg (27.0-31.2); Mean Corpuscular Volume 90.4 fl (81-99); Mean Platelet Volume 8.7 fl (7.4-10.4); Monocytes # 0.5 K/mm3 (0.1-1.0); Monocytes % 5.4 % (1.7-9.3); Neutrophils % 90.2 % (37.0-80.0); Nucleated Red Blood Cells # 0 10^3/uL; Nucleated Red Blood Cells % 0 %; Platelet Count 203 K/mm3 (142-424); Red Blood Count 4.36 M/mm3 (4.20-5.40); Red Cell Distribution Width 12.3 % (11.5-17.5); Red Cell Distribution Width-SD 40.2 fL; White Blood Count 8.8 K/mm3 (4.8-10.8)
[2025-03-02 08:46] LABS: MANUAL DIFFERENTIAL MANUAL DIFFERENTIAL (MANUAL DIFF)
--- NOTE | 2025-03-02 08:50 | HMH.EDGENADL ---
Discharge Plan Disposition Patient Disposition: Home, Self-Care Chief Complaint: Nausea/Vomiting/Diarrhea Prescriptions Prescriptions: New ondansetron HCl 4 mg/5 mL solution 2 mg PO Q8H PRN (Reason: nausea and vomiting) Qty: 50 0RF No Action lamotrigine 100 mg tablet PO medroxyprogesterone 150 mg/mL suspension 150 mg IM [id number] Qty: 1 3RF aripiprazole [Abilify] 2 mg tablet 2 mg PO DAILY benzonatate 100 mg capsule 100 mg PO BID PRN (Reason: cough) Qty: 20 0RF phenazopyridine [Pyridium] 200 mg tablet 200 mg PO Q8H 2 Days Qty: 6 0RF propranolol 10 mg tablet 10 mg PO DAILY lamotrigine 25 mg tablet 25 mg PO DAILY Referrals Follow up/Referrals: Provider,Referral, MD [Primary Care Provider] - See instructions Activity Restrictions/Add. Instructions Additional Instructions/Restrictions: Call your family doctor to establish care for this visit to the emergency department and schedule follow-up within 48 hours to ensure improvement. If you have any worsening of your condition or any other concerning signs or symptoms, return to the emergency department or your primary care doctor for further evaluation. Be sure stay plenty hydrated Clinical Impressions Clinical Impression: Vomiting, Diarrhea Instructions Patient Instructions: DI for Diarrhea and Traveler's Diarrhea -- Adult, DI for Diarrhea and Traveler's Diarrhea -- Child, DI for Nausea -- Adult, DI for Nausea -- Child Print Language Print Language: Albanian Discharge ED Provider: Sekou Rowland General Adult HPI General Chief complaint: Nausea/Vomiting/Diarrhea Stated complaint: vomiting diarrhea chills lower back pain Time Seen by Provider: 03/02/25 08:17 Mode of Arrival: Ambulatory Source of Information: Patient Description of Symptoms (Recalled from ER Triage Doc. by RN): pt to the ED with nausea, vomiting and diarrhea since 5pm yesterday and some mild right flank pain since this morning. pt denies any pain and burning when urinating History of Present Illness HPI narrative: Please note that above description of symptoms, in this electronic medical record under categorization of recalled from ER triage doctor by RN are reflective of an initial nursing assessment, however, is not reflective of my full history and physical exam that was personally taken and clarified. Consequentially, this preceding description of symptoms, which may include the patient's categorized chief complaint in the EMR, do not reflect my personal clinical impression, and the ultimate description of history of present illness and patient stated complaints should be deferred to this section of the note. Unless stated otherwise or congruent with this section of the note, additional signs, symptoms, or incongruence should be interpreted as inaccurate with my clinical impression. Related Data Home Medications ?Medication ?Instructions ?Recorded ?Confirmed propranolol 10 mg tablet 10 mg PO DAILY 09/01/24 12/18/24 lamotrigine 25 mg tablet 25 mg PO DAILY 10/06/24 12/18/24 aripiprazole 2 mg tablet (Abilify) 2 mg PO DAILY 11/27/24 12/18/24 lamotrigine 100 mg tablet mg PO 12/18/24 12/18/24 Previous Rx's ?Medication ?Instructions ?Recorded medroxyprogesterone 150 mg/mL 150 mg IM [id number] #1 mL 09/21/24 intramuscular suspension benzonatate 100 mg capsule 100 mg PO BID PRN cough #20 caps 11/27/24 phenazopyridine 200 mg tablet 200 mg PO Q8H 2 days #6 tabs 12/04/24 (Pyridium) ondansetron HCl 4 mg/5 mL oral 2 mg (2.5 mL) PO Q8H PRN nausea 03/02/25 solution and vomiting #50 mL Allergies Allergy/AdvReac Type Severity Reaction Status Date / Time cefdinir AdvReac diarrhea Verified 12/18/24 08:27 [facility] Disclaimer: The information contained in this section may have been updated after the patient was seen, as this information can be updated by other users. 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 (Updated 03/02/25 @ 10:05 by Sekou Rowland MD) Nausea & vomiting Burning with urination Contraception management Request for sterilization Abnormal uterine bleeding Decreased libido Vitamin D deficiency Tobacco use Anxiety Surgical History History of mandibular surgery Family History Other Anemia Asthma Cancer Diabetes Hyperlipidemia Hypertension Stroke Thyroid disorder Social History Smoking Status: Current every day smoker quit status: considering quitting second hand exposure: No alcohol intake: never substance use type: denies use current occupational status: employed Travel in the last 8 weeks?: None household members: family housing: house current occupational exposures/hazards: No caffeine: Yes Have you lived/traveled outside [place] in past 30 days?: No Contact w/someone who lives/traveled outside US past 30 days?: No Exposure to someone with infectious disease in past 14 days?: No Do you have a fever (greater than 100.4 F or 38 C)?: No Have you tested positive for COVID-19?: No Exposed to someone with COVID-19 in past 14 days?: No Do you have a sore throat?: No Do you have a cough?: No Do you have any weakness?: No Do you have any diarrhea?: Yes Are you experiencing any unusual bleeding?: No Do you have any muscle aches/pain?: No Do you have any abdominal pain?: No Are you experiencing loss of taste or smell?: No Other 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 Have you received the Flu Vaccine for this season: No Have you received the Pneumonia Vaccine: No ROS Obtained: Yes All systems reviewed & no additional complaints except as documented Physical Exam General General appearance: alert Head Head exam: atraumatic and normocephalic Eye Eye exam: Present normal appearance, PERRL and EOMI Neck Neck exam: Present normal inspection, full ROM and trachea midline Respiratory Respiratory exam: Absent respiratory distress, wheezes, stridor, accessory muscle use or prolonged expiratory phase Cardiovascular Cardiovascular exam: Present other (Pulses equal symmetric in upper and lower extremities) Abdominal Exam Abdominal exam: Present soft and tenderness; Absent distention or pulsatile mass Abdominal tenderness: Present epigastrium and mild Extremities Exam Extremities exam: Absent edema Neurological Exam Neurological exam: Present alert, oriented X3 and CN II-XII intact; Absent motor sensory deficit Skin Skin exam: Present warm and dry; Absent diaphoresis or erythema Medical Decision Making Medical Records Medical records reviewed: Yes I reviewed the patient's medical records. Screening: Per USPSTF and CDC recommendations, given the prevalence of disease in our region, it is our hospital?s policy to screen for HIV and viral Hepatitis for all patients aged 18 and over and those with ongoing risk factors. Beny Inquiry Pt receiving controlled substance: No Beny was queried for this patient: No Vital Signs: 03/02/25 08:18 03/02/25 08:23 03/02/25 08:43 Temperature 98.6 F 98.4 F Temperature Source Oral Oral Pulse Rate 90 91 H Pulse Rate [Left Radial] 105 H Respiratory Rate 16 16 Blood Pressure 98/54 L 93/54 L Blood Pressure [Right Arm] 91/61 L Blood Pressure Mean [Right Arm] 71 Blood Pressure Source Automatic Cuff Blood Pressure Source [Right Arm] Automatic Cuff Blood Pressure Position Supine Blood Pressure Position [Right Arm] Sitting 02 Sat by Pulse Oximetry 97 98 99 Oxygen Delivery Method Room Air Room Air 03/02/25 09:00 03/02/25 09:30 Temperature Temperature Source Pulse Rate 80 88 Pulse Rate [Left Radial] Respiratory Rate Blood Pressure 95/51 L 96/57 L Blood Pressure [Right Arm] Blood Pressure Mean [Right Arm] Blood Pressure Source Blood Pressure Source [Right Arm] Blood Pressure Position Blood Pressure Position [Right Arm] 02 Sat by Pulse Oximetry 98 100 Oxygen Delivery Method Room Air Lab Data Lab Results 03/02/25 08:30: WBC 8.8, RBC 4.36, Hgb 13.2, Hct 39.4, MCV 90.4, MCH 30.3, MCHC 33.5, RDW 12.3, Plt Count 203, MPV 8.7, Neut % (Auto) 90.2 H, Lymph % (Auto) 4.1 L, Brule % (Auto) 5.4, Eos % (Auto) 0.0 L, Baso % (Auto) 0.1, Neut # (Auto) 8.0 H, Lymph # (Auto) 0.4 L, Brule # (Auto) 0.5, Eos # (Auto) 0.0, Baso # (Auto) 0.0, Total Counted 100, Neutrophils % (Manual) 87 H, Lymphocytes % (Manual) 6 L, Monocytes % (Manual) 5, Eosinophils % (Manual) 2, Platelet Estimate Normal, RBC Morphology Normal, Sodium 136, Potassium 3.6, Chloride 101, Carbon Dioxide 29, Anion Gap 9.6, BUN 20 H, Creatinine 0.70, Estimated Creat Clear 120, Estimated GFR 98, Est GFR ( Amer) 119, Glucose 108 H, Calcium 8.0 L, Total Bilirubin 1.0, AST 25, ALT 25, Alkaline Phosphatase 59, Total Protein 6.9, Albumin 4.2, Globulin 2.7, Albumin/Globulin Ratio 1.6, Lipase 59, HCG, Quant < 2, HIV Ag/Ab Combo Qual Negative 03/02/25 09:38: Urine Color Yellow, Urine Appearance Sl cloudy, Urine pH 6.0, Ur Specific Saline 1.025, Urine Protein Negative, Urine Glucose (UA) Negative, Urine Ketones Negative, Urine Blood 2+ A, Urine Nitrate Negative, Urine Bilirubin Negative, Urine Urobilinogen 0.2, Ur Leukocyte Esterase Negative, Urine RBC 3-5, Urine WBC Occasional, Ur Squamous Epith Cells 10-20, Urine Bacteria 1+, Urine Mucus Trace 03/02/25 08:30 03/02/25 08:30 Orders (Tests/Meds): ED MEDICATIONS Discontinued Medications Generic Name Dose Route Start Last Admin Trade Name Erin PRN Reason Stop Dose Admin Lactated Ringer's 1,000 mls @ 999 mls/hr 03/02/25 08:18 03/02/25 08:38 Lactated Ringer's 1000 Ml Bag IV 03/02/25 09:18 999 mls/hr .Q1H1M ONE Administration Ondansetron HCl 4 mg 03/02/25 08:18 03/02/25 08:38 Ondansetron 4mg/2ml Vial IV 03/02/25 08:19 4 mg ONCE ONE Administration ORDERS Category Date Time Status CBC w/Auto Diff [Complete Blood Count Auto Diff] Stat Lab 03/02/25 08:30 Completed CMP [Comprehensive Metabolic Panel] Stat Lab 03/02/25 08:30 Completed Diarrhea 23 Panel, PCR Stat Lab 03/02/25 08:31 Received HCG,Quantitative Stat Lab 03/02/25 08:30 Completed HIV Combo Stat Lab 03/02/25 08:30 Completed Lipase Stat Lab 03/02/25 08:30 Completed UA [Urinalysis and Microscopic] Stat Lab 03/02/25 09:38 Completed Medical Decision Narrative: 29-year-old female presenting with vomiting, diarrhea, headache. She states that last night, 03/01 after dinner she started having vomiting and diarrhea. Also having headache, but no vision changes, neurologic deficits, and headache is not positional or exertional. Not thunderclap in nature, made worse with vomiting. Vomiting was bloody during 1 episode, nonbilious and nonbloody diarrhea. Said that she continued to vomit through today, 03/02, so took Zofran that she had at home and she has not vomited since. Is actually feeling a little bit better. Chance of . Nobody else in the house is sick, everyone has been eating the same foods, etc. as her. History was obtained via conversation with patient. On arrival, patient hemodynamically stable, alert, oriented x4, appropriate, GCS 15, moving all extremities spontaneously, pupils equal and reactive to light. Full physical exam performed and significant for uncomfortable appearing female who is in no acute distress. She speaking full sentences laying on her left side with vomitus bag in her hand, not actively retching. Abdomen is soft, nondistended, but tender mildly in her epigastrium with deep palpation. Olivo's sign and McBurney's point tenderness negative. No flank changes.. Differential includes gastritis, enteritis, gastroenteritis, pancreatitis, , ectopic , less likely be cholecystitis, appendicitis, among others. Patient placed on continuous cardiac monitoring and continuous pulse ox with initial blood pressure 91/61, heart rate 105, saturation 97% on room air. Patient was given fluids and Zofran IV for symptomatic management and correction of underlying abnormalities. Workup independently interpreted and significant for nonactionable hematologic workup. Normal white count, neutrophil heavy. Chemistry nonactionable. hCG negative. Urinalysis negative. Abdominal imaging was considered, but not the necessary. On reevaluation, patient states she is feeling much better. Fluids nearly in. Stool sample still pending. On reevaluation, patient still resting comfortably. Given patient presentation, workup, history, this most likely represents gastroenteritis. Because patient at baseline without signs or symptoms of clinical decompensation, deemed appropriate for discharge. Results were relayed to patient who voiced understanding and were agreeable to outpatient management and follow up. I discussed my clinical impression with patient and answered all questions. At this time, the evidence for any other entities in the differential is insufficient to warrant any further testing or ED observation. This was explained as well. Advisory was given that persistent or worsening symptoms require further evaluation. I confirmed the understanding of this discussion. Glass Vial Bending Conveyor Feeder disclaimer Much of this encounter note is an electronic shore hand dredge or barge spoken language to printed text. Electronic shore hand dredge or barge of the spoken language may permit errors. Although I have reviewed the note, some errors may still exist. Critical Care Critical Care Time Critical Care Time: No
[2025-03-02 08:55] LABS: Alanine Aminotransferase 25 U/L (12-78); Albumin Level 4.2 g/dl (3.5-5.0); Albumin/Globulin Ratio 1.6 (1.1-1.8); Alkaline Phosphatase 59 U/L (38-126); Anion Gap 9.6 mEq/L (5-15); Aspartate Amino Transferase 25 U/L (14-36); Blood Urea Nitrogen 20 mg/dl (7-17); Carbon Dioxide 29 mmol/L (22.0-30.0); Chloride 101 mmol/L (98-107); Creatinine Clearance Estimated 120 mL/min (50-200); Estimated Glomerular Filt Rate 98 ml/min (>60); GFR (African American) 119 ML/MIN (>60); Globulin 2.7 g/dL (1.3-3.2); Glucose 108 mg/dl (74-100); Lipase 59 U/L (23-300); Potassium 3.6 mmoL/L (3.5-5.1); Sodium 136 mmol/L (136-145); Total Protein,Serum 6.9 g/dl (6.3-8.2)
[2025-03-02 09:00] VITALS: BP 95/51; PULSE 80; O2SAT 98
[2025-03-02 09:19] LABS: HCG,Quantitative < 2 mIU/ml (0-5.42)
[2025-03-02 09:21] LABS: Eosinophils % 2 % (0-3); Lymphocytes % 6 % (10-50); Monocytes % 5 % (2-9); Neutrophils % 87 % (42-76); Total Cells Counted 100
[2025-03-02 09:30] VITALS: BP 96/57; PULSE 88; O2SAT 100
[2025-03-02 09:42] LABS: Microscopic, Urine URINE MICROSCOPIC (MICROSCOPIC)
[2025-03-02 09:44] LABS: Appearance,Urine SL CLOUDY (Clear); Bilirubin,Urine Negative (Negative); Blood, Urine 2+ (Negative); Color,Urine YELLOW (Yellow); Glucose,Urine (UA) Negative (Negative); Ketones,Urine Negative (Negative); Leukocyte Esterase,Urine Negative (Negative); Nitrate,Urine Negative (Negative); Protein,Urine Negative (Negative); Specific Gravity, Urine 1.025 (1.005-1.030); Urobilinogen,Urine 0.2 EU/dl (0.2)
[2025-03-02 09:52] LABS: Bacteria,Urine 1+ /lpf; Mucus,Urine Trace /lpf; WBC,Urine Occasional #/hpf (0-3)
[2025-03-02 09:57] LABS: Platelet Estimate Normal; RBC Morphology Normal
[2025-03-02 10:07] LABS: HIV Combo NEGATIVE (Negative)
[2025-03-02 10:48] VITALS: BP 96/50; PULSE 99; RESP 20; TEMP 36.8; O2SAT 98
[2025-03-02 11:02] LABS: Rotavirus A Detected (NotDetected); Sapovirus Detected (NotDetected)
[2025-03-02 11:05] LABS: Clostridium Difficile A/B, PCR Detected (NotDetected)
--- NOTE | 2025-03-02 11:20 | PC.NURSE ---
patient called and informed of her stool sample results and that Dr. Rowland was sending her in oral antibiotics
== END 2025-03-02 10:48 | disposition home or self-care (01) ==
PROVIDERS: Emergency Provider Emergency Medicine
DX: A08.0 Rotaviral enteritis (principal); A04.72 Enterocolitis due to Clostridium difficile, not specified as recurrent; R11.2 Nausea with vomiting, unspecified; R19.7 Diarrhea, unspecified; F17.210 Nicotine dependence, cigarettes, uncomplicated
CPT/HCPCS: 80053; 81001; 83690; 84702; 85007; 85025; 85027; 87389; 87507; 96361; 96374; 99284; J2405; J7120

== ENCOUNTER 2025-05-21 12:42 | Outpatient (CLI) | payer OTHER, SELFPAY ==
--- OUTSIDE RECORDS SUMMARY | 2025-05-21 12:45 | XMS_ITS | Encounter Summary ---
Author Organization [employer] ([place], [place], [place], [place]) Address [address] [place] [address] Care Team Providers Care Farm Loan Representative Name Role Phone Unavailable Primary Care Provider Unavailabl e Encounter Details Date Type Department Care Team (Late st Contact Info) Description 05/25/2022 Transcribed Document [facility] [place] [facility] [address] [place] [address] ProviderJosé MD [address] [id number] Social History Tobacco Use Types Packs/Day Years Used Date Smoking Tobacco: Never Assessed Comments Unknown Sex and Gender Information Value Date Recorded Sex Assigned at Female 06/15/2022 6:27 PM CDT Legal Sex Female 6:27 PM CDT Gender Identity Female 06/15/2022 6:27 PM CDT Sexual Orientation Not on file documented as of this encounter Miscellaneous Notes * Cerner Conversion Note - Historical ProviderMD - 05/25/2022 10:02 AM CDT Meds to Bed Enrollment Entered On: 05/25/2022 10:28 EDT Performed On: 05/25/2022 10:02 EDT by Sabino Contreras Generator Switchboard Operator Cert Lead Meds to Bed Enrollment Patient Enrollment Decision: : Yes/enroll in meds to bed program Sabino Contreras Generator Switchboard Operator Cert Lead - 05/25/2022 10:28 EDT documented in this encounter Plan of Treatment Not on file documented as of this encounter Visit Diagnoses Not on filedocumented in this encounter
--- OUTSIDE RECORDS SUMMARY | 2025-05-21 12:45 | XMS_ITS | Encounter Summary ---
Author Organization [facility] ([place], [place], [place], [place]) Address [address] [place] [address] Care Team Providers Care Yarn Bleaching Machine Operator Name Role Phone Unavailable Primary Care Provider Unavailabl e Encounter Details Date Type Department Care Team (Late st Contact Info) Description 05/26/2022 Transcribed Document [facility] [place] [address] ProviderJosé MD [address] [place] [address] Social History Tobacco Use Types Packs/Day Years Used Date Smoking Tobacco: Never Assessed Comments Unknown Sex and Gender Information Value Date Recorded Sex Assigned at Female 06/15/2022 6:27 PM CDT Legal Sex Female 6:27 PM CDT Gender Identity Female 06/15/2022 6:27 PM CDT Sexual Orientation Not on file documented as of this encounter Miscellaneous Notes * Cerner Conversion Note - José ProviderMD - 05/26/2022 10:42 AM CDT Patient Education Materials Follows: Non-Epileptic Seizures, Adult A non-epileptic seizure is an event that can cause abnormal movements or a loss of consciousness. These events differ from epileptic seizures because they are not caused by abnormal electrical and chemical activity in the brain. There are two types of non-epileptic seizures: ??? Physiologic. This type results from an underlying problem with body function. ??? Psychogenic. This type results from an underlying mental health disorder. What are the causes? The cause of this condition depends on the kind of non-epileptic seizure that you have. Causes of physiologic non-epileptic seizures ??? Sudden drop in blood pressure or heart rhythm problems. ??? Low blood sugar (glucose) or low levels of salt (sodium) in your blood. ??? Migraine. ??? Sleep disorders or movement disorders. ??? Certain medicines. ??? Heavy use of drugs or alcohol. ??? Head injuries. Causes of psychogenic non-epileptic seizures ??? Stress. ??? Emotional trauma. ??? Sexual or physical abuse. ??? Big life events, such as divorce or of a loved one. ??? Mental health disorders, including anxiety and depression. What are the signs or symptoms? Symptoms of a non-epileptic seizure can be similar to those of an epileptic seizure. They may include: ??? A change in attention or behavior. ??? A loss of consciousness or fainting. ??? Uncontrollable shaking (convulsions) with fast, jerking movements. ??? Drooling, tongue biting, or grunting. ??? Rapid eye movements. ??? Being unable to control when you urinate or have bowel movements. After a non-epileptic seizure, you may: ??? Have a headache or sore muscles. ??? Feel confused or sleepy. Non-epileptic seizures usually: ??? Do not cause physical injuries. ??? Start slowly. ??? Include crying or shrieking. ??? Last longer than 2 minutes. ??? Include pelvic thrusting. How is this diagnosed? Non-epileptic seizures may be diagnosed by medical history, physical exam, and symptoms. Your health care provider may: ??? Talk with your friends or relatives who have seen you have a seizure. ??? Ask you to write down your seizure activity and the things that led up to the seizure, and ask you to share that information with him or her. You may also have tests to look for causes of physiologic non-epileptic seizures. Tests may include: ??? An electroencephalogram (EEG) to check the electrical activity in your brain. ??? Video EEG in the hospital. This takes 2?7 days. ??? Blood tests. ??? An electrocardiogram (ECG) to check for an abnormal heart rhythm. ??? A CT scan. If your health care provider thinks you have had a psychogenic non-epileptic seizure, you may need to be evaluated by a mental health specialist. How is this treated? The treatment for your non-epileptic seizures will depend on their cause. When the underlying condition is treated, your non-epileptic seizures should stop. Medicines to treat seizures do not help with non-epileptic events. If your non-epileptic seizures are being caused by emotional trauma or stress, your health care provider may recommend that you see a mental health specialist. Treatment may include: ??? Relaxation therapy or cognitive behavioral therapy (CBT). ??? Medicines for depression or anxiety. ??? Individual or family counseling. Some people have both psychogenic non-epileptic seizures and epileptic seizures. If you have both of these types, you may be prescribed medicine to manage the epileptic seizures. Follow these instructions at home: Home care will depend on the type of non-epileptic seizures that you have. Follow this general guidance: Avoid alcohol and drug use Avoid using any substance that may prevent your medicine from working properly. If you are prescribed medicine for seizures: ??? Do not use drugs. ??? Limit or avoid drinking alcohol. If you drink alcohol: ? Limit how much you have to: ? 0?1 drink a day for women who are not . ? 0?2 drinks a day for men. ? Know how much alcohol is in your drink. In the [place] one drink equals one 12 oz bottle of beer (355 mL), one 5 oz glass of wine (148 mL), or one 1? oz glass of hard liquor (44 mL). Involve family, friends, and coworkers Make sure family members, friends, and coworkers are trained in how to help you if you have a seizure. If you have a seizure, they should: ??? Lay you on the ground to prevent a fall. ??? Place a pillow or piece of clothing under your head. ??? Loosen any clothing around your neck. ??? Turn you onto your side. If you vomit, this position will help keep your windpipe clear. General instructions ??? Follow all instructions from your health care provider. These may include ways to prevent seizures and what to do if you have a seizure. ??? Take [id number] and prescription medicines only as told by your health care provider. ??? Keep all follow-up visits. This is important. Contact a health care provider if: ??? Your non-epileptic seizures change or happen more often. ??? Your non-epileptic seizures do not stop after treatment. Get help right away if: ??? You injure yourself during a non-epileptic seizure. ??? You have one non-epileptic seizure after another. ??? You have trouble recovering from a non-epileptic seizure. ??? You have chest pain or trouble breathing. ??? You have a non-epileptic seizure that lasts longer than 5 minutes. These symptoms may represent a serious problem that is an emergency. Do not wait to see if the symptoms will go away. Get medical help right away. Call your local emergency services (591 in the [place] Do not drive yourself to the hospital. If you ever feel like you may hurt yourself or others, or have thoughts about taking your own life, get help right away. Go to your nearest emergency department or: ??? Call your local emergency services (908 in the [place] ??? Call a suicide crisis helpline, such as the National Suicide Prevention Lifeline at . This is open 24 hours a day in the [place] ??? Text the Crisis Text Line at 499276 (in the [place] Summary ??? Non-epileptic seizures are events that can cause abnormal movements or a loss of consciousness. These events are caused by an underlying problem with body function or a mental health disorder. ??? The treatment for your non-epileptic seizures will depend on their cause. When the underlying condition is treated, your non-epileptic seizures should stop. Medicines for seizures do not treat non-epileptic events. ??? People with non-epileptic seizures may also have epileptic seizures and may need medicines to treat seizures. ??? Make sure family members, friends, and coworkers are trained in how to help you if you have a non-epileptic seizure. This includes laying you on the ground to prevent a fall, protecting your head and neck, and turning you onto your side. This information is not intended to replace advice given to you by your health care provider. Make sure you discuss any questions you have with your health care provider. Document Revised: 03/10/2021 Document Reviewed: 03/10/2021 [employer] Patient Education ? 2021 [employer] documented in this encounter Plan of Treatment Not on file documented as of this encounter Visit Diagnoses Not on filedocumented in this encounter
--- OUTSIDE RECORDS SUMMARY | 2025-05-21 12:45 | XMS_ITS | Encounter Summary ---
Author Organization [employer] ([place], [place], [place], [place]) Address [address] [place] [address] Care Team Providers Care Border Inspector Name Role Phone Unavailable Primary Care Provider Unavailabl e Encounter Details Date Type Department Care Team (Late st Contact Info) Description 05/26/2022 Transcribed Document [facility] [place] [facility] [place] [address] ProviderJosé MD [address] [place] [id number] Social History Tobacco Use Types Packs/Day [...] Conversion Note - José ProviderMD - 05/26/2022 10:48 AM CDT [facility] DEN[place] [address] JAYMIE TORRESVALENTE :1995 Visit Time:05/25/2022 Your Visit Summary Your Care Team Admitting Physician - JONN OLIVAREZ MD-NEU Attending Physician - JONN OLIVAREZ MD-NEU Primary Care Physician - EDILIA PERKINS (REF)EN Referring Physician - EDILIA PERKINS (REF), EN Your Diagnosis Nonepileptic episode These Are Your Goals No qualifying data available. Discharge Vitals Temperature 36.5 ??C Heart Rate (Monitored) 76 Respiratory Rate 15 Blood Pressure 95/56 What to do next Instructions From Your Care Team Discharge Activity: No driving, Discharge Activity: Other (use Special Instructions) Diet: Discharge Diet: Regular diet as tolerated Follow-Up Appointments Follow Up with Hannah Nix When Within 3 months Comments Call for follow up appointment Where: [address] [place] [address]- [employer] (1) Medications What How Much When Instructions Next Dose FLUoxetine (FLUoxetine 10 mg oral capsule) 1 Capsule(s) Oral Every Day Take your medications faithfully. Do NOT skip medication. Do NOT stop taking medications without the direction of a physician. Carry a list of your medications with you at all times, and take this medication list with you to your first follow up visit. Report any side effects. Avoid herbal remedies unless discussed with your physician. As part of your treatment plan, your physician may have prescribed a limited course of a controlled substance. This medication may be given to help people with moderate or severe pain or for other medical conditions, but there are risks involved with treatment. Common side effects may include nausea, constipation, drowsiness, sweating, itching, dry mouth, and rash. More serious side effects may include cognitive and motor impairment, like problems with thinking, concentrating, alertness, and movement (e.g. slowed reflexes), and driving and operating heavy machinery can be dangerous. It is important for you to talk to your physician if you have these side effects or questions. These controlled substances can produce physical dependence and be habit-forming if taken for an extended period of time, which means that the body has gotten used to them and may experience withdrawal symptoms if they are abruptly stopped. Withdrawal symptoms can include runny nose, sweating, goose bumps, diarrhea, abdominal cramping, rapid heartbeat, difficulty sleeping, and nervousness. Please dispose of unused and medications per your retail pharmacy guidance. Allergies No Known Medication Allergies Immunizations This Visit No Immunizations Found Education Materials Non-Epileptic Seizures, Adult A non-epileptic seizure is [...] Video EEG in the hospital. This takes 2???7 days. ??? Blood tests. ??? An electrocardiogram [...] Limit how much you have to: ? 0???1 drink a day for women who are not . ? 0???2 drinks a day for men. ? Know how much alcohol is in your drink. In the [place] one drink equals one 12 oz bottle of beer (355 mL), one 5 oz glass of wine (148 mL), or one 1?? oz glass of hard liquor (44 mL). [...] if you have a seizure. ??? Take bykx-fax-ntdbept and prescription medicines only as told by [...] right away. Call your local emergency services (715 in the [place] Do not drive yourself to the hospital. If you ever feel like you may hurt yourself or others, or have thoughts about taking your own life, get help right away. Go to your nearest emergency department or: ??? Call your local emergency services (962 in the [place] ??? Call a suicide crisis helpline, such as the National Suicide Prevention Lifeline at . This is open 24 hours a day in the [place] ??? Text the Crisis Text Line at 802769 (in the [place] 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 Document Revised: 03/10/2021 Document Reviewed: 03/10/2021 Elsevier Patient Education ?? 2021 [employer] Emergency Awareness and Preventative Care STROKE is an EMERGENCY Every Minute Counts Act FAST and Check for these signs: FACE Does the face look uneven? ARM Does one arm drift down? SPEECH Does their speech sound strange? TIME Call at any sign of stroke Stroke Risk Factors Atrial Fibrillation (irregular heartbeat) Diabetes Family history of stroke Heart Disease Heavy alcohol use High Blood Pressure High Cholesterol Physical inactivity and obesity Smoking Cigarette Smoking The facts are clear, cigarette smoking will shorten your life. Smoking can cause many illnesses along the way. As a healthcare provider, we recommend that you stop smoking. Assistance with quitting is available by contacting 6-924-HYHGNOW. This is a free resource providing counseling, support, and referral. Or you may contact your personal physician. National Suicide Prevention Lifeline: The National Suicide Prevention Lifeline is a national network of local crisis centers that provides free and confidential emotional support to people in suicidal crisis or emotional distress 24 hours a day, 7 days a week. Don't Wait! Stop a Heart Attack Before it Starts What is a heart attack? A heart attack is damage or to a part of the heart from severely decreased or lack of blood flow to the heart. Over time, arteries can become narrow from the buildup of fat and cholesterol, which is called plaque. The plaque can rupture causing a blood clot to form. When the blood clot forms, the artery can become severely narrowed or completely blocked, causing a heart attack. Heart attack is the leading cause of in the [place]. 85% of muscle damage occurs within the first 2 hours. Delay in the recognition of heart attack symptoms increases the chances of . Know the early symptoms of a heart attack: Nausea Feeling of fullness in chest Jaw Pain Pain that travels down one or both arms Fatigue/being tired Anxiety Back Pain Chest pressure, squeezing, or discomfort Shortness of breath Sweating, or a cold sweat Feeling of impending doom There are unusual signs of a heart attack, too! Women, the elderly, and diabetics may present with atypical symptoms: Fainting/dizziness Weakness Confusion Risk Factors for a Heart Attack Some heart disease risk factors, such as age and family history, cannot be changed. Others, like smoking and lack of exercise, can be changed. Smoking High Cholesterol High Blood Pressure Family History Obesity Age Gender (Males are at higher risk) Lack of Exercise Diabetes Diet Stress Excessive Alcohol Intake If you or someone you know is experiencing the signs and symptoms of a heart attack, DON???T DELAY. Call immediately and seek help. If someone collapses, perform CPR! Do not attempt to drive if you are having symptoms of heart attack. Hands-Only CPR Why Hands-Only CPR? Hands-Only CPR has been shown to be as effective as conventional CPR for cardiac arrests that occur outside of a hospital. Survival depends on immediately receiving CPR from someone nearby. How do you perform Hands-Only CPR? There are two easy steps: Call if you see a teen or adult collapse Push hard and fast in the center of the chest at a beat of 100 beats per minute. Save a life! 4 WAYS TO GET AHEAD OF SEPSIS SEPSIS is a MEDICAL EMERGENCY. Time matters! Infections put you and your family at risk for a life-threatening condition called sepsis. Sepsis is the body's extreme response to an infection. It is life-threatening, and without timely treatment, sepsis can rapidly lead to tissue damage, organ failure, and . Sepsis happens when an infection you already have-in your skin, lungs, urinary tract or somewhere else-triggers a chain reaction throughout your body. 1 PREVENT INFECTIONS Take good care of chronic conditions. Talk to your doctor about getting the recommended vaccines. 2 PRACTICE GOOD HYGIENE Wash your hands frequently. Keep cuts or open sores clean and covered until they are healed. 3 KNOW THE SYMPTOMS Confusion or disorientation Shortness of breath High heart rate Fever, shivering, or feeling very cold Extreme pain or discomfort Clammy or sweaty skin 4 ACT FAST Get medical care IMMEDIATELY if you suspect sepsis or if you have an infection that is not getting better or is getting worse. To learn more about sepsis and how to prevent infections, visit www.cdc.gov/sepsis. Test Results Laboratory or Other Results This Visit (last charted value for your 05/25/2022 visit) No Laboratory or Other Results This Visit Patient Name:JAYMIE TORRES I have received and understand this information and was given the opportunity to ask questions. Patient/Head Of Merchandise Buying Name: Patient/Head Of Merchandise Buying Signature: Relationship to Patient: Clinician/Hospital Head Of Merchandise Buying Signature: Date: Electronically signed by Simon, [facility] Conversion Fitness Centre Manager Tanya at 01/22/2023 10:59 AM CDT documented in this encounter Plan of Treatment Not on file documented as of this encounter Visit Diagnoses Not on filedocumented in this encounter
--- OUTSIDE RECORDS SUMMARY | 2025-05-21 12:45 | XMS_ITS | Encounter Summary ---
Author Organization [employer] ([place], [place], [place], [place]) Address [address] [place] [address] Care Team Providers Care Clean Energy Policy Analyst Name Role Phone Unavailable Primary Care Provider Unavailabl e Encounter Details Date Type Department Care Team (Late st Contact Info) Description 05/26/2022 Transcribed Document [facility] [place] [facility] [place] [address] ProviderJosé MD [address] [place] [id number] Social History Tobacco Use Types Packs/Day Years Used Date Smoking Tobacco: Never Assessed Comments Unknown Sex and Gender Information Value Date Recorded Sex Assigned at Female 06/15/2022 6:27 PM CDT Legal Sex Female 6:27 PM CDT Gender Identity Female 06/15/2022 6:27 PM CDT Sexual Orientation Not on file documented as of this encounter Miscellaneous Notes * Cerner Conversion Note - Historical ProviderMD - 05/26/2022 10:48 AM CDT DATE OF ADMISSION: 05/25/2022 DATE OF DISCHARGE: 05/26/2022 FINAL DIAGNOSIS: Nonepileptic episodes. HISTORY: This is a 26-year-old woman with recurrent spells with recent increase in frequency. She describes the spells as zoning out. She stares and is unresponsive. There is no report of any associated motor activity. PAST MEDICAL HISTORY: Depression. HOSPITAL COURSE: The patient was admitted and had video EEG monitoring. She had several nonepileptic events with no associated EEG change. On 2 occasions, she reported having a feeling of a seizure. On 5 other occasions, she was noted to have brief staring and unresponsiveness. Concomitant EEG on all occasions showed no change from baseline background activity. DISPOSITION: I discussed the results of monitoring with the patient. I told her that her spells were nonepileptic, but rather psychogenic in origin. I recommended consultation with a therapist in that regard. I did not recommend treatment with an antiseizure medication. PHYSICAL EXAMINATION: On the day of discharge, VITAL SIGNS: Blood pressure 95/56, heart rate 76 per minute and regular. HEENT: Pupils are equal and reactive. LUNGS: Clear. HEART: Regular rate and rhythm. Normal peripheral pulses. NEUROLOGIC: She is alert and well oriented. Normal language functions. Normal cranial nerves. Normal motor exam. DISCHARGE INSTRUCTIONS: 1. No driving. 2. Fluoxetine 10 mg daily. 3. Follow up with Dr. Nix within 3 months. /[id number] MD MARIUSZ Weston/WILFRIDO / MARIUSZ / MODL /[id number] Electronically signed by Simon [facility] Conversion Photovoltaic Installation Technician Cerner at 01/22/2023 10:49 AM CDT documented in this encounter Plan of Treatment Not on file documented as of this encounter Visit Diagnoses Not on filedocumented in this encounter
--- OUTSIDE RECORDS SUMMARY | 2025-05-21 12:45 | XMS_ITS | Encounter Summary ---
Author Organization [employer] ([place], [place], [place], [place]) Address [address] [place] [address] Care Team Providers Care Intensive Care Nurse Name Role Phone Unavailable Primary Care Provider Unavailabl e Encounter Details Date Type Department Care Team (Late st Contact Info) Description 05/26/2022 Transcribed Document [facility] [place] [address] ProviderJosé MD [address] [place] [id number] Social History Tobacco Use Types Packs/Day [...] Conversion Note - José ProviderMD - 05/26/2022 10:56 AM CDT [facility] [place] [address] JAYMIE TORRESVALENTE :1995 Visit [...] up appointment Where: [address] [place] [address]- [employer] (1) Medications What How Much When Instructions [...] if you have a seizure. ??? Take xrwa-qww-sqyxgrx and prescription medicines only as told by [...] right away. Call your local emergency services (270 in the [place] Do not drive yourself to the hospital. If you ever feel like you may hurt yourself or others, or have thoughts about taking your own life, get help right away. Go to your nearest emergency department or: ??? Call your local emergency services (558 in the [place] ??? Call a suicide crisis helpline, such as the National Suicide Prevention Lifeline at . This is open 24 hours a day in the [place] ??? Text the Crisis Text Line at 405913 (in the [place] 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 2021 [employer] Emergency Awareness and Preventative Care STROKE [...] Assistance with quitting is available by contacting 6-710-DXDENOW. This is a free resource providing counseling, [...] was given the opportunity to ask questions. Patient/Elementary Special Education Teacher Name: Patient/Elementary Special Education Teacher Signature: Relationship to Patient: Clinician/Hospital Elementary Special Education Teacher Signature: Date: Electronically signed by Simon, [facility] Conversion Sprayer Machine Tanya at 01/22/2023 10:45 AM CDT documented in this encounter Plan of Treatment Not on file documented as of this encounter Visit Diagnoses Not on filedocumented in this encounter
--- OUTSIDE RECORDS SUMMARY | 2025-05-21 12:45 | XMS_ITS | Encounter Summary ---
Author Organization [employer] ([place], [place], [place], [place]) Address [address] [place] [address] Care Team Providers Care Aircraft Electronics Technical Officer Name Role Phone Unavailable Primary Care Provider Unavailabl e Encounter Details Date Type Department Care Team (Late st Contact Info) Description 05/25/2022 Transcribed Document [facility] [place] [facility] [place] [address] ProviderJosé MD [address] [place] [address] Social History Tobacco Use Types [...] Conversion Note - Historical ProviderMD - 05/25/2022 12:36 PM CDT EPILEPSY ADMISSION NOTE DATE OF ADMISSION: 05/25/2022 ADMITTING PHYSICIAN: JONN OLIVAREZ MD REASON FOR ADMISSION: Recurrent seizures. HISTORY: This is a 26-year-old woman with long history of recurrent spells that have recently increased in frequency. Typically, she has no preceding warning as she suddenly zones out. She is then described as staring and unresponsive. The events occurred with varying frequency. There is no report of any associated motor activity, tongue biting, or incontinence. PAST MEDICAL HISTORY: 1. Febrile seizure. 2. Depression. ALLERGIES: She has no known allergies. HOME MEDICATIONS: Fluoxetine 10 mg daily. PAST SURGICAL HISTORY: Jaw surgery. FAMILY HISTORY: Negative for epilepsy. SOCIAL HISTORY: She smokes tobacco. She does not consume alcohol. REVIEW OF SYSTEMS: She has had symptoms of depression and anxiety, but denies suicidal ideation. She reports weakness and paresthesias in the extremities. She has had recurrent headaches. She denies symptoms referable to the cardiac, pulmonary, gastrointestinal, or genitourinary systems. ADMISSION PHYSICAL EXAMINATION: VITAL SIGNS: Blood pressure 105/67, heart rate 68 per minute and regular, respiratory rate 14 per minute. HEENT: Pupils equal and reactive. NECK: Supple. Normal carotid pulses. LUNGS: Clear. HEART: Regular rate and rhythm. Normal peripheral pulses. NEUROLOGIC EXAMINATION: She is alert and well oriented. Normal language functions. CRANIAL NERVES: Full range of motion of extraocular muscles. Symmetric facial contractions. Normal tongue movements. MOTOR EXAMINATION: Normal strength in the upper and lower extremities. COORDINATION: Normal akxjid-fs-sqye. IMPRESSION: Ms. Torres has had recurrent spells for several years that have been fairly stereotypical. The episodes could represent complex partial seizures or focal seizures with impaired awareness. Alternatively, she may have nonepileptic spells. PLAN: 1. Admit to the epilepsy monitoring unit. 2. Start video EEG monitoring. 3. Seizure precautions. 4. Lorazepam 2 mg IV for repetitive or prolonged seizures. /[id number] MD MARIUSZ Weston/WILFRIDO / TAF / JONATHON documented in this encounter Plan of Treatment Not on file documented as of this encounter Visit Diagnoses Not on filedocumented in this encounter
--- OUTSIDE RECORDS SUMMARY | 2025-05-21 12:45 | XMS_ITS | Encounter Summary ---
Author Organization [employer] ([place], [place], [place], [place]) Address [address] [place] [address] Care Team Providers Care Archaeologist Name Role Phone Unavailable Primary Care Provider Unavailabl e Encounter Details Date Type Department Care Team (Late st Contact Info) Description 05/26/2022 Transcribed Document [facility] [place] [facility] [place] [address] ProviderJosé MD [address] [place] [id number] Social History Tobacco Use Types Packs/Day Years [...] Conversion Note - José ProviderMD - 05/26/2022 9:27 AM CDT DATE OF SERVICE: 05/25/2022 REPORT TYPE: EEG REFERRING PHYSICIAN: Adelso Gupta MD REPORT TITLE: Video Electroencephalogram Report STUDY DURATION: One day. HISTORY: This is a 26-year-old woman, being evaluated for recurrent seizures. EEG VIDEO MONITORING METHODOLOGY: Time-locked EEG-video monitoring was performed using the 32-channel Luxr monitoring system. The seizure detection computer was used for detection of ictal discharges (subclinical and clinical), interictal discharges, and to record ictal events that were documented by depression of the event button in the patient's room. Analyses of the monitoring data were performed using the following techniques: Review of the relevant EEG-video data. Review of events detected by the computer system in detail. Review of clinical seizures, with both detailed review of EEG and video and playback using multiple montages. A variety of referential and bipolar montages were used. CLINICAL AND EEG ANALYSIS: There were 7 events reported during the period of monitoring. Events 1 and 2: On 05/25/2022, the patient pushes the event button at 12:35:07 and 13:36:25. On both occasions, she reports having a feeling. Concomitant EEG on both occasions showed no change from baseline background activity. EVENT 3: On 05/25/2022 at 15:10:45, the patient is sitting in bed and appears to be playing cards. She holds cards with her hand. At 15:12:24, she stops shuffling cards and appears to become unresponsive. The event button is pushed at 15:12:33. She is appropriately interactive after 15:12:55. Concomitant EEG showed no change from baseline background activity. EVENT 4: On 05/25/2022 at 15:26:30, the patient is sitting in bed, playing cards. She looks down in her cards and becomes motionless. The event button is pushed at 15:27:02. Afterwards, interacts with another person sitting next to her. Concomitant EEG showed no change from baseline background activity. Event 5: On 05/25/2022, the patient pushes the event button at 17:36:45 while she is off camera view. She can then be seen sitting in bed at 17:37:10. She does not respond to nurse at 17:37:16. She begins to respond at 17:37:29. Concomitant EEG showed no change from baseline background activity. Event 6: On 05/25/2022 at 20:14:00, she is lying in bed with an another person sitting next to her. She appears to stare and does not respond. The event button is pushed at 20:14:19. She then interacts with the person sitting next to her. She reports to a nurse that she keeps spacing out . Concomitant EEG showed no change from baseline background activity. Event 7: On 05/25/2022 at 21:06:20, she is lying in bed. She pushes the event button at 21:06:41 and reports staring. She is appropriately interactive with the nurse afterwards. Concomitant EEG showed no change from baseline background activity. TIME SAMPLES: The recording was reviewed. During wakefulness, 10 to 11 Hz activity is seen posteriorly. Lower amplitude faster activity in the beta range is seen with a wider distribution in both hemispheres. 4 to 6 Hz theta waves are seen in both hemispheres at F7-T7 and F8-T8 during drowsiness. During sleep, well-formed sleep spindles are seen in both hemispheres. SPIKE DETECTION: The spike detection program was activated during the period of monitoring and revealed no definitive epileptiform abnormality. EEG DIAGNOSIS: This is a normal video EEG study with normal EEG recordings in wakefulness and sleep. The EEG accompanying seven events showed no change from baseline background activity. CLINICAL INTERPRETATION: There were 7 events reported during the period of monitoring. On 2 occasions, the patient reported having funny feeling. On all other occasions, she appeared to stare and become briefly unresponsive. Concomitant EEG on all occasions showed no change from baseline background activity. The events recorded were therefore nonepileptic and could be psychogenic in origin. Continuous EEG recordings showed no epileptiform abnormality. EEG recordings were normal in wakefulness and sleep. This video EEG study therefore provides no evidence to support the diagnosis of epilepsy. /[id number] MD MARIUSZ Weston/AQ / TAF / MODL /[id number] documented in this encounter Plan of Treatment Not on file documented as of this encounter Visit Diagnoses Not on filedocumented in this encounter
--- OUTSIDE RECORDS SUMMARY | 2025-05-21 12:45 | XMS_ITS | Clinical Summary ---
Author Organization [employer] ([place], [place], [place], [place]) Address [address] [place] [address] Care Team Providers Care Regroover Name Role Phone Unavailable Primary Care Provider Unavailabl e Social History Tobacco Use Types Packs/Day Years Used Date Smoking Tobacco: Never Assessed Comments Unknown Sex and Gender Information Value Date Recorded Sex Assigned at Female 06/15/2022 6:27 PM CDT Legal Sex Female 6:27 PM CDT Gender Identity Female 06/15/2022 6:27 PM CDT Sexual Orientation Not on file Plan of Treatment Not on file
--- OUTSIDE RECORDS SUMMARY | 2025-05-21 12:45 | XMS_ITS | Encounter Summary ---
Author Organization [employer] ([place], [place], [place], [place]) Address [address] [place] [address] Care Team Providers Care Business Analyst Manager Name Role Phone Unavailable Primary Care Provider Unavailabl e Encounter Details Date Type Department Care Team (Late st Contact Info) Description 05/27/2022 Transcribed Document [facility] [place] [facility] [place] [address] ProviderJosé MD [address] [place] [id number] Social History Tobacco Use Types Packs/Day Years Used Date Smoking Tobacco: Never Assessed Comments Unknown Sex and Gender Information Value Date Recorded Sex Assigned at Female 06/15/2022 6:27 PM CDT Legal Sex Female 6:27 PM CDT Gender Identity Female 06/15/2022 6:27 PM CDT Sexual Orientation Not on file documented as of this encounter Miscellaneous Notes * Cerner Conversion Note - José ProviderMD - 05/27/2022 12:06 AM CDT DATE OF SERVICE: 05/26/2022 REPORT TYPE: EEG REFERRING PHYSICIAN: Adelso Gupta MD REPORT TITLE: Video Electroencephalogram Report STUDY DURATION: 5 hours 30 minutes. HISTORY: This is a 26-year-old woman, being evaluated for recurrent seizures. EEG VIDEO MONITORING METHODOLOGY: Time-locked EEG-video monitoring was performed using the 32-channel [employer] monitoring system. The seizure detection computer was [...] used. CLINICAL AND EEG ANALYSIS: There were 2 events reported during the period of monitoring. EVENT ONE: On 05/26/2022 at 06:20:00, the patient is sitting in bed. At 06:20:10, she looks up and appears to look straight ahead. Her assembler fishing floats who is in the room with her notices her staring straight ahead and pushes the event button at 06:20:31. The patient looks around at 06:21:00, and no additional clinical change is noted. Concomitant EEG showed no change from baseline background activity. EVENT TWO: On 03/26/2022 at 06:26:30, the patient is sitting in bed with her assembler fishing floats next to her. She appears not to interact with her assembler fishing floats and looks straight ahead. She then moves her head around and pushes the event button at 06:27:06. She indicates she had another episode. Concomitant EEG showed no change from baseline background activity. TIME SAMPLES: The recording was reviewed. During wakefulness, 10 to 10.5 Hz activity is seen posteriorly. Lower amplitude faster activity in the beta range is seen with a wider distribution in both hemispheres. Occasional 4 to 5 Hz theta waves at times somewhat sharply contoured are seen at F7-T7-P7 and F8-T8-P8, mostly during periods of drowsiness. Sleep was recorded with the appearance of well-formed sleep spindles in both hemispheres. SPIKE DETECTION: The spike detection program was activated during the period of monitoring and revealed no definitive epileptiform abnormality. EEG DIAGNOSES: This is a mildly abnormal video EEG study because of: 1. Occasional slow waves at times somewhat sharply contoured seen at F7-T7-P7 and F8-T8-P8, mostly during periods of drowsiness. 2. The EEG accompanying 2 events showed no change from baseline background activity. CLINICAL INTERPRETATION: There were 2 events reported during the period of monitoring. On both occasions, the events were characterized by staring and decreased responsiveness. Concomitant EEG on both occasions showed no change from baseline background activity. The events recorded were therefore nonepileptic and could be psychogenic in origin. EEG recordings showed occasional slow waves at times somewhat sharply contoured in the temporal electrodes, suggestive of mild focal cerebral dysfunction in the temporal regions. /[id number] Adelso Gupta MD TAF/AQ / TAF / MODL /[id number] Electronically signed by Interface, [facility] Conversion Certified Real Estate Appraiser Cerner at 01/22/2023 11:05 AM CDT documented in this encounter Plan of Treatment Not on file documented as of this encounter Visit Diagnoses Not on filedocumented in this encounter
--- OUTSIDE RECORDS SUMMARY | 2025-05-21 12:45 | XMS_ITS | Encounter Summary ---
Author Organization [employer] ([place], [place], [place], [place]) Address [address] [place] [address] Care Team Providers Care Practice Physician Name Role Phone Unavailable Primary Care Provider Unavailabl e Encounter Details Date Type Department Care Team (Late st Contact Info) Description 05/26/2022 Transcribed Document [facility] [place] [facility] [place] [address] ProviderJosé MD [address], [place] [phone] Social History Tobacco Use Types Packs/Day Years [...] Conversion Note - Historical ProviderMD - 05/26/2022 12:19 PM CDT Nursing Discharge Summary Entered On: 05/26/2022 12:19 EDT Performed On: 05/26/2022 12:19 EDT by FERNANDEZ VANCE RN Discharge Documentation Discharge Date/Time : 05/26/2022 12:05 EDT Patient Disposition, General : Discharge Discharge To : Home with ambulatory/outpatient follow-up Mode Of Departure, General Discharge : Private vehicle Accompanied By, Discharge : Friend IV Discontinued : Yes Personal Belongings With Patient : Yes Prescriptions Given to Patient : No Discharge Instructions Reviewed With, Opportunity For Questions Given : Patient Teaching Method : Explanation, Printed materials Teaching Evaluation : Verbalizes understanding FERNANDEZ VANCE RN - 05/26/2022 12:19 EDT documented in this encounter Plan of Treatment Not on file documented as of this encounter Visit Diagnoses Not on filedocumented in this encounter
--- OUTSIDE RECORDS SUMMARY | 2025-05-21 12:45 | XMS_ITS | Referral Summary ---
Author Organization [employer] ([place], [place], [place], [place]) Address [address] [place] [address] Care Team Providers Care Geospatial Image Analyst Name Role Phone Unavailable Primary Care [...]
--- OUTSIDE RECORDS SUMMARY | 2025-05-21 12:45 | XMS_ITS | Encounter Summary ---
Author Organization [employer] ([place], [place], [place], [place]) Address [address] [place] [address] Care Team Providers Care Microsoft Exchange Architect Name Role Phone Unavailable Primary Care Provider Unavailabl e Encounter Details Date Type Department Care Team (Late st Contact Info) Description 05/25/2022 Transcribed Document [facility] [place] [address] [place] [address] ProviderJosé MD [address] [place], [place] [id number] Social History Tobacco Use Types Packs/Day Years [...] Conversion Note - Historical ProviderMD - 05/25/2022 1:47 PM CDT Neurodiagnostics Event Note Entered On: 05/25/2022 13:47 EDT Performed On: 05/25/2022 13:47 EDT by Gustavo Ogden, Neurodiagnostic Tech Neurodiagnostics Event Note Neurodiagnostic Event Date/Time : 05/25/2022 13:47 EDT Neurodiagnostic Event Location : Neurodiagnostic department Neurodiagnostic Event Details : Procedure completed Gustavo Ogden, Neurodiagnostic Tech - 05/25/2022 13:47 EDT Electronically signed by Almaz Montes Conversion [employer] Special Education Teacher Cerner at 01/22/2023 10:59 AM CDT documented in this encounter Plan of Treatment Not on file documented as of this encounter Visit Diagnoses Not on filedocumented in this encounter
--- OUTSIDE RECORDS SUMMARY | 2025-05-21 12:45 | XMS_ITS | Clinical Summary ---
Author Organization [facility] Address [address] [place] [address] Phone Care Team Providers Care Certifed Refrigeration Operator Name Role Phone Unavailable Primary Care Provider Unavailabl e Allergies No known active allergies Medications FLUoxetine (PROZAC) 10 mg Oral Capsule Take 10 mg by mouth daily. Active diclofenac (VOLTAREN) 75 mg Oral Tablet, Delayed Release (E.C.)Indication s:Sprain of left knee, unspecified ligament, initial encounter,Chondr omalacia of knee, left Take 1 Tablet by mouth 2 times daily. 60 Tablet 01/18/2022 Active Social History Tobacco Use Types Packs/Day Years Used Date Smoking Tobacco: Never Smokeless Tobacco: Never Alcohol Use Standard Drinks/Week Comments Not Currently 0 (1 standard drink = 0.6 oz pur e alcohol) Comments No Sex and Gender Information Value Date Recorded Sex Assigned at Not on file Legal Sex Female 11:21 AM EDT Gender Identity Not on file Sexual Orientation Not on file Obstetrics History Last Filed Vital Signs Vital Sign Reading Time Taken Comments Blood Pressure 120/69 01/05/2022 11:51 AM EDT Pulse 79 01/05/2022 11:51 AM EDT Temperature 36.6 C (97.8 F) 01/05/2022 11:51 AM EDT Respiratory Rate 16 01/05/2022 11:51 AM EDT Oxygen Saturation 100% 01/05/2022 11:51 AM EDT Inhaled Oxygen Concentration - - Weight 72.6 kg (160 lb) 01/05/2022 11:51 AM EDT Height 165.1 cm (5' 5 ) 01/05/2022 11:51 AM EDT Body Mass Index 26.63 01/05/2022 11:51 AM EDT Plan of Treatment Health Maintenance Due Date Last Done Comments Annual Wellness Exam 1997 Hepatitis B Vaccine (1 of 3 - 19+ 3-dose series) 2013 Cervical Cancer Screening 2015 Pap Smear 2015 DTaP/TDaP/Td (4 - Td or Tdap) 03/14/2016, 12/06/1998, 03/03/1996 COVID-19 Vaccine (2023-2 5 season) 2024 HPV/Pap Cotest 2024 Influenza Vaccine (#1) 2025 Meningococcal B Vaccine Aged Out No l onger eligible based on patient's age to complete this topic Pneumococcal Vaccine 0-49 Aged Out No longer eligible based on patient's age to complete this topic Insurance [facility] [address] [facility] [place]
--- OUTSIDE RECORDS SUMMARY | 2025-05-21 12:45 | XMS_ITS | Encounter Summary ---
Author Organization [employer] ([place], [place], [place], [place]) Address [address] [place] [address] Care Team Providers Care Painting Contractor Name Role Phone Unavailable Primary Care Provider Unavailabl e Encounter Details Date Type Department Care Team (Late st Contact Info) Description 05/26/2022 Transcribed Document [facility] [place] [facility] [place] [address] ProviderJosé MD [address] [place] [address] Social History Tobacco Use Types Packs/Day [...] Conversion Note - José ProviderMD - 05/26/2022 10:31 AM CDT [address] , [place] [address] Patient Copy Patient Information: Name: JAYMIE TORRES Current Date: 05/26/2022 10:31:30 : 1995 Patient Address: [address] [place] [address] Patient Attending Physician: JONN OLIVAREZ MD-NEU Primary Care Provider: EDILIA PERKINS (REF)EN Primary Care Provider Discharge Diagnosis: Nonepileptic episode Weight on Admission: 155 lb, 0 oz Comment: Follow-up Instructions: With: Address: When: Hannah Nix [address] [place] [phone] Business (1) Within 3 months Discharge Instructions: Immunizations Documented During Stay: No Immunizations Found Heart Failure Discharge Instructions (if any): Stroke Related Discharge Instructions (if any): Warfarin Related Discharge Instructions (if any): Final Medication List: Other Medications FLUoxetine (FLUoxetine 10 mg oral capsule) 1 Capsule(s) Oral Every Day. Patient Allergies: No Known Medication Allergies Medication Instructions: Take your medications faithfully. Do NOT skip [...] cramping, rapid heartbeat, difficulty sleeping, and nervousness. CIGARETTE SMOKING: The facts are clear, cigarette smoking will shorten your life. Smoking can cause many illnesses along the way. As a healthcare provider, we recommend that you stop smoking. Assistance with quitting is available by contacting 0-970-PUZC-NOW. This is a free resource providing counseling, support, and referral. Or you may contact your personal physician. 4 WAYS TO GET AHEAD OF SEPSIS SEPSIS is a MEDICAL EMERGENCY. Time matters! Infections put you and your family at risk for a life-threatening condition called sepsis. Sepsis is the body???s extreme response to an infection. It is life-threatening, and without timely treatment, sepsis can rapidly lead to tissue damage, organ failure, and . Sepsis happens when an infection you already have???in your skin, lungs, urinary tract or somewhere else???triggers a chain reaction throughout your body. 1 [...] sepsis or if you have an infection that???s not getting better or is getting worse. To learn more about sepsis and how to prevent infections, visit www.cdc.gov/sepsis. STROKE is an EMERGENCY Every [employer] Counts ACT F.A.S.T! FACE ?? Facial droop ?? Uneven smile ARM ?? Arm numbness ?? Arm weakness SPEECH ?? Slurred speech ?? Difficulty speaking or understanding TIME ?? Call 911 and get to the hospital immediately Have the ambulance go to the nearest stroke center. STROKE Risk Factors High blood pressure High cholesterol Heart Disease Diabetes Smoking Heavy alcohol use Physical inactivity and obesity Atrial Fibrillation (irregular heartbeat) Family history of stroke Reminder: Be sure to sign up for the [employer] patient portal, which gives you 29/04 access to your medical information ??? including these discharge instructions ??? using your computer, smartphone, or tablet. Just go to [employer] to get started. Questions? Call . [facility] would like to thank you for allowing us to assist you with your healthcare needs. BOAZ Landa CHELSEA LAKARA, (or sales representative printing) have received the above patient education materials/instructions and have verbalized understanding: Patient Signature _ Date/Time Patient Elementary School Tutor Signature (if needed) Date/Time Clinician/Hospital Elementary School Tutor Signature (if needed) Date/Time Electronically signed by Simon, [facility] Conversion Grounds And Nursery Specialist Tanya at 01/22/2023 11:12 AM CDT documented in this encounter Plan of Treatment Not on file documented as of this encounter Visit Diagnoses Not on filedocumented in this encounter
--- OUTSIDE RECORDS SUMMARY | 2025-05-21 12:45 | XMS_ITS | Encounter Summary ---
Author Organization [employer] ([place], [place], [place], [place]) Address [address] [place] [address] Care Team Providers Care Dry Food Products Mixer Name Role Phone Unavailable Primary Care Provider Unavailabl e Encounter Details Date Type Department Care Team (Late st Contact Info) Description 05/26/2022 Transcribed Document [facility] [place] Family Medicine [address] [place] [address] ProviderJosé MD [address] [place], [place] [phone] Social History Tobacco Use Types Packs/Day Years [...] Conversion Note - Historical ProviderMD - 05/26/2022 10:37 AM CDT Stroke/Warfarin Instructions Entered On: 05/26/2022 10:37 EDT Performed On: 05/26/2022 10:37 EDT by FERNANDEZ VANCE RN Stroke/Warfarin Instructions Stroke/TIA Discharge Ins : N/A Warfarin Discharge Ins : N/A FERNANDEZ VANCE RN - 05/26/2022 10:37 EDT documented in this encounter Plan of Treatment Not on file documented as of this encounter Visit Diagnoses Not on filedocumented in this encounter
--- OUTSIDE RECORDS SUMMARY | 2025-05-21 12:45 | XMS_ITS | Encounter Summary ---
Author Organization [employer] ([place], [place], [place], [place]) Address [address] [place] [address] Care Team Providers Care Assistant Hairstylist Name Role Phone Unavailable Primary Care Provider Unavailabl e Encounter Details Date Type Department Care Team (Late st Contact Info) Description 05/26/[address] [facility] [place] [facility] [place] [address] ProviderJosé MD [address] [place], [place] [phone] Social History Tobacco Use Types Packs/Day Years [...] Conversion Note - Historical ProviderMD - 05/26/2022 2:41 PM CDT UM Authorization Entered On: 05/26/2022 14:41 EDT Performed On: 05/26/2022 14:41 EDT by STERLING GALLO RN Primary Insurance Authorization Authorization and Policy Numbers : Insurance 1 Health Plan: [facility] Policy Number: [id number] Authorization Number: Insurance Primary Name : [facility] Policy Number: [id number] Authorized Service Begin Date-Primary : 05/27/2022 EDT Historical Authorization Comments-Primary : No Authorization Comments Found STERLING GALLO RN - 05/26/2022 14:41 EDT documented in this encounter Plan of Treatment Not on file documented as of this encounter Visit Diagnoses Not on filedocumented in this encounter
--- OUTSIDE RECORDS SUMMARY | 2025-05-21 12:45 | XMS_ITS | Encounter Summary ---
Author Organization [employer] ([place], [place], [place], [place]) Address [address] [place] [address] Care Team Providers Care Bundle Helper Name Role Phone Unavailable Primary Care Provider Unavailabl e Encounter Details Date Type Department Care Team (Late st Contact Info) Description 05/25/2022 Transcribed Document [facility] [place] [facility] [place] [address] ProviderJosé MD [address] [place] [phone] Social History Tobacco Use Types Packs/Day Years [...] Conversion Note - Historical ProviderMD - 05/25/2022 10:11 AM CDT Admission History, Adult Entered On: 05/25/2022 10:14 EDT Performed On: 05/25/2022 10:11 EDT by Jaci Chen RN Advance Directive Patient has Advance Directive *Q : No, patient refuses Advance Directive information Jaci Chen RN - 05/25/2022 10:11 EDT Anesthesia/Transfusion History Family History of Anesthesia Reaction : No prior transfusion(s) Transfusion History : No prior anesthesia Family History of Anesthesia Reaction : None Jaci Chen RN - 05/25/2022 10:11 EDT Functional Assessment Living Situation : Home Current Home Treatments : None Jaci Chen RN - 05/25/2022 10:11 EDT General Info Want Family/Rep/Phys Notified of Admit : No Emergency Contact #1 : Aysha Osman Emergency Contact #1 Emergency Contact #1 Relationship : Mother Emergency Contact #2 : N/A Emergency Contact #2 Phone Number : . Emergency Contact #2 Relationship : . Primary Language : Luxembourger Communication Barrier : None Instructional Support Assistant Needed : No Jaci Chen RN - 05/25/2022 10:11 EDT Fall Risk Scales ABCs Fall Injury Risk Identification : None MICHAEL Hx Falls Immediate/Within 3 Months : No Michael Secondary Diagnosis : No MICHAEL Use of Ambulatory Aid : None MICHAEL IV Therapy or IV Access : No Michael Gait/Transferring : Normal, bedrest, immobile Michael Mental Status : Oriented to own ability Michael Fall Risk Score : 0 MICHAEL Fall Scale Risk Level : 0-24 Low Risk Fithian Fall Interventions : Adequate lighting, Assistive devices within reach, Bed in low position, Call device within reach, Fall prevention handout/education per facility policy, Frequent orientation to call device, Frequent orientation to surroundings, Hourly comfort/safety rounds, Non-slip footwear, Personal items within reach, Reinforced to call for assistance before getting out of bed, Room free of clutter/spills, Upper side-rails up, Wheels locked, Wires/Cords secured Jaci Chen RN - 05/25/2022 10:11 EDT Health Histories Smoking Status : Other: Vapes Smokeless Tobacco Status : Never Jaci Chen RN - 05/25/2022 10:11 EDT Social History (As Of: 05/25/2022 10:14:15 EDT) Height and Weight, Clinical Dosing Height Source : Stated Height Entry Format : [place] Height, Feet : 5 ft(Converted to: 152 cm, 60 Inch) Height, Inches : 6 Inch(Converted to: 0 ft 6 Inch, 15.24 cm) Clinical Height : 167.64 cm Weight Source : Bed scale Weight Entry Format : [place] Clinical Dosing Weight : 70.45 kg Weight, Pounds : 155 lb Body Surface Area (BSA) : 1.8 m2 Body Mass Index : 25.1 kg/m2 (HI) [place] Body Weight : 59 kg Jaci Chen RN - 05/25/2022 10:11 EDT Infectious Disease History Does patient have symptoms of COVID-19? : No Tested for COVID19 in the past 14 days : No, Patient stated Does the Patient state known exposure to a COVID-19 positive case in the last 14 days? : No Patient Vaccinated for COVID-19 : Fully vaccinated Jaci Chen RN - 05/25/2022 10:11 EDT Infectious Disease Risk Screening Grid Cough < 2 wks of unknown origin : NO Cough > 2 weeks : NO Blood in Sputum : NO Fever or self-reported Fever : NO Rash of unknown origin : NO Headache : NO Stiff neck : NO Night Sweats : NO Unexplained Weight Loss : NO Diarrhea (3 episode per day) : NO Jaci Chen RN - 05/25/2022 10:11 EDT Physical contact outside [place] in the last 30 days : No Hospitalized in Foreign Country : No Infectious Disease History : None INF Disease TB Screening Calc : 0 INF Disease Recent Travel Calc : 0 Jaci Chen RN - 05/25/2022 10:11 EDT Tetanus Immunization Status Previous Tetanus Immunizations : No qualifying data available. Jaci Chen RN - 05/25/2022 10:11 EDT Influenza Vaccine Asmt, Adult Previous Vaccines from Immunization Schedule : No qualifying data available. Influenza Immunization, Current Season : No Inactivated Flu Vaccine Contraindications : No contraindications to inactivated influenza vaccine Transplant Workup/Recent Transplant : No Order for Influenza Vaccine : Declined Vaccination Jaci Chen RN - 05/25/2022 10:11 EDT Pneumococcal Vaccine Previous Vaccines from Immunization Schedule : No qualifying data available. Pneumonia Immunization Received : No Pneumococcal Risk Assessment < Age 65 : None Jaci Chen RN - 05/25/2022 10:11 EDT Order Details Patient Needs Meds Crushed/Liquid : No Jaci Chen RN - 05/25/2022 10:11 EDT Nutrition History Eating Poorly Due to Decreased Appetite : No Unplanned Weight Loss in Past 3-6 Months : No Malnutrition Screening Tool Total(mal) : 0 Malnutrition Screening Tool Risk Level : Patient not at risk Jaci Chen RN - 05/25/2022 10:11 EDT [place] Suicide Severity Rating Scale (C-SSRS) CSSRS Past Month Wish to be : No CSSRS Past Month Suicidal Thoughts : No CSSRS Lifetime Suicide Behavior : No Suicide Severity Rating Score : 0 Suicide Severity Rating : No Additional Care Required at this time Jaci Chen RN - 05/25/2022 10:11 EDT Psychosocial History Currently in Unsafe Situation : No Jaci Chen RN - 05/25/2022 10:11 EDT Sleep Apnea Risk Assmt Hx of Obstructive Sleep Apnea Diagnosis : No Snore Loudly : No Tired, Fatigued, or Sleepy During Day : No Observed Stopping Breathing During Sleep : No Have/Are Being Treated for Hypertension : No BMI Greater Than 35 kg/m2 : No Age over 50 Years Old : No Neck Circumference Greater Than 40 cm : No Gender Male : No STOP-BANG Sleep Apnea Risk Level Score : 0 Jaci Chen RN - 05/25/2022 10:11 EDT Valuables and Belongings Valuables and Belongings : Clothing, Personal items, Medications Clothing : Common streetwear, Sleepwear Clothing Disposition : Bedside, With patient, Declines to send to security/safe Personal Items : Cell phone, Pager Personal Items Disposition : Bedside, With patient, Declines to send to security/safe Medication Disposition : Bedside, With patient, Declines to send to security/safe Medication Brought With Patient : Yes Jaci Chen RN - 05/25/2022 10:11 EDT documented in this encounter Plan of Treatment Not on file documented as of this encounter Visit Diagnoses Not on filedocumented in this encounter
--- OUTSIDE RECORDS SUMMARY | 2025-05-21 12:45 | XMS_ITS | Encounter Summary ---
Author Organization [employer] ([place], [place], [place], [place]) Address [address] [place] [address] Care Team Providers Care Armor Reconnaissance Vehicle Crewman Name Role Phone Unavailable Primary Care Provider Unavailabl e Encounter Details Date Type Department Care Team (Late st Contact Info) Description 05/26/2022 Transcribed Document [facility] [facility] [address] ProviderJosé MD [address] [place] [address] Social History Tobacco Use Types Packs/Day [...] Conversion Note - José ProviderMD - 05/26/2022 10:46 AM CDT [facility] [place] [address] JAYMIE TORRESVALENTE [...] up appointment Where: [address] [place] [address]- Stand In (1) Medications What How Much When Instructions [...] if you have a seizure. ??? Take uypk-zht-dfeoqqi and prescription medicines only as told by [...] right away. Call your local emergency services (227 in the [place].S[place] Do not drive yourself to the hospital. If you ever feel like you may hurt yourself or others, or have thoughts about taking your own life, get help right away. Go to your nearest emergency department or: ??? Call your local emergency services (156 in the [place] ??? Call a suicide crisis helpline, such as the National Suicide Prevention Lifeline at . This is open 24 hours a day in the [place] ??? Text the Crisis Text Line at 440211 (in the [place].S.). 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 2021 .[employer] Emergency Awareness and Preventative Care STROKE [...] Assistance with quitting is available by contacting 9-406-QITYNOW. This is a free resource providing counseling, [...] was given the opportunity to ask questions. Patient/Bloom Conveyor Operator Name: Patient/Bloom Conveyor Operator Signature: Relationship to Patient: Clinician/Hospital Bloom Conveyor Operator Signature: Date: Electronically signed by Interface, [facility] Conversion Alley Cleaner Tanya at 01/22/2023 11:08 AM CDT documented in this encounter Plan of Treatment Not on file documented as of this encounter Visit Diagnoses Not on filedocumented in this encounter
--- OUTSIDE RECORDS SUMMARY | 2025-05-21 12:45 | XMS_ITS | Encounter Summary ---
Author Organization [employer] ([place], [place], [place], [place]) Address [address] [place] [address] Care Team Providers Care Nike Athlete Name Role Phone Unavailable Primary Care Provider Unavailabl e Encounter Details Date Type Department Care Team (Late st Contact Info) Description 05/25/2022 Transcribed Document [facility] [place] [facility] [place] [address] ProviderJosé MD [address] [place], [place] [id number] Social History Tobacco Use Types Packs/Day Years [...] Conversion Note - Historical ProviderMD - 05/25/2022 11:07 AM CDT Education-(VTE) / (DVT) Entered On: 05/25/2022 11:09 EDT Performed On: 05/25/2022 11:07 EDT by Jaci Chen, RN Education Topics: VTE/DVT Education Topics: VTE/DVT Activity Limitations/Expectations : Verbalizes understanding Antiembolic hose : Verbalizes understanding VTE/DVT prophylaxis : Verbalizes understanding Foot Pumps : Verbalizes understanding Medications : Verbalizes understanding Sequential Compression Device : Verbalizes understanding Smoking Cessation : Verbalizes understanding Risk for developing a VTE : Verbalizes understanding Signs and symptoms of a VTE : Verbalizes understanding Treatment/prophylaxis for VTE : Verbalizes understanding Encourage early ambulation : Verbalizes understanding VTE/DVT, Other : Verbalizes understanding Jaci Chen, RN - 05/25/2022 11:09 EDT Electronically signed by Simon, [facility] Conversion Juice Mixer Cerner at 01/22/2023 10:49 AM CDT documented in this encounter Plan of Treatment Not on file documented as of this encounter Visit Diagnoses Not on filedocumented in this encounter
--- OUTSIDE RECORDS SUMMARY | 2025-05-21 12:46 | XMS_ITS | Clinical Summary ---
Author Organization Healthcare Address [address] [place] [address] Care Team Providers Care Concrete Journeyman Name Role Phone Salima Love Primary Care Provider [phone] Allergies No known active allergies Medications FLUoxetine (PROzac) 10 MG capsule Take 4 capsules (40 mg) by mouth 1 (one) time each day. Active GNP Vitamin D3 Extra Strength 25 MCG (1000 UT) tablet Take 1 tablet (1,000 Units) by mouth 1 (one) time each day. 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 02/11/2024 Palpitations 02/11/2024 Other chest pain 02/11/2024 Social History Tobacco Use Types Packs/Day Years Used Date Smoking Tobacco: Some Days Cigarettes 0.3 5 Smokeless Tobacco: Never Tobacco Cessation:Ready to Q uit: Not Asked Alcohol Use Standard Drinks/Week Comments Not Currently 0 (1 standard drink = 0.6 oz pur e alcohol) Comments No Sex and Gender Information Value Date Recorded Sex Assigned at Not on file Legal Sex Female 6:12 PM EDT Gender Identity Not on file Sexual Orientation Not on file Last Filed Vital Signs Vital Sign Reading Time Taken Comments Blood Pressure 107/65 02/11/2024 10:44 AM EDT Pulse 74 02/11/2024 10:44 AM EDT Temperature - - Respiratory Rate - - Oxygen Saturation - - Inhaled Oxygen Concentration - - Weight 75 kg (165 lb 5.5 oz) 02/11/2024 10:44 AM EDT Height 165.1 cm (5' 5 ) 02/11/2024 10:44 AM EDT Body Mass Index 27.51 02/11/2024 10:44 AM EDT Plan of Treatment Health Maintenance Due Date Last Done Comments [facility]-Depression Screening 1994 [facility]-HIV Screening 1994 [facility]-Hepatitis C Screening 1994 [facility]-/Child/Adol SDOH Screenings 1994 [facility]-IPV Vaccines (2 of 3 - 4-dose series) 01/03/1999 12/06/1998 [facility]-Varicella Vaccines (1 of 2 - 13+ 2-dose series) 2007 [facility]- SDOH Screenings 2012 [facility]-Adult SDOH Screenings 2012 [facility]-Hepatitis B Vaccines (1 of 3 - 19+ 3-dose series) 2013 [facility]-Pap Smear 2015 [facility]-DTaP,Tdap,and Td Vaccine s (4 - Td or Tdap) 03/14/2016 03/14/2006, 12/06/1998, 03/03/1996 [id number] Vaccine ( - season) 2024 [facility]-Cervical Cancer Screening 2024 [facility]-HPV/Cotest 2024 [facility]-Influenza Vaccine (#1) 2025 [facility]-Zoster Vaccines (1 of 2) 2044 [facility]-HIB Vaccines Completed 03/03/1996 HPV Vaccines Completed 07/27/2010, 04/14/2010, 01/13/2010 [facility]-Obesity Intervention Completed 02/11/2024 [facility]-Hepatitis A Vaccines Aged Out No longer eligible based on patient's age to complete this topic [facility]-Pneumococcal Vaccine: Pediatrics (0 to 5 Years) and At-Risk Patients (6 to 49 Years) Aged Out No longer eligible b ased on patient's age to complete this topic [facility]-Rotavirus Vaccines Aged Out No lo nger eligible based on patient's age to complete this topic Insurance [place] [id number] [facility] Care Teams Concrete Journeyman Relationship Specialty Start Date End Date Salima Love PA [address] [place] [address] PCP - General 02/10/24
--- OUTSIDE RECORDS SUMMARY | 2025-05-21 12:46 | XMS_ITS | Encounter Summary ---
Author Organization [employer] ([place], [place], [place], [place]) Address [address] [place] [address] Care Team Providers Care Color Developer Name Role Phone Unavailable Primary Care Provider Unavailabl e Encounter Details Date Type Department Care Team (Late st Contact Info) Description 05/26/2022 Transcribed Document [facility] [place] [facility] [place] [address] ProviderJosé MD [address] [place] [address] Social History Tobacco Use Types Packs/Day [...] Conversion Note - José ProviderMD - 05/26/2022 10:52 AM CDT [facility] [place] [address] JAYMIE TORRESVALENTE :1995 Visit [...] up appointment Where: [address] [place] [address]- [employer] (1) Medications What How Much When Instructions [...] if you have a seizure. ??? Take suiz-wgc-azqeqjx and prescription medicines only as told by [...] right away. Call your local emergency services (185 in the [place] Do not drive yourself to the hospital. If you ever feel like you may hurt yourself or others, or have thoughts about taking your own life, get help right away. Go to your nearest emergency department or: ??? Call your local emergency services (670 in the [place] ??? Call a suicide crisis helpline, such as the National Suicide Prevention Lifeline at . This is open 24 hours a day in the [place]. ??? Text the Crisis Text Line at 707084 (in the [place].S.). 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 2021 [employer] Emergency Awareness and Preventative Care STROKE [...] Assistance with quitting is available by contacting 3-200-XANGNOW. This is a free resource providing counseling, [...] was given the opportunity to ask questions. Patient/Dental Hygiene Professor Name: Patient/Dental Hygiene Professor Signature: Relationship to Patient: Clinician/Hospital Dental Hygiene Professor Signature: Date: Electronically signed by Simon, [facility] Conversion Certified Ophthalmic Surgical Assistant Tanya at 01/22/2023 11:12 AM CDT documented in this encounter Plan of Treatment Not on file documented as of this encounter Visit Diagnoses Not on filedocumented in this encounter
--- OUTSIDE RECORDS SUMMARY | 2025-05-21 12:46 | XMS_ITS | Encounter Summary ---
Author Organization [employer] ([place], [place], [place], [place]) Address [address] [place] [address] Care Team Providers Care Stencil Printer Name Role Phone Unavailable Primary Care Provider Unavailabl e Encounter Details Date Type Department Care Team (Late st Contact Info) Description 05/26/2022 Transcribed Document [facility] [place] Family [place] [facility] [place] [address] ProviderJosé MD [address] [place] [address] Social History Tobacco Use Types Packs/Day [...] José ProviderMD - 05/26/2022 10:46 AM CDT [facility] [place] [address] JAYMIE TORRESVALENTE :1995 [...] for follow up appointment Where: [address] [place] [place] [address]- [employer] (1) Medications What How Much When Instructions [...] if you have a seizure. ??? Take rgeb-wxo-rudasyd and prescription medicines only as told by [...] right away. Call your local emergency services (130 in the [place] Do not drive yourself to the hospital. If you ever feel like you may hurt yourself or others, or have thoughts about taking your own life, get help right away. Go to your nearest emergency department or: ??? Call your local emergency services (087 in the [place] ??? Call a suicide crisis helpline, such as the National Suicide Prevention Lifeline at . This is open 24 hours a day in the [place]. ??? Text the Crisis Text Line at 473476 (in the [place].S.). 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 2021 [employer] Emergency Awareness and Preventative Care STROKE [...] Assistance with quitting is available by contacting 0-708-YPHDNOW. This is a free resource providing counseling, [...] was given the opportunity to ask questions. Patient/Street And Building Decorator Name: Patient/Street And Building Decorator Signature: Relationship to Patient: Clinician/Hospital Street And Building Decorator Signature: Date: Electronically signed by Simon, [facility] Conversion Or Nurse Manager Tanya at 01/22/2023 11:11 AM CDT documented in this encounter Plan of Treatment Not on file documented as of this encounter Visit Diagnoses Not on filedocumented in this encounter
--- OUTSIDE RECORDS SUMMARY | 2025-05-21 12:46 | XMS_ITS | Encounter Summary ---
Author Organization [employer] ([place], [place], [place], [place]) Address [address] [place] [address] Care Team Providers Care Tobacco Buyer Name Role Phone Unavailable Primary Care Provider Unavailabl e Encounter Details Date Type Department Care Team (Late st Contact Info) Description 05/26/2022 Transcribed Document [facility] [place] [facility] [place] [address] ProviderJosé MD [address] [place] [address] Social History Tobacco Use Types Packs/Day [...] José ProviderMD - 05/26/2022 10:56 AM CDT [facility] [place] [address] JAYMIE TORRESVALENTE :1995 [...] up appointment Where: [address] [place] [address]- [employer] (1) Medications What How Much When Instructions [...] if you have a seizure. ??? Take thjf-dbt-vmseruv and prescription medicines only as told by [...] right away. Call your local emergency services (536 in the [place] Do not drive yourself to the hospital. If you ever feel like you may hurt yourself or others, or have thoughts about taking your own life, get help right away. Go to your nearest emergency department or: ??? Call your local emergency services (239 in the [place] ??? Call a suicide crisis helpline, such as the National Suicide Prevention Lifeline at . This is open 24 hours a day in the [place]. ??? Text the Crisis Text Line at 619031 (in the [place].S.). 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 2021 [employer] Emergency Awareness and Preventative Care STROKE [...] Assistance with quitting is available by contacting 2-031-ONPONOW. This is a free resource providing counseling, [...] was given the opportunity to ask questions. Patient/Dry End Operator Name: Patient/Dry End Operator Signature: Relationship to Patient: Clinician/Hospital Dry End Operator Signature: Date: Electronically signed by Simon, [facility] Conversion Steaming Cabinet Tender Tanya at 01/22/2023 11:12 AM CDT documented in this encounter Plan of Treatment Not on file documented as of this encounter Visit Diagnoses Not on filedocumented in this encounter
[2025-05-21 13:17] LABS: Hematocrit 38.9 % (37.0-47.0); Hemoglobin 13.2 g/dL (12.2-16.2); Immature Granulocytes % 0.1 %; Mean Corpuscular HGB Conc 33.9 g/dL (31.8-35.4); Mean Corpuscular Hemoglobin 30.1 pg (27.0-31.2); Mean Corpuscular Volume 88.8 fl (81-99); Nucleated Red Blood Cells % 0 %; Platelet Count 273 K/mm3 (142-424); Red Blood Count 4.38 M/mm3 (4.20-5.40); Red Cell Distribution Width-SD 39.6 fL; White Blood Count 7.3 K/mm3 (4.8-10.8)
[2025-05-21 15:17] LABS: Alanine Aminotransferase 14 U/L (12-78); Albumin Level 4.4 g/dl (3.5-5.0); Albumin/Globulin Ratio 1.6 (1.1-1.8); Alkaline Phosphatase 76 U/L (38-126); Anion Gap 11.5 mEq/L (5-15); Aspartate Amino Transferase 21 U/L (14-36); Bilirubin,Total 0.3 mg/dl (0.2-1.3); Blood Urea Nitrogen 16 mg/dl (7-17); Calcium 9.6 mg/dl (8.4-10.2); Carbon Dioxide 29 mmol/L (22.0-30.0); Chloride 101 mmol/L (98-107); Cholesterol 192 mg/dl (140-200); Creatinine,Serum 0.70 mg/dl (0.52-1.04); Estimated Glomerular Filt Rate 98 ml/min (>60); GFR (African American) 119 ML/MIN (>60); Globulin 2.8 g/dL (1.3-3.2); Glucose 92 mg/dl (74-100); HDL Cholesterol 71 mg/dl (40-60); Potassium 4.5 mmoL/L (3.5-5.1); Sodium 137 mmol/L (136-145); Total Protein,Serum 7.2 g/dl (6.3-8.2); Triglycerides 75 mg/dl (30-150)
[2025-05-21 15:34] LABS: Free T4 (Free Thyroxine) 0.94 ng/dl (0.78-2.19)
[2025-05-21 15:48] LABS: Thyroid Stimulating Hormone 0.93 uIU/mL (0.465-4.68)
[2025-05-21 16:38] LABS: Hemoglobin A1C 5.1 % (4.0-6.0)
== END 2025-05-21 23:59 | disposition home or self-care (01) ==
LOC: LAB 12:43
PROVIDERS: Visit Provider Nurse Practitioner Family
DX: Z51.81 Encounter for therapeutic drug level monitoring (principal); Z79.899 Other long term (current) drug therapy
CPT/HCPCS: 36415; 80053; 80061; 83036; 84439; 84443; 85025

== ENCOUNTER 2025-09-04 10:02 | Outpatient (CLI) | payer OTHER, SELFPAY ==
--- OUTSIDE RECORDS SUMMARY | 2025-09-04 10:05 | XMS_ITS | Encounter Summary ---
Author Organization [employer] ([place], [place], [place], [place], [place]) Address [address] [place] [address] Care Team Providers Care Green Building Materials Distributor Name Role Phone Unavailable Primary Care Provider Unavailabl e Encounter Details Date Type Department Care Team (Late st Contact Info) Description 05/26/2022 Transcribed Document [facility] [place] Family [place] [facility] [place] [address] ProviderJosé MD [address] [place] [address] Social History Tobacco Use Types Packs/Day [...] José ProviderMD - 05/26/2022 10:46 AM CDT [facility] [place] [address] JAYMIE TORRESGRACIE :1995 Visit Time:05/25/2022 Your Visit Summary Your Care Team Admitting Physician - JONN OLIVAREZ MD-NEU Attending Physician - JONN OLIVAREZ MD-NEU Primary Care Physician - EDILIA PERKINS (REF)EN Referring Physician - EDILIA PERKINS (REF)EN Your Diagnosis Nonepileptic episode These Are Your [...] up appointment Where: [address] [place] [address]- [place] (1) Medications What How Much When Instructions [...] if you have a seizure. ??? Take ggld-grd-qhxmaay and prescription medicines only as told by [...] right away. Call your local emergency services (983 in the [place] Do not drive yourself to the hospital. If you ever feel like you may hurt yourself or others, or have thoughts about taking your own life, get help right away. Go to your nearest emergency department or: ??? Call your local emergency services (220 in the [place] ??? Call a suicide crisis helpline, such as the National Suicide Prevention Lifeline at . This is open 24 hours a day in the [place]. ??? Text the Crisis Text Line at 653462 (in the [place].S.). 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 2021 [employer] Emergency Awareness and Preventative Care STROKE [...] Assistance with quitting is available by contacting 7-193-KIIENOW. This is a free resource providing counseling, support, and referral. Or you may contact your personal physician. [employer] Suicide Prevention Lifeline: The National Suicide Prevention [...] was given the opportunity to ask questions. Patient/Nuclear Powerplant Supervisor Name: Patient/Nuclear Powerplant Supervisor Signature: Relationship to Patient: Clinician/Hospital Nuclear Powerplant Supervisor Signature: Date: Electronically signed by Simon, [facility] Conversion Engraver Apprentice Decorative Tanya at 01/22/2023 11:11 AM CDT documented in this encounter Plan of Treatment Not on file documented as of this encounter Visit Diagnoses Not on filedocumented in this encounter
--- OUTSIDE RECORDS SUMMARY | 2025-09-04 10:05 | XMS_ITS | Encounter Summary ---
Author Organization [employer] ([place], [place], [place], [place], [place]) Address [address] [place] [address] Care Team Providers Care Shampooer Name Role Phone Unavailable Primary Care Provider Unavailabl e Encounter Details Date Type Department Care Team (Late st Contact Info) Description 05/25/2022 Transcribed Document [facility] [place] [facility] [place] [address] ProviderJosé MD [address] [place] [id number] Social History Tobacco Use Types Packs/Day Years [...] the upper and lower extremities. COORDINATION: Normal xejsxz-fm-rdtm. IMPRESSION: Ms. Torres has had recurrent spells for several years that have been fairly stereotypical. The episodes could represent complex partial seizures or focal seizures with impaired awareness. Alternatively, she may have nonepileptic spells. PLAN: 1. Admit to the epilepsy monitoring unit. 2. Start video EEG monitoring. 3. Seizure precautions. 4. Lorazepam 2 mg IV for repetitive or prolonged seizures. /[id number] MD MARIUSZ Weston/WILFRIDO / MARIUSZ / MODNapoleon Electronically signed by Simon [facility] Conversion Sales Merchandiser Cerner at 01/22/2023 10:51 AM CDT documented in this encounter Plan of Treatment Not on file documented as of this encounter Visit Diagnoses Not on filedocumented in this encounter
--- OUTSIDE RECORDS SUMMARY | 2025-09-04 10:05 | XMS_ITS | Encounter Summary ---
Author Organization [employer] ([place], [place], [place], [place], [place]) Address [address] [place] [address] Care Team Providers Care Rattlesnake Farmer Name Role Phone Unavailable Primary Care Provider Unavailabl e Encounter Details Date Type Department Care Team (Late st Contact Info) Description 05/25/2022 Transcribed Document [facility] [place] Family [place] [address] [place] [address] ProviderJosé MD [address] [place] [id number] Social History Tobacco Use Types Packs/Day Years Used Date Smoking Tobacco: Never Assessed Comments Unknown Sex and Gender Information Value Date Recorded Sex Assigned at Female 06/15/2022 6:27 PM CDT Legal Sex Female 6:27 PM CDT Gender Identity Female 06/15/2022 6:27 PM CDT Sexual Orientation Not on file documented as of this encounter Miscellaneous Notes * Cerner Conversion Note - José ProviderMD - 05/25/2022 10:02 AM CDT Meds to Bed Enrollment Entered On: 05/25/2022 10:28 EDT Performed On: 05/25/2022 10:02 EDT by Sabino Contreras Manager Embalmer Funeral Director Cert Lead Meds to Bed Enrollment Patient Enrollment Decision: : Yes/enroll in meds to bed program Sabino Contreras Manager Embalmer Funeral Director Cert Lead - 05/25/2022 10:28 EDT documented in this encounter Plan of Treatment Not on file documented as of this encounter Visit Diagnoses Not on filedocumented in this encounter
--- OUTSIDE RECORDS SUMMARY | 2025-09-04 10:05 | XMS_ITS | Encounter Summary ---
Author Organization [employer] ([place], [place], [place], [place], [place]) Address [address] [place] [address] Care Team Providers Care Distance Education Faculty Liaison Name Role Phone Unavailable Primary Care Provider Unavailabl e Encounter Details Date Type Department Care Team (Late st Contact Info) Description 05/26/2022 Transcribed Document [facility] [place] [facility] [address] ProviderJosé MD [address] [place] [address] Social History Tobacco Use Types Packs/Day [...] José ProviderMD - 05/26/2022 10:31 AM CDT [address] , [place] [address] Patient Copy Patient Information: Name: JAYMIE TORRES Current Date: 05/26/2022 10:31:30 : 1995 Patient Address: [address] [place] [address] Patient Attending Physician: JONN OLIVAREZ MD-NEU Primary Care Provider: EDILIA PERKINS (REF)EN Primary Care Provider Discharge Diagnosis: Nonepileptic episode Weight on Admission: 155 lb, 0 oz Comment: Follow-up Instructions: With: Address: When: Hannah Nix [address] [place] [id number] [place] (1) Within 3 months Discharge Instructions: Immunizations [...] Assistance with quitting is available by contacting 3-963-APBI-NOW. This is a free resource providing counseling, [...] Be sure to sign up for the [employer] patient portal, which gives you 29/04 access to your medical information ??? including these discharge instructions ??? using your computer, smartphone, or tablet. Just go to [employer] to get started. Questions? Call . [facility] would like to thank you for allowing us to assist you with your healthcare needs. BOAZ Landa CHELSEA LAKARA, (or insurance claims representative) have received the above patient education materials/instructions and have verbalized understanding: Patient Signature _ Date/Time Patient General Medical Practitioner Signature (if needed) Date/Time Clinician/Hospital General Medical Practitioner Signature (if needed) Date/Time Electronically signed by Simon, [facility] Conversion Sports Psychologist Omarner at 01/22/2023 11:12 AM CDT documented in this encounter Plan of Treatment Not on file documented as of this encounter Visit Diagnoses Not on filedocumented in this encounter
--- OUTSIDE RECORDS SUMMARY | 2025-09-04 10:05 | XMS_ITS | Clinical Summary ---
Author Organization [facility] Address [address] [place] [address] Care Team Providers Care Design Architect Name Role Phone Salima Love Primary Care Provider [phone] Allergies No known active allergies Medications FLUoxetine (PROzac) 10 MG capsule Take 4 capsules (40 mg) by mouth 1 (one) time each day. Active GNP Vitamin D3 Extra Strength 25 MCG (1000 UT) tablet Take 1 tablet (1,000 Units) by mouth 1 (one) time each day. 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 02/11/2024 Palpitations 02/11/2024 Other chest pain 02/11/2024 Resolved Problems Problem Noted Date Diagnosed Date Resolved Date Other fatigue 02/11/2024 06/27/2025 Social History Tobacco Use Types Packs/Day Years [...] Td or Tdap) 03/14/2016 03/14/2006, 12/06/1998, 03/03/1996 [facility]-Cervical Cancer Screening 2024 [facility]-HPV/Cotest 2024 [id number]-[id number]-12 Vaccine (1 - season) 2025 [facility]-Influenza Vaccine (#1) 2025 [facility]-Zoster Vaccines (1 [...] to complete this topic Insurance [place] [id number] [facility] Care Teams Design Architect Relationship Specialty Start Date End Date Salima Love PA [address] [place] [address] PCP - General 02/10/24
--- OUTSIDE RECORDS SUMMARY | 2025-09-04 10:05 | XMS_ITS | Encounter Summary ---
Author Organization [employer] ([place], [place], [place], [place], [place]) Address [address] [place] [address] Care Team Providers Care Dermatology Sales Representative Name Role Phone Unavailable Primary Care Provider Unavailabl e Encounter Details Date Type Department Care Team (Late st Contact Info) Description 05/27/[address] [facility] [place] [address] ProviderJosé MD [address] [place] [address] [phone] Social History Tobacco Use Types Packs/Day Years [...] EEG-video monitoring was performed using the 32-channel [employer] monitoring system. The seizure detection computer was [...] and appears to look straight ahead. Her feed handler who is in the room with her notices her staring straight ahead and pushes the event button at 06:20:31. The patient looks around at 06:21:00, and no additional clinical change is noted. Concomitant EEG showed no change from baseline background activity. EVENT TWO: On 03/26/2022 at 06:26:30, the patient is sitting in bed with her feed handler next to her. She appears not to interact with her feed handler and looks straight ahead. She then moves [...] focal cerebral dysfunction in the temporal regions. /[id number] Adelso Gupta MD TAF/AQ / TAF / MODL /[id number] Electronically signed by Simon, [facility] Conversion Screening Specialist Cerner at 01/22/2023 11:05 AM CDT documented in this encounter Plan of Treatment Not on file documented as of this encounter Visit Diagnoses Not on filedocumented in this encounter
--- OUTSIDE RECORDS SUMMARY | 2025-09-04 10:05 | XMS_ITS | Encounter Summary ---
Author Organization [employer] ([place], [place], [place], [place], [place]) Address [address] [place] [address] Care Team Providers Care Clinical Geneticist Name Role Phone Unavailable Primary Care Provider Unavailabl e Encounter Details Date Type Department Care Team (Late st Contact Info) Description 05/26/2022 Transcribed Document [facility] [place] [address] ProviderJosé MD [address] [place] [phone] Social History Tobacco Use Types Packs/Day [...] [facility] DENISSE Pantoja [address] JAYMIE TORRESGRACIE :1995 Visit [...] up appointment Where: [address] [place] [address]- [employer] (1) Medications What How Much When Instructions [...] if you have a seizure. ??? Take wgcd-lpb-ccnijfq and prescription medicines only as told by [...] right away. Call your local emergency services (717 in the [place] Do not drive yourself to the hospital. If you ever feel like you may hurt yourself or others, or have thoughts about taking your own life, get help right away. Go to your nearest emergency department or: ??? Call your local emergency services (942 in the [place] ??? Call a suicide crisis helpline, such as the National Suicide Prevention Lifeline at . This is open 24 hours a day in the [place] ??? Text the Crisis Text Line at 136126 (in the [place].). 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 2021 [employer] Inc. Emergency Awareness and Preventative Care STROKE [...] Assistance with quitting is available by contacting 5-098-HUYUNOW. This is a free resource providing counseling, support, and referral. Or you may contact your personal physician. [employer] Suicide Prevention Lifeline: The National Suicide Prevention [...] was given the opportunity to ask questions. Patient/Clinical Phlebotomist Name: Patient/Clinical Phlebotomist Signature: Relationship to Patient: Clinician/Hospital Clinical Phlebotomist Signature: Date: Electronically signed by Simon, [facility] Conversion Hospitalist Medical Director Tanya at 01/22/2023 11:08 AM CDT documented in this encounter Plan of Treatment Not on file documented as of this encounter Visit Diagnoses Not on filedocumented in this encounter
--- OUTSIDE RECORDS SUMMARY | 2025-09-04 10:05 | XMS_ITS | Encounter Summary ---
Author Organization [employer] ([place], [place], [place], [place], [place]) Address [address] [place] [address] Care Team Providers Care Clothing Cutter Name Role Phone Unavailable Primary Care Provider Unavailabl e Encounter Details Date Type Department Care Team (Late st Contact Info) Description 05/25/2022 Transcribed Document [facility] [place] Family Medicine [address] [place] [address] ProviderJosé MD [address] [place], [place] 458181 Social History Tobacco Use Types Packs/Day Years [...] Neurodiagnostic Event Details : Procedure completed Gustavo Odgen, Neurodiagnostic Tech - 05/25/2022 13:47 EDT documented in this encounter Plan of Treatment Not on file documented as of this encounter Visit Diagnoses Not on filedocumented in this encounter
--- OUTSIDE RECORDS SUMMARY | 2025-09-04 10:05 | XMS_ITS | Encounter Summary ---
Author Organization [employer] ([place], [place], [place], [place], [place]) Address [address] [place] [address] Care Team Providers Care Metal Painter Name Role Phone Unavailable Primary Care Provider Unavailabl e Encounter Details Date Type Department Care Team (Late st Contact Info) Description 05/26/2022 Transcribed Document [facility] [place] Family Medicine [facility] [place] [address] ProviderJosé MD [address] [place], [place] [phone] Social History Tobacco Use Types Packs/Day Years [...] Policy Numbers : Insurance 1 Health Plan: [employer] [employer] [facility] Policy Number: [id number] Authorization Number: Insurance Primary Name : [facility] Policy Number: [id number] Authorized Service Begin Date-Primary : 05/27/2022 EDT Historical Authorization Comments-Primary : No Authorization Comments Found STERLING GALLO RN - 05/26/2022 14:41 EDT Electronically signed by Simon [facility] Conversion Linux Consultant Cerner at 01/22/2023 11:02 AM CDT documented in this encounter Plan of Treatment Not on file documented as of this encounter Visit Diagnoses Not on filedocumented in this encounter
--- OUTSIDE RECORDS SUMMARY | 2025-09-04 10:05 | XMS_ITS | Clinical Summary ---
Author Organization [employer] ([place], [place], [place], [place], [place]) Address [address] [place] [address] Care Team Providers Care Patrol Police Lieutenant Name Role Phone Unavailable Primary Care Provider [...]
--- OUTSIDE RECORDS SUMMARY | 2025-09-04 10:05 | XMS_ITS | Encounter Summary ---
Author Organization [employer] ([place], [place], [place], [place], [place]) Address [address] [place] [address] Care Team Providers Care Credit Consultant Name Role Phone Unavailable Primary Care Provider Unavailabl e Encounter Details Date Type Department Care Team (Late st Contact Info) Description 05/26/2022 Transcribed Document [facility] [place] Medicine [facility] [place] [address] ProviderJosé MD [address] [place] [address] [phone] Social History Tobacco Use Types Packs/Day Years [...] EEG-video monitoring was performed using the 32-channel [employer] monitoring system. The seizure detection computer was [...] evidence to support the diagnosis of epilepsy. /[id number] Adelso Gupta MD TAF/AQ / TAF / MODL /[id number] documented in this encounter Plan of Treatment Not on file documented as of this encounter Visit Diagnoses Not on filedocumented in this encounter
--- OUTSIDE RECORDS SUMMARY | 2025-09-04 10:05 | XMS_ITS | Encounter Summary ---
Author Organization [employer] ([place], [place], [place], [place], [place]) Address [address] [place] [address] Care Team Providers Care Coordinator Of Rehabilitation Services Name Role Phone Unavailable Primary Care Provider Unavailabl e Encounter Details Date Type Department Care Team (Late st Contact Info) Description 05/25/2022 Transcribed Document [facility] [place] [facility] [place] [address] ProviderJosé MD [facility] [place] [phone] Social History Tobacco Use Types Packs/Day Years [...] Admit : No Emergency Contact #1 : yAsha Osman Emergency Contact #1 Emergency Contact #1 Relationship : Mother Emergency Contact #2 : N/A Emergency Contact #2 Phone Number : . Emergency Contact #2 Relationship : . Primary Language : Icelandic Communication Barrier : None Marketing Underwriter Needed : No Jaci Chen RN - [...] Scale Risk Level : 0-24 Low Risk Lynn Fall Interventions : Adequate lighting, Assistive devices [...] Vapes Smokeless Tobacco Status : Never Jaci hCen RN - 05/25/2022 10:11 EDT Social History (As Of: 05/25/2022 10:14:15 EDT) Height and Weight, Clinical Dosing Height Source : Stated Height Entry Format : [place] Height, Feet : 5 ft(Converted to: 152 cm, 60 Inch) Height, Inches : 6 Inch(Converted to: 0 ft 6 Inch, 15.24 cm) Clinical Height : 167.64 cm Weight Source : Bed scale Weight Entry Format : [place] Clinical Dosing Weight : 70.45 kg Weight, Pounds : 155 lb Body Surface Area (BSA) : 1.8 m2 Body Mass Index : 25.1 kg/m2 (HI) [place] Body Weight : 59 kg Jaci Chen RN - 05/25/2022 10:11 EDT Infectious Disease History Does patient have symptoms of COVID-19? : No Tested for COVID19 in the past 14 days : No, Patient stated Does the Patient state known exposure to a COVID-19 positive case in the last 14 days? : No Patient Vaccinated for COVID-19 : Fully vaccinated Jaci Chne RN - 05/25/2022 10:11 EDT Infectious Disease [...] Jaci Chen RN - 05/25/2022 10:11 EDT [place] Suicide Severity Rating Scale (C-SSRS) CSSRS Past [...]
--- OUTSIDE RECORDS SUMMARY | 2025-09-04 10:05 | XMS_ITS | Encounter Summary ---
Author Organization [employer] ([place], [place], [place], [place], [place]) Address [address] [place] [address] Care Team Providers Care Designer Name Role Phone Unavailable Primary Care Provider Unavailabl e Encounter Details Date Type Department Care Team (Late st Contact Info) Description 05/26/2022 Transcribed Document [facility] [place] Family Medicine [address] [place] [address] ProviderJosé MD [address] [place], [place] [id number] Social History Tobacco Use Types Packs/Day Years [...]
--- OUTSIDE RECORDS SUMMARY | 2025-09-04 10:05 | XMS_ITS | Encounter Summary ---
Author Organization [employer] ([place], [place], [place], [place], [place]) Address [address] [place] [address] Care Team Providers Care Bonus Clerk Name Role Phone Unavailable Primary Care Provider Unavailabl e Encounter Details Date Type Department Care Team (Late st Contact Info) Description 05/26/[address] [facility] [place] [facility] [place] [address] ProviderJosé MD [address] [place] [address] [phone] Social History Tobacco Use Types Packs/Day Years [...] Conversion Note - José ProviderMD - 05/26/2022 12:19 PM CDT Nursing [...]
--- OUTSIDE RECORDS SUMMARY | 2025-09-04 10:05 | XMS_ITS | Encounter Summary ---
Author Organization [employer] ([place], [place], [place], [place], [place]) Address [address] [place] [address] Care Team Providers Care Paster Operator Name Role Phone Unavailable Primary Care Provider Unavailabl e Encounter Details Date Type Department Care Team (Late st Contact Info) Description 05/26/2022 Transcribed Document [facility] [place] Family [place] [address] ProviderJosé MD [address] [place] [address] Social History Tobacco Use Types Packs/Day [...] José ProviderMD - 05/26/2022 10:48 AM CDT [facility] DEN[address]SE [address] [address] JAYMIE TORRESGRACIE :1995 Visit [...] up appointment Where: [address] [place] [address]- [employer] (1) Medications What How Much When Instructions [...] if you have a seizure. ??? Take wypz-ouo-lcbkaix and prescription medicines only as told by [...] right away. Call your local emergency services (387 in the [place].S[place] Do not drive yourself to the hospital. If you ever feel like you may hurt yourself or others, or have thoughts about taking your own life, get help right away. Go to your nearest emergency department or: ??? Call your local emergency services (584 in the [place] ??? Call a suicide crisis helpline, such as the National Suicide Prevention Lifeline at . This is open 24 hours a day in the [place]. ??? Text the Crisis Text Line at 246730 (in the [place].S.). 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 2021 [employer] Inc. Emergency Awareness and Preventative Care STROKE [...] Assistance with quitting is available by contacting 8-056-JGGJNOW. This is a free resource providing counseling, support, and referral. Or you may contact your personal physician. [employer] Suicide Prevention Lifeline: The National Suicide Prevention [...] was given the opportunity to ask questions. Patient/Jet Blade Polisher Name: Patient/Jet Blade Polisher Signature: Relationship to Patient: Clinician/Hospital Jet Blade Polisher Signature: Date: Electronically signed by Simon, [facility] Conversion Bindery Machine Setter/Set Up Operator Tanya at 01/22/2023 10:59 AM CDT documented in this encounter Plan of Treatment Not on file documented as of this encounter Visit Diagnoses Not on filedocumented in this encounter
--- OUTSIDE RECORDS SUMMARY | 2025-09-04 10:05 | XMS_ITS | Encounter Summary ---
Author Organization [employer] ([place], [place], [place], [place], [place]) Address [address] [place] [address] Care Team Providers Care Park Guard Name Role Phone Unavailable Primary Care Provider Unavailabl e Encounter Details Date Type Department Care Team (Late st Contact Info) Description 05/26/2022 Transcribed Document [facility] [place] [address] ProviderJosé MD [address] [place] [address] Social History Tobacco Use Types Packs/Day [...] José ProviderMD - 05/26/2022 10:56 AM CDT [facility] DEN[place]SE [address] [address] JAYMIE TORRES JARETT :1995 Visit Time:05/25/2022 Your Visit Summary Your [...] up appointment Where: [address] [place] [address]- [employer] (1) Medications What How Much When Instructions [...] if you have a seizure. ??? Take ysdo-ibt-qhifoei and prescription medicines only as told by [...] right away. Call your local emergency services (090 in the [place] Do not drive yourself to the hospital. If you ever feel like you may hurt yourself or others, or have thoughts about taking your own life, get help right away. Go to your nearest emergency department or: ??? Call your local emergency services (708 in the [place] ??? Call a suicide crisis helpline, such as the National Suicide Prevention Lifeline at . This is open 24 hours a day in the [place]. ??? Text the Crisis Text Line at 160692 (in the [place].S.). 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 2021 [employer]. Emergency Awareness and Preventative Care STROKE [...] Assistance with quitting is available by contacting 7-665-SSESNOW. This is a free resource providing counseling, support, and referral. Or you may contact your personal physician. [employer] Suicide Prevention Lifeline: The National Suicide Prevention [...] was given the opportunity to ask questions. Patient/High Value Associate Name: Patient/High Value Associate Signature: Relationship to Patient: Clinician/Hospital High Value Associate Signature: Date: Electronically signed by Simon, [facility] Conversion Radiology Equipment Servicer Tanya at 01/22/2023 11:12 AM CDT documented in this encounter Plan of Treatment Not on file documented as of this encounter Visit Diagnoses Not on filedocumented in this encounter
--- OUTSIDE RECORDS SUMMARY | 2025-09-04 10:05 | XMS_ITS | Encounter Summary ---
Author Organization [employer] ([place], [place], [place], [place], [place]) Address [address] [place] [address] Care Team Providers Care Traveling Clerk Name Role Phone Unavailable Primary Care Provider Unavailabl e Encounter Details Date Type Department Care Team (Late st Contact Info) Description 05/26/2022 Transcribed Document [facility] [place] [address] ProviderJosé MD [address] [place] [phone] Social History Tobacco Use Types Packs/Day Years [...] up with Dr. Nix within 3 months. /[id number] MD MARIUSZ Weston/WILFRIDO / MARIUSZ / MODL /[id number] documented in this encounter Plan of Treatment Not on file documented as of this encounter Visit Diagnoses Not on filedocumented in this encounter
--- OUTSIDE RECORDS SUMMARY | 2025-09-04 10:05 | XMS_ITS | Clinical Summary ---
Author Organization [facility] Address [address] [place] [address] Phone Care Team Providers Care Senior Speech Pathologist Name Role Phone Unavailable Primary Care Provider [...] - Td or Tdap) 03/14/2016, 12/06/1998, 03/03/1996 HPV/Pap Cotest 2024 COVID-19 Vaccine (1 - 2024-2 6 season) 2025 Influenza Vaccine (#1) 2025 Meningococcal B Vaccine Aged Out No l onger eligible based on patient's age to complete this topic Pneumococcal Vaccine 0-49 Aged Out No longer eligible based on patient's age to complete this topic Insurance [facility] [address] [facility] [place]
--- OUTSIDE RECORDS SUMMARY | 2025-09-04 10:05 | XMS_ITS | Encounter Summary ---
Author Organization [employer] ([place], [place], [place], [place], [place]) Address [address] [place] [address] Care Team Providers Care Escrow Closer Name Role Phone Unavailable Primary Care Provider Unavailabl e Encounter Details Date Type Department Care Team (Late st Contact Info) Description 05/26/2022 Transcribed Document [facility] [place] Family Medicine [facility] [place] [address] ProviderJosé MD [address] [place] [address] Social History Tobacco Use Types Packs/Day [...] José ProviderMD - 05/26/2022 10:52 AM CDT [facility] DENISSE Pantoja [address] JAYMIE TORRESGRACIE :1995 [...] appointment Where: [address] [place] [address]- [employer] (1) Medications What How Much When Instructions [...] if you have a seizure. ??? Take mfws-mai-bxxcyzn and prescription medicines only as told by [...] right away. Call your local emergency services (028 in the [place].S[place] Do not drive yourself to the hospital. If you ever feel like you may hurt yourself or others, or have thoughts about taking your own life, get help right away. Go to your nearest emergency department or: ??? Call your local emergency services (537 in the [place] ??? Call a suicide crisis helpline, such as the National Suicide Prevention Lifeline at . This is open 24 hours a day in the [place]. ??? Text the Crisis Text Line at 195164 (in the [place].S.). 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 2021 [employer] Inc. Emergency Awareness and Preventative Care STROKE [...] Assistance with quitting is available by contacting 3-738-AMRYNOW. This is a free resource providing counseling, support, and referral. Or you may contact your personal physician. [employer] Suicide Prevention Lifeline: The National Suicide Prevention [...] was given the opportunity to ask questions. Patient/Abattoir Manager Name: Patient/Abattoir Manager Signature: Relationship to Patient: Clinician/Hospital Abattoir Manager Signature: Date: Electronically signed by Simon, [facility] Conversion Newborn Hearing Screener Tanya at 01/22/2023 11:12 AM CDT documented in this encounter Plan of Treatment Not on file documented as of this encounter Visit Diagnoses Not on filedocumented in this encounter
--- OUTSIDE RECORDS SUMMARY | 2025-09-04 10:05 | XMS_ITS | Encounter Summary ---
Author Organization [employer] ([place], [place], [place], [place], [place]) Address [address] [place] [address] Care Team Providers Care Engraver Set Up Operator Name Role Phone Unavailable Primary Care Provider Unavailabl e Encounter Details Date Type Department Care Team (Late st Contact Info) Description 05/26/[address] [facility] [place] [address] ProviderJosé MD [address] [place] [address] Social History Tobacco Use Types Packs/Day [...] José ProviderMD - 05/26/2022 10:56 AM CDT [facility] DENISSE Pantoja [address] JAYMIE TORRES JARETT :1995 [...] up appointment Where: [address] [place] [address]- [employer] (1) Medications What How Much When Instructions [...] if you have a seizure. ??? Take lgmq-loo-ewcdatr and prescription medicines only as told by [...] right away. Call your local emergency services (068 in the [place] Do not drive yourself to the hospital. If you ever feel like you may hurt yourself or others, or have thoughts about taking your own life, get help right away. Go to your nearest emergency department or: ??? Call your local emergency services (212 in the [place] ??? Call a suicide crisis helpline, such as the National Suicide Prevention Lifeline at . This is open 24 hours a day in the [place].S. ??? Text the Crisis Text Line at 305601 (in the [place].S.). 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 2021 [employer]. Emergency Awareness and Preventative Care STROKE [...] Assistance with quitting is available by contacting 9-376-BUUPNOW. This is a free resource providing counseling, support, and referral. Or you may contact your personal physician. [employer] Suicide Prevention Lifeline: The National Suicide Prevention [...] was given the opportunity to ask questions. Patient/Computer Lab Aide Name: Patient/Computer Lab Aide Signature: Relationship to Patient: Clinician/Hospital Computer Lab Aide Signature: Date: Electronically signed by Simon, [facility] Conversion Course Developer Tanya at 01/22/2023 10:45 AM CDT documented in this encounter Plan of Treatment Not on file documented as of this encounter Visit Diagnoses Not on filedocumented in this encounter
--- OUTSIDE RECORDS SUMMARY | 2025-09-04 10:05 | XMS_ITS | Encounter Summary ---
Author Organization [employer] ([place], [place], [place], [place], [place]) Address [address] [place] [address] Care Team Providers Care General Merchandise Manager Name Role Phone Unavailable Primary Care Provider Unavailabl e Encounter Details Date Type Department Care Team (Late st Contact Info) Description 05/26/2022 Transcribed Document [facility] [place] [facility] [place] [address] ProviderJosé MD [address] [place], [place] [phone] Social History Tobacco Use Types Packs/Day Years [...] if you have a seizure. ??? Take etme-ltw-axatspq and prescription medicines only as told by [...] right away. Call your local emergency services (609 in the [place] Do not drive yourself to the hospital. If you ever feel like you may hurt yourself or others, or have thoughts about taking your own life, get help right away. Go to your nearest emergency department or: ??? Call your local emergency services (440 in the [place] ??? Call a suicide crisis helpline, such as the National Suicide Prevention Lifeline at . This is open 24 hours a day in the [place] ??? Text the Crisis Text Line at 242319 (in the [place].S.). 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 Document Revised: 03/10/2021 Document Reviewed: 03/10/2021 [employer] Patient Education ? 2021 [employer] documented in this encounter Plan of Treatment Not on file documented as of this encounter Visit Diagnoses Not on filedocumented in this encounter
--- OUTSIDE RECORDS SUMMARY | 2025-09-04 10:05 | XMS_ITS | Referral Summary ---
Author Organization [employer] ([place], [place], [place], [place], [place]) Address [address] [place] [address] Care Team Providers Care Tilting Saw Operator Name Role Phone Unavailable Primary Care [...]
--- OUTSIDE RECORDS SUMMARY | 2025-09-04 10:05 | XMS_ITS | Encounter Summary ---
Author Organization [employer] ([place], [place], [place], [place], [place]) Address [address] [place] [address] Care Team Providers Care Environmental Advisor Name Role Phone Unavailable Primary Care Provider Unavailabl e Encounter Details Date Type Department Care Team (Late st Contact Info) Description 05/25/2022 Transcribed Document [facility] [place] [facility] [place] [address] ProviderJosé MD [address] [place], [place] [address] Social History Tobacco Use Types Packs/Day Years [...] Performed On: 05/25/2022 11:07 EDT by Jaci Chen RN Education Topics: VTE/DVT Education Topics: VTE/DVT [...] understanding VTE/DVT, Other : Verbalizes understanding Jaci Chen RN - 05/25/2022 11:09 EDT Electronically signed by Simon [facility] Conversion Transmission Engineer Cerner at 01/22/2023 10:49 AM CDT documented in this encounter Plan of Treatment Not on file documented as of this encounter Visit Diagnoses Not on filedocumented in this encounter
--- NOTE | 2025-09-04 10:08 | XR_ITS ---
PROCEDURE INFORMATION: Exam: XR Lumbosacral Spine Exam date and time: 09/04/2025 10:11 AM Age: 29 years old Clinical indication: Low back pain TECHNIQUE: Imaging protocol: Radiologic exam of the lumbosacral spine. Views: 2 or 3 views. COMPARISON: No relevant prior studies available. FINDINGS: Bones/joints: No acute fracture. No bone lesions. Normal alignment. Mild disc space narrowing at L5-S1. Mild S shaped scoliosis of the thoracolumbar spine. Soft tissues: No paraspinal soft tissue masses. IMPRESSION: 1. Mild disc space narrowing at L5-S1. 2. No other acute findings in the lumbosacral spine.
== END 2025-09-04 23:59 | disposition home or self-care (01) ==
LOC: RAD 10:03
PROVIDERS: Visit Provider Student in an Organized Health Care Education/Training Program
DX: M53.87 Other specified dorsopathies, lumbosacral region (principal)
CPT/HCPCS: 72100